=== PATIENT | male | born 1950 | race Caucasian/White ===

== ENCOUNTER 2019-04-18 07:36 | Inpatient (IN) | payer MEDICARE ==
[~2019-04-18 07:36] MED LIST: LIDOCAINE 1% 20 ML VIAL (10MG/ML) FOR IV START INTRADERMA PRN
[2019-04-18] MEDS: LACTATED RINGERS 1,000 ML IV SCH (08:09)
[2019-04-18 08:14] LABS: Glucose,Whole Blood 97 mg/dL (75-99)
[2019-04-18] MEDS ORDERED: METOPROLOL TARTRATE 5 MG/5 ML VIAL IVP ONE ×2 (08:14→08:28)
[2019-04-18] MEDS ORDERED: LABETALOL 5 MG/ML VIAL MDV IVP ONE (08:44)
[2019-04-18 09:52] LABS: HCT 23.4 % (39.0-53.0); HGB 7.2 gm/dL (13.0-17.5); Hypochromasia Marked; MCV 87.2 fL (80.0-100.0); Mean Platelet Volume 6.2; Platelet Count 284 k/uL (150-450); RBC 2.68 m/uL (4.30-5.90); RDW 15.3 % (11.5-15.5); WBC 4.4 k/uL (3.8-10.6)
[2019-04-18] MEDS: IPRATROPIUM-ALBUTEROL 3 ML NEB INHALATION SCH ×3 (10:07→19:43)
[2019-04-18] MEDS ORDERED: DILTIAZEM 5 MG/ML 5 ML VIAL IVP STA (10:24)
[2019-04-18] MEDS ORDERED: DILTIAZEM DRIP BOLUS FROM BAG 1 MG SOLN IV ONE (10:24)
[2019-04-18] MEDS: DILTIAZEM 125 MG in SODIUM CHLORIDE 0.9% 100 ML IV SCH ×2 (10:55→20:21)
--- NOTE | 2019-04-18 11:02 | P.CRDCN ---
History of Present Illness History of present illness: This is a pleasant 68 showed male past medical history significant for paroxysmal atrial fibrillation on long-term anticoagulation, hypertension, dyslipidemia, diabetes mellitus and former nicotine dependence. He was brought into the hospital today for an elective EGD with Dr. Arnold. However upon arrival telemetry tracings revealed a rapid heart rate. EKG was obtained revea ling atrial flutter with a 2:1 conduction. He is seen and examined sitting up in postoperative recovery. He states he has not taken his beta blockers for approximately one week on advice of his primary care physician prior to his EGD. Coumadin was stopped 2 days ago. He states for the previous 2-3 days he has noticed dark stools. He does have a history of chronic anemia however does not typically have any stool abnormalities. He has never received a blood transfusion in the past. He denies prior history of coronary artery disease. He states he has seen Dr. Finney in the past however does not follow regularly. He has never had a heart catheterization or angioplasty. He describes feeling his heart racing. He denies chest discomfort, shortness of breath, dizziness, nausea, vomiting or diaphoresis. CBC obtained preoperatively revealed a hemoglobin of 7.2, WBC of 4.4 and platelets of 284. Blood pressure 126/80 with a heart rate of 134. At the time of my exam: CONSTITUTIONAL: Denies fever. Denies chills. EYES: Denies blurred vision. Denies vision changes. Denies eye pain. EARS, NOSE, MOUTH & THROAT: Denies headache. Denies sore throat. Denies ear pain. CARDIOVASCULAR: Denies chest pain. Denies shortness of breath. Denies orthopnea. Denies PND. Complains of palpitations. RESPIRATORY: Denies cough. GASTROINTESTINAL: Denies abdominal pain. Denies diarrhea. Denies constipation. Denies nausea. Denies vomiting. MUSCULOSKELETAL: Denies myalgias. INTEGUMENTARY: Denies pruitis. Denies rash. NEUROLOGIC: Denies numbness. Denies tingling. Denies weakness. PSYCHIATRIC: Denies anxiety. Denies depression. ENDOCRINE: Denies fatigue. Denies weight change. Denies polydipsia. Denies polyurina. GENITOURINARY: Denies burning, hematuria or urgency with micturation. HEMATOLOGIC: Denies history of anemia. Denies bleeding. GENERAL: This is a 68-year-old male in no apparent distress at the time of my examination. HEENT: Head is atraumatic, normocephalic. Pupils are equal, round. Sclerae anicteric. Conjunctivae are clear. Mucous membranes of the mouth are moist. Neck is supple. There is no jugular venous distention. No carotid bruit is heard. Generalized pallor. LUNGS: Clear to auscultation no wheezes, rales or rhonchi. No chest wall tenderness is noted on palpation or with deep breathing. HEART: Regular rate and rhythm without murmurs, rubs or gallops. S1 and S2 hear d. ABDOMEN: Soft, nontender. Bowel sounds are heard. No organomegaly noted. EXTREMITIES: No evidence of peripheral edema and no calf tenderness noted. VASCULAR: Radial and dorsalis pedis pulses palpated, no evidence of clubbing. NEUROLOGIC: Patient is awake, alert and oriented x3. ASSESSMENT Typical atrial flutter with 2:1 conduction Possible GI bleed with 2 day history of black stools and hemoglobin of 7.2 Chronic anemia per the patient exact details unavailable. He states he has never had to receive a blood transfusion. History of paroxysmal atrial fibrillation on long-term anticoagulation Hypertension Dyslipidemia Diabetes mellitus Former nicotine dependence PLAN Initiate on Cardizem infusion and bolus. Baseline hemoglobin is 7.2 with no old for comparison. The patient does descr chito some black stools over the previous 3 days. We'll hold on heparin infusion or resumption of Coumadin until evaluation by GI. Obtain 2-D echocardiogram and Doppler study to assess cardiac structure and function. Request records from his primary care physician for further clarification on history of anemia as well as cardiac history. Further recommendations to follow based upon clinical course. Thank you kindly for this consultation. Nurse Practitioner note has been reviewed, I agree with a documented findings and plan of care. Patient was seen and examined. Past Medical History Past Medical History: Atrial Fibrillation, Diabetes Mellitus, Hyperlipidemia, Hypertension, Pulmonary Embolus (PE), Seizure Disorder Additional Past Medical History / Comment(s): pt states was told he had a seizure-unknown when. History of Any Multi-Drug Resistant Organisms: None Reported Additional Past Surgical History / Comment(s): COLONOSCOPY. BRONCHOSCOPY Past Anesthesia/Blood Transfusion Reactions: No Reported Reaction Smoking Status: Former smoker - Past Family History Brother(s) Family Medical History: Cancer Medications and Allergies Home Medications Medication Instructions Recorded Confirmed Type Ferrous Sulfate [Feosol] 325 mg PO DAILY 04/14/19 04/14/19 History Losartan [Cozaar] 50 mg PO DAILY 04/14/19 04/14/19 History Metoprolol Tartrate [Lopressor] 50 mg PO DAILY 04/14/19 04/14/19 History Montelukast [Singulair] 10 mg PO DAILY 04/14/19 04/14/19 History Simvastatin [Zocor] 20 mg PO HS 04/14/19 04/14/19 History Vardenafil HCl [Levitra] 5 mg PO BID 04/14/19 04/14/19 History Warfarin [Coumadin] 5 mg PO DAILY 04/14/19 04/14/19 History metFORMIN HCL [Glucophage] 850 mg PO BID 04/14/19 04/14/19 History Allergies Allergy/AdvReac Type Severity Reaction Status Date / Time No Known Allergies Allergy Verified 04/18/19 08:00 Physical Exam Vitals: Vital Signs Temp Pulse Pulse Resp BP BP Pulse Ox 04/18/19 10:10 133 H 18 04/18/19 10:00 132 H 22 119/78 99 04/18/19 09:55 133 H 18 04/18/19 09:20 131 H 107/64 125/83 04/18/19 09:00 134 H 119/81 04/18/19 08:50 132 H 122/75 04/18/19 08:35 135 H 122/79 04/18/19 08:25 137 H 16 118/81 124/79 98 04/18/19 08:04 98.3 F 140 H 16 156/78 96 Intake and Output 04/17/19 04/18/19 04/18/19 22:59 06:59 14:59 Other: Weight 86 kg Results 04/18/19 09:10 CBC 04/18/19 Range/Units 09:10 WBC 4.4 (3.8-10.6) k/uL RBC 2.68 L (4.30-5.90) m/uL Hgb 7.2 L (13.0-17.5) gm/dL Hct 23.4 L (39.0-53.0) % Plt Count 284 (150-450) k/uL Current Medications Generic Name Dose Route Start Last Admin Trade Name Freq PRN Reason Stop Dose Admin Albuterol/Ipratropium 3 ml 04/18/19 12:00 04/18/19 10:07 Duoneb 0.5 Mg-3 Mg/3 Ml Soln INHALATION 3 ml RT-Q4H TAN Administration Lactated Ringer's 1,000 mls @ 20 mls/hr 04/18/19 05:33 04/18/19 08:09 Lactated Ringers IV 0 mls .Q24H TAN Administration Diltiazem HCl 125 mg/ Sodium 125 mls @ 10 mls/hr 04/18/19 10:30 Chloride IV .[id number] ATN 10 MG/HR Lidocaine HCl 0.1 ml 04/18/19 05:33 04/18/19 08:09 .Xylocaine 1% Inj (10mg/Ml) For Iv Start INTRADERMA 0.1 ml PER PROTOCOL PRN Administration IV Start Losartan Potassium 50 mg 04/19/19 09:00 Cozaar PO DAILY TAN Metoprolol Tartrate 50 mg 04/19/19 09:00 Lopressor PO DAILY TAN Non-Formulary Medication 20 mg 04/18/19 21:00 Simvastatin PO HS TAN Intake and Output 04/17/19 04/18/19 04/18/19 22:59 06:59 14:59 Other: Weight 86 kg Patient Weight 04/19/19 06:59 Weight 86 kg 04/18/19 09:10
[2019-04-18 13:32] LABS: Glucose,Whole Blood 159 mg/dL (75-99)
[2019-04-18 16:19] LABS: Glucose,Whole Blood 126 mg/dL (75-99)
[2019-04-18 16:38] LABS: African American GFR (CKD) >90 (>60 ml/min/1.73 sqM); Anion Gap 6 mmol/L; Blood Urea Nitrogen 21 mg/dL (9-20); Calcium 9.1 mg/dL (8.4-10.2); Carbon Dioxide 34 mmol/L (22-30); Chloride 100 mmol/L (98-107); Glucose 109 mg/dL (74-99); Potassium 4.8 mmol/L (3.5-5.1); Sodium 140 mmol/L (137-145)
[2019-04-18 16:39] LABS: INR 1.2 (<1.2)
[2019-04-18 16:40] LABS: Prothrombin Time 12.5 sec (9.0-12.0)
--- NOTE | 2019-04-18 17:34 | ECHOF ---
Referral Reason:a flutter MEASUREMENTS -------- HEIGHT: 177.8 cm WEIGHT: 85.7 kg BP: 119/78 RVIDd: 4.2 cm (< 3.3) IVSd: 1.3 cm (0.6 - 1.1) LVIDd: 4.6 cm (3.9 - 5.3) LVPWd: 1.6 cm (0.6 - 1.1) IVSs: 2.1 cm LVIDs: 4.1 cm LVPWs: 1.7 cm LAESV Index (A-L): 78.53 ml/m Ao Diam: 2.8 cm (2.0 - 3.7) AV Cusp: 1.5 cm (1.5 - 2.6) AR PHT: 411 ms RAP: 15.00 mmHg RVSP: 49.48 mmHg FINDINGS -------- The rhythm appears to be atrial flutter with RVR. This was a technically adequate study. The left ventricular size is normal. There is moderate concentric left ventricular hypertrophy. O verall left ventricular systolic function is moderately impaired with, an EF between 35 - 40 %. Lef t ventricular fillimg pressure cannot be estimated due to Atrial flutter. . Difficult to assess lv function accurately because of tachycardia. There doesn't seem to be any focal wall motion abnormali ty. lv function probably WILL BE much better when heart rate is controlled The right ventricle is severely enlarged. LA is severely dilated >40 ml/m2 RA appears enlarged. Interatrial and interventricular septum intact. There is mild aortic regurgitation. There is no evidence of aortic stenosis. mitral regurgitation is not well evaluated due to rhythm. Moderate tricuspid regurgitation present (underestimated due to rhythm) . There is severe pulmonary hypertension. The right ventricular systolic pressure, as measured by Doppler, is 49.48mmHg. There is no pulmonic regurgitation present. The aortic root size is normal. The inferior vena cava is dilated with poor inspiratory collapse which is consistent with estimated r ight atrial pressure of 20 mmHg. There is no pericardial effusion. CONCLUSIONS -------- 1. The rhythm appears to be atrial flutter with RVR. 2. This was a technically adequate study. 3. The left ventricular size is normal. 4. There is moderate concentric left ventricular hypertrophy. 5. Left ventricular fillimg pressure cannot be estimated due to Atrial flutter. 6. . Difficult to assess lv function accurately because of tachycardia. There doesn't seem to be an y focal wall motion abnormality. lv function probably WILL BE much better when heart rate is control led 7. The right ventricle is severely enlarged. 8. LA is severely dilated >40 ml/m2 9. RA appears enlarged. 10. Interatrial and interventricular septum intact. 11. There is mild aortic regurgitation. 12. There is no evidence of aortic stenosis. 13. mitral regurgitation is not well evaluated due to rhythm. 14. Moderate tricuspid regurgitation present. 15. There is severe pulmonary hypertension. 16. The right ventricular systolic pressure, as measured by Doppler, is 49.48mmHg. 17. There is no pulmonic regurgitation present. 18. The aortic root size is normal. 19. The inferior vena cava is dilated with poor inspiratory collapse which is consistent with estimat ed right atrial pressure of 20 mmHg. 20. There is no pericardial effusion. SENIOR PLANNING ANALYST: Prudence Fischer RDCS
[2019-04-18 20:18] LABS: Glucose,Whole Blood 123 mg/dL (75-99)
[2019-04-18] MEDS: VARDENAFIL HCL PO SCH (20:19)
[2019-04-18] MEDS: metFORMIN 850 MG TAB PO SCH (20:20)
[2019-04-18] MEDS: ATORVASTATIN 10 MG TAB PO SCH (20:20)
[2019-04-19] MEDS: IPRATROPIUM-ALBUTEROL 3 ML NEB INHALATION SCH ×6 (00:40→19:32)
[2019-04-19] MEDS: LACTATED RINGERS 1,000 ML IV SCH (05:47)
[2019-04-19 06:25] LABS: Glucose,Whole Blood 117 mg/dL (75-99)
[2019-04-19] MEDS: metFORMIN 850 MG TAB PO SCH ×2 (08:52→19:58)
[2019-04-19] MEDS: LOSARTAN 50 MG TAB PO SCH (08:52)
[2019-04-19] MEDS: FERROUS SULFATE 325 MG TAB PO SCH (08:52)
[2019-04-19] MEDS: MONTELUKAST 10 MG TAB PO SCH (08:52)
[2019-04-19] MEDS: VARDENAFIL HCL PO SCH ×2 (08:55→19:59)
[2019-04-19] MEDS ORDERED: METOPROLOL TARTRATE 50 MG TAB PO SCH (09:00)
[2019-04-19] MEDS: Acetaminophen-Codeine 300-30mg TAB PO PRN ×2 (10:10→16:00)
[2019-04-19] MEDS: DILTIAZEM 125 MG in SODIUM CHLORIDE 0.9% 100 ML IV SCH (10:12)
[2019-04-19 11:36] LABS: Glucose,Whole Blood 123 mg/dL (75-99)
[2019-04-19 12:00] LABS: Basophils % (A) 1 %; Eosinophils % (A) 1 %; HGB 7.5 gm/dL (13.0-17.5); Hypochromasia Marked; Lymphocytes # (A) 0.9 k/uL (1.0-4.8); Lymphocytes % (A) 26 %; MCH 26.9 pg (25.0-35.0); MCHC 30.1 g/dL (31.0-37.0); MCV 89.3 fL (80.0-100.0); Mean Platelet Volume 6.2; Monocytes # (A) 0.3 k/uL (0-1.0); Monocytes % (A) 7 %; Neutrophils # (A) 2.2 k/uL (1.3-7.7); Neutrophils % (A) 62 %; Platelet Count 300 k/uL (150-450); RDW 15.5 % (11.5-15.5); WBC 3.6 k/uL (3.8-10.6)
[2019-04-19 12:19] LABS: African American GFR (CKD) >90 (>60 ml/min/1.73 sqM); Anion Gap 4 mmol/L; Blood Urea Nitrogen 18 mg/dL (9-20); Carbon Dioxide 30 mmol/L (22-30); Chloride 105 mmol/L (98-107); Glucose 96 mg/dL (74-99); Potassium 5.7 mmol/L (3.5-5.1); Sodium 139 mmol/L (137-145)
--- NOTE | 2019-04-19 12:35 | P.PN ---
Subjective Progress Note Date: 04/19/19 This is a pleasant 68 showed male past medical history significant for paroxysmal atrial fibrillation on long-term anticoagulation, hypertension, dyslipidemia, diabetes mellitus and former nicotine dependence. He was brought into the hospital today for an elective EGD with Dr. Arnold. However upon arrival telemetry tracings revealed a rapid heart rate. EKG was obtained revealing atrial flutter with a 2:1 conduction. Patient had an echocardiogram with Doppler study performed which revealed an ejection fraction of 35-40%. We will discontinue the IV Cardizem and increase his dose of beta maynor to 50 mg by mouth twice a day. He scheduled for EGD and colonoscopy, currently not on anticoagulation. Objective - Vital Signs Vital signs: Vital Signs Temp 97.6 F 04/19/19 11:43 Pulse 70 04/19/19 11:43 Resp 18 04/19/19 11:43 BP 105/64 04/19/19 11:43 Pulse Ox 98 04/19/19 11:43 Intake & Output 04/18/19 04/19/19 04/19/19 18:59 06:59 18:59 Intake Total 222 450 125 Output Total 950 2 Balance -728 448 125 Weight 86 kg 84.2 kg Intake: Intake, IV Titration 90 125 Amount Diltiazem 125 mg In 90 125 Sodium Chloride 0.9% 100 ml @ 10 MG/HR 10 mls/hr IV .[id number] COUNT INCLUDES THE [facility] Rx#: [id number] Oral 222 360 Output: Urine 950 Stool 2 Other: Voiding Method Toilet Toilet Toilet # Voids 3 - Exam HEENT: Head is atraumatic, normocephalic. Pupils are equal, round. Sclerae anict bibiana. Conjunctivae are clear. Mucous membranes of the mouth are moist. Neck is supple. There is no jugular venous distention. No carotid bruit is heard. Generalized pallor. LUNGS: Clear to auscultation no wheezes, rales or rhonchi. No chest wall tenderness is noted on palpation or with deep breathing. HEART: Regular rate and rhythm without murmurs, rubs or gallops. S1 and S2 heard. ABDOMEN: Soft, nontender. Bowel sounds are heard. No organomegaly noted. EXTREMITIES: No evidence of peripheral edema and no calf tenderness noted. VASCULAR: Radial and dorsalis pedis pulses palpated, no evidence of clubbing. NEUROLOGIC: Patient is awake, alert and oriented x3. - Labs CBC & Chem 7: 04/19/19 11:13 04/19/19 11:13 Labs: Abnormal Lab Results - Last 24 Hours (Table) 04/18/19 04/18/19 04/18/19 Range/Units 13:31 16:14 16:14 WBC (3.8-10.6) k/uL RBC (4.30-5.90) m/uL Hgb (13.0-17.5) gm/dL Hct (39.0-53.0) % MCHC (31.0-37.0) g/dL Lymphocytes # (1.0-4.8) k/uL PT 12.5 H (9.0-12.0) sec INR 1.2 H (<1.2) Potassium (3.5-5.1) mmol/L Carbon Dioxide 34 H (22-30) mmol/L BUN 21 H (9-20) mg/dL Glucose 109 H (74-99) mg/dL POC Glucose (mg/dL) 159 H (75-99) mg/dL 04/18/19 04/18/19 04/19/19 Range/Units 16:18 20:16 06:24 WBC (3.8-10.6) k/uL RBC (4.30-5.90) m/uL Hgb (13.0-17.5) gm/dL Hct (39.0-53.0) % MCHC (31.0-37.0) g/dL Lymphocytes # (1.0-4.8) k/uL PT (9.0-12.0) sec INR (<1.2) Potassium (3.5-5.1) mmol/L Carbon Dioxide (22-30) mmol/L BUN (9-20) mg/dL Glucose (74-99) mg/dL POC Glucose (mg/dL) 126 H 123 H 117 H (75-99) mg/dL 04/19/19 04/19/19 04/19/19 Range/Units 11:13 11:13 11:34 WBC 3.6 L (3.8-10.6) k/uL RBC 2.80 L (4.30-5.90) m/uL Hgb 7.5 L (13.0-17.5) gm/dL Hct 25.0 L (39.0-53.0) % MCHC 30.1 L (31.0-37.0) g/dL Lymphocytes # 0.9 L (1.0-4.8) k/uL PT (9.0-12.0) sec INR (<1.2) Potassium 5.7 H (3.5-5.1) mmol/L Carbon Dioxide (22-30) mmol/L BUN (9-20) mg/dL Glucose (74-99) mg/dL POC Glucose (mg/dL) 123 H (75-99) mg/dL Assessment and Plan Plan: ASSESSMENT and plan #1 Typical atrial flutter with 2:1 conduction #2 Possible GI bleed with 2 day history of black stools and hemoglobin of 7.5 #3 Chronic anemia per the patient exact details unavailable. He states he has never had to receive a blood transfusion. #4 History of paroxysmal atrial fibrillation on long-term anticoagulation #5 Hypertension #6 Dyslipidemia #7 Diabetes mellitus #8 Former nicotine dependence Plan Echocardiogram with Doppler study reveals an ejection fraction of 35-40%. We will discontinue the IV Cardizem drip and increase beta maynor to 50 mg by mouth twice a day. Patient continues to not be on anticoagulation, but will require anticoagulation for stroke prevention. We will await the results of the EGD and colonoscopy and advice from GI service. DNP note has been reviewed, I agree with a documented findings and plan of care. Patient was seen and examined.
[2019-04-19] MEDS ORDERED: BISACODYL 5 MG TABLET.DR PO STA (16:33)
[2019-04-19] MEDS ORDERED: PEG 3350-NA SULF,BICARB,CL/KCL 4,000 ML BOTTLE PO ONE (16:34)
[2019-04-19 16:51] LABS: Glucose,Whole Blood 110 mg/dL (75-99)
--- NOTE | 2019-04-19 19:25 | P.CONS ---
History of Present Illness - Reason for Consult Consult date: 04/19/19 Anemia Requesting physician: Shon Flores - Chief Complaint Atrial fibrillation - History of Present Illness 68-year-old male with a medical history significant for paroxysmal atrial fibrillation on long-term anticoagulation therapy, diabetes mellitus, hypertension, hyperlipidemia and anemia who was admitted after being found to be in atrial fibrillation/atrial flutter on presentation for outpatient endoscopic evaluation. The patient reports he has had anemia noted over the past 6 months. He has been following up with hematology service. He is on iron supplement ation in the outpatient setting. He denies any signs or symptoms of GI bleeding, but does believe that his stool have been dark. He had presented for outpatient EGD and colonoscopy for further evaluation. He does report his last colonoscopy was approximately 7 years ago at which time he believes polyps were found. He denies any other signs or symptoms of GI bleeding with no hematemesis, coffee-ground emesis, blood in the urine or other signs of GI bleeding or other bleeding. The patient denies any NSAID use and reports taking Tylenol as needed for pain. The patient was found to be tachycardic and has been admitted for further management. Heart rate improved today at 110 when seen from 134 on admission. Blood pressure remains stable. Laboratory evaluation significant for WBC 3.6, hemoglobin 7.5 from 7.2 previously, INR 1.2, and platelet count 300,000. Review of Systems REVIEW OF SYSTEMS: CONSTITUTIONAL: Denies any fevers, chills, weight change or fatigue. CARDIOVASCULAR: Denies any chest pain, high or low blood pressure, but does have a known history of proximal atrial fibrillation and did report palpitations on admission. RESPIRATORY: Denies any shortness of breath, hemoptysis or cough. GENITOURINARY: No dysuria or hematuria. MUSCULOSKELETAL: No weakness reported. SKIN: Denies any new rashes or lesions, jaundice or pallor. PSYCHIATRIC: Denies any depression or anxiety. NEUROLOGY: Denies headache, denies any new focal deficits. EARS/NOSE/THROAT: No recent hearing change, congestion, nasal discharge or sore throat. EYES: No pain in eyes, discharge or change in vision. GASTROINTESTINAL: As per HPI. Past Medical History Past Medical History: Atrial Fibrillation, Diabetes Mellitus, Hyperlipidemia, Hypertension, Pulmonary Embolus (PE), Seizure Disorder Additional Past Medical History / Comment(s): pt states was told he had a seizu re-unknown when. History of Any Multi-Drug Resistant Organisms: None Reported Additional Past Surgical History / Comment(s): COLONOSCOPY. BRONCHOSCOPY Past Anesthesia/Blood Transfusion Reactions: No Reported Reaction Past Psychological History: No Psychological Hx Reported Smoking Status: Former smoker Past Alcohol Use History: None Reported Additional Past Alcohol Use History / Comment(s): QUIT SMOKING 2014 Past Drug Use History: Marijuana Additional Drug Use History / Comment(s): USES MARIJUANA DAILY-INSTRUCTED TO REFRAIN FROM USE FOR AT LEAT 24 HOURS PRIOR TO PROCEDURE - Past Family History Brother(s) Family Medical History: Cancer Medications and Allergies Home Medications Medication Instructions Recorded Confirmed Type Ferrous Sulfate [Feosol] 325 mg PO DAILY 04/14/19 04/14/19 History Losartan [Cozaar] 50 mg PO DAILY 04/14/19 04/14/19 History Metoprolol Tartrate [Lopressor] 50 mg PO DAILY 04/14/19 04/14/19 History Montelukast [Singulair] 10 mg PO DAILY 04/14/19 04/14/19 History Simvastatin [Zocor] 20 mg PO HS 04/14/19 04/14/19 History Vardenafil HCl [Levitra] 5 mg PO BID 04/14/19 04/14/19 History Warfarin [Coumadin] 5 mg PO DAILY 04/14/19 04/14/19 History metFORMIN HCL [Glucophage] 850 mg PO BID 04/14/19 04/14/19 History Allergies Allergy/AdvReac Type Severity Reaction Status Date / Time No Known Allergies Allergy Verified 04/18/19 08:00 Physical Exam Vitals: Vital Signs Temp Pulse Pulse Resp BP Pulse Ox 04/19/19 12:44 112 H 04/19/19 12:34 104 H 04/19/19 11:43 97.6 F 70 18 105/64 98 04/19/19 08:44 116 H 04/19/19 08:32 120 H 04/19/19 08:00 98.1 F 120 H 18 132/80 98 04/19/19 04:28 116 H 04/19/19 04:19 112 H 04/19/19 03:28 111 H 16 04/19/19 03:27 97.7 F 111 H 16 106/71 98 04/19/19 00:45 116 H 04/19/19 00:34 116 H 04/19/19 00:00 98 F 110 H 18 134/76 99 04/18/19 23:49 127 H 18 04/18/19 20:00 97.8 F 120 H 18 104/63 97 04/18/19 19:56 118 H 18 04/18/19 19:43 120 H 18 04/18/19 15:33 130 H 20 04/18/19 15:25 95 04/18/19 15:23 129 H 20 04/18/19 14:00 97.6 F 127 H 16 105/61 91 L 04/18/19 13:18 123 H Intake and Output 04/18/19 04/19/19 04/19/19 22:59 06:59 14:59 Intake Total 342 330 125 Output Total 2 Balance 340 330 125 Intake: Intake, IV Titration 90 125 Amount Diltiazem 125 mg In 90 125 Sodium Chloride 0.9% 100 ml @ 10 MG/HR 10 mls/hr IV .[id number] [facility] Rx#: [id number] Oral 342 240 Output: Stool 2 Other: Voiding Method Toilet Toilet Toilet # Voids 3 3 Weight 84.2 kg On physical examination, patient appears comfortable in no apparent distress. HEAD: Normocephalic, atraumatic. EYES: No scleral icterus. No conjunctival injection. MOUTH: No lesions, tongue midline. NECK: Trachea midline, no gross abnormalities. CHEST: Clear to auscultation with no wheezing or rhonchi appreciated. HEART: Tachycardic, irregularly irregular. ABDOMEN: Soft, obese. Bowel sounds are positive. No organomegaly. No guarding or rigidity. EXTREMITIES: No pedal edema. SKIN: No rashes, no jaundice. NEUROLOGIC: Alert and oriented x3. No focal deficits. Results CBC & Chem 7: 04/19/19 11:13 04/19/19 11:13 Labs: Abnormal Lab Results - Last 24 Hours (Table) 04/18/19 04/18/19 04/18/19 Range/Units 13:31 16:14 16:14 WBC (3.8-10.6) k/uL RBC (4.30-5.90) m/uL Hgb (13.0-17.5) gm/dL Hct (39.0-53.0) % MCHC (31.0-37.0) g/dL Lymphocytes # (1.0-4.8) k/uL PT 12.5 H (9.0-12.0) sec INR 1.2 H (<1.2) Potassium (3.5-5.1) mmol/L Carbon Dioxide 34 H (22-30) mmol/L BUN 21 H (9-20) mg/dL Glucose 109 H (74-99) mg/dL POC Glucose (mg/dL) 159 H (75-99) mg/dL 04/18/19 04/18/19 04/19/19 Range/Units 16:18 20:16 06:24 WBC (3.8-10.6) k/uL RBC (4.30-5.90) m/uL Hgb (13.0-17.5) gm/dL Hct (39.0-53.0) % MCHC (31.0-37.0) g/dL Lymphocytes # (1.0-4.8) k/uL PT (9.0-12.0) sec INR (<1.2) Potassium (3.5-5.1) mmol/L Carbon Dioxide (22-30) mmol/L BUN (9-20) mg/dL Glucose (74-99) mg/dL POC Glucose (mg/dL) 126 H 123 H 117 H (75-99) mg/dL 04/19/19 04/19/19 04/19/19 Range/Units 11:13 11:13 11:34 WBC 3.6 L (3.8-10.6) k/uL RBC 2.80 L (4.30-5.90) m/uL Hgb 7.5 L (13.0-17.5) gm/dL Hct 25.0 L (39.0-53.0) % MCHC 30.1 L (31.0-37.0) g/dL Lymphocytes # 0.9 L (1.0-4.8) k/uL PT (9.0-12.0) sec INR (<1.2) Potassium 5.7 H (3.5-5.1) mmol/L Carbon Dioxide (22-30) mmol/L BUN (9-20) mg/dL Glucose (74-99) mg/dL POC Glucose (mg/dL) 123 H (75-99) mg/dL Assessment and Plan (1) Iron deficiency anemia Narrative/Plan: 68-year-old male with multiple medical comorbidities who initially presented for outpatient endoscopic evaluation with EGD and colonoscopy for further evaluation of iron deficiency anemia which the patient is currently receiving iron supplementation. At that time the patient was found to have atrial flutter and was tachycardic and decision was made for admission for further evaluation. In terms of anemia patient reports that this is present for at least 6 months that he is concerned iron supplementation. He denies any prior history of GI bleeding. No prior EGD, but last colonoscopy was 7 years ago significant for polyps. No family history of colon cancer. Denies any signs or symptoms GI bleeding. Current Visit: Yes Status: Acute Code(s): D50.9 - IRON DEFICIENCY ANEMIA, UNSPECIFIED SNOMED Code(s): 99124409 (2) History of colon polyps Current Visit: Yes Status: Acute Code(s): Z86.010 - PERSONAL HISTORY OF COLONIC POLYPS SNOMED Code(s): 060351481 Plan: Supportive care Okay for liquids, nothing by mouth after midnight Dulcolax and GoLYTELY prep ordered tonight Plan for EGD and colonoscopy tomorrow, with video capsule endoscopy to follow if no source of bleeding is found Continue to hold anticoagulation therapy Appreciate recommendations from cardiology service Thank you for allowing us to participate in the care of the patient, we will continue to follow
[2019-04-19] MEDS: ATORVASTATIN 10 MG TAB PO SCH (19:58)
[2019-04-19] MEDS: METOPROLOL TARTRATE 50 MG TAB PO SCH (19:58)
--- NOTE | 2019-04-19 20:36 | P.HPIM ---
History of Present Illness H&P Date: 04/19/19 Chief Complaint: Heart racing History of presenting complaint: This is a pleasant 68-year-old patient of Dr. Genesis Morales. Chronic stable medical conditions include diabetes, hypertension, hyperlipidemia, had been chronically on Coumadin for pulmonary embolism. Patient was scheduled for his regular colonoscopy yesterday morning. By Dr. Pepe. He has stopped his beta maynor about a week ago. Stopped his Coumadin 2 days ago. For last 3 days he had noted Dr. lopez. In the preop area patient is found to have a rapid heart rate. Found to be in atrial flutter was to start one block. Cardiology was called. Patient started on a Cardizem drip. Admitted to the [facility]. Patient has been feeling his heart racing. No chest pressure. No dizziness or lightheadedness. Patient about a month ago states was feeling weak and tired and had fallen down. And he felt as though part of his right arm. It may have been a stroke. He fully recovered power in the right arm. Never followed up with any physician. No prior history of coronary artery disease. No prior history of fibrillation. Has followed up by training executive, Dr. Finney in the past. Review of systems: GEN.: Tired EYES: None HEENT: None NECK: None RESPIRATORY: None CARDIOVASCULAR: As above GASTROINTESTINAL: As above GENITOURINARY: None MUSCULOSKELETAL: None LYMPHATICS: None HEMATOLOGICAL: None PSYCHIATRY: None NEUROLOGICAL: As above Social history: -Patient stopped smoking 2014. Does marijuana occasionally. Lives alone. Family history: Cancer Physical examination: VITAL SIGNS: 98.3, 140, 16, 156/78, and 9 6% 3 L GENERAL: 26.6, laying in bed, comfortable. EYES: Pupils equal. Conjunctiva palel. HEENT: External appearance of nose and ears normal, oral cavity grossly normal. NECK: JVD not raised; masses not palpable. HEART: Heart sounds are regular; no edema. LUNGS: Respiratory rate normal; clear to auscultation. ABDOMEN: Soft, nontender, liver spleen not palpable, no masses palpable. PSYCH: Alert and oriented x3; mood and affect normal. NEUROLOGICAL: Cranial nerves grossly intact; no facial asymmetry, power and sensation grossly intact. LYMPHATICS: No lymph nodes palpable in the axilla and neck INVESTIGATIONS, reviewed in the clinical context: White count 3.6 hemoglobin 7.5 platelets 300 potassium 5.7 BUN 18 creatinine 0.94 2-D echo shows moderate concentric left ventricular hypertrophy, EF 35-40% no focal wall motion abnormality Assessment: -New onset of atrial flutter with 2 used to work in conduction with rapid ventricular rate -Acute GI bleed in a patient who's been on Coumadin for underlying problem embolism that was stopped about a week ago -Acute blood loss anemia from GI bleed -Cardiomyopathy EF 35-40%, cause unknown. It could be hypertensive but need to rule out underlying coronary artery disease -Severe secondary probably hypertension, exact cause currently unknown -Moderate tricuspid regurgitation, nontraumatic -Hypertensive heart disease -Diabetes mellitus type 2 -Hyperlipidemia -Essential hypertension Plan: Patient is put on a Cardizem drip. Anticoagulation is being held up because of GI bleed. She is being scheduled for EGD tomorrow. Cardiology was consulted. Patient will need cardiac catheterization at some point. Accu-Cheks will be followed with sliding scale insulin. We will do a computed tomography scan of the brain without contrast and carotid Doppler review of the recent episode of patient nearly passing out and weakness of the right arm. Care was discussed with the patient question were answered. Past Medical History Past Medical History: Atrial Fibrillation, Diabetes Mellitus, Hyperlipidemia, Hypertension, Pulmonary Embolus (PE), Seizure Disorder Additional Past Medical History / Comment(s): pt states was told he had a seizure-unknown when. History of Any Multi-Drug Resistant Organisms: None Reported Additional Past Surgical History / Comment(s): COLONOSCOPY. BRONCHOSCOPY Past Anesthesia/Blood Transfusion Reactions: No Reported Reaction Past Psychological History: No Psychological Hx Reported Smoking Status: Former smoker Past Alcohol Use History: None Reported Additional Past Alcohol Use History / Comment(s): QUIT SMOKING 2014 Past Drug Use History: Marijuana Additional Drug Use History / Comment(s): USES MARIJUANA DAILY-INSTRUCTED TO REFRAIN FROM USE FOR AT LEAT 24 HOURS PRIOR TO PROCEDURE - Past Family History Brother(s) Family Medical History: Cancer Medications and Allergies Home Medications Medication Instructions Recorded Confirmed Type Ferrous Sulfate [Feosol] 325 mg PO DAILY 04/14/19 04/14/19 History Losartan [Cozaar] 50 mg PO DAILY 04/14/19 04/14/19 History Metoprolol Tartrate [Lopressor] 50 mg PO DAILY 04/14/19 04/14/19 History Montelukast [Singulair] 10 mg PO DAILY 04/14/19 04/14/19 History Simvastatin [Zocor] 20 mg PO HS 04/14/19 04/14/19 History Vardenafil HCl [Levitra] 5 mg PO BID 04/14/19 04/14/19 History Warfarin [Coumadin] 5 mg PO DAILY 04/14/19 04/14/19 History metFORMIN HCL [Glucophage] 850 mg PO BID 04/14/19 04/14/19 History Allergies Allergy/AdvReac Type Severity Reaction Status Date / Time No Known Allergies Allergy Verified 04/18/19 08:00 Physical Exam Vitals: Vital Signs Temp Pulse Pulse Pulse Resp BP BP 04/19/19 08:44 116 H 04/19/19 08:32 120 H 04/19/19 08:00 98.1 F 120 H 18 132/80 04/19/19 04:28 116 H 04/19/19 04:19 112 H 04/19/19 03:28 111 H 16 04/19/19 03:27 97.7 F 111 H 16 106/71 04/19/19 00:45 116 H 04/19/19 00:34 116 H 04/19/19 00:00 98 F 110 H 18 134/76 04/18/19 23:49 127 H 18 04/18/19 20:00 97.8 F 120 H 18 104/63 04/18/19 19:56 118 H 18 04/18/19 19:43 120 H 18 04/18/19 15:33 130 H 20 04/18/19 15:25 04/18/19 15:23 129 H 20 04/18/19 14:00 97.6 F 127 H 16 105/61 04/18/19 13:18 123 H 04/18/19 11:38 133 H 16 123/77 04/18/19 11:26 133 H 18 121/77 04/18/19 11:11 132 H 16 136/90 04/18/19 10:56 134 H 16 126/80 Pulse Ox 04/19/19 08:44 04/19/19 08:32 04/19/19 08:00 98 04/19/19 04:28 04/19/19 04:19 04/19/19 03:28 04/19/19 03:27 98 04/19/19 00:45 04/19/19 00:34 04/19/19 00:00 99 04/18/19 23:49 04/18/19 20:00 97 04/18/19 19:56 04/18/19 19:43 04/18/19 15:33 04/18/19 15:25 95 04/18/19 15:23 04/18/19 14:00 91 L 04/18/19 13:18 04/18/19 11:38 98 04/18/19 11:26 97 04/18/19 11:11 96 04/18/19 10:56 96 Intake and Output 04/18/19 04/19/19 04/19/19 22:59 06:59 14:59 Intake Total 342 330 125 Output Total 2 Balance 340 330 125 Intake: Intake, IV Titration 90 125 Amount Diltiazem 125 mg In 90 125 Sodium Chloride 0.9% 100 ml @ 10 MG/HR 10 mls/hr IV .[id number] ON LICENSE OF [facility] Rx#: [id number] Oral 342 240 Output: Stool 2 Other: Voiding Method Toilet Toilet Toilet # Voids 3 3 Weight 84.2 kg Results CBC & Chem 7: 04/19/19 11:13 04/19/19 11:13 Labs: Abnormal Lab Results - Last 24 Hours (Table) 04/18/19 04/18/19 04/18/19 Range/Units 13:31 16:14 16:14 PT 12.5 H (9.0-12.0) sec INR 1.2 H (<1.2) Carbon Dioxide 34 H (22-30) mmol/L BUN 21 H (9-20) mg/dL Glucose 109 H (74-99) mg/dL POC Glucose (mg/dL) 159 H (75-99) mg/dL 04/18/19 04/18/19 04/19/19 Range/Units 16:18 20:16 06:24 PT (9.0-12.0) sec INR (<1.2) Carbon Dioxide (22-30) mmol/L BUN (9-20) mg/dL Glucose (74-99) mg/dL POC Glucose (mg/dL) 126 H 123 H 117 H (75-99) mg/dL Thrombosis Risk Factor Assmnt - Choose All That Apply Any of the Below Risk Factors Present?: Yes Each Factor Represents 1 point: Obesity (BMI >25) Other Risk Factors: Yes Each Risk Factor Represents 2 Points: Age 61-74 years Thrombosis Risk Factor Assessment Total Risk Factor Score: 3 Thrombosis Risk Factor Assessment Level: Moderate Risk
[2019-04-19 21:15] LABS: Glucose,Whole Blood 104 mg/dL (75-99)
[2019-04-19] MEDS ORDERED: METOPROLOL TARTRATE 50 MG TAB PO STA (23:38)
[2019-04-20] MEDS: IPRATROPIUM-ALBUTEROL 3 ML NEB INHALATION SCH ×7 (00:19→23:39)
--- NOTE | 2019-04-20 01:22 | CT ---
EXAMINATION TYPE: CT brain wo con DATE OF EXAM: 04/20/2019 COMPARISON: None HISTORY: possible stroke Weakness CT DLP: 1157.4 mGycm Automated exposure control for dose reduction was used. FINDINGS: There is mild cerebral cortical atrophy. There is no mass effect nor midline shift. There is no sign of intracranial hemorrhage. Calvarium is intact. Skull base is intact. IMPRESSION: NEGATIVE CT SCAN OF THE BRAIN.
[2019-04-20] MEDS: DILTIAZEM 125 MG in SODIUM CHLORIDE 0.9% 100 ML IV SCH ×2 (01:27→08:27)
[2019-04-20] MEDS: Acetaminophen-Codeine 300-30mg TAB PO PRN ×3 (01:37→19:12)
[2019-04-20] MEDS: LACTATED RINGERS 1,000 ML IV SCH (04:07)
[2019-04-20 06:14] LABS: Glucose,Whole Blood 104 mg/dL (75-99)
[2019-04-20] MEDS ORDERED: DILTIAZEM DRIP BOLUS FROM BAG 1 MG SOLN IV ONE (07:40)
--- NOTE | 2019-04-20 08:28 | US ---
EXAMINATION TYPE: US carotid duplex BILAT DATE OF EXAM: 04/20/2019 COMPARISON: NONE CLINICAL HISTORY: Recent episode of right arm weakness. HTN. Increase pulse rate. EXAM MEASUREMENTS: RIGHT: Peak Systolic Velocity (PSV) cm/sec ----- Right CCA: 72.9 ----- Right ICA: 255.7 ----- Right ECA: 101.6 ICA/CCA ratio: 3.5 RIGHT: End Diastole cm/sec ----- Right CCA: 29.9 ----- Right ICA: 88.9 ----- Right ECA: 11.1 LEFT: Peak Systolic Velocity (PSV) cm/sec ----- Left CCA: 46.1 ----- Left ICA: 84.0 ----- Left ECA: 46.1 ICA/CCA ratio: 1.8 LEFT: End Diastole cm/sec ----- Left CCA: 16.4 ----- Left ICA: 28.3 ----- Left ECA: 4.3 VERTEBRALS (direction of flow): Right Vertebral: Antegrade Left Vertebral: Antegrade Rhythm: Arrhythmia IMPRESSION: Bilateral wall thickening. Right CCA significant stenosis. Plaque seen in bilateral CCA' s and bulbs. Elevated right ICA velocities. Criteria for Assigning % of Stenosis / Diameter reduction (Estimation based on the indirect measurements of the internal carotid artery velocities (ICA PSV). 1. Normal (no stenosis)=ICA PSV < 125 cm/s: ratio < 2.0: ICA EDV<40 cm/s. 2. Less than 50% stenosis=ICA PSV < 125 cm/s: ratio < 2.0: ICA EDV<40 cm/s. 3. 50 to 69% stenosis=ICA PSV of 125 to 230 cm/s: ration 2.0 ? 4.0: ICA EDV 40-100 cm/s. 4. Greater than 70% stenosis to near occlusion= ICA PSV > 230 cm/s: ratio > 4.0: ICA EDV > 100 cm/s. 5. Near occlusion= ICA PSV velocities may be low or undetectable: variable ratio and ICA EDV. 6. Total occlusion=unable to detect flow.
[2019-04-20] MEDS: METOPROLOL TARTRATE 50 MG TAB PO SCH (08:33)
[2019-04-20 11:44] LABS: Glucose,Whole Blood 106 mg/dL (75-99)
[2019-04-20] MEDS: MONTELUKAST 10 MG TAB PO SCH (11:52)
[2019-04-20] MEDS: metFORMIN 850 MG TAB PO SCH ×2 (11:52→20:40)
[2019-04-20] MEDS: VARDENAFIL HCL PO SCH ×2 (11:52→20:58)
[2019-04-20 12:07] LABS: Basophils % (A) 1 %; Eosinophils # (A) 0.1 k/uL (0-0.7); Eosinophils % (A) 2 %; HCT 25.3 % (39.0-53.0); HGB 7.8 gm/dL (13.0-17.5); Hypochromasia Marked; Lymphocytes # (A) 1.1 k/uL (1.0-4.8); Lymphocytes % (A) 30 %; MCH 27.2 pg (25.0-35.0); MCHC 30.8 g/dL (31.0-37.0); MCV 88.4 fL (80.0-100.0); Mean Platelet Volume 6.6; Monocytes # (A) 0.3 k/uL (0-1.0); Monocytes % (A) 7 %; Neutrophils % (A) 56 %; Platelet Count 302 k/uL (150-450); RBC 2.86 m/uL (4.30-5.90); RDW 15.8 % (11.5-15.5); WBC 3.5 k/uL (3.8-10.6)
[2019-04-20 12:24] LABS: ALT 18 U/L (21-72); AST 14 U/L (17-59); African American GFR (CKD) >90 (>60 ml/min/1.73 sqM); Albumin 3.2 g/dL (3.5-5.0); Alkaline Phosphatase 58 U/L (38-126); Anion Gap 5 mmol/L; Blood Urea Nitrogen 14 mg/dL (9-20); Carbon Dioxide 30 mmol/L (22-30); Chloride 104 mmol/L (98-107); Glucose 92 mg/dL (74-99); Sodium 139 mmol/L (137-145); Total Bilirubin 0.3 mg/dL (0.2-1.3); Total Protein 6.1 g/dL (6.3-8.2)
[2019-04-20] MEDS: LOSARTAN 50 MG TAB PO SCH (13:12)
[2019-04-20] MEDS: FERROUS SULFATE 325 MG TAB PO SCH (13:12)
[2019-04-20] MEDS ORDERED: METOPROLOL TARTRATE 5 MG/5 ML VIAL IVP STA (13:54)
[2019-04-20] MEDS ORDERED: METOPROLOL TARTRATE 5 MG/5 ML VIAL IVP ONE (13:57)
--- NOTE | 2019-04-20 15:04 | P.PN ---
Subjective Progress Note Date: 04/20/19 This is a pleasant 68 showed male past medical history significant for paroxysmal atrial fibrillation on long-term anticoagulation, hypertension, dyslipidemia, diabetes mellitus and former nicotine dependence. He was brought into the hospital today for an elective EGD with Dr. Arnold. However upon arrival telemetry tracings revealed a rapid heart rate. EKG was obtained revealing atrial flutter with a 2:1 conduction. Patient had an echocardiogram with Doppler study performed which revealed an ejection fraction of 35-40%. We will discontinue the IV Cardizem and increase his dose of beta maynor to 50 mg by mouth twice a day. He scheduled for EGD and colonoscopy, currently not on anticoagulation. 04/20/2019 Patient was seen and examined this morning, he went back in atrial fibrillation and his rate was up in the 120 to 1:30 range, he was started on IV Cardizem through the night which we discontinued this morning, we did increase his dose of beta maynor and at the time of her examination in the 90s. His EGD and colonoscopy had been canceled because of rapid rate. Patient is also scheduled to receive a blood transfusion today. Hemoglobin is 7.8 today. Objective - Vital Signs Vital signs: Vital Signs Temp 98.1 F 04/20/19 12:00 Pulse 137 H 04/20/19 14:09 Resp 18 04/20/19 12:00 BP 116/71 04/20/19 14:09 Pulse Ox 99 04/20/19 12:00 Intake & Output 04/19/19 04/20/19 04/20/19 18:59 06:59 18:59 Intake Total 1765 215.083 Balance 1765 215.083 Weight 86.3 kg Intake: IV 180 0.9 180 Intake, IV Titration 125 35.083 Amount Diltiazem 125 mg In 125 Sodium Chloride 0.9% 100 ml @ 10 MG/HR 10 mls/hr IV .[id number] [facility] Rx#: [id number] Diltiazem 125 mg In 35.083 Sodium Chloride 0.9% 100 ml @ 10 MG/HR 10 mls/hr IV .[id number] [facility] Rx#: [id number] Oral 1640 Other: Voiding Method Toilet Toilet Toilet # Voids 2 2 # Bowel Movements 3 - Exam HEENT: Head is atraumatic, normocephalic. Pupils are equal, round. Sclerae anicteric. Conjunctivae are clear. Mucous membranes of the mouth are moist. Neck is supple. There is no jugular venous distention. No carotid bruit is heard. Generalized pallor. LUNGS: Clear to auscultation no wheezes, rales or rhonchi. No chest wall tenderness is noted on palpation or with deep breathing. HEART: Regular rate and rhythm without murmurs, rubs or gallops. S1 and S2 heard. ABDOMEN: Soft, nontender. Bowel sounds are heard. No organomegaly noted. EXTREMITIES: No evidence of peripheral edema and no calf tenderness noted. VASCULAR: Radial and dorsalis pedis pulses palpated, no evidence of clubbing. NEUROLOGIC: Patient is awake, alert and oriented x3. - Labs CBC & Chem 7: 04/20/19 11:56 04/20/19 11:56 Labs: Abnormal Lab Results - Last 24 Hours (Table) 04/19/19 04/19/19 04/20/19 Range/Units 16:49 21:14 06:13 WBC (3.8-10.6) k/uL RBC (4.30-5.90) m/uL Hgb (13.0-17.5) gm/dL Hct (39.0-53.0) % MCHC (31.0-37.0) g/dL RDW (11.5-15.5) % POC Glucose (mg/dL) 110 H 104 H 104 H (75-99) mg/dL AST (17-59) U/L ALT (21-72) U/L Total Protein (6.3-8.2) g/dL Albumin (3.5-5.0) g/dL Crossmatch 04/20/19 04/20/19 04/20/19 Range/Units 11:42 11:56 11:56 WBC 3.5 L (3.8-10.6) k/uL RBC 2.86 L (4.30-5.90) m/uL Hgb 7.8 L (13.0-17.5) gm/dL Hct 25.3 L (39.0-53.0) % MCHC 30.8 L (31.0-37.0) g/dL RDW 15.8 H (11.5-15.5) % POC Glucose (mg/dL) 106 H (75-99) mg/dL AST (17-59) U/L ALT (21-72) U/L Total Protein (6.3-8.2) g/dL Albumin (3.5-5.0) g/dL Crossmatch See Detail 04/20/19 Range/Units 11:56 WBC (3.8-10.6) k/uL RBC (4.30-5.90) m/uL Hgb (13.0-17.5) gm/dL Hct (39.0-53.0) % MCHC (31.0-37.0) g/dL RDW (11.5-15.5) % POC Glucose (mg/dL) (75-99) mg/dL AST 14 L (17-59) U/L ALT 18 L (21-72) U/L Total Protein 6.1 L (6.3-8.2) g/dL Albumin 3.2 L (3.5-5.0) g/dL Crossmatch Assessment and Plan Plan: ASSESSMENT and plan #1 Typical atrial flutter with 2:1 conduction #2 Possible GI bleed with 2 day history of black stools and hemoglobin of 7.5 #3 Chronic anemia per the patient exact details unavailable. He states he has never had to receive a blood transfusion. #4 History of paroxysmal atrial fibrillation on long-term anticoagulation #5 Hypertension #6 Dyslipidemia #7 Diabetes mellitus #8 Former nicotine dependence Plan We'll discontinue the IV Cardizem drip and increase the dose of beta maynor for more optimal heart rate control. Patient is still not on anticoagulation because of the anemia, we will await GI workup. DNP note has been reviewed, I agree with a documented findings and plan of care. Patient was seen and examined.
[2019-04-20] MEDS ORDERED: METOPROLOL TARTRATE 50 MG TAB PO SCH (16:00)
[2019-04-20] MEDS ORDERED: METOPROLOL TARTRATE 25 MG TAB PO STA (16:25)
[2019-04-20 16:30] LABS: Glucose,Whole Blood 127 mg/dL (75-99)
[2019-04-20] MEDS ORDERED: DILTIAZEM 125 MG in SODIUM CHLORIDE 0.9% 100 ML IV SCH (17:00)
--- NOTE | 2019-04-20 19:15 | P.PN ---
Progress Note - Text Progress Note Date: 04/20/19 Chief Complaint: Heart racing History of presenting complaint: This is a pleasant 68-year-old patient of Dr. Genesis Morales. Chronic stable medical conditions include diabetes, hypertension, hyperlipidemia, had been chronically on Coumadin for pulmonary embolism. Patient was scheduled for his regular colonoscopy yesterday morning. By Dr. Pepe. He has stopped his beta maynor about a week ago. Stopped his Coumadin 2 days ago. For last 3 days he had noted Dr. lopez. In the preop area patient is found to have a rapid heart rate. Found to be in atrial flutter was to start one block. Cardiology was called. Patient started on a Cardizem drip. Admitted to the floor. Patient has been feeling his heart racing. No chest pressure. No dizziness or lightheadedness. Patient about a month ago states was feeling weak and tired and had fallen down. And he felt as though part of his right arm. It may have been a stroke. He fully recovered power in the right arm. Never followed up with any physician. No prior history of coronary artery disease. No prior history of fibrillation. Has followed up by wood furniture assembler, Dr. Finney in the past. Admitted with new onset of atrial flutter fibrillation with a rapid ventricular rate and GI bleed. Today-patient had been on Cardizem drip. Drip is being discontinued and dose of beta blockers be increased.Patient is scheduled to have EGD colonoscopy today. Review of systems: Was done for constitutional, cardiovascular, GI, pulmonary. relevant finding as above Active Medications Acetaminophen/Codeine Phosphate (Tylenol #3) 1 each PO Q6HR PRN PRN Reason: Pain Last Admin: 04/20/19 09:46 Dose: 1 each Documented by: Albuterol/Ipratropium (Duoneb 0.5 Mg-3 Mg/3 Ml Soln) 3 ml INHALATION RT-Q4H [facility] Last Admin: 04/20/19 15:28 Dose: 3 ml Documented by: Atorvastatin Calcium (Lipitor) 10 mg PO HS [facility] Last Admin: 04/19/19 19:58 Dose: 10 mg Documented by: Ferrous Sulfate (Feosol) 325 mg PO DAILY [facility] Last Admin: 04/20/19 13:12 Dose: Not Given Documented by: Lactated Ringer's (Lactated Ringers) 1,000 mls @ 20 mls/hr IV .Q24H [facility] Last Admin: 04/20/19 04:07 Dose: Not Given Documented by: Diltiazem HCl 125 mg/ Sodium (Chloride) 125 mls @ 5 mls/hr IV .Q24H [facility] Last Admin: 04/20/19 16:52 Dose: 5 mg/hr, 5 mls/hr Documented by: Lidocaine HCl (.Xylocaine 1% Inj (10mg/Ml) For Iv Start) 0.1 ml INTRADERMA PER PROTOCOL PRN PRN Reason: IV Start Last Admin: 04/18/19 08:09 Dose: 0.1 ml Documented by: Losartan Potassium (Cozaar) 50 mg PO DAILY [facility] Last Admin: 04/20/19 13:12 Dose: Not Given Documented by: Metformin HCl (Glucophage) 850 mg PO BID [facility] Last Admin: 04/20/19 11:52 Dose: Not Given Documented by: Metoprolol Tartrate (Lopressor) 75 mg PO TID [facility] Montelukast Sodium (Singulair) 10 mg PO DAILY [facility] Last Admin: 04/20/19 11:52 Dose: Not Given Documented by: Non-Formulary Medication (Vardenafil Hcl [Levitra]) 5 mg PO BID [facility] Last Admin: 04/20/19 11:52 Dose: Not Given Documented by: Physical examination: VITAL SIGNS: 98.1, 137, 18, 11 6/71, 99% on 3 L GENERAL: Laying in bed, comfortable. EYES: Pupils equal. Conjunctiva palel. HEENT: External appearance of nose and ears normal, oral cavity grossly normal. NECK: JVD not raised; masses not palpable. HEART: Heart sounds are irregular; no edema. LUNGS: Respiratory rate normal; clear to auscultation. ABDOMEN: Soft, nontender, liver spleen not palpable, no masses palpable. PSYCH: Alert and oriented x3; mood and affect normal. INVESTIGATIONS, reviewed in the clinical context: White count 3.5 hemoglobin 7.8 crit 0.96 Computed tomography scan of the brain-no evidence of stroke Carotid Doppler-right common carotid artery showing significant stenosis White count 3.6 hemoglobin 7.5 platelets 300 potassium 5.7 BUN 18 creatinine 0.94 2-D echo shows moderate concentric left ventricular hypertrophy, EF 35-40% no focal wall motion abnormality Assessment: -New onset of atrial flutter with 2 rapid ventricular rate -Acute GI bleed in a patient who's been on Coumadin for underlying problem embolism that was stopped about a week ago -Acute blood loss anemia from GI bleed -Cardiomyopathy EF 35-40%, cause unknown. It could be hypertensive but need to rule out underlying coronary artery disease -Severe secondary probably hypertension, exact cause currently unknown -Moderate tricuspid regurgitation, nontraumatic -Hypertensive heart disease -Diabetes mellitus type 2 -Hyperlipidemia -Essential hypertension -Right common carotid artery showing significant stenosis Plan: Patient is awaiting EGD colonoscopy today. Cardizem drip is being discontinued and dose of beta blockers been increased by oncology. We'll consult vascular for the carotid Doppler results. Care was discussed with the patient.
[2019-04-20 20:22] LABS: Glucose,Whole Blood 146 mg/dL (75-99)
[2019-04-20] MEDS: ATORVASTATIN 10 MG TAB PO SCH (20:38)
[2019-04-20] MEDS: METOPROLOL TARTRATE 25 MG TAB PO SCH (20:39)
[2019-04-21] MEDS: IPRATROPIUM-ALBUTEROL 3 ML NEB INHALATION SCH ×6 (03:20→23:26)
[2019-04-21] MEDS: Acetaminophen-Codeine 300-30mg TAB PO PRN ×3 (03:28→20:31)
[2019-04-21 06:08] LABS: Glucose,Whole Blood 134 mg/dL (75-99)
[2019-04-21 06:19] LABS: Basophils % (A) 1 %; Eosinophils # (A) 0.1 k/uL (0-0.7); Eosinophils % (A) 3 %; HCT 26.6 % (39.0-53.0); HGB 7.7 gm/dL (13.0-17.5); Hypochromasia Marked; Lymphocytes # (A) 1.6 k/uL (1.0-4.8); Lymphocytes % (A) 33 %; MCH 26.6 pg (25.0-35.0); MCHC 29.1 g/dL (31.0-37.0); MCV 91.1 fL (80.0-100.0); Mean Platelet Volume 6.1; Monocytes # (A) 0.4 k/uL (0-1.0); Monocytes % (A) 7 %; Neutrophils # (A) 2.6 k/uL (1.3-7.7); Neutrophils % (A) 53 %; Platelet Count 271 k/uL (150-450); RBC 2.91 m/uL (4.30-5.90); RDW 15.2 % (11.5-15.5); WBC 4.9 k/uL (3.8-10.6)
[2019-04-21 06:35] LABS: Calcium 8.8 mg/dL (8.4-10.2); Potassium 5.3 mmol/L (3.5-5.1)
--- NOTE | 2019-04-21 07:06 | P.PN ---
Subjective Progress Note Date: 04/20/19 Principal diagnosis: Anemia Patient is seen lying in bed, he is tolerated diet after her procedure today was canceled due to tachycardia. No abdominal pain reported. No signs or symptoms of GI bleeding. Objective - Vital Signs Vital signs: Vital Signs Temp 98.1 F 04/20/19 12:00 Pulse 137 H 04/20/19 14:09 Resp 18 04/20/19 12:00 BP 116/71 04/20/19 14:09 Pulse Ox 99 04/20/19 12:00 Intake & Output 04/19/19 04/20/19 04/20/19 18:59 06:59 18:59 Intake Total 1765 215.083 Balance 1765 215.083 Weight 86.3 kg Intake: IV 180 0.9 180 Intake, IV Titration 125 35.083 Amount Diltiazem 125 mg In 125 Sodium Chloride 0.9% 100 ml @ 10 MG/HR 10 mls/hr IV .[id number] [facility] Rx#: [id number] Diltiazem 125 mg In 35.083 Sodium Chloride 0.9% 100 ml @ 10 MG/HR 10 mls/hr IV .[id number] [facility] Rx#: [id number] Oral 1640 Other: Voiding Method Toilet Toilet Toilet # Voids 2 2 # Bowel Movements 3 - Exam On physical examination, patient appears comfortable in no apparent distress. HEAD: Normocephalic, atraumatic. EYES: No scleral icterus. No conjunctival injection. MOUTH: No lesions, tongue midline. NECK: Trachea midline, no gross abnormalities. CHEST: Clear to auscultation with no wheezing or rhonchi appreciated. HEART: S1-S2 appreciated, tachycardic. ABDOMEN: Soft, obese. Bowel sounds are positive. No organomegaly. No guarding or rigidity. EXTREMITIES: No pedal edema. SKIN: No rashes, no jaundice. NEUROLOGIC: Alert and oriented x3. No focal deficits. - Labs CBC & Chem 7: 04/21/19 06:04 04/21/19 06:04 Labs: Abnormal Lab Results - Last 24 Hours (Table) 04/19/19 04/19/19 04/20/19 Range/Units 16:49 21:14 06:13 WBC (3.8-10.6) k/uL RBC (4.30-5.90) m/uL Hgb (13.0-17.5) gm/dL Hct (39.0-53.0) % MCHC (31.0-37.0) g/dL RDW (11.5-15.5) % POC Glucose (mg/dL) 110 H 104 H 104 H (75-99) mg/dL AST (17-59) U/L ALT (21-72) U/L Total Protein (6.3-8.2) g/dL Albumin (3.5-5.0) g/dL Crossmatch 04/20/19 04/20/19 04/20/19 Range/Units 11:42 11:56 11:56 WBC 3.5 L (3.8-10.6) k/uL RBC 2.86 L (4.30-5.90) m/uL Hgb 7.8 L (13.0-17.5) gm/dL Hct 25.3 L (39.0-53.0) % MCHC 30.8 L (31.0-37.0) g/dL RDW 15.8 H (11.5-15.5) % POC Glucose (mg/dL) 106 H (75-99) mg/dL AST (17-59) U/L ALT (21-72) U/L Total Protein (6.3-8.2) g/dL Albumin (3.5-5.0) g/dL Crossmatch See Detail 04/20/19 Range/Units 11:56 WBC (3.8-10.6) k/uL RBC (4.30-5.90) m/uL Hgb (13.0-17.5) gm/dL Hct (39.0-53.0) % MCHC (31.0-37.0) g/dL RDW (11.5-15.5) % POC Glucose (mg/dL) (75-99) mg/dL AST 14 L (17-59) U/L ALT 18 L (21-72) U/L Total Protein 6.1 L (6.3-8.2) g/dL Albumin 3.2 L (3.5-5.0) g/dL Crossmatch Assessment and Plan (1) Iron deficiency anemia Narrative/Plan: 68-year-old male with multiple medical comorbidities who initially presented for outpatient endoscopic evaluation with EGD and colonoscopy for further evaluation of iron deficiency anemia which the patient is currently receiving iron supplementation. At that time the patient was found to have atrial flutter and was tachycardic and decision was made for admission for further evaluation. In terms of anemia patient reports that this is present for at least 6 months that he is concerned iron supplementation. He denies any prior history of GI bleeding. No prior EGD, but last colonoscopy was 7 years ago significant for polyps. No family history of colon cancer. Denies any signs or symptoms GI bleeding. Current Visit: Yes Status: Acute Code(s): D50.9 - IRON DEFICIENCY ANEMIA, UNSPECIFIED SNOMED Code(s): 33670159 (2) History of colon polyps Current Visit: Yes Status: Acute Code(s): Z86.010 - PERSONAL HISTORY OF COLONIC POLYPS SNOMED Code(s): 465733149 Plan: Supportive care Okay for diet Plan was for endoscopic evaluation today, however patient was not deemed fit for the procedure by anesthesia secondary to uncontrolled atrial fibrillation with R VR Continue to hold anticoagulation therapy Appreciate recommendations from cardiology service Timing of endoscopic evaluation to be determined based on clinical course Thank you for allowing us to participate in the care of the patient, we will continue to follow
[2019-04-21] MEDS: VARDENAFIL HCL PO SCH ×2 (08:01→20:29)
[2019-04-21] MEDS: metFORMIN 850 MG TAB PO SCH ×2 (08:06→20:26)
[2019-04-21] MEDS: FERROUS SULFATE 325 MG TAB PO SCH (08:06)
[2019-04-21] MEDS: MONTELUKAST 10 MG TAB PO SCH (08:06)
[2019-04-21] MEDS: LOSARTAN 50 MG TAB PO SCH (08:06)
[2019-04-21] MEDS: METOPROLOL TARTRATE 25 MG TAB PO SCH (08:06)
[2019-04-21] MEDS ORDERED: BISACODYL 5 MG TABLET.DR PO STA (10:00)
--- NOTE | 2019-04-21 10:28 | P.GSCN ---
History of Present Illness Consult date: 04/21/19 History of present illness: The patient is a 69-year-old male who was initially seen in the hospital for a planned outpatient EGD and colonoscopy for anemia and dark colored stools. On the day of his proposed procedure, he was found to be in A. flutter with RVR. He has a history of paroxysmal atrial fibrillation and pulmonary embolism requiring long-term anticoagulation, hypertension, dyslipidemia, diabetes and former tobacco abuse. At the time of evaluation he is stable and he denies any bloody bowel movements or changes. We are asked to see the patient regarding carotid stenosis of his right common and internal carotid arteries. The patient states that approximately 1-2 months ago he had some weakness and pain in his right upper extremity at seemingly went away. He was concerned he had a stroke. Upon hearing this, a carotid duplex was ordered here in the hospital revealing 50-69% stenosis of the right internal carotid artery, no significant stenosis of the left internal carotid artery. He denies any weakness of the left side or lower extremities and general. He denies any facial droop or slurred speech that he is aware of. He has never been told he has any issue with atherosclerotic disease in the past. He denies any fevers, chills, nausea, vomiting or diarrhea Review of Systems 14 point review of systems performed. Pertinent positives and negatives per the HPI Past Medical History Past Medical History: Atrial Fibrillation, Diabetes Mellitus, Hyperlipidemia, Hypertension, Pulmonary Embolus (PE), Seizure Disorder Additional Past Medical History / Comment(s): pt states was told he had a seizure-unknown when. History of Any Multi-Drug Resistant Organisms: None Reported Additional Past Surgical History / Comment(s): COLONOSCOPY. BRONCHOSCOPY Past Anesthesia/Blood Transfusion Reactions: No Reported Reaction Past Psychological History: No Psychological Hx Reported Smoking Status: Former smoker Past Alcohol Use History: None Reported Additional Past Alcohol Use History / Comment(s): QUIT SMOKING 2014 Past Drug Use History: Marijuana Additional Drug Use History / Comment(s): USES MARIJUANA DAILY-INSTRUCTED TO REFRAIN FROM USE FOR AT LEAT 24 HOURS PRIOR TO PROCEDURE - Past Family History Brother(s) Family Medical History: Cancer Medications and Allergies Home Medications Medication Instructions Recorded Confirmed Type Ferrous Sulfate [Feosol] 325 mg PO DAILY 04/14/19 04/14/19 History Losartan [Cozaar] 50 mg PO DAILY 04/14/19 04/14/19 History Metoprolol Tartrate [Lopressor] 50 mg PO DAILY 04/14/19 04/14/19 History Montelukast [Singulair] 10 mg PO DAILY 04/14/19 04/14/19 History Simvastatin [Zocor] 20 mg PO HS 04/14/19 04/14/19 History Vardenafil HCl [Levitra] 5 mg PO BID 04/14/19 04/14/19 History Warfarin [Coumadin] 5 mg PO DAILY 04/14/19 04/14/19 History metFORMIN HCL [Glucophage] 850 mg PO BID 04/14/19 04/14/19 History Allergies Allergy/AdvReac Type Severity Reaction Status Date / Time No Known Allergies Allergy Verified 04/18/19 08:00 Surgical - Exam Vital Signs Temp Pulse Resp BP Pulse Ox 98.3 F 140 H 16 156/78 96 04/18/19 08:04 04/18/19 08:04 04/18/19 08:04 04/18/19 08:04 04/18/19 08:04 Genitals a pleasant cooperative male in no acute distress, his resting co mfortably. HEENT is normocephalic, atraumatic, etc. he motion intact. Poor dentition. Neck is supple. No evidence of audible bruits. Heart is irregularly irregular at this time. Lungs are clear bilaterally. Abdomen is soft, nontender and nondistended. He has trouble radial femoral dorsalis pedis and posterior tibial pulses bilaterally. Extremity show no clubbing cyanosis or edema. Normal mood and affect. Cranial nerves II through XII grossly intact. No evidence of unilateral weakness Results Ultrasound results are reviewed. Peak systolic velocity of the right internal carotid artery of 255 end-diastolic velocity of 88.9 with an ICA to CCA ratio of 3.5 Peak systolic velocity of the left internal carotid artery of 84, end-diastolic velocity of 28 and an ICA to CCA ratio of 1.8 This correlates with 50-69% stenosis of the right internal carotid artery, closer to the high 60s, almost 70% - Labs 04/21/19 06:04 04/21/19 06:04 Abnormal Lab Results - Last 24 Hours (Table) 04/20/19 04/20/19 04/20/19 Range/Units 11:42 11:56 11:56 WBC 3.5 L (3.8-10.6) k/uL RBC 2.86 L (4.30-5.90) m/uL Hgb 7.8 L (13.0-17.5) gm/dL Hct 25.3 L (39.0-53.0) % MCHC 30.8 L (31.0-37.0) g/dL RDW 15.8 H (11.5-15.5) % Potassium (3.5-5.1) mmol/L BUN (9-20) mg/dL Glucose (74-99) mg/dL POC Glucose (mg/dL) 106 H (75-99) mg/dL AST (17-59) U/L ALT (21-72) U/L Total Protein (6.3-8.2) g/dL Albumin (3.5-5.0) g/dL Crossmatch See Detail 04/20/19 04/20/19 04/20/19 Range/Units 11:56 16:29 20:21 WBC (3.8-10.6) k/uL RBC (4.30-5.90) m/uL Hgb (13.0-17.5) gm/dL Hct (39.0-53.0) % MCHC (31.0-37.0) g/dL RDW (11.5-15.5) % Potassium (3.5-5.1) mmol/L BUN (9-20) mg/dL Glucose (74-99) mg/dL POC Glucose (mg/dL) 127 H 146 H (75-99) mg/dL AST 14 L (17-59) U/L ALT 18 L (21-72) U/L Total Protein 6.1 L (6.3-8.2) g/dL Albumin 3.2 L (3.5-5.0) g/dL Crossmatch 04/21/19 04/21/19 04/21/19 Range/Units 06:04 06:04 06:07 WBC (3.8-10.6) k/uL RBC 2.91 L (4.30-5.90) m/uL Hgb 7.7 L (13.0-17.5) gm/dL Hct 26.6 L (39.0-53.0) % MCHC 29.1 L (31.0-37.0) g/dL RDW (11.5-15.5) % Potassium 5.3 H (3.5-5.1) mmol/L BUN 25 H (9-20) mg/dL Glucose 128 H (74-99) mg/dL POC Glucose (mg/dL) 134 H (75-99) mg/dL AST (17-59) U/L ALT (21-72) U/L Total Protein (6.3-8.2) g/dL Albumin (3.5-5.0) g/dL Crossmatch Diabetes panel 04/20/19 04/21/19 Range/Units 11:56 06:04 Sodium 139 139 (137-145) mmol/L Potassium 5.0 5.3 H (3.5-5.1) mmol/L Chloride 104 104 (98-107) mmol/L Carbon Dioxide 30 30 (22-30) mmol/L BUN 14 25 H (9-20) mg/dL Creatinine 0.96 1.16 (0.66-1.25) mg/dL Glucose 92 128 H (74-99) mg/dL Calcium 9.0 8.8 (8.4-10.2) mg/dL AST 14 L (17-59) U/L ALT 18 L (21-72) U/L Alkaline Phosphatase 58 (38-126) U/L Total Protein 6.1 L (6.3-8.2) g/dL Albumin 3.2 L (3.5-5.0) g/dL Calcium panel 04/20/19 04/21/19 Range/Units 11:56 06:04 Calcium 9.0 8.8 (8.4-10.2) mg/dL Albumin 3.2 L (3.5-5.0) g/dL Pituitary panel 04/20/19 04/21/19 Range/Units 11:56 06:04 Sodium 139 139 (137-145) mmol/L Potassium 5.0 5.3 H (3.5-5.1) mmol/L Chloride 104 104 (98-107) mmol/L Carbon Dioxide 30 30 (22-30) mmol/L BUN 14 25 H (9-20) mg/dL Creatinine 0.96 1.16 (0.66-1.25) mg/dL Glucose 92 128 H (74-99) mg/dL Calcium 9.0 8.8 (8.4-10.2) mg/dL Adrenal panel 04/20/19 04/21/19 Range/Units 11:56 06:04 Sodium 139 139 (137-145) mmol/L Potassium 5.0 5.3 H (3.5-5.1) mmol/L Chloride 104 104 (98-107) mmol/L Carbon Dioxide 30 30 (22-30) mmol/L BUN 14 25 H (9-20) mg/dL Creatinine 0.96 1.16 (0.66-1.25) mg/dL Glucose 92 128 H (74-99) mg/dL Calcium 9.0 8.8 (8.4-10.2) mg/dL Total Bilirubin 0.3 (0.2-1.3) mg/dL AST 14 L (17-59) U/L ALT 18 L (21-72) U/L Alkaline Phosphatase 58 (38-126) U/L Total Protein 6.1 L (6.3-8.2) g/dL Albumin 3.2 L (3.5-5.0) g/dL Assessment and Plan Assessment: #1 asymptomatic right internal carotid artery stenosis #2 atrial flutter, paroxysmal atrial fibrillation on anticoagulation #3 right upper extremity weakness/pain, resolved #4 anemia Plan: Upon reviewing the patient's symptomatology, it is unlikely that this is a symptomatic carotid artery stenosis. It is more likely to be an incidental finding at this point. He is currently being evaluated for anemia with a GI bleed. At the time he is able, I would recommend aspirin in addition to his home medications. We also plan to increase his Lipitor. No planned surgical intervention from a vascular surgery standpoint. We will follow-up with him in the office and perform routine surveillance. Thank you for allowing me to participate in the care of this patient
[2019-04-21] MEDS ORDERED: METOPROLOL TARTRATE 25 MG TAB PO STA (11:41)
[2019-04-21 11:46] LABS: Glucose,Whole Blood 96 mg/dL (75-99)
[2019-04-21 11:58] LABS: Prothrombin Time 10.3 sec (9.0-12.0)
--- NOTE | 2019-04-21 12:32 | P.PN ---
Subjective Progress Note Date: 04/21/19 Principal diagnosis: Iron deficiency anemia 69-year-old male admitted with possible GI bleed anemia. Endoscopy postponed yesterday per anesthesia secondary to A. fib with RVR. Hemoglobin 7.7 stable refused blood transfusion. Anti-coagulation on hold. Receiving healthy heart d iet. Per nursing A. fib rate controlled. Objective - Vital Signs Vital signs: Vital Signs Temp 97.7 F 04/21/19 08:00 Pulse 71 04/21/19 08:00 Resp 18 04/21/19 08:00 BP 114/64 04/21/19 08:00 Pulse Ox 100 04/21/19 08:00 Intake & Output 04/20/19 04/21/19 04/21/19 18:59 06:59 18:59 Intake Total 964.586 0310 360 Output Total 6 Balance 376.856 3446 360 Weight 85.3 kg Intake: IV 180 0.9 180 Intake, IV Titration 35.083 50 Amount Diltiazem 125 mg In 35.083 Sodium Chloride 0.9% 100 ml @ 10 MG/HR 10 mls/hr IV .[id number] TAN Rx#: [id number] Diltiazem 125 mg In 50 Sodium Chloride 0.9% 100 ml @ 5 MG/HR 5 mls/hr IV .Q24H TAN Rx#:[id number] Oral 222 1920 360 Output: Stool 6 Other: Voiding Method Toilet Toilet # Voids 2 - Exam General appearance: The patient is alert, oriented, in no acute distress. HET: Head is normocephalic and atraumatic. Pupils are equal and reactive. Oropharynx is clear without lesions. Neck: Supple without lymphadenopathy. Trachea midline. Heart: S1 S2. Lungs: No crackles or wheezes are heard. Abdomen: Soft, nontender, nondistended with bowel sounds. No peritoneal signs. No palpable organomegaly or masses. Extremities: Normal skin color and turgor. No cyanosis, rash, ulceration, clubb ing, or edema. Radial and pedal pulses are 2/4 bilaterally. Neurological: No focal deficits. Strength and sensation are grossly intact. - Labs CBC & Chem 7: 04/21/19 06:04 04/21/19 06:04 Labs: Abnormal Lab Results - Last 24 Hours (Table) 04/20/19 04/20/19 04/20/19 Range/Units 11:42 11:56 11:56 WBC 3.5 L (3.8-10.6) k/uL RBC 2.86 L (4.30-5.90) m/uL Hgb 7.8 L (13.0-17.5) gm/dL Hct 25.3 L (39.0-53.0) % MCHC 30.8 L (31.0-37.0) g/dL RDW 15.8 H (11.5-15.5) % Potassium (3.5-5.1) mmol/L BUN (9-20) mg/dL Glucose (74-99) mg/dL POC Glucose (mg/dL) 106 H (75-99) mg/dL AST (17-59) U/L ALT (21-72) U/L Total Protein (6.3-8.2) g/dL Albumin (3.5-5.0) g/dL Crossmatch See Detail 04/20/19 04/20/19 04/20/19 Range/Units 11:56 16:29 20:21 WBC (3.8-10.6) k/uL RBC (4.30-5.90) m/uL Hgb (13.0-17.5) gm/dL Hct (39.0-53.0) % MCHC (31.0-37.0) g/dL RDW (11.5-15.5) % Potassium (3.5-5.1) mmol/L BUN (9-20) mg/dL Glucose (74-99) mg/dL POC Glucose (mg/dL) 127 H 146 H (75-99) mg/dL AST 14 L (17-59) U/L ALT 18 L (21-72) U/L Total Protein 6.1 L (6.3-8.2) g/dL Albumin 3.2 L (3.5-5.0) g/dL Crossmatch 04/21/19 04/21/19 04/21/19 Range/Units 06:04 06:04 06:07 WBC (3.8-10.6) k/uL RBC 2.91 L (4.30-5.90) m/uL Hgb 7.7 L (13.0-17.5) gm/dL Hct 26.6 L (39.0-53.0) % MCHC 29.1 L (31.0-37.0) g/dL RDW (11.5-15.5) % Potassium 5.3 H (3.5-5.1) mmol/L BUN 25 H (9-20) mg/dL Glucose 128 H (74-99) mg/dL POC Glucose (mg/dL) 134 H (75-99) mg/dL AST (17-59) U/L ALT (21-72) U/L Total Protein (6.3-8.2) g/dL Albumin (3.5-5.0) g/dL Crossmatch Assessment and Plan (1) Iron deficiency anemia Narrative/Plan: 69-year-old male with multiple medical comorbidities who initially presented for outpatient endoscopic evaluation with EGD and colonoscopy for further evaluation of iron deficiency anemia which the patient is currently receiving iron supplementation. At that time the patient was found to have atrial flutter and was tachycardic and decision was made for admission for further evaluation. In terms of anemia patient reports that this is present for at least 6 months that he is concerned iron supplementation. He denies any prior history of GI bleedi ng. No prior EGD, but last colonoscopy was 7 years ago significant for polyps. No family history of colon cancer. Denies any signs or symptoms GI bleeding. Current Visit: Yes Status: Acute Code(s): D50.9 - IRON DEFICIENCY ANEMIA, UNSPECIFIED SNOMED Code(s): 44357094 (2) Afib Narrative/Plan: Controlled Current Visit: Yes Status: Acute Code(s): I48.91 - UNSPECIFIED ATRIAL FIBRILLATION SNOMED Code(s): 10514556 Plan: 1. Cardiology clearance has been obtained per nursing to proceed with EGD colonoscopy. We'll schedule for tomorrow morning. Clear liquid diet. Patient received a bowel prep the other day will provide a dose of Dulcolax and HalfLytely. Nothing by mouth after midnight. CBC monitoring. The personal investment adviser has discussed the risks, benefits and alternative therapies for the above-mentioned procedure and for both sedation/analgesia as well as necessary blood product administration, if indicated, as they pertain to this patient. The patient has indicated understanding and acceptance of the risks and procedures discussed. Assessment and plan a care discussed with Dr. Sanders
--- NOTE | 2019-04-21 13:42 | P.PN ---
Subjective Patient's heart rates are still elevated during atrial fibrillation He denies any chest discomfort dizziness or lightheadedness no shortness of kenneth th He is resting comfortably in bed Blood pressure 118/63 mmHg pulse rate is 16 beats a minute afebrile Breath sounds are clear no rhonchi no crackles Heart sounds are irregular Suggest GI workup for anemia Increase metoprolol to 100 mg 3 times a day for rate control He should get his medications on the day of his endoscopy to keep his rates under control He does have cardio myopathy and I will choose beta blockers rather than calcium channel blockers for A. fib rate control management Hold off on anticoagulation for now Objective - Vital Signs Vital signs: Vital Signs Temp 97.8 F 04/21/19 12:00 Pulse 116 H 04/21/19 12:00 Resp 18 04/21/19 12:00 BP 118/63 04/21/19 12:00 Pulse Ox 95 04/21/19 12:00 Intake & Output 04/20/19 04/21/19 04/21/19 18:59 06:59 18:59 Intake Total 241.980 0176 1000 Output Total 6 Balance 492.061 1803 1000 Weight 85.3 kg Intake: IV 180 160 0.9 180 160 Intake, IV Titration 35.083 50 Amount Diltiazem 125 mg In 35.083 Sodium Chloride 0.9% 100 ml @ 10 MG/HR 10 mls/hr IV .[id number] TAN Rx#: [id number] Diltiazem 125 mg In 50 Sodium Chloride 0.9% 100 ml @ 5 MG/HR 5 mls/hr IV .Q24H TAN Rx#:[id number] Oral 222 1920 840 Output: Stool 6 Other: Voiding Method Toilet Toilet Toilet # Voids 2 - Labs CBC & Chem 7: 04/21/19 06:04 04/21/19 06:04 Labs: Abnormal Lab Results - Last 24 Hours (Table) 04/20/19 04/20/19 04/20/19 Range/Units 11:56 16:29 20:21 RBC (4.30-5.90) m/uL Hgb (13.0-17.5) gm/dL Hct (39.0-53.0) % MCHC (31.0-37.0) g/dL Potassium (3.5-5.1) mmol/L BUN (9-20) mg/dL Glucose (74-99) mg/dL POC Glucose (mg/dL) 127 H 146 H (75-99) mg/dL Crossmatch See Detail 04/21/19 04/21/19 04/21/19 Range/Units 06:04 06:04 06:07 RBC 2.91 L (4.30-5.90) m/uL Hgb 7.7 L (13.0-17.5) gm/dL Hct 26.6 L (39.0-53.0) % MCHC 29.1 L (31.0-37.0) g/dL Potassium 5.3 H (3.5-5.1) mmol/L BUN 25 H (9-20) mg/dL Glucose 128 H (74-99) mg/dL POC Glucose (mg/dL) 134 H (75-99) mg/dL Crossmatch
[2019-04-21] MEDS: POLYETHYLENE GLYCOL LYTES SOLN 4,000 ML SOLN.RECON PO ONE ×2 (13:53→13:55)
[2019-04-21] MEDS: METOPROLOL TARTRATE 50 MG TAB PO SCH ×2 (15:33→20:31)
--- NOTE | 2019-04-21 16:39 | P.PN ---
Progress Note - Text Progress Note Date: 04/21/19 Chief Complaint: Heart racing History of presenting complaint: This is a pleasant 68-year-old patient of Dr. Genesis Morales. Chronic stable medical conditions include diabetes, hypertension, hyperlipidemia, had been chronically on Coumadin for pulmonary embolism. Patient was scheduled for his regular colonoscopy yesterday morning. By Dr. Pepe. He has stopped his beta maynor about a week ago. Stopped his Coumadin 2 days ago. For last 3 days he had noted Dr. lopez. In the preop area patient is found to have a rapid heart rate. Found to be in atrial flutter was to start one block. Cardiology was called. Patient started on a Cardizem drip. Admitted to the floor. Patient has been feeling his heart racing. No chest pressure. No dizziness or lightheadedness. Patient about a month ago states was feeling weak and tired and had fallen down. And he felt as though part of his right arm. It may have been a stroke. He fully recovered power in the right arm. Never followed up with any physician. No prior history of coronary artery disease. No prior history of fibrillation. Has followed up by sr community manager, Dr. Finney in the past. Admitted with new onset of atrial flutter fibrillation with a rapid ventricular rate and GI bleed. Initially put on a Cardizem drip. Then switched over to beta blockers. Today-atrial fibrillation flutter remains with a high rate. Seen by cardiology earlier today. Dose of Lopressor increased 100 mg 3 times a day. Review of systems: Was done for constitutional, cardiovascular, GI, pulmonary. relevant finding as above Active Medications Acetaminophen/Codeine Phosphate (Tylenol #3) 1 each PO Q6HR PRN PRN Reason: Pain Last Admin: 04/21/19 11:49 Dose: 1 each Documented by: Albuterol/Ipratropium (Duoneb 0.5 Mg-3 Mg/3 Ml Soln) 3 ml INHALATION RT-Q4H [facility] Last Admin: 04/21/19 16:35 Dose: 3 ml Documented by: Atorvastatin Calcium (Lipitor) 20 mg PO HS TAN Ferrous Sulfate (Feosol) 325 mg PO DAILY [facility] Last Admin: 04/21/19 08:06 Dose: 325 mg Documented by: Lidocaine HCl (.Xylocaine 1% Inj (10mg/Ml) For Iv Start) 0.1 ml INTRADERMA PER PROTOCOL PRN PRN Reason: IV Start Last Admin: 04/18/19 08:09 Dose: 0.1 ml Documented by: Losartan Potassium (Cozaar) 50 mg PO DAILY [facility] Last Admin: 04/21/19 08:06 Dose: 50 mg Documented by: Metformin HCl (Glucophage) 850 mg PO BID [facility] Last Admin: 04/21/19 08:06 Dose: 850 mg Documented by: Metoprolol Tartrate (Lopressor) 100 mg PO TID [facility] Last Admin: 04/21/19 15:33 Dose: 100 mg Documented by: Montelukast Sodium (Singulair) 10 mg PO DAILY [facility] Last Admin: 04/21/19 08:06 Dose: 10 mg Documented by: Non-Formulary Medication (Vardenafil Hcl [Levitra]) 5 mg PO BID [facility] Last Admin: 04/21/19 08:01 Dose: Not Given Documented by: Physical examination: VITAL SIGNS: 97.8, 116, 18, 1180 63, 95% on 3 L GENERAL: Sitting up, comfortable. EYES: Pupils equal. Conjunctiva palel. HEENT: External appearance of nose and ears normal, oral cavity grossly normal. NECK: JVD not raised; masses not palpable. HEART: Heart sounds are irregular; no edema. LUNGS: Respiratory rate normal; clear to auscultation. ABDOMEN: Soft, nontender, liver spleen not palpable, no masses palpable. PSYCH: Alert and oriented x3; mood and affect normal. INVESTIGATIONS, reviewed in the clinical context: White count 4.9 hemoglobin 7.7 creatinine 1.16 Previous testing White count 3.6 hemoglobin 7.5 platelets 300 potassium 5.7 BUN 18 creatinine 0.94 2-D echo shows moderate concentric left ventricular hypertrophy, EF 35-40% no focal wall motion abnormality Computed tomography scan of the brain-no evidence of stroke Carotid Doppler-right common carotid artery showing significant stenosis Assessment: -New onset of atrial flutter with 2 rapid ventricular rate, uncontrolled -Acute GI bleed in a patient who's been on Coumadin for underlying problem embolism that was stopped about a week ago -Acute blood loss anemia from GI bleed -Cardiomyopathy EF 35-40%, cause unknown. It could be hypertensive but need to rule out underlying coronary artery disease -Severe secondary pulmonary hypertension, exact cause currently unknown -Moderate tricuspid regurgitation, nontraumatic -Hypertensive heart disease -Diabetes mellitus type 2 -Hyperlipidemia -Essential hypertension -Right common carotid artery showing significant stenosis, seen by Dr. Minor not for any intervention currently Plan: Patient is being scheduled for EGD colonoscopy tomorrow. Dose of Lopressor was increased. Care was discussed with the patient.
[2019-04-21 17:01] LABS: Glucose,Whole Blood 251 mg/dL (75-99)
[2019-04-21 17:22] LABS: Glucose,Whole Blood 109 mg/dL (75-99)
[2019-04-21 20:26] LABS: Glucose,Whole Blood 102 mg/dL (75-99)
[2019-04-21] MEDS: ATORVASTATIN 20 MG TAB PO SCH (20:31)
[2019-04-22] MEDS ORDERED: DEXTROSE 5% IN WATER 100 ML with AMIODARONE 150 MG IV ONE (02:06)
[2019-04-22] MEDS ORDERED: AMIODARONE 360 MG in DEXTROSE 5% IN WATER 200 ML IV ONE ×2 (02:07)
[2019-04-22] MEDS: IPRATROPIUM-ALBUTEROL 3 ML NEB INHALATION SCH ×5 (03:18→20:32)
[2019-04-22] MEDS: Acetaminophen-Codeine 300-30mg TAB PO PRN ×4 (03:27→22:39)
[2019-04-22 06:03] LABS: Glucose,Whole Blood 106 mg/dL (75-99)
[2019-04-22 07:10] LABS: Basophils % (A) 1 %; Eosinophils # (A) 0.1 k/uL (0-0.7); Eosinophils % (A) 2 %; HCT 26.5 % (39.0-53.0); HGB 7.8 gm/dL (13.0-17.5); Hypochromasia Marked; Lymphocytes # (A) 1.3 k/uL (1.0-4.8); Lymphocytes % (A) 28 %; MCH 26.6 pg (25.0-35.0); MCHC 29.3 g/dL (31.0-37.0); MCV 90.9 fL (80.0-100.0); Mean Platelet Volume 6.1; Monocytes # (A) 0.3 k/uL (0-1.0); Monocytes % (A) 6 %; Neutrophils # (A) 2.8 k/uL (1.3-7.7); Neutrophils % (A) 61 %; Platelet Count 312 k/uL (150-450); RBC 2.91 m/uL (4.30-5.90); RDW 15.1 % (11.5-15.5); WBC 4.5 k/uL (3.8-10.6)
[2019-04-22 07:22] LABS: African American GFR (CKD) >90 (>60 ml/min/1.73 sqM); Anion Gap 4 mmol/L; Blood Urea Nitrogen 16 mg/dL (9-20); Calcium 8.8 mg/dL (8.4-10.2); Carbon Dioxide 31 mmol/L (22-30); Chloride 105 mmol/L (98-107); Glucose 93 mg/dL (74-99); Potassium 5.5 mmol/L (3.5-5.1); Sodium 140 mmol/L (137-145)
[2019-04-22] MEDS: AMIODARONE 300 MG in DEXTROSE 5% IN WATER 250 ML IV SCH ×4 (07:49→20:30)
[2019-04-22] MEDS: METOPROLOL TARTRATE 50 MG TAB PO SCH ×3 (08:02→20:28)
[2019-04-22] MEDS ORDERED: PROPOFOL 10 MG/ML 20 ML VIAL IV ONE (08:07)
[2019-04-22] MEDS ORDERED: SODIUM CHLORIDE 0.9% 500 ML 500 ML IV ONE ×2 (08:12)
--- NOTE | 2019-04-22 08:43 | P.PCN ---
Date of Procedure: 04/22/19 Procedure(s) Performed: Brief history: Patient is a pleasant 69-year-old white male scheduled for an upper endoscopy as well as colonoscopy as a part of evaluation of severe symptomatic anemia with a hemoglobin of 7.5 g/dL. He was scheduled for an outpatient endoscopic evaluation 3 days ago when he was noted to be in A. fib with rapid ventricular heart rate and hence patient was admitted to the hospital. Coumadin has been on hold for the last 1 week. Patient denies any GI symptoms. Procedure performed: Esophagogastroduodenoscopy with biopsy Colonoscopy with snare polypectomy Preoperative diagnosis: Severe symptomatic anemia Anesthesia: MAC Procedure: After informed consent was obtained from the patient was brought into the endoscopy unit and IV sedation was administered by anesthesia under continuous monitoring. Initially upper endoscopy was done. The Olympus GF 160 video endoscope was inserted inserted into the mouth and esophagus intubated without any difficulty and was gradually advanced into the stomach and duodenum and carefully examined. The bulb and second part of the duodenum appeared normal. Biopsies were done from the duodenum to rule out celiac disease. The scope was then withdrawn into the stomach adequately insufflated with air and upon careful examination the antrum had mild gastritis and biopsies were done from this area. The body, cardia and fundus appeared normal. The scope was then withdrawn into the esophagus. The GE junction was located at 40 cm to the incisors. It appeared regular with no erythema erosions or ulcerations. Rest of the esophagus appeared normal. Patient tolerated the procedure well. At this time the patient continued to remain sedation. Initial digital rectal examination was normal. Olympus CF 160 video colonoscope was then inserted into the rectum and gradually advanced to the cecum without any difficulty. Careful examination was performed as the scope was gradually being withdrawn. The prep was fair except in the cecum there was large amount of retained solid stool identified which could not be completely irrigated. In the base of the cecum there was a 5 mm polyp that was removed by snare polypectomy. There was another 3-4 mm sessile polyp on the ileocecal valve that was removed by snare polypecto my. In the transverse colon there was a 5 mm and 1 cm polyps removed by snare polypectomy. In the descending colon there was a 5 mm polyp removed by snare polypectomy. There are scattered sigmoid diverticulosis seen.. The sigmoid colon and rectum appeared normal. Retroflexion was performed in the rectum and grade 2 internal hemorrhoids were noted. Patient tolerated the procedure well. Impression: 1. Upper endoscopy revealed mild antral gastritis. 2. Colonoscopy revealed: a) 5 mm cecal polyp status post polypectomy b) 3-4 mm polyp on the ileocecal valve status post polypectomy c) 5 mm and 1 cm transverse colon polyp status post polypectomy d) scattered sigmoidal diverticulosis e) small internal hemorrhoids Recommendations: Findings of this examination were discussed with the patient.. Was advised to follow with the biopsy results. He can resume anticoagulation today. Diet will be advanced as tolerated.
[2019-04-22] MEDS: FERROUS SULFATE 325 MG TAB PO SCH (09:32)
[2019-04-22] MEDS: metFORMIN 850 MG TAB PO SCH ×2 (09:32→20:29)
[2019-04-22] MEDS: LOSARTAN 50 MG TAB PO SCH (09:32)
[2019-04-22] MEDS: MONTELUKAST 10 MG TAB PO SCH (09:32)
[2019-04-22] MEDS: VARDENAFIL HCL PO SCH ×2 (09:35→20:25)
--- NOTE | 2019-04-22 10:58 | XR ---
EXAMINATION TYPE: XR chest 1V DATE OF EXAM: 04/22/2019 HISTORY: r/o chf. REFERENCE: NONE. FINDINGS: There is a near complete white out of the right hemithorax. There is shift of the mediastin al structures towards the right. There is atelectasis in the left midlung. No definite left-sided ple ural effusion is seen. IMPRESSION: NEAR COMPLETE WHITE OUT OF THE RIGHT HEMITHORAX IS LIKELY DUE TO A COMBINATION OF PLEURAL FLUID AND R IGHT-SIDED AIRSPACE DISEASE.
--- NOTE | 2019-04-22 11:49 | P.PN ---
Subjective 69-year-old male was admitted for atrial fibrillation with rapid ventricular rate patient was admitted from endoscopy where he was supposed to get an outpatient upper GI endoscopy and colonoscopy patient underwent these procedures which showed mild gastritis and the polyp in the colon which was removed. Patient heart rate is not well controlled. Patient is on maximal doses of metoprolol patient heart rate remains high. Losartan is being discontinued because of hyperkalemia. Patient is on digoxin as well. Patient was started on amiodarone. Constitutional: Denied any fatigue denied any fever. Cardio vascular: denied any chest pain, palpitations Gastrointestinal denied any nausea vomiting Pulmonary: Denied any shortness of breath cough Neurologic denied any new focal deficits All inpatient medications were reviewed and appropriate changes in these medications as dictated in the interval history and assessment and plan. i Objective - Vital Signs Vital signs: Vital Signs Temp 98.0 F 04/22/19 03:59 Pulse 120 H 04/22/19 11:43 Resp 18 04/22/19 08:04 BP 126/83 04/22/19 08:04 Pulse Ox 95 04/22/19 08:04 Intake & Output 04/21/19 04/22/19 04/22/19 18:59 06:59 18:59 Intake Total 1000 200 Balance 1000 200 Weight 85.2 kg Intake: IV 160 200 0.9 160 Oral 840 Other: Voiding Method Toilet Toilet # Voids 2 # Bowel Movements 2 - Exam PHYSICAL EXAMINATION: GENERAL: The patient is alert and oriented x3, not in any acute distress. Well developed, well nourished. HEENT: Pupils are round and equally reacting to light. EOMI. No scleral icterus. No conjunctival pallor. Normocephalic, atraumatic. No pharyngeal erythema. No thyromegaly. CARDIOVASCULAR: S1 and S2 present. No murmurs, rubs, or gallops. patient is tachycardic with rapid ventricular rate PULMONARY: Chest is clear to auscultation, no wheezing or crackles. ABDOMEN: Soft, nontender, nondistended, normoactive bowel sounds. No palpable organomegaly. MUSCULOSKELETAL: No joint swelling or deformity. EXTREMITIES: No cyanosis, clubbing, or pedal edema. NEUROLOGICAL: Gross neurological examination did not reveal any focal deficits. SKIN: No rashes. - Labs CBC & Chem 7: 04/22/19 06:21 04/22/19 06:21 Labs: Abnormal Lab Results - Last 24 Hours (Table) 04/20/19 04/21/19 04/21/19 Range/Units 11:56 16:56 17:20 RBC (4.30-5.90) m/uL Hgb (13.0-17.5) gm/dL Hct (39.0-53.0) % MCHC (31.0-37.0) g/dL Potassium (3.5-5.1) mmol/L Carbon Dioxide (22-30) mmol/L POC Glucose (mg/dL) 251 H 109 H (75-99) mg/dL Crossmatch See Detail 04/21/19 04/22/19 04/22/19 Range/Units 20:24 06:01 06:21 RBC 2.91 L (4.30-5.90) m/uL Hgb 7.8 L (13.0-17.5) gm/dL Hct 26.5 L (39.0-53.0) % MCHC 29.3 L (31.0-37.0) g/dL Potassium (3.5-5.1) mmol/L Carbon Dioxide (22-30) mmol/L POC Glucose (mg/dL) 102 H 106 H (75-99) mg/dL Crossmatch 04/22/19 Range/Units 06:21 RBC (4.30-5.90) m/uL Hgb (13.0-17.5) gm/dL Hct (39.0-53.0) % MCHC (31.0-37.0) g/dL Potassium 5.5 H (3.5-5.1) mmol/L Carbon Dioxide 31 H (22-30) mmol/L POC Glucose (mg/dL) (75-99) mg/dL Crossmatch Assessment and Plan Plan: -new-onset A. fib flutter/A. fib patient is still rapid ventricular rate, patient is presently anywhere on digoxin and metoprolol high-dose. 10-hyperkalemia secondary to angiotensinreceptor maynor which is losartan which is being discontinued at this time And having congestive heart failure chronic systolic dysfunction patient clinically appears to be euvolemic patient is on 3L of oxygen secondary to COPD and patient has chronic hypercapnic respiratory failure. At although I'll obtain a chest x-ray make sure there is no pulmonary edema. -Severe secondary pulmonary hypertension probably from COPD and valvular heart disease -Moderate tricuspid regurgitation -Hypertension -Type 2 diabetes mellitus -Hyperlipidemia -Essential hypertension. -No evidence of acute blood loss anemia and GI bleed at this time. -Mild antral gastritis for which patient is on proton pump inhibitors -Colonic polyps which were removed.
[2019-04-22 11:54] LABS: Glucose,Whole Blood 148 mg/dL (75-99)
[2019-04-22] MEDS: DIGOXIN 250 MCG/ML 2 ML AMP IVP SCH ×2 (12:42→17:39)
--- NOTE | 2019-04-22 13:17 | P.PN ---
Subjective Progress Note Date: 04/22/19 This is a 69-year-old male with past medical history significant for paroxysmal atrial fibrillation on long-term anticoagulation, hypertension, dyslipidemia, diabetes mellitus and former nicotine dependence. He was brought into the hospital today for an elective EGD with Dr. Arnold. However upon arrival telemetry tracings revealed a rapid heart rate. EKG was obtained revealing atrial flutter with a 2:1 conduction. Patient had an echocardiogram with Doppler study performed which revealed an ejection fraction of 35-40%. We will discontinue the IV Cardizem and increase his dose of beta maynor to 50 mg by mouth twice a day. He scheduled for EGD and colonoscopy, currently not on anticoagulation. 04/20/2019 Patient was seen and examined this morning, he went back in atrial fibrillation and his rate was up in the 120 to 1:30 range, he was started on IV Cardizem through the night which we discontinued this morning, we did increase his dose of beta maynor and at the time of her examination in the 90s. His EGD and colonoscopy had been canceled because of rapid rate. Patient is also scheduled to receive a blood transfusion today. Hemoglobin is 7.8 today. 04/22: Patient underwent upper endoscopy for mild antral gastritis and colonoscopy. He was cleared to resume anticoagulation. Repeat chest x-ray reveals near complete white out of the right hemithorax likely due to com minution pleural fluid and right-sided airspace disease. Patient heart rate continues to be elevated running between 108 and 120 despite all his current medications. We will add and digoxin 0.25 IV push 2 today every 6 hours. Gen: This is a 69-year-old male. He is in a recliner and appears to be somewhat comfortable. HEENT: Head is atraumatic, normocephalic. Pupils equal, round. Sclerae is anicteric. NECK: Supple. No JVD. No lymphadenopathy. No thyromegaly. LUNGS: Clear to auscultation. No wheezes or rhonchi. No intercostal retractions. HEART: Irregularly irregular rate and rhythm. No murmur. ABDOMEN: Soft. Bowel sounds are present. No masses. No tenderness. EXTREMITIES: No pedal edema. No calf tenderness. NEUROLOGICAL: Patient is awake, alert and oriented x3. Cranial nerves 2 through 12 are grossly intact. Assessment: Typical atrial flutter with 2:1 conduction, now atrial fibrillation under moderate control GI bleed secondary to gastritis Chronic anemia per the patient History of paroxysmal atrial fibrillation on long-term anticoagulation with Coumadin Hypertension Dyslipidemia Diabetes mellitus Former nicotine dependence Complete white out on the right hemithorax on this morning's chest x-ray. Patient's nurse will contact attending. Plan: Continue metoprolol 100 mg 3 times daily, amiodarone drip Add digoxin 125 g IV push every 6 hours for 2 doses Hold off on anticoagulation for now Further recommendations to follow based upon clinical course Nurse practitioner note has been reviewed, I agree with documented findings and plan of care. Patient was seen and examined. Objective - Vital Signs Vital signs: Vital Signs Temp 98.0 F 04/22/19 03:59 Pulse 109 H 04/22/19 08:04 Resp 18 04/22/19 08:04 BP 126/83 04/22/19 08:04 Pulse Ox 95 04/22/19 08:04 Intake & Output 04/21/19 04/22/19 04/22/19 18:59 06:59 18:59 Intake Total 1000 200 Balance 1000 200 Weight 85.2 kg Intake: IV 160 200 0.9 160 Oral 840 Other: Voiding Method Toilet Toilet # Voids 2 # Bowel Movements 2 - Labs CBC & Chem 7: 04/22/19 06:21 04/22/19 06:21 Labs: Abnormal Lab Results - Last 24 Hours (Table) 04/20/19 04/21/19 04/21/19 Range/Units 11:56 16:56 17:20 RBC (4.30-5.90) m/uL Hgb (13.0-17.5) gm/dL Hct (39.0-53.0) % MCHC (31.0-37.0) g/dL Potassium (3.5-5.1) mmol/L Carbon Dioxide (22-30) mmol/L POC Glucose (mg/dL) 251 H 109 H (75-99) mg/dL Crossmatch See Detail 04/21/19 04/22/19 04/22/19 Range/Units 20:24 06:01 06:21 RBC 2.91 L (4.30-5.90) m/uL Hgb 7.8 L (13.0-17.5) gm/dL Hct 26.5 L (39.0-53.0) % MCHC 29.3 L (31.0-37.0) g/dL Potassium (3.5-5.1) mmol/L Carbon Dioxide (22-30) mmol/L POC Glucose (mg/dL) 102 H 106 H (75-99) mg/dL Crossmatch 04/22/19 Range/Units 06:21 RBC (4.30-5.90) m/uL Hgb (13.0-17.5) gm/dL Hct (39.0-53.0) % MCHC (31.0-37.0) g/dL Potassium 5.5 H (3.5-5.1) mmol/L Carbon Dioxide 31 H (22-30) mmol/L POC Glucose (mg/dL) (75-99) mg/dL Crossmatch
--- NOTE | 2019-04-22 14:00 | P.PN ---
Subjective Progress Note Date: 04/22/19 Principal diagnosis: Stage IV bronchogenic carcinoma and large right-sided pleural effusion. Shortness of breath secondary to progression of right-sided pleural effusion, stage IV adenocarcinoma, and underlying severe COPD. This is a 70-year-old white female patient with history of pulmonary adenocarcinoma diagnosed in September 2018 via lung core biopsy of the left lung mass. The pulmonary mass was first discovered when patient presented in July with new onset A. fib, and a CT angios of the chest showed a soft tissue masslike lesions in the infrahilar area down to the subpleural region of the right lung extending to the right lung base and measuring 13.6 cm with areas of multiple conglomerate masses. Outpatient PET scan showed hypermetabolic uptake in bilateral lungs, and patient had at least T4 stage disease. Treatment was offered for palliation of symptoms, however patient declined treatment. At the time of her diagnosis patient was already extremely cachectic, she had lost a lot of weight, and very frail. She continues to smoke, about a pack a day, she has history of chronic atrial fibrillation, for which she is on Coumadin. She has been hospitalized a few times since the time of her diagnosis, with shortness of breath, and right-sided pleural effusion, however patient would either declined invasive procedure and would want medical treatment only or the fluid was not amenable to drainage related to close proximity to the lung mass and increased risk of pneumothorax. During her previous hospitalization as we had discussed hospice enrollment with her, however patient declined stating that "no one can come into my house because of my aggressive dog". She takes care of her daughter's dog, and apparently her daughter lives with her, she states she is very independent, and she does not want to rely on anybody. Patient was last hospitalized and discharged home on 04/12/2019, when she came in for shortness of breath, small right-sided pleural effusion not enough to drain, and CT chest with no contrast showed progression of her lung cancer with atelectasis, no suspicion for pneumonia. On 04/18/2019 patient came into the emergency department for difficulty breathing, patient woke up at 5:00 yesterday morning and she states she couldn't breathe, she reports a cough with small amount of hemoptysis and some yellowish production of sputum. No nausea vomiting or diarrhea, no chest pain, no lower extremity swelling, she has been using her breathing treatments at home, she is on home oxygen at 2 L. Chest x-ray has been completed in the emergency department showing moderate-sized right pleural effusion and mild infiltrate at the left base. Chest ultrasound showed a right pleural effusion pocket of 12 cm, and left pleural effusion pocket of 1.9 cm. Patient was in A. fib RVR, she is oriented anticoagulated with Coumadin, her admission INR was 3.3, she is being evaluated by cardiology, she had since converted to sinus rhythm. And we are seeing this patient for possibility of right-sided thoracentesis. On 04/19/2019, patient had to be transferred to the intensive care unit last night, she developed what seemed to be a picture of acute hypoxic and hypercapnic respiratory failure. Patient was also noted to be in atrial f ibrillation and RVR. Upon arrival to the ICU, patient was unresponsive, I was notified about her condition, and I recommended immediate intubation. Prior to intubation, I questioned the CODE STATUS, and I was told that the patient was full code. Hence patient was intubated, and she remains on mechanical ventilation at present. Her present ventilator settings are assist control rate of 18, tidal volume of 350 FiO2 is down to 35% and PEEP is at 5. ABG post intubation showed a pO2 of 400 pCO2 of 78 pH of 7.21 which clearly indicates that the patient developed acute hypercapnic respiratory failure secondary to her underlying COPD and her other pulmonary issues as noted above. ABG this morning showed a pO2 of 114 pCO2 of 31 pH of 7.63 hence the ventilator settings were adjusted accordingly. Patient was extremely agitated after intubation yesterday, hence that she was placed on Nimbex which I have discontinued this morning. And she remains on propofol. All labs were reviewed, renal profile is normal CBC is relatively normal electrolytes are basically normal except for low potassium of 3.0 be corrected as per protocol. Hemoglobin is 7.6. Reevaluated today on 04/20/2019, patient remains in the intensive care unit, on mechanical ventilation. I had a long discussion with the family yesterday including her daughter and her brother, and the decision was to have the family discuss her condition, they seem to be inclined to consider comfort care measures considering her progressive and advanced stage lung cancer. However so far I haven't heard from the family hopefully will have another family meeting today. In the meantime her chest x-ray today shows questionable right apical pneumothorax, and I would have to make a decision whether the patient will need any further intervention. Hence I recommended a CT of the chest to confirm the finding, and if she does may have to consider a thoravent placement or a chest tube placement. Last night the patient was extremely agitated in spite of a high dose of propofol, and we had to place her back on Nimbex. She is presently on Nimbex and on propofol, but I will go ahead and discontinue Nimbex again. Her ventilator settings are basically the same she is on assist control rate of 18 tidal volume of 350 FiO2 of 35% and PEEP of 5. ABG today showed a pO2 of 94 pCO2 of 50 pH of 7.37. WBC count is 16.5 hemoglobin is 8.3. Electrolytes are normal except for low potassium of 3.3 being corrected as per protocol. Patient is sedated, calm, and she is receiving nutritional support via orogastric tube. Patient was reevaluated today on 04/21/2019, she was weaned and extubated yesterday from mechanical ventilation. However she continued to have intermittent episodes of extreme agitation and Refusing to use the BiPAP, and she was desaturating on nasal cannula, hence the patient was given Ativan IV push every 3 hours as needed, and we were able to maintain the patient on BiPAP overnight. This morning, the patient remains in respiratory distress, and chest x-ray showed extreme worsening of the right-sided pleural effusion and the whole right lung is completely opacified. Then consent was obtained from the patient verbally and from her daughter over the phone, and we proceeded with a right- sided thoracentesis. Roughly 2250 mL of fluid were obtained from the right right pleural space. The procedure was well-tolerated, and the fluid was sent for different diagnostic studies. Hoping after the thoracentesis, patient could be placed back on a nasal cannula. And hopefully we can cut down on her sedatives. All labs were reviewed, and they seem to be relatively unremarkable. Patient was reevaluated today on 04/22/2019, patient remains in the ICU, she has been off mechanical ventilation now for 2 days, patient underwent uneventful right sided thoracentesis yesterday, and over 20 20 mL of fluid were drained from the right pleural space. The fluid is likely transudative of the nature based on relatively low protein and low LDH. Although the possibility of malignant pleural effusion is not entirely ruled out. Considering the patient has a large mass in the right lower lobe. Cytology is pending on the fluid, chest x-ray this morning showed small tiny apical pneumothorax is suspected, and there is airspace disease in the right lower lobe with a large right lower lobe mass. However the patient is asymptomatic, she has no symptoms of shortness of breath, and she tells me that she feels fine. Maintained on 3 L nasal cannula. The small apical pneumothorax is most likely secondary to trapped lung, strongly doubt iatrogenic pneumothorax, as a matter of fact, looking of the chest x-ray from yesterday, there was tiny bit of loculated air at the bottom of the right lung and I was related to the fact that the lung did not expand fully. And we are seeing the air right now in the right apex. Hence no need for any intervention, and again this is not iatrogenic pneumothorax, this is a and s econdary to trapped lung. Objective - Vital Signs Vital signs: Vital Signs Temp 98.0 F 04/22/19 03:59 Pulse 120 H 04/22/19 11:43 Resp 18 04/22/19 08:04 BP 126/83 04/22/19 08:04 Pulse Ox 95 04/22/19 08:04 Intake & Output 04/21/19 04/22/19 04/22/19 18:59 06:59 18:59 Intake Total 1000 200 Balance 1000 200 Weight 85.2 kg Intake: IV 160 200 0.9 160 Oral 840 Other: Voiding Method Toilet Toilet # Voids 2 # Bowel Movements 2 - Exam GENERAL EXAM: Revealed 70-year-old female, on 3 L nasal cannula, in no distress. HEENT: PERRLA, EOMI, no icterus, dry mucous membranes, CHEST: No chest wall deformity. Symmetrical expansion. LUNGS: Diminished breath sounds and dullness at the right base. Left side is basically clear. CVS: Regular rate and rhythm, normal S1 and S2, no gallops, no murmurs, no rubs ABDOMEN: Soft, nontender. No hepatosplenomegaly, normal bowel sounds, no guarding or rigidity. EXTREMITIES: No clubbing, no edema, no cyanosis, 2+ pulses and upper and lower extremities. MUSCULOSKELETAL: Muscle strength and tone normal. SPINE: No scoliosis or deformity SKIN: No rashes CENTRAL NERVOUS SYSTEM: Alert and oriented 3, no gross focal neurologic deficits. Follows all instructions. PSYCHIATRIC: Blunted affect, depressed mood, otherwise normal mental status examination. - Labs CBC & Chem 7: 04/22/19 06:21 04/22/19 06:21 Labs: Abnormal Lab Results - Last 24 Hours (Table) 04/20/19 04/21/19 04/21/19 Range/Units 11:56 16:56 17:20 RBC (4.30-5.90) m/uL Hgb (13.0-17.5) gm/dL Hct (39.0-53.0) % MCHC (31.0-37.0) g/dL Potassium (3.5-5.1) mmol/L Carbon Dioxide (22-30) mmol/L POC Glucose (mg/dL) 251 H 109 H (75-99) mg/dL Crossmatch See Detail 04/21/19 04/22/19 04/22/19 Range/Units 20:24 06:01 06:21 RBC 2.91 L (4.30-5.90) m/uL Hgb 7.8 L (13.0-17.5) gm/dL Hct 26.5 L (39.0-53.0) % MCHC 29.3 L (31.0-37.0) g/dL Potassium (3.5-5.1) mmol/L Carbon Dioxide (22-30) mmol/L POC Glucose (mg/dL) 102 H 106 H (75-99) mg/dL Crossmatch 04/22/19 04/22/19 Range/Units 06:21 11:51 RBC (4.30-5.90) m/uL Hgb (13.0-17.5) gm/dL Hct (39.0-53.0) % MCHC (31.0-37.0) g/dL Potassium 5.5 H (3.5-5.1) mmol/L Carbon Dioxide 31 H (22-30) mmol/L POC Glucose (mg/dL) 148 H (75-99) mg/dL Crossmatch Assessment and Plan Assessment: #1. Acute hypercapnic respiratory failure requiring intubation and mechanical ventilation, multifactorial, related to her underlying COPD, underlying advanced adenocarcinoma of the lung, and moderate sized right-sided pleural effusion. Patient was extubated successfully on 04/20/2019, and she was placed on BiPAP. Remains on BiPAP at present and I will likely switch her to a nasal cannula af ter the right sided thoracentesis. #2. Recent admission for shortness of breath, and CT chest was completed showing progression of the right mid and lower lobe lung mass with recurrent right pleural fluid collection and enlarging nodule in the left lung base #3. COPD, advanced, on home oxygen, outpatient PFT showed FEV1 value of 1.29 L or 56% of predicted #4. Chronic A. fib on Coumadin #5. A. fib with RVR, since converted to sinus rhythm #6. Hypertension #7. Chronic and ongoing tobacco dependence syndrome, patient carries a [id number] smoking history and continues to smoke a pack a day #8. No history of chronic alcoholism #9. Hemoptysis related to underlying lung cancer #10. [id number] mitral stenosis, mild pulmonary hypertension with PA systolic of 36.4 mmHg, and overall preserved left ventricular systolic function with an EF of 50-55% as previously noted on echocardiogram on 03/2019. In addition there was a small generalized pericardial effusion noted #11 status post right sided thoracentesis, on 05/22/2019, and roughly 2250 mL of fluid were drained from the right pleural space. Sent for different diagnostic studies. Cytology is pending, however the initial finding on the fluid is pointing to possibly transudate of pleural effusion. #12 right sided pneumothorax secondary to trapped lung not iatrogenic pneumothorax. The right lung is failing to fully expand on the right side after fluid was drained. No need for any intervention, patient is asymptomatic. And that size of the pneumothorax is rather small. And apical. Reviewed the chest x-ray yesterday after thoracentesis, there was a small amount of failure loculated in the right costophrenic angle and this has resolved. Recommendation: I had a long discussion with the patient today, she has no focal neurologic deficit, and we discussed her condition and her overall prognostic picture. Patient clearly has advanced stage lung cancer, and she has refused any treatment in the past, continues to refuse any treatment for her underlying lung cancer. We discussed the issue of intubation and mechanical ventilation as well as CODE STATUS. Patient wishes to be DO NOT RESUSCITATE, no intubation, no CPR, no defibrillation. Hence her CODE STATUS will be changed, and the nurses were instructed to do so. Patient will be transferred likely today from the ICU to a regular medical floor, and consider discharge planning early Wednesday. Time with Patient: Less than 30
[2019-04-22] MEDS ORDERED: RX INFO: IV CONTRAST WAS GIVEN 1 EACH MISC MISCELLANE PRN (14:40)
--- NOTE | 2019-04-22 15:21 | P.CNPUL ---
History of Present Illness Consult date: 04/22/19 Requesting physician: Sergio Carranza Reason for consult: COPD, other (Abnormal chest x-ray) Chief complaint: Heart tracing History of present illness: This is a 69-year-old white male with history of multiple medical problems including COPD, hypertension, hyperlipidemia, and history of pulmonary embolism. Patient was supposed to undergo routine colonoscopy few days ago, and while in the preoperative area, patient was found to have atrial flutter, colonoscopy was canceled, patient was seen by cardiology, started on Cardizem drip, and he was admitted to a monitor bed on . Patient had no other symptoms except for his heart racing. He had no chest pain no cough no wheezing no fever no chills no hemoptysis. However has been reporting generalized weakness fatigue for the last few weeks prior to admission. Since admission, the patient was seen by many consultants including cardiology, vascular surgery, and on 04/22, patient underwent EGD with biopsy and colonoscopy with snare polypectomy. He was found to have mild antral gastritis. 5 mm cecal polyp, 3-4 mm polyp the ileocecal valve and 5 mm transverse colon polyp and he was also found to have scattered sigmoid diverticulosis. During the whole stay for the last 3 days, patient had no pulmonary symptoms whatsoever. However the admitting physician today ordered a chest x-ray. He was concerned about the possibility of congestive heart failure since the patient had atrial fibrillation with RVR on admission. His chest x-ray showed near complete whiteout of the right hemithorax, and the differential diagnoses included right-sided airspace disease, consolidation, and possibly pleural effusion. However the ultrasound which I ordered prior to evaluating the patient showed a very small amount of pleural effusion not large enough to explain all that opacification in the right lung, hence I recommended CT of the chest. And again the amount of the fluid on the right chest is extremely small to consider safe thoracentesis at this point. Patient denies any history of malignancy denies any history of lung cancer he is known to have history of COPD, and supposedly quite severe. Review of Systems GEN.: Chronic weakness fatigue malaise EYES: Denies any blurred vision, denies any diplopia, denies any that lacking. HEENT: Denies any sore throat, denies any earache, denies any headaches, denies any blurred vision NECK: Denies any neck rigidity, denies any neck masses, RESPIRATORY: Chronic dyspnea on exertion, related to COPD, no active pulmonary symptoms during this admission. CARDIOVASCULAR: As noted in HPI, patient was admitted with atrial flutter GASTROINTESTINAL: Denies any melena or hematemesis, however the patient has chronic anemia and a GI workup was done for evaluation of chronic symptomatic anemia. GENITOURINARY: Denies any dysuria frequency urgency. Denies any hematuria MUSCULOSKELETAL: Denies any aches or pains, denies any limitation in range of motion LYMPHATICS: Denies any lymph node swelling HEMATOLOGICAL: Denies any active clotting bleeding or bruising PSYCHIATRY: Denies any symptoms of active depression NEUROLOGICAL: Denies any headache blurred vision or dizziness or syncope but feels generally weak Past Medical History Past Medical History: Atrial Fibrillation, Diabetes Mellitus, Hyperlipidemia, Hypertension, Pulmonary Embolus (PE), Seizure Disorder Additional Past Medical History / Comment(s): pt states was told he had a seizure-unknown when. History of Any Multi-Drug Resistant Organisms: None Reported Additional Past Surgical History / Comment(s): COLONOSCOPY. BRONCHOSCOPY Past Anesthesia/Blood Transfusion Reactions: No Reported Reaction Past Psychological History: No Psychological Hx Reported Smoking Status: Former smoker Past Alcohol Use History: None Reported Additional Past Alcohol Use History / Comment(s): QUIT SMOKING 2014 Past Drug Use History: Marijuana Additional Drug Use History / Comment(s): USES MARIJUANA DAILY-INSTRUCTED TO REFRAIN FROM USE FOR AT LEAT 24 HOURS PRIOR TO PROCEDURE - Past Family History Brother(s) Family Medical History: Cancer Medications and Allergies Home Medications Medication Instructions Recorded Confirmed Type Ferrous Sulfate [Feosol] 325 mg PO DAILY 04/14/19 04/14/19 History Losartan [Cozaar] 50 mg PO DAILY 04/14/19 04/14/19 History Metoprolol Tartrate [Lopressor] 50 mg PO DAILY 04/14/19 04/14/19 History Montelukast [Singulair] 10 mg PO DAILY 04/14/19 04/14/19 History Simvastatin [Zocor] 20 mg PO HS 04/14/19 04/14/19 History Vardenafil HCl [Levitra] 5 mg PO BID 04/14/19 04/14/19 History Warfarin [Coumadin] 5 mg PO DAILY 04/14/19 04/14/19 History metFORMIN HCL [Glucophage] 850 mg PO BID 04/14/19 04/14/19 History Allergies Allergy/AdvReac Type Severity Reaction Status Date / Time No Known Allergies Allergy Verified 04/18/19 08:00 Physical Exam Vitals: Vital Signs Temp Pulse Pulse Resp BP BP Pulse Ox 04/22/19 11:43 120 H 04/22/19 11:34 108 H 04/22/19 08:04 109 H 18 126/83 95 04/22/19 07:59 112 H 04/22/19 07:52 102 H 04/22/19 03:59 98.0 F 109 H 18 117/71 99 04/22/19 03:27 104 H 04/22/19 03:18 100 04/22/19 00:00 97.7 F 120 H 18 111/76 100 04/21/19 23:38 104 H 04/21/19 23:26 106 H 04/21/19 20:10 112 H 04/21/19 20:00 97.9 F 114 H 112 H 18 124/83 100 04/21/19 16:46 88 04/21/19 16:35 92 04/21/19 15:33 97 F L 96 18 127/66 100 Intake and Output 04/22/19 04/22/19 04/22/19 06:59 14:59 22:59 Intake Total 440 Balance 440 Intake: IV 200 Oral 240 Other: Voiding Method Toilet # Voids 2 1 # Bowel Movements 2 Weight 85.2 kg GENERAL: Revealed a 69-year-old white male, pleasant, in no distress.. Head: Atraumatic, normocephalic EYES: PERRLA, EOMI, pale conjunctiva, no icterus HEENT: Moist mucous membranes, throat is clear, No thyromegaly. NECK: No neck masses no JVD no stridor. HEART: Normal S1 and S2, irregular rhythm, no S3 gallop. LUNGS: Clear breath sounds on the left side, symmetrical chest expansion, diminished breath sounds and dullness at the right base. ABDOMEN: Flat, soft, nontender, no megaly, no rebound, no guarding PSYCH: Normal mood affect and normal mental status examination. Skin: No rashes. Results - Laboratory Findings CBC and BMP: 04/22/19 06:21 04/22/19 06:21 PT/INR, D-dimer PT 10.3 sec (9.0-12.0) 04/21/19 11:13 INR 1.0 (<1.2) 04/21/19 11:13 Abnormal lab findings: Abnormal Labs 04/18/19 04/18/19 04/18/19 09:10 13:31 16:14 WBC RBC 2.68 L Hgb 7.2 L Hct 23.4 L MCHC RDW Lymphocytes # PT INR Potassium Carbon Dioxide 34 H BUN 21 H Glucose 109 H POC Glucose (mg/dL) 159 H AST ALT Total Protein Albumin Crossmatch 04/18/19 04/18/19 04/18/19 16:14 16:18 20:16 WBC RBC Hgb Hct MCHC RDW Lymphocytes # PT 12.5 H INR 1.2 H Potassium Carbon Dioxide BUN Glucose POC Glucose (mg/dL) 126 H 123 H AST ALT Total Protein Albumin Crossmatch 04/19/19 04/19/19 04/19/19 06:24 11:13 11:13 WBC 3.6 L RBC 2.80 L Hgb 7.5 L Hct 25.0 L MCHC 30.1 L RDW Lymphocytes # 0.9 L PT INR Potassium 5.7 H Carbon Dioxide BUN Glucose POC Glucose (mg/dL) 117 H AST ALT Total Protein Albumin Crossmatch 04/19/19 04/19/19 04/19/19 11:34 16:49 21:14 WBC RBC Hgb Hct MCHC RDW Lymphocytes # PT INR Potassium Carbon Dioxide BUN Glucose POC Glucose (mg/dL) 123 H 110 H 104 H AST ALT Total Protein Albumin Crossmatch 04/20/19 04/20/19 04/20/19 06:13 11:42 11:56 WBC RBC Hgb Hct MCHC RDW Lymphocytes # PT INR Potassium Carbon Dioxide BUN Glucose POC Glucose (mg/dL) 104 H 106 H AST ALT Total Protein Albumin Crossmatch See Detail 04/20/19 04/20/19 04/20/19 11:56 11:56 16:29 WBC 3.5 L RBC 2.86 L Hgb 7.8 L Hct 25.3 L MCHC 30.8 L RDW 15.8 H Lymphocytes # PT INR Potassium Carbon Dioxide BUN Glucose POC Glucose (mg/dL) 127 H AST 14 L ALT 18 L Total Protein 6.1 L Albumin 3.2 L Crossmatch 04/20/19 04/21/19 04/21/19 20:21 06:04 06:04 WBC RBC 2.91 L Hgb 7.7 L Hct 26.6 L MCHC 29.1 L RDW Lymphocytes # PT INR Potassium 5.3 H Carbon Dioxide BUN 25 H Glucose 128 H POC Glucose (mg/dL) 146 H AST ALT Total Protein Albumin Crossmatch 04/21/19 04/21/19 04/21/19 06:07 16:56 17:20 WBC RBC Hgb Hct MCHC RDW Lymphocytes # PT INR Potassium Carbon Dioxide BUN Glucose POC Glucose (mg/dL) 134 H 251 H 109 H AST ALT Total Protein Albumin Crossmatch 04/21/19 04/22/19 04/22/19 20:24 06:01 06:21 WBC RBC 2.91 L Hgb 7.8 L Hct 26.5 L MCHC 29.3 L RDW Lymphocytes # PT INR Potassium Carbon Dioxide BUN Glucose POC Glucose (mg/dL) 102 H 106 H AST ALT Total Protein Albumin Crossmatch 04/22/19 04/22/19 06:21 11:51 WBC RBC Hgb Hct MCHC RDW Lymphocytes # PT INR Potassium 5.5 H Carbon Dioxide 31 H BUN Glucose POC Glucose (mg/dL) 148 H AST ALT Total Protein Albumin Crossmatch - Diagnostic Findings Chest x-ray: image reviewed (As noted in HPI) Additional studies: Ultrasound of the chest was noted and not enough fluid to consider safe th oracentesis. Assessment and Plan Assessment: Impression: 1 abnormal chest x-ray and ultrasound, with small right-sided pleural effusion, however the differential diagnosis for abnormal chest x-ray includes right lung consolidation, and possible underlying bronchogenic carcinoma. 2 new onset atrial flutter 3 chronic anemia secondary to chronic GI blood losses. 4 history of cardiomyopathy and LV dysfunction, ejection fraction is 35%. 5 history of severe pulmonary hypertension most likely secondary to his underlying COPD and underlying LV dysfunction. 6 benign essential hypertension 7 type 2 diabetes 8 history of COPD severity of which is not clear at this point, but according to the patient he does have severe COPD. Maintained on bronchodilators. 9 history of dyslipidemia. 10 status post colonoscopy and EGD done on this admission, reports as noted in my HPI. Recommendation: Considering the abnormal chest x-ray and considering the ultr asound did not reveal significant amount of fluid to be able to perform safe right sided thoracentesis, and clearly the MR of the fluid on ultrasound does not explain the significant opacification of the right lung, hence I recommended a CT of the chest, and based on the CT of the chest findings further recommendations will follow. May eventually have to consider bronchoscopy on this patient. Time with Patient: Greater than 30
--- NOTE | 2019-04-22 15:38 | US ---
EXAMINATION TYPE: US chest DATE OF EXAM: 04/22/2019 COMPARISON: NONE CLINICAL HISTORY: Markings for thoracentesis by pulmonary staff. TECHNIQUE: Targeted ultrasound of the posterior lower bilateral hemithoraces EXAM MEASUREMENTS: Right Pleural Effusion pocket size: 3.7 cm Right skin surface to fluid distance: 4.2 cm Left Pleural Effusion pocket size: 0 cm Right side not marked for possible thoracentesis outside the dept. Exam done in presence of Dr. Barr, he said no need to angella. Left side not marked for possible thoracentesis outside the dept. Pulmonologists are able to review the images in the patient?s EMR. IMPRESSIONS: 1. Small posterior right pleural effusion. Study was not marked for thoracentesis.
[2019-04-22] MEDS: CALCIUM CARBONATE 500 MG CHEWABLE PO PRN ×2 (16:03→23:53)
--- NOTE | 2019-04-22 16:30 | CT ---
EXAMINATION TYPE: CT chest w con DATE OF EXAM: 04/22/2019 COMPARISON: HISTORY: Right lung consolidation. CT DLP: 461.5 mGycm, Automated exposure control for dose reduction was used. CONTRAST: Performed injected with 100ml mL of Isovue 300. TECHNIQUE: Axial images were obtained at 5 mm thick sections. Reconstructed images are reviewed on [employer] computer in the coronal plane. FINDINGS: Portion of the thyroid visualized is normal. There is a moderate right pleural effusion. Some atelectasis or mass is within the right lung. No enlarged mediastinal or hilar adenopathy is evident. The ascending aorta diameter at the level o f the main pulmonary artery is 3.7 cm. The main pulmonary artery diameter at the bifurcation is 3.8 cm. Minimal pericardial effusion is present. There appears to be a 3.8 cm right supraclavicular mass . Series [address] sections are obtained through the upper abdomen. Abdomen is essentially unremarkable. IMPRESSIONS: 1. Right supraclavicular mass. 2. Moderate right pleural effusion. 3. Suspected compressive atelectasis. Underlying mass is not excluded. Follow-up is recommended.
[2019-04-22 16:55] LABS: Glucose,Whole Blood 106 mg/dL (75-99)
[2019-04-22] MEDS: PANTOPRAZOLE 40 MG TABLET PO SCH (17:39)
[2019-04-22] MEDS ORDERED: WARFARIN 5 MG TAB PO SCH (18:00)
[2019-04-22 20:11] LABS: Glucose,Whole Blood 164 mg/dL (75-99)
[2019-04-22] MEDS: ATORVASTATIN 20 MG TAB PO SCH (20:28)
[2019-04-23] MEDS: IPRATROPIUM-ALBUTEROL 3 ML NEB INHALATION SCH ×6 (00:03→20:26)
[2019-04-23] MEDS: Acetaminophen-Codeine 300-30mg TAB PO PRN ×3 (04:08→20:49)
[2019-04-23] MEDS: PANTOPRAZOLE 40 MG TABLET PO SCH ×2 (06:05→17:18)
[2019-04-23 06:13] LABS: Glucose,Whole Blood 149 mg/dL (75-99)
[2019-04-23 06:52] LABS: HCT 26.9 % (39.0-53.0); HGB 7.8 gm/dL (13.0-17.5); Hypochromasia Marked; MCH 26.4 pg (25.0-35.0); MCHC 29.1 g/dL (31.0-37.0); MCV 90.7 fL (80.0-100.0); Mean Platelet Volume 6.1; Platelet Count 302 k/uL (150-450); RBC 2.96 m/uL (4.30-5.90); RDW 15.2 % (11.5-15.5); WBC 5.2 k/uL (3.8-10.6)
[2019-04-23 06:56] LABS: Prothrombin Time 10.7 sec (9.0-12.0)
[2019-04-23 06:59] LABS: Calcium 9.3 mg/dL (8.4-10.2); Potassium 5.9 mmol/L (3.5-5.1)
[2019-04-23] MEDS: MONTELUKAST 10 MG TAB PO SCH (10:31)
[2019-04-23] MEDS: FERROUS SULFATE 325 MG TAB PO SCH (10:31)
[2019-04-23] MEDS: METOPROLOL TARTRATE 50 MG TAB PO SCH ×3 (10:31→20:49)
[2019-04-23] MEDS: VARDENAFIL HCL PO SCH ×2 (10:32→20:46)
[2019-04-23] MEDS: metFORMIN 850 MG TAB PO SCH ×2 (10:33→20:49)
[2019-04-23] MEDS ORDERED: SODIUM POLYSTYRENE SULFONATE 15 GM/60 ML BOTTLE PO STA (10:38)
--- NOTE | 2019-04-23 11:05 | PN ---
PROGRESS NOTE DATE OF DICTATION: April 23, 2019 Patient is a 69-year-old pleasant white female admitted to the hospital for an outpatient EGD, colonoscopy, but subsequently was noted to have atrial fibrillation with RVR and hence admitted to the hospital. He underwent an EGD colonoscopy yesterday that showed evidence of gastritis and multiple small colon polyps that were all removed. The patient is doing well. He denies any symptoms. He reports no abdominal pain. No nausea, vomiting. No rectal bleeding or melena. PHYSICAL EXAMINATION: Appears comfortable. No apparent distress. Vital signs stable. Blood pressure 139/63, pulse is 74, temperature 97.7. HEENT examination unremarkable. Conjunctivae pink. Sclerae anicteric. Oral cavity no lesions. Neck no JVD. No lymph node enlargement. The chest was clear to auscultation. HEART: Regular rate and rhythm. ABDOMEN: Soft. Bowel sounds are positive. No organomegaly. EXTREMITIES: No pedal edema. SKIN no rashes. NEUROLOGIC: Alert and oriented x3. No focal deficits. LABS: Done from today, hemoglobin 7.7, platelets are normal. WBC is 5.2, BUN 19, creatinine 1.15. INR is 1.0. IMPRESSION: 1. Severe symptomatic anemia with a hemoglobin of 7.6 with no active bleeding, status post EGD colonoscopy yesterday that showed evidence of mild gastritis and multiple small colon polyps that were all removed. No evidence of active bleeding noted. 2. Atrial fibrillation, with RVR, was started back on Coumadin yesterday. RECOMMENDATIONS: Discussed with the patient findings of EGD and colonoscopy yesterday. At this time we will await the biopsy results. In the meantime, he will continue with anticoagulation. He was advised to follow up with Dr. Arnold on outpatient basis in 2 weeks. If he continues to drop his hemoglobin, he may be a candidate for a small bowel capsule endoscopy on an outpatient basis. Thank you for this consultation. MMODL / IJN: [id number] /
[2019-04-23 11:42] LABS: Glucose,Whole Blood 149 mg/dL (75-99)
[2019-04-23] MEDS: DIGOXIN 125 MCG TAB PO SCH (12:00)
--- NOTE | 2019-04-23 12:18 | P.PN ---
Subjective Progress Note Date: 04/23/19 This is a 69-year-old male with past medical history significant for paroxysmal atrial fibrillation on long-term anticoagulation, hypertension, dyslipidemia, diabetes mellitus and former nicotine dependence. He was brought into the hospital today for an elective EGD with Dr. Arnold. However upon arrival telemetry tracings revealed a rapid heart rate. EKG was obtained revealing atrial flutter with a 2:1 conduction. Patient had an echocardiogram with Doppler study performed which revealed an ejection fraction of 35-40%. We will discontinue the IV Cardizem and increase his dose of beta maynor to 50 mg by mouth twice a day. He scheduled for EGD and colonoscopy, currently not on anticoagulation. 04/20/2019 Patient was seen and examined this morning, he went back in atrial fibrillation and his rate was up in the 120 to 1:30 range, he was started on IV Cardizem through the night which we discontinued this morning, we did increase his dose of beta maynor and at the time of her examination in the 90s. His EGD and colonoscopy had been canceled because of rapid rate. Patient is also scheduled to receive a blood transfusion today. Hemoglobin is 7.8 today. 04/22: Patient underwent upper endoscopy for mild antral gastritis and colonoscopy. He was cleared to resume anticoagulation. Repeat chest x-ray reveals near complete white out of the right hemithorax likely due to com minution pleural fluid and right-sided airspace disease. Patient heart rate continues to be elevated running between 108 and 120 despite all his current medications. We will add and digoxin 0.25 IV push 2 today every 6 hours. 04/23: Patient was seen by Dr. Barr yesterday and a CAT scan of the chest was ordered. This resulted in a right supraclavicular mass, moderate right pleural effusion, suspected compressive atelectasis. Underlying mass is not excluded. Patient states that Dr. Barr did review the results of the CAT scan with him today. Patient states that there is plan for biopsy. Patient was started on Coumadin last evening but INR is 1. We will plan to hold Coumadin at this time. Biopsies from EGD and colonoscopy are pending. Patient remains in atrial fibrillation. Last evening, his heart rate went into the 130s and Dr. Hernadez was contacted. Patient was started on amiodarone bolus followed by drip. He is also status post 2 doses of IV digoxin yesterda. He is currently off amiodarone drip. We will plan to start oral Lanoxin and check digoxin level on Wednesday. Breathing status is stable. He denies any palpitations. Gen: This is a 69-year-old male. He is in a recliner and appears to be comfortable. Afebrile, heart rate 100, blood pressure 139/63, pulse ox 100% on 3 L nasal cannula. HEENT: Head is atraumatic, normocephalic. Pupils equal, round. Sclerae is anicteric. NECK: Supple. No JVD. No lymphadenopathy. No thyromegaly. LUNGS: Clear to auscultation. No wheezes or rhonchi. No intercostal retractions. HEART: Irregularly irregular rate and rhythm. No murmur. ABDOMEN: Soft. Bowel sounds are present. No masses. No tenderness. EXTREMITIES: No pedal edema. No calf tenderness. NEUROLOGICAL: Patient is awake, alert and oriented x3. Cranial nerves 2 through 12 are grossly intact. Assessment: Typical atrial flutter with 2:1 conduction, now atrial fibrillation rate controlled GI bleed secondary to gastritis Chronic anemia per the patient History of paroxysmal atrial fibrillation on long-term anticoagulation with Coumadin Hypertension Dyslipidemia Diabetes mellitus Former nicotine dependence Complete white out on the right hemithorax on this morning's chest x-ray. Patient's nurse will contact attending. Plan: Continue metoprolol 100 mg 3 times daily Start digoxin 125 g orally daily Obtained toxin level on Wednesday Hold anticoagulation for possible lung biopsy Further recommendations to follow based upon clinical course Nurse practitioner note has been reviewed, I agree with documented findings and plan of care. Patient was seen and examined. Objective - Vital Signs Vital signs: Vital Signs Temp 97.6 F 04/23/19 04:00 Pulse 112 H 04/23/19 08:28 Resp 19 04/23/19 04:00 BP 139/63 04/23/19 04:00 Pulse Ox 100 04/23/19 04:00 Intake & Output 04/22/19 04/23/19 04/23/19 18:59 06:59 18:59 Intake Total 1050 500 Balance 1050 500 Weight 86.9 kg Intake: IV 200 Intake, IV Titration 250 200 Amount Amiodarone 300 mg In 250 Dextrose 5% in Water 250 ml @ 0.5 MG/MIN 25 mls/hr IV .Q10H TAN Rx#: [id number] Amiodarone 360 mg In 200 Dextrose 5% in Water 200 ml @ 1 MG/MIN 33.333 mls/ hr IV .Q6H ONE Rx#: [id number] Oral 600 300 Other: Voiding Method Toilet Toilet # Voids 1 1 - Labs CBC & Chem 7: 04/23/19 06:12 04/23/19 06:12 Labs: Abnormal Lab Results - Last 24 Hours (Table) 04/22/19 04/22/19 04/22/19 Range/Units 11:51 16:48 20:08 RBC (4.30-5.90) m/uL Hgb (13.0-17.5) gm/dL Hct (39.0-53.0) % MCHC (31.0-37.0) g/dL Potassium (3.5-5.1) mmol/L Carbon Dioxide (22-30) mmol/L Glucose (74-99) mg/dL POC Glucose (mg/dL) 148 H 106 H 164 H (75-99) mg/dL 04/23/19 04/23/19 04/23/19 Range/Units 06:12 06:12 06:12 RBC 2.96 L (4.30-5.90) m/uL Hgb 7.8 L (13.0-17.5) gm/dL Hct 26.9 L (39.0-53.0) % MCHC 29.1 L (31.0-37.0) g/dL Potassium 5.9 H (3.5-5.1) mmol/L Carbon Dioxide 35 H (22-30) mmol/L Glucose 107 H (74-99) mg/dL POC Glucose (mg/dL) 149 H (75-99) mg/dL
--- NOTE | 2019-04-23 12:21 | P.PN ---
Subjective Progress Note Date: 04/23/19 Principal diagnosis: Stage IV bronchogenic carcinoma and large right-sided pleural effusion. This is a 69-year-old white male with history of multiple medical problems including COPD, hypertension, hyperlipidemia, and history of pulmonary embolism. Patient was supposed to undergo routine colonoscopy few days ago, and while in the preoperative area, patient was found to have atrial flutter, colonoscopy was canceled, patient was seen by cardiology, started on Cardizem drip, and he was admitted to a monitor bed on . Patient had no other symptoms except for his heart racing. He had no chest pain no cough no wheezing no fever no chills no hemoptysis. However has been reporting generalized weakness fatigue for the last few weeks prior to admission. Since admission, the patient was seen by many consultants including cardiology, vascular surgery, and on 04/22, patient underwent EGD with biopsy and colonoscopy with snare polypectomy. He was found to have mild antral gastritis. 5 mm cecal polyp, 3-4 mm polyp the ileocecal valve and 5 mm transverse colon polyp and he was also found to have scattered sigmoid diverticulosis. During the whole stay for the last 3 days, patient had no pulmonary symptoms whatsoever. However the admitting physician today ordered a chest x-ray. He was concerned about the possibility of congestive heart failure since the patient had atrial fibrillation with RVR on admission. His chest x-ray showed near complete whiteout of the right hemithorax, and the differential diagnoses included right-sided airspace disease, consolidation, and possibly pleural effusion. However the ultrasound which I ordered prior to evaluating the patient showed a very small amount of pleural effusion not large enough to explain all that opacification in the right lung, hence I recommended CT of the chest. And again the amount of the fluid on the right chest is extremely small to consider safe thoracentesis at this point. Patient denies any history of malignancy denies any history of lung cancer he is known to have history of COPD, and supposedly quite severe. Patient was reevaluated today on 04/23/2019, patient is doing well, relatively asymptomatic, however I discussed the findings of the CT of the chest which I have ordered yesterday. The patient clearly has evidence of metastatic lung cancer, and this is based on the fact that the patient does have a right supraclavicular mass, and strongly suspect right paratracheal lymphadenopathy, I also suspect some underlying malignancy involving the right lung. This CT of the chest yesterday was noted, and again there is evidence of right subclavicular mass, almost 4.0 see him in size, and there is significant right paratracheal fullness, and right lung collapse, suspect endobronchial tumor involving the right mainstem, and possibly metastatic to the right supraclavicular lymph nodes. Today the patient was made aware of the findings, and I recommended a CT-guided needle biopsy of the right supraclavicular mass. Hopefully this could be done tomorrow, and await a tissue diagnosis could be made, and at the same time staging could be made. Whether the patient will req uire bronchoscopy or not, this will be decided upon depending on the findings of the CT-guided needle biopsy of the right supraclavicular mass. Objective - Vital Signs Vital signs: Vital Signs Temp 97.6 F 04/23/19 04:00 Pulse 100 04/23/19 12:04 Resp 19 04/23/19 04:00 BP 139/63 04/23/19 04:00 Pulse Ox 100 04/23/19 04:00 Intake & Output 04/22/19 04/23/19 04/23/19 18:59 06:59 18:59 Intake Total 1050 500 Balance 1050 500 Weight 86.9 kg Intake: IV 200 Intake, IV Titration 250 200 Amount Amiodarone 300 mg In 250 Dextrose 5% in Water 250 ml @ 0.5 MG/MIN 25 mls/hr IV .Q10H [facility] Rx#: [id number] Amiodarone 360 mg In 200 Dextrose 5% in Water 200 ml @ 1 MG/MIN 33.333 mls/ hr IV .Q6H [facility] Rx#: [id number] Oral 600 300 Other: Voiding Method Toilet Toilet # Voids 1 1 - Exam GENERAL EXAM: Revealed 70-year-old female, on 3 L nasal cannula, in no distress. HEENT: PERRLA, EOMI, no icterus, dry mucous membranes, CHEST: No chest wall deformity. Symmetrical expansion. LUNGS: Diminished breath sounds and dullness at the right base. Left side is basically clear. CVS: Regular rate and rhythm, normal S1 and S2, no gallops, no murmurs, no rubs ABDOMEN: Soft, nontender. No hepatosplenomegaly, normal bowel sounds, no guarding or rigidity. EXTREMITIES: No clubbing, no edema, no cyanosis, 2+ pulses and upper and lower extremities. MUSCULOSKELETAL: Muscle strength and tone normal. SPINE: No scoliosis or deformity SKIN: No rashes CENTRAL NERVOUS SYSTEM: Alert and oriented 3, no gross focal neurologic deficits. Follows all instructions. PSYCHIATRIC: Blunted affect, depressed mood, otherwise normal mental status examination. - Labs CBC & Chem 7: 04/23/19 06:12 04/23/19 06:12 Labs: Abnormal Lab Results - Last 24 Hours (Table) 04/22/19 04/22/19 04/23/19 Range/Units 16:48 20:08 06:12 RBC 2.96 L (4.30-5.90) m/uL Hgb 7.8 L (13.0-17.5) gm/dL Hct 26.9 L (39.0-53.0) % MCHC 29.1 L (31.0-37.0) g/dL Potassium (3.5-5.1) mmol/L Carbon Dioxide (22-30) mmol/L Glucose (74-99) mg/dL POC Glucose (mg/dL) 106 H 164 H (75-99) mg/dL 04/23/19 04/23/19 04/23/19 Range/Units 06:12 06:12 11:35 RBC (4.30-5.90) m/uL Hgb (13.0-17.5) gm/dL Hct (39.0-53.0) % MCHC (31.0-37.0) g/dL Potassium 5.9 H (3.5-5.1) mmol/L Carbon Dioxide 35 H (22-30) mmol/L Glucose 107 H (74-99) mg/dL POC Glucose (mg/dL) 149 H 149 H (75-99) mg/dL Assessment and Plan Assessment: Impression: [address] of the chest, strongly suspect metastatic lung cancer, patient will need to have CT-guided needle biopsy of right supraclavicular mass, may or may not require bronchoscopy and endobronchial biopsy this will be decided upon depending on the findings of the pathology from the right supraclavicular mass. 2 new onset atrial flutter 3 chronic anemia secondary to chronic GI blood losses. 4 history of cardiomyopathy and LV dysfunction, ejection fraction is 35%. 5 history of severe pulmonary hypertension most likely secondary to his underlying COPD and underlying LV dysfunction. 6 benign essential hypertension 7 type 2 diabetes 8 history of COPD severity of which is not clear at this point, but according to the patient he does have severe COPD. Maintained on bronchodilators. 9 history of dyslipidemia. 10 status post colonoscopy and EGD done on this admission, reports as noted in my HPI. Recommendation: Discussed with the patient his abnormal findings on the CT of the chest, and he is agreeable to have evaluation by interventional radiology for possible CT-guided fine-needle aspirate/biopsy of right supraclavicular lymph node. We'll continue to follow. Time with Patient: Less than 30
--- NOTE | 2019-04-23 12:30 | P.PN ---
Subjective 69-year-old male was admitted for atrial fibrillation with rapid ventricular rate patient was admitted from endoscopy where he was supposed to get an outpatient upper GI endoscopy and colonoscopy patient underwent these procedures which showed mild gastritis and the polyp in the colon which was removed. Patient heart rate is not well controlled. Patient is on maximal doses of metoprolol patient heart rate remains high. Losartan is being discontinued because of hyperkalemia. Patient is on digoxin as well. Patient was started on amiodarone. 04/23/2019 Patient heart rate is better controlled today still in A. fib. Obtained a chest x-ray yesterday which showed complete whiteout of the right lung secondary to pleural effusion and patient has a significantly. Mass in the right the supraglottic area this mass although clinically not palpable. Fine-needle aspiration biopsy was added by pulmonology was consulted yesterday. Constitutional: Denied any fatigue denied any fever. Cardio vascular: denied any chest pain, palpitations Gastrointestinal denied any nausea vomiting Pulmonary: Denied any shortness of breath cough Neurologic denied any new focal deficits All inpatient medications were reviewed and appropriate changes in these medications as dictated in the interval history and assessment and plan. i Objective - Vital Signs Vital signs: Vital Signs Temp 97.6 F 04/23/19 04:00 Pulse 100 04/23/19 12:04 Resp 19 04/23/19 04:00 BP 139/63 04/23/19 04:00 Pulse Ox 100 04/23/19 04:00 Intake & Output 04/22/19 04/23/19 04/23/19 18:59 06:59 18:59 Intake Total 1050 500 Balance 1050 500 Weight 86.9 kg Intake: IV 200 Intake, IV Titration 250 200 Amount Amiodarone 300 mg In 250 Dextrose 5% in Water 250 ml @ 0.5 MG/MIN 25 mls/hr IV .Q10H [facility] Rx#: [id number] Amiodarone 360 mg In 200 Dextrose 5% in Water 200 ml @ 1 MG/MIN 33.333 mls/ hr IV .Q6H [facility] Rx#: [id number] Oral 600 300 Other: Voiding Method Toilet Toilet # Voids 1 1 - Exam PHYSICAL EXAMINATION: GENERAL: The patient is alert and oriented x3, not in any acute distress. Well developed, well nourished. HEENT: Pupils are round and equally reacting to light. EOMI. No scleral icterus. No conjunctival pallor. Normocephalic, atraumatic. No pharyngeal erythema. No thyromegaly. CARDIOVASCULAR: S1 and S2 present. No murmurs, rubs, or gallops. patient is tachycardic with rapid ventricular rate PULMONARY: Chest is clear to auscultation, no wheezing or crackles. ABDOMEN: Soft, nontender, nondistended, normoactive bowel sounds. No palpable organomegaly. MUSCULOSKELETAL: No joint swelling or deformity. EXTREMITIES: No cyanosis, clubbing, or pedal edema. NEUROLOGICAL: Gross neurological examination did not reveal any focal deficits. SKIN: No rashes. - Labs CBC & Chem 7: 04/23/19 06:12 04/23/19 06:12 Labs: Abnormal Lab Results - Last 24 Hours (Table) 04/22/19 04/22/19 04/23/19 Range/Units 16:48 20:08 06:12 RBC 2.96 L (4.30-5.90) m/uL Hgb 7.8 L (13.0-17.5) gm/dL Hct 26.9 L (39.0-53.0) % MCHC 29.1 L (31.0-37.0) g/dL Potassium (3.5-5.1) mmol/L Carbon Dioxide (22-30) mmol/L Glucose (74-99) mg/dL POC Glucose (mg/dL) 106 H 164 H (75-99) mg/dL 04/23/19 04/23/19 04/23/19 Range/Units 06:12 06:12 11:35 RBC (4.30-5.90) m/uL Hgb (13.0-17.5) gm/dL Hct (39.0-53.0) % MCHC (31.0-37.0) g/dL Potassium 5.9 H (3.5-5.1) mmol/L Carbon Dioxide 35 H (22-30) mmol/L Glucose 107 H (74-99) mg/dL POC Glucose (mg/dL) 149 H 149 H (75-99) mg/dL Assessment and Plan Plan: -new-onset A. fib flutter/A. fib better rate controlled now, patient is presently anywhere on digoxin and metoprolol high-dose. 10-hyperkalemia secondary to angiotensinreceptor maynor which is losartan which is being discontinued at this time And having congestive heart failure chronic systolic dysfunction patient clinically appears to be euvolemic patient is on 3L of oxygen secondary to COPD and patient has chronic hypercapnic respiratory failure. At although I'll obtain a chest x-ray make sure there is no pulmonary edema.patient will be given a dose of Kayoxalatein the repeat potassium tomorrow Right-sided pleural effusion appears to be malignant probably lung cancer patient has a supraclavicular mass in the right side CT-guided needle biopsy was ordered. -Severe secondary pulmonary hypertension probably from COPD and valvular heart disease definitely start failure chronic systolic dysfunction EF of 35% not in acute exacerbation -Moderate tricuspid regurgitation -Hypertension -Type 2 diabetes mellitus -Hyperlipidemia -Essential hypertension. -No evidence of acute blood loss anemia and GI bleed at this time. -Mild antral gastritis for which patient is on proton pump inhibitors -Colonic polyps which were removed.
[2019-04-23 17:16] LABS: Glucose,Whole Blood 106 mg/dL (75-99)
[2019-04-23 20:23] LABS: Glucose,Whole Blood 166 mg/dL (75-99)
[2019-04-23] MEDS: ATORVASTATIN 20 MG TAB PO SCH (20:49)
[2019-04-24] MEDS: IPRATROPIUM-ALBUTEROL 3 ML NEB INHALATION SCH ×7 (00:06→23:34)
[2019-04-24 06:18] LABS: Glucose,Whole Blood 113 mg/dL (75-99)
[2019-04-24] MEDS: PANTOPRAZOLE 40 MG TABLET PO SCH ×2 (06:31→17:35)
[2019-04-24 06:37] LABS: HCT 26.8 % (39.0-53.0); HGB 7.9 gm/dL (13.0-17.5); Hypochromasia Marked; MCH 26.4 pg (25.0-35.0); MCHC 29.4 g/dL (31.0-37.0); MCV 89.8 fL (80.0-100.0); Mean Platelet Volume 6.5; Platelet Count 293 k/uL (150-450); RBC 2.99 m/uL (4.30-5.90); RDW 15.2 % (11.5-15.5); WBC 6.7 k/uL (3.8-10.6)
[2019-04-24 06:40] LABS: Prothrombin Time 10.3 sec (9.0-12.0)
[2019-04-24 06:43] LABS: Potassium 5.2 mmol/L (3.5-5.1)
[2019-04-24] MEDS: Acetaminophen-Codeine 300-30mg TAB PO PRN ×2 (08:42→18:54)
[2019-04-24] MEDS: metFORMIN 850 MG TAB PO SCH ×2 (08:42→22:25)
[2019-04-24] MEDS: FERROUS SULFATE 325 MG TAB PO SCH (08:43)
[2019-04-24] MEDS: DIGOXIN 125 MCG TAB PO SCH (08:43)
[2019-04-24] MEDS: METOPROLOL TARTRATE 50 MG TAB PO SCH ×3 (08:43→21:43)
[2019-04-24] MEDS: MONTELUKAST 10 MG TAB PO SCH (08:43)
[2019-04-24] MEDS: VARDENAFIL HCL PO SCH (08:44)
--- NOTE | 2019-04-24 10:58 | P.PN ---
Subjective Progress Note Date: 04/24/19 This is a pleasant 68 showed male past medical history significant for paroxysmal atrial fibrillation on long-term anticoagulation, hypertension, dyslipidemia, diabetes mellitus and former nicotine dependence. He was brought into the hospital today for an elective EGD with Dr. Arnold. However upon arrival telemetry tracings revealed a rapid heart rate. EKG was obtained revealing atrial flutter with a 2:1 conduction. Patient had an echocardiogram with Doppler study performed which revealed an ejection fraction of 35-40%. We will discontinue the IV Cardizem and increase his dose of beta maynor to 50 mg by mouth twice a day. He scheduled for EGD and colonoscopy, currently not on anticoagulation. 04/20/2019 Patient was seen and examined this morning, he went back in atrial fibrillation and his rate was up in the 120 to 1:30 range, he was started on IV Cardizem through the night which we discontinued this morning, we did increase his dose of beta maynor and at the time of her examination in the 90s. His EGD and colonoscopy had been canceled because of rapid rate. Patient is also scheduled to receive a blood transfusion today. Hemoglobin is 7.8 today. 04/24/2019 Patient was seen and examined this morning, overall he feels well, no complaints today. Continues at this time to be on the metoprolol 100 mg 3 times a day along with the Lanoxin. His Coumadin is on hold because the patient is scheduled today to undergo a lung biopsy. Blood pressure 108/70 with a heart rate in the 80s to 90s, 100% on 3 L of oxygen. White blood cell count 6.7, hemoglobin is 7.9, platelet count 293. Sodium 140, potassium 5.2, BUN 20 and creatinine 1.0. Objective - Vital Signs Vital signs: Vital Signs Temp 98.2 F 04/24/19 04:00 Pulse 80 04/24/19 07:53 Resp 18 04/24/19 04:00 BP 108/70 04/24/19 04:00 Pulse Ox 100 04/24/19 04:00 Intake & Output 04/23/19 04/24/19 04/24/19 18:59 06:59 18:59 Intake Total 850 Output Total 800 Balance 850 -800 Weight 85.9 kg Intake: Oral 850 Output: Urine 800 Other: Voiding Method Toilet Toilet # Voids 2 1 # Bowel Movements 0 - Exam HEENT: Head is atraumatic, normocephalic. Pupils are equal, round. Sclerae anicteric. Conjunctivae are clear. Mucous membranes of the mouth are moist. Neck is supple. There is no jugular venous distention. No carotid bruit is heard. Generalized pallor. LUNGS: Clear to auscultation no wheezes, rales or rhonchi. No chest wall tenderness is noted on palpation or with deep breathing. HEART: Regular rate and rhythm without murmurs, rubs or gallops. S1 and S2 heard. ABDOMEN: Soft, nontender. Bowel sounds are heard. No organomegaly noted. EXTREMITIES: No evidence of peripheral edema and no calf tenderness noted. VASCULAR: Radial and dorsalis pedis pulses palpated, no evidence of clubbing. NEUROLOGIC: Patient is awake, alert and oriented x3. - Labs CBC & Chem 7: 04/24/19 05:50 04/24/19 05:50 Labs: Abnormal Lab Results - Last 24 Hours (Table) 04/23/19 04/23/19 04/23/19 Range/Units 11:35 16:39 20:21 RBC (4.30-5.90) m/uL Hgb (13.0-17.5) gm/dL Hct (39.0-53.0) % MCHC (31.0-37.0) g/dL Potassium (3.5-5.1) mmol/L Carbon Dioxide (22-30) mmol/L POC Glucose (mg/dL) 149 H 106 H 166 H (75-99) mg/dL 04/24/19 04/24/19 04/24/19 Range/Units 05:50 05:50 06:16 RBC 2.99 L (4.30-5.90) m/uL Hgb 7.9 L (13.0-17.5) gm/dL Hct 26.8 L (39.0-53.0) % MCHC 29.4 L (31.0-37.0) g/dL Potassium 5.2 H (3.5-5.1) mmol/L Carbon Dioxide 35 H (22-30) mmol/L POC Glucose (mg/dL) 113 H (75-99) mg/dL Assessment and Plan Plan: ASSESSMENT and plan #1 Typical atrial flutter with 2:1 conduction #2 Possible GI bleed with 2 day history of black stools and hemoglobin of 7.5 #3 Chronic anemia per the patient exact details unavailable. He states he has never had to receive a blood transfusion. #4 History of paroxysmal atrial fibrillation on long-term anticoagulation #5 Hypertension #6 Dyslipidemia #7 Diabetes mellitus #8 Former nicotine dependence Plan From cardiology's perspective, we'll continue the patient on his current medications. He is scheduled today to undergo a lung biopsy, Once the paatient is cleared from the lung perspective, we will need to resume anticoagulation. DNP note has been reviewed, I agree with a documented findings and plan of care. Patient was seen and examined.
[2019-04-24] MEDS ORDERED: SODIUM POLYSTYRENE SULFONATE 15 GM/60 ML BOTTLE PO STA (10:59)
--- NOTE | 2019-04-24 12:52 | US ---
EXAMINATION TYPE: US biopsy thorax or neck, US FNA first lesion DATE OF EXAM: 04/24/2019 HISTORY: Supraclavicular mass. FINDINGS: Maximal barrier technique was utilized. The skin overlying a suitable path to the patient' s mass in the right supraclavicular location was localized with ultrasound and the overlying skin pre pped and draped. Ultrasound was utilized with sterile technique. Lidocaine was used for local anest hesia. 2 passes with a 25-gauge needle performed under ultrasound guidance and aspirated specimen [email or web address] bmitted to cytology. A skin mary was made with a scalpel. An 18-gauge needle was advanced under dire ct ultrasound guidance and core specimen obtained of the mass. Specimen submitted in formalin to [email or web address]. Following the procedure, hemostasis achieved and the patient is discharged in stable conditi on without complication. IMPRESSION:STATUS POST ULTRASOUND GUIDED CORE BIOPSY OF right supraclavicular MASS, PATHOLOGY IS PEND ING. THIS PROCEDURE IS PERFORMED BY THE UNDERSIGNED.
--- NOTE | 2019-04-24 14:35 | P.PN ---
Subjective 69-year-old male was admitted for atrial fibrillation with rapid ventricular rate patient was admitted from endoscopy where he was supposed to get an outpatient upper GI endoscopy and colonoscopy patient underwent these procedures which showed mild gastritis and the polyp in the colon which was removed. Patient heart rate is not well controlled. Patient is on maximal doses of metoprolol patient heart rate remains high. Losartan is being discontinued because of hyperkalemia. Patient is on digoxin as well. Patient was started on amiodarone. 04/23/2019 Patient heart rate is better controlled today still in A. fib. Obtained a chest x-ray yesterday which showed complete whiteout of the right lung secondary to pleural effusion and patient has a significantly. Mass in the right the supraglottic area this mass although clinically not palpable. Fine-needle aspiration biopsy was added by pulmonology was consulted yesterday. 04/24/2019 Patient will undergo biopsy of the mass in the right supraclavicular area Constitutional: Denied any fatigue denied any fever. Cardio vascular: denied any chest pain, palpitations Gastrointestinal denied any nausea vomiting Pulmonary: Denied any shortness of breath cough Neurologic denied any new focal deficits All inpatient medications were reviewed and appropriate changes in these medications as dictated in the interval history and assessment and plan. i Objective - Vital Signs Vital signs: Vital Signs Temp 97.7 F 04/24/19 08:00 Pulse 76 04/24/19 12:58 Resp 19 04/24/19 12:15 BP 129/70 04/24/19 12:15 Pulse Ox 100 04/24/19 12:15 Intake & Output 04/23/19 04/24/19 04/24/19 18:59 06:59 18:59 Intake Total 850 360 Output Total 800 Balance 850 -800 360 Weight 85.9 kg Intake: Oral 850 360 Output: Urine 800 Other: Voiding Method Toilet Toilet # Voids 2 1 # Bowel Movements 0 - Exam PHYSICAL EXAMINATION: GENERAL: The patient is alert and oriented x3, not in any acute distress. Well developed, well nourished. HEENT: Pupils are round and equally reacting to light. EOMI. No scleral icterus. No conjunctival pallor. Normocephalic, atraumatic. No pharyngeal erythema. No thyromegaly. CARDIOVASCULAR: S1 and S2 present. No murmurs, rubs, or gallops. patient is tachycardic with rapid ventricular rate PULMONARY: Chest is clear to auscultation, no wheezing or crackles. ABDOMEN: Soft, nontender, nondistended, normoactive bowel sounds. No palpable organomegaly. MUSCULOSKELETAL: No joint swelling or deformity. EXTREMITIES: No cyanosis, clubbing, or pedal edema. NEUROLOGICAL: Gross neurological examination did not reveal any focal deficits. SKIN: No rashes. - Labs CBC & Chem 7: 04/24/19 05:50 04/24/19 05:50 Labs: Abnormal Lab Results - Last 24 Hours (Table) 04/23/19 04/23/19 04/24/19 Range/Units 16:39 20:21 05:50 RBC 2.99 L (4.30-5.90) m/uL Hgb 7.9 L (13.0-17.5) gm/dL Hct 26.8 L (39.0-53.0) % MCHC 29.4 L (31.0-37.0) g/dL Potassium (3.5-5.1) mmol/L Carbon Dioxide (22-30) mmol/L POC Glucose (mg/dL) 106 H 166 H (75-99) mg/dL 04/24/19 04/24/19 Range/Units 05:50 06:16 RBC (4.30-5.90) m/uL Hgb (13.0-17.5) gm/dL Hct (39.0-53.0) % MCHC (31.0-37.0) g/dL Potassium 5.2 H (3.5-5.1) mmol/L Carbon Dioxide 35 H (22-30) mmol/L POC Glucose (mg/dL) 113 H (75-99) mg/dL Assessment and Plan Plan: -new-onset A. fib flutter/A. fib better rate controlled now, patient is presen tly anywhere on digoxin and metoprolol high-dose. Presently rate controlled 10-hyperkalemia secondary to angiotensinreceptor maynor which is losartan which is being discontinued at this time And having congestive heart failure chronic systolic dysfunction patient clinically appears to be euvolemic patient is on 3L of oxygen secondary to COPD and patient has chronic hypercapnic respiratory failure. Patient will be started on hydralazine low-dose as well as imbued low- dose instead of losartan because of concerns of hyperkalemia Right-sided pleural effusion appears to be malignant probably lung cancer patient has a supraclavicular mass in the right side CT-guided needle biopsy today -Severe secondary pulmonary hypertension probably from COPD and valvular heart disease definitely start failure chronic systolic dysfunction EF of 35% not in acute exacerbation -Moderate tricuspid regurgitation -Hypertension -Type 2 diabetes mellitus -Hyperlipidemia -Essential hypertension. -No evidence of acute blood loss anemia and GI bleed at this time. -Mild antral gastritis for which patient is on proton pump inhibitors -Colonic polyps which were removed.
[2019-04-24 16:32] LABS: Glucose,Whole Blood 194 mg/dL (75-99)
[2019-04-24] MEDS: hydrALAZINE HCL 50 MG TAB PO SCH ×2 (17:35→21:42)
[2019-04-24 20:40] LABS: Glucose,Whole Blood 130 mg/dL (75-99)
[2019-04-24] MEDS: ATORVASTATIN 20 MG TAB PO SCH (21:42)
[2019-04-25] MEDS: IPRATROPIUM-ALBUTEROL 3 ML NEB INHALATION SCH ×4 (03:40→16:09)
[2019-04-25] MEDS: Acetaminophen-Codeine 300-30mg TAB PO PRN ×2 (05:18→11:46)
[2019-04-25 07:05] LABS: Glucose,Whole Blood 110 mg/dL (75-99)
[2019-04-25 07:57] LABS: Calcium 8.9 mg/dL (8.4-10.2); Potassium 4.4 mmol/L (3.5-5.1)
[2019-04-25 08:14] VITALS: RESP 12
[2019-04-25] MEDS: PANTOPRAZOLE 40 MG TABLET PO SCH (08:28)
[2019-04-25 08:49] LABS: Digoxin 0.4 ng/mL
[2019-04-25] MEDS ORDERED: ISOSORBIDE MONONITRATE ER 30 MG TAB.ER.24H PO SCH (09:00)
[2019-04-25] MEDS: hydrALAZINE HCL 50 MG TAB PO SCH ×2 (09:49→16:43)
[2019-04-25] MEDS: FERROUS SULFATE 325 MG TAB PO SCH (09:49)
[2019-04-25] MEDS: MONTELUKAST 10 MG TAB PO SCH (09:50)
[2019-04-25] MEDS: METOPROLOL TARTRATE 50 MG TAB PO SCH ×2 (09:50→16:43)
[2019-04-25] MEDS: metFORMIN 850 MG TAB PO SCH (09:50)
[2019-04-25] MEDS: DIGOXIN 125 MCG TAB PO SCH (09:56)
[2019-04-25 10:21] VITALS: BMI 24.8
[2019-04-25 11:06] LABS: Glucose,Whole Blood 153 mg/dL (75-99)
[2019-04-25 11:35] VITALS: BP 100/59; TEMP 97.9
--- NOTE | 2019-04-25 15:34 | P.DS ---
Providers Date of admission: 04/19/19 09:58 Attending physician: Shon Flores Consults: 04/18/19 09:31 Consult Physician Stat Consulting Provider: Nathaniel Vasquez Consult Reason/Comments: ELEVATED HEARTRATE Do you want consulting provider notified?: Yes 04/19/19 10:19 Consult Physician Routine Consulting Provider: Cole Arnold Consult Reason/Comments: g i bleed Do you want consulting provider notified?: Yes 04/20/19 19:17 Consult Physician Routine Consulting Provider: Kristyn Minor Consult Reason/Comments: Abnormal carotid Doppler Do you want consulting provider notified?: Yes 04/22/19 13:33 Consult Physician Routine Consulting Provider: Ashlie Barr Consult Reason/Comments: abnormal CXR Do you want consulting provider notified?: Yes 04/23/19 10:37 Consult Physician Routine Consulting Provider: Herrera Olmedo Consult Reason/Comments: supraclavicular mass Do you want consulting provider notified?: Yes Primary care physician: Genesis Mahan [facility] Course: 69-year-old male was admitted for atrial fibrillation with rapid ventricular rate patient was admitted from endoscopy where he was supposed to get an outpatient upper GI endoscopy and colonoscopy patient underwent these procedures which showed mild gastritis and the polyp in the colon which was removed. Patient heart rate is not well controlled. Patient is on maximal doses of metoprolol patient heart rate remains high. Losartan is being discontinued because of hyperkalemia. Patient is on digoxin as well. Patient was started on amiodarone. 04/23/2019 Patient heart rate is better controlled today still in A. fib. Obtained a chest x-ray yesterday which showed complete whiteout of the right lung secondary to pleural effusion and patient has a significantly. Mass in the right the supraglottic area this mass although clinically not palpable. Fine-needle aspiration biopsy was added by pulmonology was consulted yesterday. 04/24/2019 Patient will undergo biopsy of the mass in the right supraclavicular area 04/25/2019 Patient probably has small cell lung cancer. Patient is clinically doing well and the patient the doesn't want any home care at this time. Patient respiratory status is at his baseline clinically doing well will be discharged today. Will evaluate for co-pay for EliSiteJabber if she is approved for Eliquis patient was discharged on Eliquis I discontinued her losartan because of hyperkalemia patient was started on hydralazine and the him give her for heart failure instead. Patient blood pressure is 100 systolic no symptoms at this time. PHYSICAL EXAMINATION: GENERAL: The patient is alert and oriented x3, not in any acute distress. Well developed, well nourished. HEENT: Pupils are round and equally reacting to light. EOMI. No scleral icterus. No conjunctival pallor. Normocephalic, atraumatic. No pharyngeal erythema. No thyromegaly. CARDIOVASCULAR: S1 and S2 present. No murmurs, rubs, or gallops. PULMONARY: Chest is clear to auscultation, no wheezing or crackles. ABDOMEN: Soft, nontender, nondistended, normoactive bowel sounds. No palpable organomegaly. MUSCULOSKELETAL: No joint swelling or deformity. EXTREMITIES: No cyanosis, clubbing, or pedal edema. NEUROLOGICAL: Gross neurological examination did not reveal any focal deficits. SKIN: No rashes. -New-onset atrial fibrillation: Patient is presently rate controlled on digoxin and metoprolol -Mass in the supraclavicular area possibility of small cell lung cancer -COPD without any acute exacerbation patient is a 93 L of oxygen which will be continued patient probably will only require 2 L -Severe secondary pulmonary hypertension secondary to COPD and valvular heart disease next and have him cut his heart failure ejection fraction of 35% not in acute exacerbation at this time -Moderate tricuspid regurgitation --Moderate tricuspid regurgitation -Hypertension -Type 2 diabetes mellitus -Hyperlipidemia -Essential hypertension. -Mild antral gastritis for which patient is on proton pump inhibitors -Colonic polyps which were removed. Plan - Discharge Summary Discharge Rx Participant: No New Discharge Prescriptions: New hydrALAZINE HCL [Apresoline] 25 mg PO TID #90 tab Apixaban [Eliquis] 5 mg PO BID #60 tab Isosorbide Mononitrate ER [Imdur] 30 mg PO DAILY #30 tab.er.24h Digoxin [Lanoxin] 125 mcg PO DAILY #30 tab Metoprolol Tartrate [Lopressor] 100 mg PO TID #90 tab Continue Montelukast [Singulair] 10 mg PO DAILY metFORMIN HCL [Glucophage] 850 mg PO BID Warfarin [Coumadin] 5 mg PO DAILY Ferrous Sulfate [Iron (65 MG Elemental)] 325 mg PO DAILY Simvastatin [Zocor] 20 mg PO HS Vardenafil HCl [Levitra] 5 mg PO BID Discontinued Losartan [Cozaar] 50 mg PO DAILY Metoprolol Tartrate [Lopressor] 50 mg PO DAILY Discharge Medication List Ferrous Sulfate [Iron (65 MG Elemental)] 325 mg PO DAILY 04/14/19 [History] Montelukast [Singulair] 10 mg PO DAILY 04/14/19 [History] Simvastatin [Zocor] 20 mg PO HS 04/14/19 [History] Vardenafil HCl [Levitra] 5 mg PO BID 04/14/19 [History] Warfarin [Coumadin] 5 mg PO DAILY 04/14/19 [History] metFORMIN HCL [Glucophage] 850 mg PO BID 04/14/19 [History] Apixaban [Eliquis] 5 mg PO BID #60 tab 04/25/19 [Rx] Digoxin [Lanoxin] 125 mcg PO DAILY #30 tab 04/25/19 [Rx] Isosorbide Mononitrate ER [Imdur] 30 mg PO DAILY #30 tab.er.24h 04/25/19 [Rx] Metoprolol Tartrate [Lopressor] 100 mg PO TID #90 tab 04/25/19 [Rx] hydrALAZINE HCL [Apresoline] 25 mg PO TID #90 tab 04/25/19 [Rx] Follow up Appointment(s)/Referral(s): Ashlie Barr MD [STAFF PHYSICIAN] - 05/04/19 3:30 pm Reid Lora MD [STAFF PHYSICIAN] - 05/11/19 10:00 am Kristyn Minor DO [STAFF PHYSICIAN] - 05/10/19 11:00 am Femi Sanders MD [STAFF PHYSICIAN] - 05/04/19 2:30 pm Cole Arnold MD [STAFF PHYSICIAN] - 05/31/19 2:00 pm Patient Instructions/Handouts: Metoprolol (By mouth), Digoxin (By mouth), Hydralazine (By mouth), Isosorbide Mononitrate (By mouth), Apixaban (By mouth), A-fib (Atrial Fibrillation) (DC), Diet for Stomach Ulcers and Gastritis (ED), Iron Deficiency Anemia (DC) Discharge Disposition: HOME SELF-CARE
[2019-04-25 16:12] VITALS: PULSE 96
--- NOTE | 2019-04-26 09:11 | PN ---
PROGRESS NOTE This is a 69-year-old gentleman, status post biopsy of a right-sided supraclavicular mass. The patient was initially admitted for routine colonoscopy as an outpatient. He was found to have atrial flutter and was admitted to the hospital, where he was seen by Cardiology and a number of other consultants. He was started on a Cardizem drip. At that time, he was not having any complaints. He underwent EGD and colonoscopy. He was found to have some polyps and some mild antral gastritis and had a polypectomy. Subsequent to that, a chest x-ray was ordered that showed complete or near-complete whiteout of the right lung and a CT scan confirmed that and suggested right paratracheal adenopathy, possible endobronchial disease and a large right supraclavicular mass. Dr. Brar put it all together to suspect that the patient had lung cancer which was metastatic. Yesterday he underwent a biopsy of the right supraclavicular mass. The pathology is currently pending. The patient currently does not have much in the way of pulmonary complaints. His major issue right now is some mild shortness of breath, but he feels like he is pretty much at baseline. Pending the result of the biopsy, additional recommendations and suggestions will be made. He may need bronchoscopy with endobronchial biopsy. Currently, the patient is resting relatively comfortably. PHYSICAL EXAMINATION: VITAL SIGNS: Current vital signs are reviewed. Temperature 97.9, heart rate 72, respiratory rate 12, blood pressure 100/59, mean 72, 3-liter saturation 98%. GENERAL APPEARANCE: He appears in no acute distress. HEENT: HEENT examination is grossly unremarkable. Mucous membranes are moist. No oral lesions. NECK: Supple. Full range of motion. No adenopathy or thyromegaly. Neck veins are flat. He does have a bandage over the area of the biopsy done in the right supraclavicular space. He does have some fullness to this area. CARDIOVASCULAR: Cardiovascular examination reveals regular rhythm and rate. Heart rate is 72. He is in sinus rhythm. S1, S2 normal. LUNGS: Lungs reveal diminished breath sounds, particularly in the right chest. A few scattered rhonchi noted. The left lung appears to be relatively clear. ABDOMEN: Soft. Bowel sounds are heard. EXTREMITIES: Intact. No cyanosis, clubbing or edema. SKIN: Skin without rash. NEUROLOGIC: Neurologic examination is brief but nonfocal. LABORATORY DATA: Laboratory data is reviewed. Sodium 139, potassium 4.4. Chloride is 101. CO2 is 34, anion gap 4. BUN and creatinine were 19 and 1.0, calcium 8.9. Digoxin 0.4. Most recent CBC shows a white count of 6.7, hemoglobin 7.9, hematocrit 26.8 and platelet count 393,000. The pathology from the supraclavicular fine-needle aspiration on the right side is currently pending. Medications are reviewed. They appear to be appropriate at this time. ASSESSMENT: 1. Abnormal CT scan of the chest revealing right paratracheal adenopathy/mass with possible endobronchial disease as well as supraclavicular mass measuring 4 cm. The patient is status post fine-needle aspiration on April 24. 2. New-onset atrial flutter, now in normal sinus rhythm. 3. Chronic anemia secondary to chronic gastrointestinal blood loss. 4. History of cardiomyopathy with left ventricular dysfunction and an ejection fraction of 35%. 5. Severe pulmonary hypertension, likely secondary to underlying chronic obstructive pulmonary disease as well as left ventricular dysfunction. 6. Benign essential hypertension. 7. Type 2 diabetes. 8. History of hyperlipidemia. 9. Status post colonoscopy and esophagogastroduodenoscopy for gastrointestinal bleed, with evidence of antral gastritis and colonic polyps. PLAN: The patient's biopsy was done yesterday. The results are currently pending. Additional recommendations and suggestions are forthcoming. He likely will need oncology consultation as well as radiation therapy consultation. Prognosis is very guarded. MMODL / IJN: [id number] /
== END 2019-04-25 17:30 | disposition home or self-care (01) | DRG 308 ==
LOC: ORWHC2ENDO 07:36 → 3SCARD 12:20 → ORWHC2ENDO 04-19 09:58 → 3SCARD 04-19 09:58 → 3NMEDONC 04-24 21:32
PROVIDERS: ADMIT Hospitalist; ATTEND Hospitalist
PROC: 0DBH8ZX Excision of Cecum, Via Natural or Artificial Opening Endoscopic, Diagnostic (ICD-10-PCS; 2019-04-22)
PROC: 0DBL8ZX Excision of Transverse Colon, Via Natural or Artificial Opening Endoscopic, Diagnostic (ICD-10-PCS; 2019-04-22)
PROC: 0DBC8ZX Excision of Ileocecal Valve, Via Natural or Artificial Opening Endoscopic, Diagnostic (ICD-10-PCS; 2019-04-22)
PROC: 0DBM8ZX Excision of Descending Colon, Via Natural or Artificial Opening Endoscopic, Diagnostic (ICD-10-PCS; 2019-04-22)
PROC: 0DB98ZX Excision of Duodenum, Via Natural or Artificial Opening Endoscopic, Diagnostic (ICD-10-PCS; principal; 2019-04-22 08:00)
PROC: 0DB78ZX Excision of Stomach, Pylorus, Via Natural or Artificial Opening Endoscopic, Diagnostic (ICD-10-PCS; 2019-04-22 08:00)
PROC: 0BBK3ZX Excision of Right Lung, Percutaneous Approach, Diagnostic (ICD-10-PCS; 2019-04-24)
DX: I48.3 Typical atrial flutter (principal); K29.71 Gastritis, unspecified, with bleeding; I50.22 Chronic systolic (congestive) heart failure; J98.19 Other pulmonary collapse; J96.12 Chronic respiratory failure with hypercapnia; J98.11 Atelectasis; I48.0 Paroxysmal atrial fibrillation; I11.0 Hypertensive heart disease with heart failure; I27.29 Other secondary pulmonary hypertension; I42.9 Cardiomyopathy, unspecified; E87.5 Hyperkalemia; I07.1 Rheumatic tricuspid insufficiency; I65.21 Occlusion and stenosis of right carotid artery; J44.9 Chronic obstructive pulmonary disease, unspecified; D50.0 Iron deficiency anemia secondary to blood loss (chronic); E11.9 Type 2 diabetes mellitus without complications; E78.5 Hyperlipidemia, unspecified; G40.909 Epilepsy, unspecified, not intractable, without status epilepticus; K57.30 Diverticulosis of large intestine without perforation or abscess without bleeding; K63.5 Polyp of colon; K64.1 Second degree hemorrhoids; K57.90 Diverticulosis of intestine, part unspecified, without perforation or abscess without bleeding; T46.5X5A Adverse effect of other antihypertensive drugs, initial encounter; Z79.01 Long term (current) use of anticoagulants; Z79.84 Long term (current) use of oral hypoglycemic drugs; Z79.899 Other long term (current) drug therapy; Z86.711 Personal history of pulmonary embolism; Z87.891 Personal history of nicotine dependence; Z87.19 Personal history of other diseases of the digestive system
CPT/HCPCS: 10005; 21550; 43239; 45385; 70450; 71045; 71260; 76604; 80048; 80053; 80162; 83036; 85025; 85027; 85610; 86850; 86900; 86901; 86920; 88173; 88305; 88341; 88342; 93005; 93306; 93880; 94640; 94760

== ENCOUNTER → 2019-05-13 | Outpatient (CLI) | payer MEDICARE ==
--- NOTE | 2019-05-16 14:58 | PE ---
Nuclear medicine PET/CT HISTORY: Right lung carcinoma, malignant neoplasm, initial Patient received 11.4 mCi F-18 FDG intravenously in delayed scanning was performed from the skull bas e to the mid thighs. Localization and attenuation correction CT scan was performed. Correlation to CT chest 04/22/2019 Neck and chest: The supraclavicular node on the right is again seen measuring approximately 4.1 cm, t here is associated hypermetabolic uptake, SUV 16.7, smaller immediately adjacent nodes are present wi th associated hypermetabolic uptake, SUV 5.6, 7.1. Retrocaval pretracheal adenopathy is present, SUV 11.5, there is extension of abnormal soft tissue density to the right lower lobe and hilar region as noted on CT, SUV 14. There is volume loss in the right hemithorax, right pleural effusion. There are coronary calcifications. No evident left lung mass. Heart is enlarged. Small amount of mattie cardial fluid is present. ABDOMEN: There is no adrenal mass. Exophytic probable cysts noted at the right kidney. No retroperito ladi adenopathy or suspicious hypermetabolic uptake. Aorta shows atheromatous change. There is no asc ites. Urinary bladder shows a thickened wall possibly due to lack of distention Osseous structures show no suspicious hypermetabolic uptake. IMPRESSION: Findings compatible with patient's history of lung carcinoma with metastasis as described . Coronary artery disease, cardiomegaly, pleural effusion.
== END | disposition home or self-care (01) ==
LOC: RADPETMAIN 12:20
PROVIDERS: ATTEND Nurse Practitioner Adult Health
DX: C34.11 Malignant neoplasm of upper lobe, right bronchus or lung (principal); J90 Pleural effusion, not elsewhere classified; I25.10 Atherosclerotic heart disease of native coronary artery without angina pectoris; Z85.118 Personal history of other malignant neoplasm of bronchus and lung
CPT/HCPCS: 78815; A9552

== ENCOUNTER → 2019-06-06 | Outpatient (CLI) | payer MEDICARE ==
--- NOTE | 2019-06-08 08:10 | MR ---
EXAMINATION TYPE: MR brain wo/w con DATE OF EXAM: 06/06/2019 COMPARISON: CT brain dated 04/20/2019 HISTORY: Malignant neoplasm middle lobe. Lung cancer metastatic to the supraclavicular lymph nodes. TECHNIQUE: Multiplanar, multisequence images of the brain and brainstem is performed without and with IV contras t, utilizing 7.5 mL intravenous Gadavist . FINDINGS: Diffusion weighted images demonstrate no evidence of a recent infarct or other diffusion ab normality. There is encephalomalacia in the left cerebellar hemisphere from prior infarct. There is n o extra-axial fluid collection. Periatrial gliosis is seen with small lacunar injuries as well as mod erate burden nonspecific white matter change predominating in a periventricular and pericallosal dist ribution. Left frontal 6 mm nonspecific white matter focus is also seen in the deep white matter. The ventricular system and cisternal spaces are symmetrically prominent in size compatible with age-rela bo atrophy. Midline structures demonstrate normal morphology. The craniocervical junction appears within normal limits. Post contrast images demonstrate no abnormal enhancement. The dural venous sinuses appear pa tent. The visualized sinuses demonstrate mild mucosal thickening in the maxillary and ethmoid sinuses with nasal turbinate mucosal hypertrophy on the right. Frontal sinuses and sphenoid sinuses are well aerated. Very scant fluid is seen in the bilateral mastoid air cells. Globes are intact. IMPRESSION: 1. No abnormal intracranial enhancement. No evidence of intracranial metastasis. 2. 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 Gliosis is also seen in the periatrial white matter bilaterally with small lacunar injuries. 3. Overall moderate burden nonspecific white matter change. Distribution is predominantly pericallosa l and periventricular. Consideration for late onset demyelinating disease could be given, vasculitis or sequela of chronic microangiopathy. 4. Mild paranasal sinus disease and scant fluid in the bilateral mastoid air cells that may correlate with mastoiditis clinically. Correlate for point tenderness.
== END | disposition home or self-care (01) ==
LOC: RADMRIMAIN 13:24
PROVIDERS: ATTEND Radiology Radiation Oncology
DX: G93.89 Other specified disorders of brain (principal); S06.890A Other specified intracranial injury without loss of consciousness, initial encounter; R90.89 Other abnormal findings on diagnostic imaging of central nervous system; C34.2 Malignant neoplasm of middle lobe, bronchus or lung
CPT/HCPCS: 70553; A9585

== ENCOUNTER 2019-06-08 08:46 | Day surgery (SDC) | payer MEDICARE ==
[2019-06-08 09:18] LABS: Mean Platelet Volume 7.8; Platelet Count 297 k/uL (150-450)
[2019-06-08 09:23] VITALS: BP 121/72; PULSE 120; RESP 18; TEMP 97.6
[2019-06-08 09:30] LABS: Prothrombin Time 10.3 sec (9.0-12.0)
--- NOTE | 2019-06-08 10:48 | US ---
Ultrasound-guided therapeutic and diagnostic thoracentesis DATE OF EXAM: 06/08/2019 CLINICAL HISTORY: Pleural effusion The procedure was discussed with the patient. The risks, complications, benefits, and alternatives we re discussed and any questions were answered. Informed consent was obtained. Preliminary ultrasound demonstrates no evidence of pleural fluid. IMPRESSION: 1. No sizable pleural fluid collection for percutaneous drainage..
== END 2019-06-08 10:20 | disposition home or self-care (01) ==
LOC: RADPROMAIN 08:46
PROVIDERS: ATTEND Radiology Radiation Oncology
DX: J90 Pleural effusion, not elsewhere classified (principal)
CPT/HCPCS: 36415; 76604; 82947; 85049; 85610

== ENCOUNTER → 2019-06-08 | Day surgery (SDC) | payer MEDICARE | LOC: RADPROMAIN 08:41 | PROVIDERS: ATTEND Radiology Radiation Oncology | DX: Z53.9 Procedure and treatment not carried out, unspecified reason (principal) ==

== ENCOUNTER → 2019-07-17 | Outpatient (CLI) | payer MEDICARE ==
--- NOTE | 2019-07-17 12:49 | US ---
EXAMINATION TYPE: US renals and bladder DATE OF EXAM: 07/17/2019 COMPARISON: NONE CLINICAL HISTORY: N13.30 HYDRONEPHROSIS. patient states he is unable to void. Patient states he trie d to void before exam. Patient states he has bladder pressure. EXAM MEASUREMENTS: Right Kidney: 10.9 x 5.5 x 4.4 cm Left Kidney: 10.2 x 5.0 x 5.1 cm Right Kidney: Cystic appearing lesions seen, largest measured. 1- lateral lower pole = 2.1 x 1.9 x 2 .3 cm. 2- 1.5 x 1.7 x 1.2 cm. Left Kidney: Cystic appearing lesions seen, largest measured. 1- lateral lower pole with internal se ptations= 1.7 x 1.8 x 1.5 cm. 2- mid pole = 1.3 x 1.4 x 1.2 cm Bladder: Distended. Anechoic. Bilateral Jets seen not seen There is no evidence for hydronephrosis at this point in time. No nephrolithiasis is seen. No solid masses are identified. The urinary bladder is anechoic. Bilateral ureteral jets are seen. IMPRESSION: Renal cystic changes.
== END | disposition home or self-care (01) ==
LOC: RADUSWWP 11:57
PROVIDERS: ATTEND Internal Medicine Hematology & Oncology
DX: N28.9 Disorder of kidney and ureter, unspecified (principal); N13.30 Unspecified hydronephrosis
CPT/HCPCS: 76770; 82565; 84520

== ENCOUNTER → 2019-07-26 | Outpatient (CLI) | payer MEDICARE ==
[2019-07-26 13:07] LABS: Appearance,Urine Clear (Clear); Bilirubin,Urine Negative (Negative); Blood,Urine Negative (Negative); Color,Urine Yellow; Glucose,Urine (UA) Negative (Negative); Ketones,Urine Negative (Negative); Leukocyte Esterase,Urine Negative (Negative); Nitrite,Urine Negative (Negative); PH, Urine 5.5 (5.0-8.0); Protein,Urine Trace (Negative); Specific Gravity,Urine 1.014 (1.001-1.035); Urobilinogen,Urine <2.0 mg/dL (<2.0)
[2019-07-26 13:17] LABS: Anisocytosis Slight; Basophils % (A) 1 %; Eosinophils % (A) 0 %; HCT 22.9 % (39.0-53.0); Hypochromasia Marked; Lymphocytes # (A) 0.3 k/uL (1.0-4.8); Lymphocytes % (A) 10 %; MCH 26.3 pg (25.0-35.0); MCHC 28.6 g/dL (31.0-37.0); MCV 91.9 fL (80.0-100.0); Mean Platelet Volume 8.3; Monocytes # (A) 0.2 k/uL (0-1.0); Monocytes % (A) 6 %; Neutrophils # (A) 2.6 k/uL (1.3-7.7); Neutrophils % (A) 79 %; RBC 2.49 m/uL (4.30-5.90); RDW 16.4 % (11.5-15.5); WBC 3.3 k/uL (3.8-10.6)
[2019-07-26 13:23] LABS: Platelet Count 385 k/uL (150-450)
[2019-07-26 13:47] LABS: HGB 6.5 gm/dL (13.0-17.5)
[2019-07-26 19:26] LABS: Ferritin 180.3 ng/mL (22.0-322.0)
[2019-07-26 19:29] LABS: % Iron Saturation 13.85 (15.00-50.00); African American GFR (CKD) 89.9 (60.0-200.0); Albumin 3.6 g/dL (3.80-4.90); Albumin/Globulin Ratio 1.89 (1.60-3.17); Anion Gap 8.4 mmol/L (4.00-12.00); Calcium 8.3 mg/dL (8.7-10.3); Carbon Dioxide 26.6 mmol/L (21.6-31.8); Globulin 1.9 g/dL (1.6-3.3); Magnesium 1.5 mg/dL (1.5-2.4); Non-African American GFR(CKD) 77.5 (60.0-200.0); Phosphorus 3.3 mg/dL (2.4-5.1); Potassium 4.9 mmol/L (3.5-5.5); Total Bilirubin 0.2 mg/dL (0.3-1.2); Total Protein 5.5 g/dL (6.2-8.2); Uric Acid 6.4 mg/dL (3.7-8.7)
[2019-07-26 21:41] LABS: Urine Creatinine 68.6 mg/dL
== END | disposition home or self-care (01) ==
LOC: LABWHC1 12:07
PROVIDERS: ATTEND Internal Medicine
DX: E55.9 Vitamin D deficiency, unspecified (principal); N39.0 Urinary tract infection, site not specified; R80.9 Proteinuria, unspecified; N25.81 Secondary hyperparathyroidism of renal origin; M10.9 Gout, unspecified; D63.1 Anemia in chronic kidney disease; N18.3 Chronic kidney disease, stage 3 (moderate)
CPT/HCPCS: 36415; 80053; 81003; 82043; 82306; 82570; 82728; 83540; 83550; 83735; 83970; 84100; 84550; 85025

== ENCOUNTER 2019-09-09 14:01 | Inpatient (IN) | payer MEDICARE ==
[~2019-09-09 14:01] MED LIST changes: +HUMAN PROTHROMBIN COMPLX 500 UNIT/16 ML VIAL IV ONE; -LIDOCAINE 1% 20 ML VIAL (10MG/ML) FOR IV START INTRADERMA PRN
[2019-09-09] MEDS ORDERED: IPRATROPIUM-ALBUTEROL 3 ML NEB INHALATION STA (14:28)
[2019-09-09] MEDS ORDERED: METOPROLOL TARTRATE 50 MG TAB PO STA (14:28)
[2019-09-09] MEDS ORDERED: RX INFO: IV CONTRAST WAS GIVEN 1 EACH MISC MISCELLANE PRN (14:28)
[2019-09-09] MEDS ORDERED: DIGOXIN 125 MCG TAB PO SCH (14:30)
[2019-09-09] MEDS ORDERED: DIGOXIN 125 MCG TAB PO STA (14:47)
[2019-09-09 14:54] LABS: HCT 20.4 % (39.0-53.0); Hypochromasia Slight; MCH 28.5 pg (25.0-35.0); MCHC 31.5 g/dL (31.0-37.0); MCV 90.3 fL (80.0-100.0); Mean Platelet Volume 11.2; Poikilocytosis Slight; RBC 2.26 m/uL (4.30-5.90); RDW 15.8 % (11.5-15.5)
[2019-09-09 14:57] LABS: HGB 6.4 gm/dL (13.0-17.5); WBC 0.7 k/uL (3.8-10.6)
[2019-09-09 15:00] LABS: Albumin 3.9 g/dL (3.5-5.0); Potassium 5.5 mmol/L (3.5-5.1); Total Bilirubin 0.7 mg/dL (0.2-1.3); Total Protein 6.5 g/dL (6.3-8.2)
[2019-09-09 15:02] LABS: Platelet Count 27 k/uL (150-450)
[2019-09-09] MEDS ORDERED: SODIUM CHLORIDE 0.9% 1,000 ML IV ONE (15:06)
[2019-09-09 15:08] LABS: INR 0.9 (<1.2); Prothrombin Time 9.6 sec (9.0-12.0)
[2019-09-09 15:12] LABS: Partial Thromboplastin Time 19.3 sec (22.0-30.0)
--- NOTE | 2019-09-09 15:13 | ED ---
General Adult HPI - General Chief complaint: Recheck/Abnormal Lab/Rx Stated complaint: Coughing up blood Time Seen by Provider: 09/09/19 14:05 Source: patient Mode of arrival: ambulatory Limitations: no limitations - History of Present Illness Initial comments: The patient is a 69-year-old male with past history of lung cancer on current chemo and radiation who presents to emergency room with reported hemoptysis. He states that hemoptysis started last night. He has been coughing up bright red blood in his sputum. States it has been a significant amount. He denies any chest pain. It does have chronic respiratory insufficiency and is on 2 L. S tates he hasn't had to increase his oxygen at home. Denies fevers or chills. He is on Ahlquist for A. fib however has not taken his Ahlquist since yesterday morning. He has not taken his digoxin and metoprolol for his heart rates yet today. He is currently under treatment for lung cancer. He last had chemo on August 30. Last radiation treatment was on for . Denies any surgeries for the lung cancer. States they have been holding his chemo treatments but he states he is unsure why. He sees Dr. Lora in office. Denies having a logger all round. No history of hemoptysis in the past. Denies any history of DVT or PE. Denies any additional symptoms include abdominal pain, melanic stools, hematochezia, constipation, diarrhea. No issues in his urination. Denies back or flank pain. There are no allevating, precipitating or modifying factors - Related Data Home Medications Medication Instructions Recorded Confirmed Montelukast [Singulair] 10 mg PO DAILY 04/14/19 09/09/19 Simvastatin [Zocor] 20 mg PO HS 04/14/19 09/09/19 metFORMIN HCL [Glucophage] 850 mg PO BID 04/14/19 09/09/19 Furosemide [Lasix] 20 mg PO DAILY 05/31/19 09/09/19 Metoprolol Tartrate [Lopressor] 50 mg PO DAILY 05/31/19 09/09/19 levETIRAcetam [Keppra] 500 mg PO BID 05/31/19 09/09/19 Docusate [Colace] 100 mg PO BID 12/12/19 03/14/20 oxyCODONE HCL [Roxicodone] 10 mg PO DAILY PRN 09/09/19 09/09/19 Previous Rx's Medication Instructions Recorded Apixaban [Eliquis] 5 mg PO BID #60 tab 04/25/19 Digoxin [Lanoxin] 125 mcg PO DAILY #30 tab 04/25/19 Isosorbide Mononitrate ER [Imdur] 30 mg PO DAILY #30 tab.er.24h 04/25/19 Allergies Allergy/AdvReac Type Severity Reaction Status Date / Time No Known Allergies Allergy Verified 09/09/19 15:47 Review of Systems ROS Statement: Those systems with pertinent positive or pertinent negative responses have been documented in the HPI. ROS Other: All systems not noted in ROS Statement are negative. Past Medical History Past Medical History: Atrial Fibrillation, Cancer, Diabetes Mellitus, Hyperlipidemia, Hypertension, Pulmonary Embolus (PE), Seizure Disorder Additional Past Medical History / Comment(s): pt states was told he had a seizure-unknown when. NON SMALL CELL LUNG CANCER. History of Any Multi-Drug Resistant Organisms: None Reported Additional Past Surgical History / Comment(s): COLONOSCOPY. BRONCHOSCOPY Past Anesthesia/Blood Transfusion Reactions: No Reported Reaction Past Psychological History: No Psychological Hx Reported Smoking Status: Former smoker - Past Family History Brother(s) Family Medical History: Cancer General Exam Limitations: no limitations General appearance: alert, in no apparent distress Head exam: Present: atraumatic, normocephalic Eye exam: Present: normal appearance, PERRL, EOMI. Absent: scleral icterus, conjunctival injection, periorbital swelling ENT exam: Present: mucous membranes moist, other (some bright red blood coming from left nare, arrising from an area of oozing mucosa on the septum. Some bright red blood also coats the posterior pharynx. ) Neck exam: Present: normal inspection. Absent: tenderness, meningismus, lymphadenopathy Respiratory exam: Present: wheezes, accessory muscle use, other (tachypnea, conversational dyspnea). Absent: respiratory distress Cardiovascular Exam: Present: tachycardia, irregular rhythm GI/Abdominal exam: Present: soft, normal bowel sounds. Absent: distended, tenderness, guarding, rebound, rigid Neurological exam: Present: alert, oriented X3, CN II-XII intact Psychiatric exam: Present: normal mood, anxious Skin exam: Present: warm, dry, pallor Course Vital Signs 09/09/19 09/09/19 09/09/19 14:03 14:54 15:01 Temperature 97.8 F Pulse Rate 60 112 H 106 H Respiratory 18 22 20 Rate Blood Pressure 102/68 O2 Sat by Pulse 99 Oximetry 09/09/19 09/09/19 16:00 17:00 Temperature 98.6 F Pulse Rate 78 78 Respiratory 17 18 Rate Blood Pressure 112/74 122/79 O2 Sat by Pulse 99 99 Oximetry EKG Findings - EKG Comments: EKG Findings:: EKG demonstrates atrial fibrillation with rapid ventricular response of 139. QRS 82. QTC of 453. ST depression in V3 through V6. No acute ST segment elevation Medical Decision Making - Medical Decision Making Upon arrival the patient is placed in room 4. A thorough history and physical exam was performed. Peripheral IV was established. 12-lead EKG was performed which demonstrates A. fib with a rapid ventricular rate. Laboratory studies were conducted. I did provide the patient with a liter bolus of normal saline followed by 100 mL per hour. Laboratory studies did demonstrate a white blood count of 0.7 him he will open 6.4, platelet 27. CMP shows a potassium of 5.5. Lactic acid is 3.7. I performed a CT of the patient's chest because of the hematemesis. The patient is post and a CT of his abdomen and pelvis on Wednesday therefore I did add on the CT for convenience sake. CT demonstrates new multifocal groundglass opacities predominantly in the left lower lobe. Pneumonia should be considered. Right hilar spiculated opacity remains measuring 4 x 4.2 cm. Cardiomegaly and moderate coronary palpitations. Small pericardial effusion. Multiple thoracic compression deformities. I discussed results with the patient. I did transfuse him 1 unit of packed red blood cells. I will hold off on Kcentra at this time as the patient has not taken his dose in 48 hours. I call discuss case with Dr. Enrique who accepted admission. I will consult oncology and pulmonology. The patient remained in stable condition and was transported to the floor - Lab Data Result diagrams: 09/11/19 18:02 09/11/19 04:27 Lab Results 09/09/19 09/09/19 09/09/19 Range/Units 14:38 14:38 14:38 WBC 0.7 L* (3.8-10.6) k/uL RBC 2.26 L (4.30-5.90) m/uL Hgb 6.4 L* D (13.0-17.5) gm/dL Hct 20.4 L (39.0-53.0) % MCV 90.3 (80.0-100.0) fL MCH 28.5 (25.0-35.0) pg MCHC 31.5 (31.0-37.0) g/dL RDW 15.8 H (11.5-15.5) % Plt Count 27 L D (150-450) k/uL Differential Comment Manual Slide Review Performed Hypochromasia Slight Poikilocytosis Slight PT 9.6 (9.0-12.0) sec INR 0.9 (<1.2) APTT 19.3 L (22.0-30.0) sec Sodium (137-145) mmol/L Potassium (3.5-5.1) mmol/L Chloride (98-107) mmol/L Carbon Dioxide (22-30) mmol/L Anion Gap mmol/L BUN (9-20) mg/dL Creatinine (0.66-1.25) mg/dL Est GFR (CKD-EPI)AfAm (>60 ml/min/1.73 sqM) Est GFR (CKD-EPI)NonAf (>60 ml/min/1.73 sqM) Glucose (74-99) mg/dL Lactic Ac Sepsis Rflx Plasma Lactic Acid Serjio (0.7-2.0) mmol/L Calcium (8.4-10.2) mg/dL Total Bilirubin (0.2-1.3) mg/dL AST (17-59) U/L ALT (4-49) U/L Alkaline Phosphatase (38-126) U/L Troponin I (0.000-0.034) ng/mL Total Protein (6.3-8.2) g/dL Albumin (3.5-5.0) g/dL Blood Type A Positive Blood Type Recheck A Pos Bld Type Recheck Status No Antibody Screen NEGATIVE Crossmatch See Detail Spec Expiration Date 09/12/2019 - 233709/09/19 09/09/19 09/09/19 Range/Units 14:38 14:38 14:38 WBC (3.8-10.6) k/uL RBC (4.30-5.90) m/uL Hgb (13.0-17.5) gm/dL Hct (39.0-53.0) % MCV (80.0-100.0) fL MCH (25.0-35.0) pg MCHC (31.0-37.0) g/dL RDW (11.5-15.5) % Plt Count (150-450) k/uL Differential Comment Manual Slide Review Hypochromasia Poikilocytosis PT (9.0-12.0) sec INR (<1.2) APTT (22.0-30.0) sec Sodium 137 (137-145) mmol/L Potassium 5.5 H (3.5-5.1) mmol/L Chloride 105 (98-107) mmol/L Carbon Dioxide 22 (22-30) mmol/L Anion Gap 10 mmol/L BUN 23 H (9-20) mg/dL Creatinine 1.12 (0.66-1.25) mg/dL Est GFR (CKD-EPI)AfAm 78 (>60 ml/min/1.73 sqM) Est GFR (CKD-EPI)NonAf 68 (>60 ml/min/1.73 sqM) Glucose 110 H (74-99) mg/dL Lactic Ac Sepsis Rflx Plasma Lactic Acid Serjio 3.7 H* (0.7-2.0) mmol/L Calcium 9.0 (8.4-10.2) mg/dL Total Bilirubin 0.7 (0.2-1.3) mg/dL AST 19 (17-59) U/L ALT 10 (4-49) U/L Alkaline Phosphatase 55 (38-126) U/L Troponin I <0.012 (0.000-0.034) ng/mL Total Protein 6.5 (6.3-8.2) g/dL Albumin 3.9 (3.5-5.0) g/dL Blood Type Blood Type Recheck Bld Type Recheck Status Antibody Screen Crossmatch Spec Expiration Date 09/09/19 Range/Units 15:00 WBC (3.8-10.6) k/uL RBC (4.30-5.90) m/uL Hgb (13.0-17.5) gm/dL Hct (39.0-53.0) % MCV (80.0-100.0) fL MCH (25.0-35.0) pg MCHC (31.0-37.0) g/dL RDW (11.5-15.5) % Plt Count (150-450) k/uL Differential Comment Manual Slide Review Hypochromasia Poikilocytosis PT (9.0-12.0) sec INR (<1.2) APTT (22.0-30.0) sec Sodium (137-145) mmol/L Potassium (3.5-5.1) mmol/L Chloride (98-107) mmol/L Carbon Dioxide (22-30) mmol/L Anion Gap mmol/L BUN (9-20) mg/dL Creatinine (0.66-1.25) mg/dL Est GFR (CKD-EPI)AfAm (>60 ml/min/1.73 sqM) Est GFR (CKD-EPI)NonAf (>60 ml/min/1.73 sqM) Glucose (74-99) mg/dL Lactic Ac Sepsis Rflx Y Plasma Lactic Acid Serjio (0.7-2.0) mmol/L Calcium (8.4-10.2) mg/dL Total Bilirubin (0.2-1.3) mg/dL AST (17-59) U/L ALT (4-49) U/L Alkaline Phosphatase (38-126) U/L Troponin I (0.000-0.034) ng/mL Total Protein (6.3-8.2) g/dL Albumin (3.5-5.0) g/dL Blood Type Blood Type Recheck Bld Type Recheck Status Antibody Screen Crossmatch Spec Expiration Date Critical Care Time Critical Care Time: Yes Critical Care Time: 40 minutes Disposition Clinical Impression: Hemoptysis, Lung cancer, Chemotherapy induced neutropenia, Blood loss anemia, Atrial fibrillation with RVR Disposition: ADMITTED IP TO THIS HOSP Condition: Serious Is patient prescribed a controlled substance at d/c from ED?: No Decision to Admit Reason: Admit from EC Decision Date: 09/09/19 Decision Time: 16:08
[2019-09-09] MEDS ORDERED: NALOXONE 0.4 MG/ML 1 ML VIAL IV PRN (16:08)
--- NOTE | 2019-09-09 17:18 | CT ---
EXAMINATION TYPE: CT ChestAbdPelvis w con DATE OF EXAM: 09/09/2019 COMPARISON: PET/CT dated 05/13/[address] thorax dated 04/22/2019 HISTORY: Hemoptysis. Lung cancer and anemia. CT DLP: 1058.9 mGycm. Automated Exposure Control for Dose Reduction was Utilized. CONTRAST: CT scan of the thorax, abdomen and pelvis is performed with IV Contrast, patient injected with 100ml mL of Isovue 300. FINDINGS: LUNGS: The previously seen extensive pleural thickening and pleural fluid accumulation on the prior o f 05/13/2019 has nearly resolved with only few foci of mild neural thickening seen along the right he mithorax border. Spiculated opacity of the right hilum contains internal calcifications and could rep resent residual mass or posttreatment change. The most confluent area is measured on image 26 at 4.0 x 4.2 cm. There is peribronchial thickening surrounding the segmental bronchi to the right upper lobe and right middle lobe. There are new patchy groundglass opacities in the right middle lobe and bilateral lower lobes, left g reater than right. Mild background underlying emphysematous change. MEDIASTINUM: The heart is enlarged. There is a small pericardial effusion present. Abnormal right par atracheal adenopathy on image 19 measures 1.4 cm in short axis, decreased in size from the prior PET/ CT of 2019. Moderate coronary calcifications are present. Central pulmonary embolus is seen. LIVER/GB: No significant abnormality is appreciated. PANCREAS: Pancreatic parenchymal atrophy is noted. SPLEEN: No splenomegaly. ADRENALS: No new nodule. KIDNEYS: Numerous hypoattenuated renal lesions are seen bilaterally the largest represent benign cyst s. Some of these are subcentimeter and too small to accurately characterize. No hydronephrosis of eit her kidney. BOWEL: Few scattered colonic diverticula without focal pericolonic fat stranding. GENITAL ORGANS: No gross abnormality seen. LYMPH NODES: Calcified structure in the right lower quadrant unchanged from the prior PET/CT could re present an appendicolith or right lower quadrant calcified lymph node. No greater than 1cm abdominal or pelvic lymph nodes are appreciated. OSSEOUS STRUCTURES: Multiple thoracic compression deformities. Mild degenerative change of the spine. Diffuse osseous demineralization. OTHER: Extensive atherosclerosis of the abdominal aorta and its branches. The right supraclavicular m ass noted on the prior CT of 2019 is poorly defined and surrounds the right subclavian artery on imag e 8. This is markedly decreased from the prior PET/CT of 05/13/2019. IMPRESSION: 1. New multifocal groundglass opacities predominating in the left lower lobe. Pneumonia should be con sidered. 2. Right hilar spiculated opacity remains measuring 4.0 x 4.2 cm. This may represent residual neoplas m or posttreatment change. PET/CT could be performed for further evaluation. Degree of mediastinal ad enopathy has decreased from the prior PET of 05/13/2019. 3. Cardiomegaly and moderate coronary calcifications, marker of coronary artery disease. Small perica rdial effusion is also seen. 4. Multiple thoracic compression deformities are similar to the prior of 04/22/2019.
[2019-09-09 17:36] LABS: Glucose,Whole Blood 81 mg/dL (75-99)
[2019-09-09] MEDS ORDERED: Kcentra PER PHARMACY 1 EACH MISC MISCELLANE PRN (17:38)
--- NOTE | 2019-09-09 17:45 | P.CNPUL ---
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 The patient at that time presented to the hospital with an abnormal chest x-ray and the small right-sided pleural effusion and subsequent CAT scan imaging showed a right hilar mass and supraclavicular lymphadenopathy. Diagnosis was established. He is known to have COPD, history of a flutter, cardiomyopathy with impaired ejection fraction of 35% and severe pulmonary hypertension, hypertension and diabetes mellitus. The PET scan that was done on 05/13/2019 showed findings compatible with history of lung cancer. The patient at 4.1 cm supraclavicular lymph node that was metabolically active. The patient also had metabolically active nodes and an abnormal soft tissue density in the right lower lobe and the right hilar area with an SUV of 14. There was also volume loss in the right hemithorax in addition to a right-sided pleural effusion. He was referred to medical oncology and he was started to re ceive systemic treatment and radiation therapy. The exact regimen is not known. I the last session of systemic chemotherapy was given to him for around 10 days ago. The patient came into the emergency department today with hemoptysis. His blood work showed chemotherapy-induced neutropenia and his white cell count is at 0.7 with a hemoglobin of 6.4 and platelet count of 27. His lactic acid level was at 3.7. Correlation profile was essentially within normal limits. Potassium level is at 5.5. Troponin was negative. AST and ALT was within normal limits.. The patient was admitted to the intensive care unit. He is currently receiving a unit of packed RBC. He is afebrile. A CAT scan of the chest abdomen and pelvis was done in the ED. There is improvement in the volume loss in the right lung. There is resolution of the right lower lobe atelectasis and small effusion. There is a soft tissue density still in the hilum and the bronchus intermedius remains quite narrowed. The right supraclavicular lymph node was also shrunken in size and so is the mediastinal lymph nodes and the various lymph nodes within the mediastinum. As such , this is considered to be positive adequate response to treatment for now. Review of Systems Constitutional: Reports weakness, Reports weight loss Eyes: denies as per HPI, denies blurred vision, denies bulging eye, denies decreased vision, denies diplopia, denies discharge, denies dry eye, denies irritation, denies itching, denies pain, denies photophobia, denies loss of peripheral vision, denies loss of vision, denies tunnel vision/blind spots Ears: deny: decreased hearing, ear discharge, earache, tinnitus Ears, nose, mouth and throat: Reports as per HPI Cardiovascular: Reports decreased exercise tolerance, Reports dyspnea on exertion Respiratory: Reports dyspnea, Reports hemoptysis Gastrointestinal: Reports as per HPI, Reports loss of appetite Genitourinary: Reports as per HPI Musculoskeletal: Reports as per HPI Musculoskeletal: absent: ankle pain, ankle stiffness, ankle swelling Integumentary: Reports as per HPI Neurological: Reports as per HPI Psychiatric: Reports as per HPI Endocrine: Reports as per HPI, Reports fatigue Hematologic/Lymphatic: Reports as per HPI Allergic/Immunologic: Reports as per HPI Past Medical History Past Medical History: Atrial Fibrillation, Cancer, Diabetes Mellitus, Hyperlipidemia, Hypertension, Pulmonary Embolus (PE), Seizure Disorder Additional Past Medical History / Comment(s): Metastatic squamous cell carcinoma of the lung, COPD, cardiomyopathy with ejection fraction is depressed in the order of 35%, hypertension, diabetes, atrial flutter, remote history of pulmonary embolism, history of atrial flutter maintained on anticoagulation with Eliquis, seizure disorder, hyperlipidemia. History of Any Multi-Drug Resistant Organisms: None Reported Additional Past Surgical History / Comment(s): COLONOSCOPY. BRONCHOSCOPY Past Anesthesia/Blood Transfusion Reactions: No Reported Reaction Past Psychological History: No Psychological Hx Reported Smoking Status: Former smoker - Past Family History Brother(s) Family Medical History: Cancer Medications and Allergies Home Medications Medication Instructions Recorded Confirmed Type Montelukast [Singulair] 10 mg PO DAILY 04/14/19 09/09/19 History Simvastatin [Zocor] 20 mg PO HS 04/14/19 09/09/19 History metFORMIN HCL [Glucophage] 850 mg PO BID 04/14/19 09/09/19 History Apixaban [Eliquis] 5 mg PO BID #60 tab 04/25/19 09/09/19 Rx Digoxin [Lanoxin] 125 mcg PO DAILY #30 tab 04/25/19 09/09/19 Rx Isosorbide Mononitrate ER [Imdur] 30 mg PO DAILY #30 tab.er.24h 04/25/19 09/09/19 Rx Furosemide [Lasix] 20 mg PO DAILY 05/31/19 09/09/19 History Metoprolol Tartrate [Lopressor] 50 mg PO DAILY 05/31/19 09/09/19 History levETIRAcetam [Keppra] 500 mg PO BID 05/31/19 09/09/19 History Docusate [Colace] 100 mg PO BID 06/08/19 09/09/19 History oxyCODONE HCL [Roxicodone] 10 mg PO DAILY PRN 09/09/19 09/09/19 History Allergies Allergy/AdvReac Type Severity Reaction Status Date / Time No Known Allergies Allergy Verified 09/09/19 15:47 Physical Exam Vitals: Vital Signs Temp Pulse Resp BP Pulse Ox 09/09/19 17:00 98.6 F 78 18 122/79 99 09/09/19 16:00 78 17 112/74 99 09/09/19 15:01 106 H 20 09/09/19 14:54 112 H 22 09/09/19 14:03 97.8 F 60 18 102/68 99 Intake and Output 09/09/19 09/09/19 09/09/19 06:59 14:59 22:59 Other: Weight 72.121 kg The patient appeared well nourished and normally developed. Vital signs as documented. Head exam is unremarkable. No scleral icterus or corneal arcus noted. Neck is without jugular venous distension, thyromegaly, or carotid bruits. Carotid upstrokes are brisk bilaterally. Lungs sounds are diminished bilaterally and the patient's breath sounds are diminished on the right more than the left. Scattered rhonchi. Cardiac exam reveals the PMI to be normally sized and situated. Rhythm is irregular consistent with atrial fibrillation. First and second heart sounds normal. No murmurs, rubs or gallops. Abdominal exam reveals normal bowel sounds, no masses, no organomegaly and no aortic enlargement. Extremities are nonedematous and both femoral and pedal pulses are normal.Examination of the skin revealed no evidence of significant rashes, suspicious appearing nevi or other concerning lesions. Neurologically the patient is awake and alert and is no focal neurological deficit. Results - Laboratory Findings CBC and BMP: 09/09/19 14:38 09/09/19 14:38 PT/INR, D-dimer PT 9.6 sec (9.0-12.0) 09/09/19 14:38 INR 0.9 (<1.2) 09/09/19 14:38 Abnormal lab findings: Abnormal Labs 09/09/19 09/09/19 09/09/19 14:38 14:38 14:38 WBC 0.7 L* RBC 2.26 L Hgb 6.4 L* D Hct 20.4 L RDW 15.8 H Plt Count 27 L D APTT 19.3 L Potassium BUN Glucose Plasma Lactic Acid Serjio Crossmatch See Detail 09/09/19 09/09/19 14:38 14:38 WBC RBC Hgb Hct RDW Plt Count APTT Potassium 5.5 H BUN 23 H Glucose 110 H Plasma Lactic Acid Serjio 3.7 H* Crossmatch - Diagnostic Findings Chest x-ray: image reviewed CT scan - chest: image reviewed Assessment and Plan Plan: 1 metastatic squamous cell carcinoma of the lung with a large right hilar mass/ lymphadenopathy, volume loss in the pleural effusion in addition to supracervical lymphadenopathy which has responded nicely to systemic treatment and the patient has a good positive response to treatment based on the CAT scan of the chest abdomen and pelvis done today's evaluation. 2 hemoptysis likely due to thrombocytopenia and utilization of Eliquis. The source of the bleed is probably the hilar mass which is causing significant compression and possibly invasion of the bronchus intermedius based on the CAT scan findings. 3 chemotherapy-induced pancytopenia 4 history of atrial fibrillation/flutter maintained on long-term and long-term anticoagulation with Eliquis 5 COPD 6 cardiomyopathy with impaired ejection fraction and second and pulmonary hypertension 7 history of seizure disorder 8 diabetes mellitus 9 hypertension 10 hyperlipidemia 11 mild lactic acidosis 12 multiple thoracic compression deformities of the spine seen on previous evaluations. Plan Start the patient on G-CSF regarding his underlying neutropenia Kcentra regarding moderate to severe hemoptysis which could be essentially life- threatening. Platelets transfusion, for a platelet count of 27 Give the patient a total of 2 units of packed RBC regarding his underlying anemia Monitor the platelet counts Hold Eliquis Monitor hemoptysis Reassured the patient on the positive response based on the CAT scan of the abdomen and chest and pelvis note that there is some new multifocal groundglass changes in the right on in the left and in the right upper lobe and this is probably radiation changes. There is however some residual neoplasm/tumor in the right hilar area although smaller in size. Monitor the fever pattern and cover the patient with IV cefepime until and negative cultures established We'll continue to follow
--- NOTE | 2019-09-09 17:46 | P.PN ---
Progress Note - Text Progress Note Date: 09/09/19 Locally Advanced Non-Small Cell Lung Cancer Patient of Dr. Solano Admitted with hemoptysis, pancytopenia and possible pneumonia. Status Post Concurrent chemo and radiation. S/P last chemo alone / with carbo and COMP[employer]GER-16, did not receive growth factor. Currently in ICU Care Plan: - Blood Cultures x2 - Monitor Daily CBC with differential - Start Jenkinjones Stimulating Growth Factor - Zarxio Daily - for Neutropenia in presence of possible infection - Transfuse RBC for hemoglobin less than 7 - Transfuse SDP for platelet count less than 15 or less than 50K with active bleeding. - Recommend the addition of broad specrum antibiotics after all rowland cultures have been initiated, a consult has been placed for ID. Thank you for allowing us to take part in the care of this patient, a full dictation will follow tomorrow. Cassie Roldan NP
[2019-09-09] MEDS ORDERED: HUMAN PROTHROMBIN COMPLX IV ONE (18:00)
[2019-09-09] MEDS: FILGRASTIM-SNDZ 480 MCG/0.8 ML SYRINGE SQ SCH (18:18)
[2019-09-09] MEDS: HYDROcodone/APAP 5-325MG 1 EACH TAB PO PRN (18:56)
[2019-09-09] MEDS: SODIUM CHLORIDE 0.9% 1,000 ML IV SCH (19:00)
[2019-09-09] MEDS: IPRATROPIUM-ALBUTEROL 3 ML NEB INHALATION SCH (19:22)
[2019-09-09] MEDS ORDERED: ACETAMINOPHEN TAB 325 MG TAB PO PRN (19:52)
[2019-09-09] MEDS ORDERED: MAG HYDROX/AL HYDROX/SIMETH 30 ML CUP PO PRN (22:17)
[2019-09-09] MEDS: CEFEPIME 2 GM in SODIUM CHLORIDE 0.9% 100 ML IVPB SCH (22:25)
--- NOTE | 2019-09-09 22:33 | P.HPIM ---
History of Present Illness H&P Date: 09/09/19 Chief Complaint: hemoptysis patient is a 69-year-old male with a known history ofatrial fibrillation currently on anticoagulation with Eliquis, non-small cell lung cancer diagnosed in May 2019, status post radiation completed on August 17, recent chemotherapy on 08/31/19, diabetes type 2 [id number] hypertension, hyperlipidemia, history of seizure disorder, history of PE , COPD on home oxygen at 2 L and previous history of smoking came to ERwith the complaints of coughing up blood since yesterday evening. Patient has been coughing up bright red blood with occasional clots. His last Eliquis dose wasyesterday morning.Denied any fever or chills. No complaints of shortness of breath or chest pain. No hematemesis or melenaor previous history ofGI bleed. No dysuria or hematuria. Denied any abdominal pain. Patient has been having bright red blood with each coughwhich made him come tothe emergency room. cT of the abdomen and pelvis was ordered which showed new multifocal groundglass opacities in the left lower lobe. Pneumonia cannot be excluded. Right hilar spiculated opacity due to residual malignant tumor. Cardiomegaly with moderate coronary alcifications. Multiple thoracic vertebral compression fractures. Hemoglobin 6.4, WBC 0.7 and platelets 27 potassium 5.5 and lactic acid 3.2 Review of Systems Constitutional: Patient denies any fever or chills . No generalized weakness or weight loss. Abdomen: Patient denied nausea vomiting and diarrhea and abdominal pain. Cardiovascular: Patient denies any chest pain or short of breath no palpitations. Respiratory: patient denied any cough is from production.hemoptysis. No shortness of breath Neurologic: Patient denied any numbness or tingling headache. Musculoskeletal: Patient denies any complaints of joint swelling or deformity. Skin: Negative Psychiatric: Negative Endocrine: No heat or cold intolerance. No recent weight gain. Genitourinary: No dysuria or hematuria. All other 14 point ROS negative except the above Past Medical History Past Medical History: Atrial Fibrillation, Cancer, Diabetes Mellitus, Hyperlipidemia, Hypertension, Pulmonary Embolus (PE), Seizure Disorder Additional Past Medical History / Comment(s): pt states was told he had a seizu re-unknown when. NON SMALL CELL LUNG CANCER. History of Any Multi-Drug Resistant Organisms: None Reported Additional Past Surgical History / Comment(s): COLONOSCOPY. BRONCHOSCOPY Past Anesthesia/Blood Transfusion Reactions: No Reported Reaction Smoking Status: Former smoker - Past Family History Brother(s) Family Medical History: Cancer Medications and Allergies Home Medications Medication Instructions Recorded Confirmed Type Montelukast [Singulair] 10 mg PO DAILY 04/14/19 09/09/19 History Simvastatin [Zocor] 20 mg PO HS 04/14/19 09/09/19 History metFORMIN HCL [Glucophage] 850 mg PO BID 04/14/19 09/09/19 History Apixaban [Eliquis] 5 mg PO BID #60 tab 04/25/19 09/09/19 Rx Digoxin [Lanoxin] 125 mcg PO DAILY #30 tab 04/25/19 09/09/19 Rx Isosorbide Mononitrate ER [Imdur] 30 mg PO DAILY #30 tab.er.24h 04/25/19 09/09/19 Rx Furosemide [Lasix] 20 mg PO DAILY 05/31/19 09/09/19 History Metoprolol Tartrate [Lopressor] 50 mg PO DAILY 05/31/19 09/09/19 History levETIRAcetam [Keppra] 500 mg PO BID 05/31/19 09/09/19 History Docusate [Colace] 100 mg PO BID 06/08/19 09/09/19 History oxyCODONE HCL [Roxicodone] 10 mg PO DAILY PRN 09/09/19 09/09/19 History Allergies Allergy/AdvReac Type Severity Reaction Status Date / Time No Known Allergies Allergy Verified 09/09/19 15:47 Physical Exam Vitals: Vital Signs Temp Pulse Pulse Resp BP BP Pulse Ox 09/09/19 21:00 85 13 141/99 100 09/09/19 20:00 93 18 137/94 100 09/09/19 19:33 105 H 09/09/19 19:25 87 09/09/19 19:03 98.5 F 79 18 117/70 98 09/09/19 19:00 98.3 F 85 14 132/72 100 09/09/19 18:56 98.3 F 85 18 132/72 100 09/09/19 18:50 94 20 120/87 09/09/19 18:26 98.1 F 77 20 108/66 09/09/19 18:16 98.5 F 81 18 130/72 09/09/19 17:00 98.6 F 78 18 122/79 99 09/09/19 16:00 78 17 112/74 99 09/09/19 15:01 106 H 20 09/09/19 14:54 112 H 22 09/09/19 14:03 97.8 F 60 18 102/68 99 Intake and Output 09/09/19 09/09/19 09/09/19 06:59 14:59 22:59 Intake Total 810 Output Total 200 Balance 610 Intake: IV 500 Sodium Chloride 0.9% 1, 500 000 ml @ 100 mls/hr IV . Q10H [facility] Rx#:[id number] Blood Product 310 Rc As-1 Unit 0 [id number] Output: Urine 200 Other: Weight 72.121 kg 72.121 kg PHYSICAL EXAMINATION: Patient is lying in the bed comfortably, no acute distress, awake alert and oriented.. HEENT: Normocephalic. Neck is supple. Pupils reactive. Nostrils clear. Oral cavi ty is moist. Ears reveal no drainage. Neck reveals no JVD, carotid bruits, or thyromegaly. CHEST EXAMINATION: Trachea is central. Symmetrical expansion.bibasilar coarse breath sounds. No wheezing. Lung golden clear to auscultation and percussion. CARDIAC: Normal S1, S2 with no gallops. No murmurs ABDOMEN: Soft. Bowel sounds normal. No organomegaly. No abdominal bruits. Extremities: reveal no edema. No clubbing or cyanosis Neurologically awake, alert, oriented x3 with well-coordinated movements. No focal deficits noted Skin: No rash or skin lesions. Psychiatric: Coperative. Nonsuicidal Musculoskeletal: No joint swelling or deformity. Normal range of motion. Results CBC & Chem 7: 09/09/19 14:38 09/09/19 14:38 Labs: Abnormal Lab Results - Last 24 Hours (Table) 09/09/19 09/09/19 09/09/19 Range/Units 14:38 14:38 14:38 WBC 0.7 L* (3.8-10.6) k/uL RBC 2.26 L (4.30-5.90) m/uL Hgb 6.4 L* D (13.0-17.5) gm/dL Hct 20.4 L (39.0-53.0) % RDW 15.8 H (11.5-15.5) % Plt Count 27 L D (150-450) k/uL APTT 19.3 L (22.0-30.0) sec Potassium (3.5-5.1) mmol/L BUN (9-20) mg/dL Glucose (74-99) mg/dL Plasma Lactic Acid Serjio (0.7-2.0) mmol/L Crossmatch See Detail 09/09/19 09/09/19 Range/Units 14:38 14:38 WBC (3.8-10.6) k/uL RBC (4.30-5.90) m/uL Hgb (13.0-17.5) gm/dL Hct (39.0-53.0) % RDW (11.5-15.5) % Plt Count (150-450) k/uL APTT (22.0-30.0) sec Potassium 5.5 H (3.5-5.1) mmol/L BUN 23 H (9-20) mg/dL Glucose 110 H (74-99) mg/dL Plasma Lactic Acid Serjio 3.7 H* (0.7-2.0) mmol/L Crossmatch Thrombosis Risk Factor Assmnt - DVT/VTE Prophylaxis DVT/VTE Prophylaxis: Mechanical Prophylaxis ordered - Choose All That Apply Any of the Below Risk Factors Present?: Yes Each Factor Represents 1 point: Serious lung disease incl. pneumonia (< 1month) Other Risk Factors: Yes Each Risk Factor Represents 2 Points: Age 61-74 years Each Risk Factor Represents 3 Points: History of DVT/PE Thrombosis Risk Factor Assessment Total Risk Factor Score: 6 Thrombosis Risk Factor Assessment Level: High Risk Assessment and Plan Assessment: hemoptysis likely due to underlying lung malignancy along with thrombocytopenia and patient being on Eliquis acute blood loss anemia secondary to hemoptysis. lactic acidosis metastatic non-small cell lung cancer/residual right hilar mass. Status post radiation therapy. Currently on chemotherapy last on 08/31/2019 Pancytopenia likely related to chemotherapy Atrial fibrillation with rapid ventricular rate. Patient is on metoprolol and digoxin at home. multiple thoracic vertebral compression fractures. COPD on home oxygen 2 L nausea cannula. diabetes type 2 [id number] Hypertension Seizure disorder Hyperlipidemia Previous history of smoking DVT prophylaxis with SCDs santosh: Patient will becontinued onIV hydration. Was given metoprolol and digoxin dose in the ER which seemed tocontrol his heart rate. CT of the chest,abdominal pelvis was done. Monitor H&H and blood transfusion with PRBC to keep the hemoglobin greater than. Platelet transfusion with a platelet count is below 15 Due to active hemoptysis patient will betransferred to MICU for close monitoring. oncology will be consulted. Continue withhome medications including breathing treatments. Eliquis is on hold.continue with telemetry monitoring. further recommendations based on theclinical course. Prognosis is guarded with multiple medical problems and comorbid conditions. Discussed with the patientand his at bedside in detail. Time with Patient: Greater than 30
[2019-09-09] MEDS: LORazepam 2 MG/ML INJ IV PRN (22:34)
[2019-09-09] MEDS: IPRATROPIUM-ALBUTEROL 3 ML NEB INHALATION PRN (22:48)
[2019-09-09 23:24] LABS: Anisocytosis Slight; HCT 20.9 % (39.0-53.0); MCH 29.3 pg (25.0-35.0); MCHC 32.3 g/dL (31.0-37.0); MCV 90.6 fL (80.0-100.0); Mean Platelet Volume 12.1; Poikilocytosis Slight; RBC 2.31 m/uL (4.30-5.90)
[2019-09-09 23:36] LABS: D-Dimer 0.82 mg/L FEU (<0.60)
[2019-09-09 23:39] LABS: WBC 0.6 k/uL (3.8-10.6)
[2019-09-09 23:42] LABS: HGB 6.8 gm/dL (13.0-17.5); Platelet Count 18 k/uL (150-450)
[2019-09-10] MEDS: HYDROcodone/APAP 5-325MG 1 EACH TAB PO PRN ×3 (01:06→21:08)
[2019-09-10] MEDS: SODIUM CHLORIDE 0.9% 1,000 ML IV SCH ×2 (05:19→11:52)
[2019-09-10 05:20] LABS: Glucose,Whole Blood 97 mg/dL (75-99)
[2019-09-10] MEDS: IPRATROPIUM-ALBUTEROL 3 ML NEB INHALATION PRN (05:38)
[2019-09-10 06:14] LABS: African American GFR (CKD) >90 (>60 ml/min/1.73 sqM); Anion Gap 8 mmol/L; Blood Urea Nitrogen 24 mg/dL (9-20); Calcium 8.6 mg/dL (8.4-10.2); Carbon Dioxide 23 mmol/L (22-30); Chloride 106 mmol/L (98-107); Glucose 86 mg/dL (74-99); Magnesium 1.5 mg/dL (1.6-2.3); Non-African American GFR(CKD) 88 (>60 ml/min/1.73 sqM); Potassium 4.9 mmol/L (3.5-5.1); Sodium 137 mmol/L (137-145)
[2019-09-10] MEDS ORDERED: Magnesium Replacement Protocol 1 EACH MISC MISCELLANE PRN (06:16)
[2019-09-10 06:20] LABS: Partial Thromboplastin Time 22.1 sec (22.0-30.0)
[2019-09-10 06:27] LABS: Basophils % (A) 0 %; Eosinophils % (A) 6 %; HCT 23.7 % (39.0-53.0); HGB 7.9 gm/dL (13.0-17.5); Hypochromasia Slight; Lymphocytes # (A) 0.2 k/uL (1.0-4.8); Lymphocytes % (A) 42 %; MCH 29.7 pg (25.0-35.0); MCHC 33.2 g/dL (31.0-37.0); MCV 89.5 fL (80.0-100.0); Mean Platelet Volume 8.8; Monocytes % (A) 8 %; Neutrophils % (A) 38 %; Poikilocytosis Slight; RBC 2.65 m/uL (4.30-5.90); RDW 15.4 % (11.5-15.5)
[2019-09-10 06:29] LABS: WBC 0.5 k/uL (3.8-10.6)
[2019-09-10 06:31] LABS: Platelet Count 44 k/uL (150-450)
[2019-09-10] MEDS: MAGNESIUM SULFATE-D5W PMX 1 GM in DEXTROSE/WATER 1 100ML.BAG IVPB SCH ×2 (06:54→08:32)
--- NOTE | 2019-09-10 07:27 | P.PN ---
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 The patient at that time presented to the hospital with an abnormal chest x-ray and the small right-sided pleural effusion and s ubsequent CAT scan imaging showed a right hilar mass and supraclavicular lymphadenopathy. Diagnosis was established. He is known to have COPD, history of a flutter, cardiomyopathy with impaired ejection fraction of 35% and severe pulmonary hypertension, hypertension and diabetes mellitus. The PET scan that was done on 05/13/2019 showed findings compatible with history of lung cancer. The patient at 4.1 cm supraclavicular lymph node that was metabolically active. The patient also had metabolically active nodes and an abnormal soft tissue density in the right lower lobe and the right hilar area with an SUV of 14. There was also volume loss in the right hemithorax in addition to a right-sided pleural effusion. He was referred to medical oncology and he was started to receive systemic treatment and radiation therapy. The exact regimen is not known. I the last session of systemic chemotherapy was given to him for around 10 days ago. The patient came into the emergency department today with hemoptysis. His blood work showed chemotherapy-induced neutropenia and his white cell count is at 0.7 with a hemoglobin of 6.4 and platelet count of 27. His lactic acid level was at 3.7. Correlation profile was essentially within normal limits. Potassium level is at 5.5. Troponin was negative. AST and ALT was within normal limits.. The patient was admitted to the intensive care unit. He is currently receiving a unit of packed RBC. He is afebrile. A CAT scan of the chest abdomen and pelvis was done in the ED. There is improvement in the volume loss in the right lung. There is resolution of the right lower lobe atelectasis and small effusion. There is a soft tissue density still in the hilum and the bronchus intermedius remains quite narrowed. The right supraclavicular lymph node was also shrunken in size and so is the mediastinal lymph nodes and the various lymph nodes within the mediastinum. As such , this is considered to be positive adequate response to treatment for now. On 09/10/2019 and seeing the patient for a follow-up visit is resting comfortably in bed. Overnight he received a total of 2 units of packed RBC, platelet transfusion and he also completed a central. Is currently on filgrastim and and the white cell count from today is at 0.6 with 0.55 with a hemoglobin of 7.9. Note that the platelet count dropped as low as 18 and is currently up to 86. The hemoptysis generally subsided. He did have another bout at around 5 AM this morning when he coughed out to large right large clots and there was some edison fresh blood mixed with it. I would say the volume is in the order of 10-15 mL in the bucket that I so. He had only 2 episodes has not had any further episodes since. He is on room air oxygen. Slightly tachycardic with atrial fibrillation. He is being given IV fluids at the rate of 100 mL an hour. He is afebrile is on empiric antibiotic coverage with IV cefepime. The follow-up CAT scan of the chest was noted. No other significant events overnight. As mentioned, Eliquis has been continued for now. Coagulation profile is back to normal including PT/PTT and INR. Objective - Vital Signs Vital signs: Vital Signs Temp 98.3 F 09/10/19 04:00 Pulse 112 H 09/10/19 06:00 Resp 24 09/10/19 06:00 BP 151/92 09/10/19 06:00 Pulse Ox 98 09/10/19 06:00 Intake & Output 09/09/19 09/10/19 09/10/19 18:59 06:59 18:59 Intake Total 200 5882 Output Total 400 Balance 200 5482 Weight 72.121 kg 70.3 kg Intake: IV 200 1300 Cefepime 2 gm In Sodium 100 Chloride 0.9% 100 ml @ 200 mls/hr IVPB Q12HR [facility] Rx#:[id number] Sodium Chloride 0.9% 1, 200 1200 000 ml @ 100 mls/hr IV . Q10H [facility] Rx#:[id number] Blood Product 0 4582 Platelet Irr Pheresis 2 3036 Acda Unit [id number] Rc As-1 Unit 310 [id number] Rc As-1 Unit 0 310 [id number] Output: Urine 400 Other: # Voids 1 # Bowel Movements 1 - Exam The patient appeared well nourished and normally developed. Vital signs as documented. Head exam is unremarkable. No scleral icterus or corneal arcus noted. Neck is without jugular venous distension, thyromegaly, or carotid bruits. Carotid upstrokes are brisk bilaterally. Lungs sounds are diminished bilaterally and the patient's breath sounds are diminished on the right more than the left. Scattered rhonchi. Cardiac exam reveals the PMI to be normally sized and situated. Rhythm is irregular consistent with atrial fibrillation. First and second heart sounds normal. No murmurs, rubs or gallops. Abdominal exam reveals normal bowel sounds, no masses, no organomegaly and no aortic enlargement. Extremities are nonedematous and both femoral and pedal pulses are normal.Examination of the skin revealed no evidence of significant rashes, suspi cious appearing nevi or other concerning lesions. Neurologically the patient is awake and alert and is no focal neurological deficit. - Labs CBC & Chem 7: 09/10/19 05:12 09/10/19 05:12 Labs: Abnormal Lab Results - Last 24 Hours (Table) 09/09/19 09/09/19 09/09/19 Range/Units 14:38 14:38 14:38 WBC 0.7 L* (3.8-10.6) k/uL RBC 2.26 L (4.30-5.90) m/uL Hgb 6.4 L* D (13.0-17.5) gm/dL Hct 20.4 L (39.0-53.0) % RDW 15.8 H (11.5-15.5) % Plt Count 27 L D (150-450) k/uL Lymphocytes # (1.0-4.8) k/uL APTT 19.3 L (22.0-30.0) sec D-Dimer (<0.60) mg/L FEU Potassium (3.5-5.1) mmol/L BUN (9-20) mg/dL Glucose (74-99) mg/dL Plasma Lactic Acid Serjio (0.7-2.0) mmol/L Magnesium (1.6-2.3) mg/dL Crossmatch See Detail 09/09/19 09/09/19 09/09/19 Range/Units 14:38 14:38 23:00 WBC 0.6 L* (3.8-10.6) k/uL RBC 2.31 L (4.30-5.90) m/uL Hgb 6.8 L* (13.0-17.5) gm/dL Hct 20.9 L (39.0-53.0) % RDW 16.0 H (11.5-15.5) % Plt Count 18 L* (150-450) k/uL Lymphocytes # (1.0-4.8) k/uL APTT (22.0-30.0) sec D-Dimer (<0.60) mg/L FEU Potassium 5.5 H (3.5-5.1) mmol/L BUN 23 H (9-20) mg/dL Glucose 110 H (74-99) mg/dL Plasma Lactic Acid Serjio 3.7 H* (0.7-2.0) mmol/L Magnesium (1.6-2.3) mg/dL Crossmatch 09/09/19 09/10/19 09/10/19 Range/Units 23:14 05:12 05:12 WBC 0.5 L* (3.8-10.6) k/uL RBC 2.65 L (4.30-5.90) m/uL Hgb 7.9 L (13.0-17.5) gm/dL Hct 23.7 L (39.0-53.0) % RDW (11.5-15.5) % Plt Count 44 L D (150-450) k/uL Lymphocytes # 0.2 L (1.0-4.8) k/uL APTT (22.0-30.0) sec D-Dimer 0.82 H (<0.60) mg/L FEU Potassium (3.5-5.1) mmol/L BUN 24 H (9-20) mg/dL Glucose (74-99) mg/dL Plasma Lactic Acid Serjio (0.7-2.0) mmol/L Magnesium 1.5 L (1.6-2.3) mg/dL Crossmatch Assessment and Plan Plan: 1 metastatic squamous cell carcinoma of the lung with a large right hilar mass/ lymphadenopathy, volume loss in the pleural effusion in addition to supracervical lymphadenopathy which has responded nicely to systemic treatment and the patient has a good positive response to treatment based on the CAT scan of the chest abdomen and pelvis done today's evaluation. 2 hemoptysis /large volume hemoptysis likely due to thrombocytopenia and utilization of Eliquis. The source of the bleed is probably the hilar mass which is causing significant compression and possibly invasion of the bronchus intermedius based on the CAT scan findings. The patient received K central. The patient received platelet transfusion. Coagulation profile is normalized. Platelet count is up to 44. His hemoptysis subsided and he had another episode of around 5:00 this morning. He is off Eliquis for now. 3 chemotherapy-induced pancytopenia, the patient is neutropenic on fluid restriction 4 history of atrial fibrillation/flutter maintained on long-term and long-term anticoagulation with Eliquis sided tachycardic 5 COPD 6 cardiomyopathy with impaired ejection fraction and second and pulmonary hypertension 7 history of seizure disorder 8 diabetes mellitus 9 hypertension 10 hyperlipidemia 11 mild lactic acidosis 12 multiple thoracic compression deformities of the spine seen on previous evaluations. Plan continue G-CSF regarding his underlying neutropenia Kcentra regarding moderate to severe hemoptysis which could be essentially life- threatening, and this was given yesterday Platelets transfusion, and the plated count is up to 44 Give the patient a total of 2 units of packed RBC regarding his underlying anemia, hemoglobin is up to 7.9 Monitor the platelet counts Hold Eliquis Monitor hemoptysis Consider this patient being transferred to [facility] for bronchial artery embolization if the hemoptysis continues to occur injury occurs. For now, we're going to reverse his coagulopathy and monitor the platelet count and monitor this patient closely in the ICU. We'll follow. We'll continue to follow
--- NOTE | 2019-09-10 07:49 | XR ---
EXAMINATION TYPE: XR chest 1V portable DATE OF EXAM: 09/10/2019 COMPARISON: 04/22/2019 HISTORY: Shortness of breath TECHNIQUE: Single frontal view of the chest is obtained. FINDINGS: There is right perihilar subsegmental consolidation small right effusion and basilar infil trate. Coarsened interstitium with cardiomegaly. Suspect underlying COPD. Arthropathy of the shoulder s.. IMPRESSION: Multifocal areas of consolidation correlate for pneumonia. Mass. In the right hilum spic ulation again noted. Correlate for history of malignancy.
[2019-09-10] MEDS: IPRATROPIUM-ALBUTEROL 3 ML NEB INHALATION SCH ×4 (08:02→19:41)
[2019-09-10] MEDS: CEFEPIME 2 GM in SODIUM CHLORIDE 0.9% 100 ML IVPB SCH ×2 (08:33→21:10)
[2019-09-10] MEDS: DIGOXIN 125 MCG TAB PO SCH (08:33)
[2019-09-10] MEDS: levETIRAcetam 500 MG TAB PO SCH ×2 (08:33→21:10)
[2019-09-10] MEDS: METOPROLOL TARTRATE 50 MG TAB PO SCH (08:34)
[2019-09-10] MEDS: PANTOPRAZOLE 40 MG/10 ML VIAL IV SCH (08:34)
[2019-09-10] MEDS: ISOSORBIDE MONONITRATE ER 30 MG TAB.ER.24H PO SCH (08:34)
[2019-09-10] MEDS: MONTELUKAST 10 MG TAB PO SCH (08:34)
[2019-09-10 11:47] LABS: HCT 23.9 % (39.0-53.0); HGB 7.9 gm/dL (13.0-17.5); Hypochromasia Slight; MCH 30.2 pg (25.0-35.0); MCHC 33.1 g/dL (31.0-37.0); MCV 91.1 fL (80.0-100.0); Poikilocytosis Slight; RBC 2.63 m/uL (4.30-5.90); RDW 15.4 % (11.5-15.5)
[2019-09-10 11:50] LABS: Platelet Count 42 k/uL (150-450); WBC 0.5 k/uL (3.8-10.6)
--- NOTE | 2019-09-10 18:16 | P.CONS ---
History of Present Illness - Reason for Consult Consult date: 09/09/19 Lung Cancer and hemptysis, pancytopenia Requesting physician: Nadine Sanabria - Chief Complaint coughing up blood - History of Present Illness Mr Fabiola villa is a pleasant white male, with multiple medical problems. The patient was noted to be anemic, at least going back to 03/15 when hemoglobin was 10. Other CBC indices were normal. At that time and saturation was low at 16.7 but ferritin was normal at 43. Chem panel was essentially within normal limits. In 08/16 hemoglobin was 9.4, and 8.7 in 12/14. Creatinine in 12/14 was 1.25. In 09/13 ferritin was again 59, with an saturation low at 13.5. He denied any knowledge of blood problems prior to that. No history of any obvious bleeding. He has not had any iron supplementation. Last colonoscopy was more than 7 years ago. He had additional labs done, indicating possible iron deficiency, with sat 11%. Ferritin was 79, but sed rate was elevated at 91, at which level a ferritin < 100 can still indicate iron deficiency He was referred for an EGD and colonoscopy, but ended up getting admitted because of A. fib with RVR noted during the procedure. He was noted to have mild gastritis and a tubular adenoma. During his hospitalization he had a CT of the chest, that revealed a 3 cm right supraclavicular mass, prominent pretracheal lymph node, as well as a moderate right pleural effusion. He underwent a CT-guided needle biopsy of the right subclavicular mass on 04/24/19 revealing a squamous cell carcinoma. Primary site could not be determined based on IHC. He was discharged on eliquis. He is continuing to have right upper extremity discomfort radiating down the arm. This is usually relieved with Tylenol No. 3 which he received from his PCP, but he has not been able to fill this prescription from the pharmacy for the last few days as he didn't have his medication. He has shortness of breath on exertion which is overall stable.he reports some constipation with PO iron. He denied any obvious bleeding. His appetite is stable. Endurance remains diminished. Joint issues are unchanged. His ROS is otherwise as per HPI and negative out of 10. 05/23/2019: PET scan revealed suspicious uptake in right supraclavicular node,mediastinal nodes and RLL soft tissue lesion and right pleural effusion. PDL-1 is negative,Nextgen is pending. it does appear that the patient has a lung primary. MRI of the brain as well as thoracentesis were ordered for completion of staging. MRI was negative, and the fluid was too small to tap He thus started concurent chemo RT with LIGHTING DESIGNER 16 , and cisplatin weekly. He completed concurrent therapy on 08/17/19. He was referred to Nephrology for high K+ . This improved with hydration, and kayexelate. He had a blood transfusion on 07/26/19 At last visit with Dr. Lora he complained he was tired and has persistent weakness. Pain in RUE has resolved. He has exertional dyspnea,no fever or chills or significant cough. He had developed progressive dysphagia, which is improving since completing RT. he is on [place] by his PCP. He did have fecal impaction requiring an ER visit on 05/20/19. his treatment dose was reduced due to constipation, with improvement patient now presents to [facility] with hemoptysis and cough. His last treatment was with carboplatin and LIGHTING DESIGNER-16 completed 08/30, he presents in his shai of treatment therefore it is not uncommon to note his blood counts are low, although with this regimen lower then average and maybe exacerbated by infectious process. ?pneumonia. He did not receive Neulasta or other colony stimulating factors after chemotherapy. He is now in the care of ICU. His WBC 0.7, hemoglobin 6.4. I do not have neutrophils as it states differential is pending. WBC did drop this am to 0.5 on zarxio, although no more bleeding at least since 5am. Fibrinogen and coags stable Review of Systems A 14 point review pof systems assessed and completed and all negative except HPI Past Medical History Past Medical History: Atrial Fibrillation, Cancer, Diabetes Mellitus, Hyperlipidemia, Hypertension, Pulmonary Embolus (PE), Seizure Disorder Additional Past Medical History / Comment(s): Metastatic squamous cell carcinoma of the lung, COPD, cardiomyopathy with ejection fraction is depressed in the order of 35%, hypertension, diabetes, atrial flutter, remote history of pulmonary embolism, history of atrial flutter maintained on anticoagulation with Eliquis, seizure disorder, hyperlipidemia. History of Any Multi-Drug Resistant Organisms: None Reported Additional Past Surgical History / Comment(s): COLONOSCOPY. BRONCHOSCOPY Past Anesthesia/Blood Transfusion Reactions: No Reported Reaction Past Psychological History: No Psychological Hx Reported Smoking Status: Former smoker - Past Family History Brother(s) Family Medical History: Cancer Medications and Allergies Home Medications Medication Instructions Recorded Confirmed Type Montelukast [Singulair] 10 mg PO DAILY 04/14/19 09/09/19 History Simvastatin [Zocor] 20 mg PO HS 04/14/19 09/09/19 History metFORMIN HCL [Glucophage] 850 mg PO BID 04/14/19 09/09/19 History Apixaban [Eliquis] 5 mg PO BID #60 tab 04/25/19 09/09/19 Rx Digoxin [Lanoxin] 125 mcg PO DAILY #30 tab 04/25/19 09/09/19 Rx Isosorbide Mononitrate ER [Imdur] 30 mg PO DAILY #30 tab.er.24h 04/25/19 09/09/19 Rx Furosemide [Lasix] 20 mg PO DAILY 05/31/19 09/09/19 History Metoprolol Tartrate [Lopressor] 50 mg PO DAILY 05/31/19 09/09/19 History levETIRAcetam [Keppra] 500 mg PO BID 05/31/19 09/09/19 History Docusate [Colace] 100 mg PO BID 06/08/19 09/09/19 History oxyCODONE HCL [Roxicodone] 10 mg PO DAILY PRN 09/09/19 09/09/19 History Allergies Allergy/AdvReac Type Severity Reaction Status Date / Time No Known Allergies Allergy Verified 09/09/19 15:47 Physical Exam Vitals: Vital Signs Temp Pulse Resp BP Pulse Ox 09/09/19 17:00 98.6 F 78 18 122/79 99 09/09/19 16:00 78 17 112/74 99 09/09/19 15:01 106 H 20 09/09/19 14:54 112 H 22 09/09/19 14:03 97.8 F 60 18 102/68 99 Intake and Output 09/09/19 09/09/19 09/09/19 06:59 14:59 22:59 Other: Weight 72.121 kg Gen: Alert and Oriented Head: NC/AT Neck: Supple Heart: Irregular, irregular Lungs: Diminished bilaterally note right more than the left. Scattered rhonchi. mild increased overall respiratory effort Abdomen: Soft, ND, NT Ext: No edema, No rash, Pale Neuro: Non-focal Results CBC & Chem 7: 09/10/19 11:27 09/10/19 05:12 Labs: Abnormal Lab Results - Last 24 Hours (Table) 09/09/19 09/09/19 09/09/19 Range/Units 14:38 14:38 14:38 WBC 0.7 L* (3.8-10.6) k/uL RBC 2.26 L (4.30-5.90) m/uL Hgb 6.4 L* D (13.0-17.5) gm/dL Hct 20.4 L (39.0-53.0) % RDW 15.8 H (11.5-15.5) % Plt Count 27 L D (150-450) k/uL APTT 19.3 L (22.0-30.0) sec Potassium (3.5-5.1) mmol/L BUN (9-20) mg/dL Glucose (74-99) mg/dL Plasma Lactic Acid Serjio (0.7-2.0) mmol/L Crossmatch See Detail 09/09/19 09/09/19 Range/Units 14:38 14:38 WBC (3.8-10.6) k/uL RBC (4.30-5.90) m/uL Hgb (13.0-17.5) gm/dL Hct (39.0-53.0) % RDW (11.5-15.5) % Plt Count (150-450) k/uL APTT (22.0-30.0) sec Potassium 5.5 H (3.5-5.1) mmol/L BUN 23 H (9-20) mg/dL Glucose 110 H (74-99) mg/dL Plasma Lactic Acid Serjio 3.7 H* (0.7-2.0) mmol/L Crossmatch CT scan - abdomen: report reviewed CT scan - chest: report reviewed CT scan - pelvis: report reviewed Assessment and Plan Plan: Assessment and Recomendations: 1. Locally Advanced Non-Small Cell Lung Cancer - Squamous Cell Carcinoma: - Status Post concurrent chemo and radiation - Now on Chemotherapy with Carboplatin and LIGHTING DESIGNER-16, last on 08/30/19, did not receive growth factor. Currently in ICU Care 2. Pancytopenia: - Monitor Daily CBC with differential - Start [place] Stimulating Growth Factor - Zarxio Daily - for Neutropenia in presence of possible infection - Transfuse RBC for hemoglobin less than 7 - Transfuse SDP for platelet count less than 15 or less than 50K with active bleeding. - Agree with Antibiotics while awaiting full [place] culture work-up - a consult has been placed for ID. 3. Hemotysis: - This is improved today, patient did receive transfusion of Platelets - increased to 46K today - Coags, fibrinogen are stable at this time. Monitor if platlets drop and/or bleeding again - Eliquis currently on Hold - Pulmonary following - Defer transfer to [facility] for embolization of bronchial artery is persists. Continue overall supportive care Thank you for allowing us to take part in the care of this patient I did speak with Pulmonology regarding this patient Discussed with nursing Cassie Roldan NP
[2019-09-10] MEDS: FILGRASTIM-SNDZ 480 MCG/0.8 ML SYRINGE SQ SCH (19:14)
[2019-09-10] MEDS: ATORVASTATIN 10 MG TAB PO SCH (21:08)
[2019-09-10] MEDS: LORazepam 2 MG/ML INJ IV PRN (21:10)
[2019-09-11] MEDS: IPRATROPIUM-ALBUTEROL 3 ML NEB INHALATION PRN ×2 (00:03→21:31)
--- NOTE | 2019-09-11 00:45 | P.PN ---
Subjective Progress Note Date: 09/10/19 Principal diagnosis: Hemoptysis Pancytopenia secondary to chemotherapy patient is a 69-year-old male with a known history ofatrial fibrillation currently on anticoagulation with Eliquis, non-small cell lung cancer diagnosed in May 2019, status post radiation completed on August 17, recent chemotherapy on 08/31/19, diabetes type 2 [id number] hypertension, hyperlipidemia, history of seizure disorder, history of PE , COPD on home oxygen at 2 L and previous history of smoking came to ERwith the complaints of coughing up blood since yesterday evening. Patient has been coughing up bright red blood with occasional clots. His last Eliquis dose wasyester morning.Denied any fever or chills. No complaints of shortness of breath or chest pain. No hematemesis or melenaor previous history ofGI bleed. No dysuria or hematuria. Denied any abdominal pain. Patient has been having bright red blood with each coughwhich made him come tot emergency room. cT of the abdomen and pelvis was ordered which showed new multifocal groundglass opacities in the left lower lobe. Pneumonia cannot be excluded. Right hilar spiculated opacity due to residual malignant tumor. Cardiomegaly with moderate coronary alcifications. Multiple thoracic vertebral compression fractures. Hemoglobin 6.4, WBC 0.7 and platelets 27 potassium 5.5 and lactic acid 3.2 09/10/2019 Currently patient is in the MICU. Lying in the bed comfortably. No source of hemoptysis since this morning. Hemoglobin level improved to 7.9. Status post 2 units of PRBC. Platelet count improved to 44. Patient is on Neupogen due to neutropenia. Chemotherapy Related. Eliquis is on hold. Patient is being continued on IV hydration. Repeat CT of the chest was ordered. Pulmonary and oncology is following. Active Medications Acetaminophen (Tylenol Tab) 650 mg PO Q4HR PRN PRN Reason: Fever and/or Mild Pain Hydrocodone Bitart/Acetaminophen ([place] 5-325) 1 each PO Q6HR PRN PRN Reason: Pain Last Admin: 09/10/19 21:08 Dose: 1 each Documented by: Al Hydroxide/Mg Hydroxide (Maalox) 30 ml PO Q4HR PRN PRN Reason: GI Upset Last Admin: 09/09/19 22:25 Dose: 30 ml Documented by: Albuterol/Ipratropium (Duoneb 0.5 Mg-3 Mg/3 Ml Soln) 3 ml INHALATION RT-QID [facility] Last Admin: 09/10/19 19:41 Dose: 3 ml Documented by: Albuterol/Ipratropium (Duoneb 0.5 Mg-3 Mg/3 Ml Soln) 3 ml INHALATION RT-Q2H PRN PRN Reason: Shortness Of Breath Or Wheezing Last Admin: 09/11/19 00:03 Dose: 3 ml Documented by: Atorvastatin Calcium (Lipitor) 10 mg PO HS [facility] Last Admin: 09/10/19 21:08 Dose: 10 mg Documented by: Digoxin (Lanoxin) 125 mcg PO DAILY [facility] Last Admin: 09/10/19 08:33 Dose: 125 mcg Documented by: Filgrastim (Zarxio) 480 mcg SQ Q24H [facility] Last Admin: 09/10/19 19:14 Dose: 480 mcg Documented by: Sodium Chloride (Saline 0.9%) 1,000 mls @ 100 mls/hr IV .Q10H [facility] Last Admin: 09/10/19 11:52 Dose: 100 mls/hr Documented by: Cefepime HCl 2 gm/ Sodium (Chloride) 100 mls @ 200 mls/hr IVPB Q12HR [facility] Last Admin: 09/10/19 21:10 Dose: 200 mls/hr Documented by: Isosorbide Mononitrate (Imdur) 30 mg PO DAILY [facility] Last Admin: 09/10/19 08:34 Dose: 30 mg Documented by: Levetiracetam (Keppra) 500 mg PO BID [facility] Last Admin: 09/10/19 21:10 Dose: 500 mg Documented by: Lorazepam (Ativan) 1 mg IV Q4HR PRN PRN Reason: Anxiety Last Admin: 09/10/19 21:10 Dose: 1 mg Documented by: Metformin HCl (Glucophage) 850 mg PO BID [facility] Metoprolol Tartrate (Lopressor) 50 mg PO DAILY [facility] Last Admin: 09/10/19 08:34 Dose: 50 mg Documented by: Miscellaneous Information (Rx Info: Iv Contrast Was Given) 1 each MISCELLANE DAILY PRN PRN Reason: Per Protocol Stop: 09/11/19 14:30 Miscellaneous Information (Magnesium Per Protocol) 1 each MISCELLANE DAILY PRN; Protocol PRN Reason: Per Protocol Montelukast Sodium (Singulair) 10 mg PO DAILY [facility] Last Admin: 09/10/19 08:34 Dose: 10 mg Documented by: Naloxone HCl (Narcan) 0.2 mg IV Q2M PRN PRN Reason: Opioid Reversal Oxycodone HCl (Oxyir) 10 mg PO DAILY PRN PRN Reason: Pain Last Admin: 09/10/19 11:51 Dose: 10 mg Documented by: Pantoprazole Sodium (Protonix) 40 mg IV DAILY [facility] Last Admin: 09/10/19 08:34 Dose: 40 mg Documented by: Objective - Vital Signs Vital signs: Vital Signs Temp 98.3 F 09/10/19 08:00 Pulse 107 H 09/10/19 09:00 Resp 20 09/10/19 09:00 BP 143/87 09/10/19 09:00 Pulse Ox 95 09/10/19 09:00 Intake & Output 09/09/19 09/10/19 09/10/19 18:59 06:59 18:59 Intake Total 200 5882 400 Output Total 400 Balance 200 5482 400 Weight 72.121 kg 70.3 kg Intake: IV 200 1300 400 Cefepime 2 gm In Sodium 100 100 Chloride 0.9% 100 ml @ 200 mls/hr IVPB Q12HR [facility] Rx#:[id number] Sodium Chloride 0.9% 1, 200 1200 300 000 ml @ 100 mls/hr IV . Q10H [facility] Rx#:[id number] Blood Product 0 4582 Platelet Irr Pheresis 2 3036 Acda Unit [id number] As-1 Unit 310 [id number] As-1 Unit 0 310 [id number] Output: Urine 400 Other: # Voids 1 0 # Bowel Movements 1 - Exam PHYSICAL EXAMINATION: Patient is lying in the bed comfortably, no acute distress, awake alert and oriented.. HEENT: Normocephalic. Neck is supple. Pupils reactive. Nostrils clear. Oral cavity is moist. Ears reveal no drainage. Neck reveals no JVD, carotid bruits, or thyromegaly. CHEST EXAMINATION: Trachea is central. Symmetrical expansion. Minimal basilar crackles. Lung golden clear to auscultation and percussion. CARDIAC: Normal S1, S2 with no gallops. No murmurs ABDOMEN: Soft. Bowel sounds normal. No organomegaly. No abdominal bruits. Extremities: reveal no edema. No clubbing or cyanosis Neurologically awake, alert, oriented x3 with well-coordinated movements. No focal deficits noted Skin: No rash or skin lesions. Psychiatric: Coperative. Nonsuicidal Musculoskeletal: No joint swelling or deformity. Normal range of motion. - Labs CBC & Chem 7: 09/10/19 11:27 09/10/19 05:12 Labs: Abnormal Lab Results - Last 24 Hours (Table) 09/09/19 09/09/19 09/09/19 Range/Units 14:38 14:38 14:38 WBC 0.7 L* (3.8-10.6) k/uL RBC 2.26 L (4.30-5.90) m/uL Hgb 6.4 L* D (13.0-17.5) gm/dL Hct 20.4 L (39.0-53.0) % RDW 15.8 H (11.5-15.5) % Plt Count 27 L D (150-450) k/uL Lymphocytes # (1.0-4.8) k/uL APTT 19.3 L (22.0-30.0) sec D-Dimer (<0.60) mg/L FEU Potassium (3.5-5.1) mmol/L BUN (9-20) mg/dL Glucose (74-99) mg/dL Plasma Lactic Acid Serjio (0.7-2.0) mmol/L Magnesium (1.6-2.3) mg/dL Crossmatch See Detail 09/09/19 09/09/19 09/09/19 Range/Units 14:38 14:38 23:00 WBC 0.6 L* (3.8-10.6) k/uL RBC 2.31 L (4.30-5.90) m/uL Hgb 6.8 L* (13.0-17.5) gm/dL Hct 20.9 L (39.0-53.0) % RDW 16.0 H (11.5-15.5) % Plt Count 18 L* (150-450) k/uL Lymphocytes # (1.0-4.8) k/uL APTT (22.0-30.0) sec D-Dimer (<0.60) mg/L FEU Potassium 5.5 H (3.5-5.1) mmol/L BUN 23 H (9-20) mg/dL Glucose 110 H (74-99) mg/dL Plasma Lactic Acid Serjio 3.7 H* (0.7-2.0) mmol/L Magnesium (1.6-2.3) mg/dL Crossmatch 09/09/19 09/10/19 09/10/19 Range/Units 23:14 05:12 05:12 WBC 0.5 L* (3.8-10.6) k/uL RBC 2.65 L (4.30-5.90) m/uL Hgb 7.9 L (13.0-17.5) gm/dL Hct 23.7 L (39.0-53.0) % RDW (11.5-15.5) % Plt Count 44 L D (150-450) k/uL Lymphocytes # 0.2 L (1.0-4.8) k/uL APTT (22.0-30.0) sec D-Dimer 0.82 H (<0.60) mg/L FEU Potassium (3.5-5.1) mmol/L BUN 24 H (9-20) mg/dL Glucose (74-99) mg/dL Plasma Lactic Acid Serjio (0.7-2.0) mmol/L Magnesium 1.5 L (1.6-2.3) mg/dL Crossmatch Assessment and Plan Assessment: hemoptysis likely due to underlying lung malignancy along with thrombocytopenia and patient being on Eliquis acute blood loss anemia secondary to hemoptysis. lactic acidosis. Improved. metastatic non-small cell lung cancer/residual right hilar mass. Status post radiation therapy. Currently on chemotherapy last on 08/31/2019 Pancytopenia likely related to chemotherapy Chronic Atrial fibrillation with rapid ventricular rate. Patient is on metoprolol and digoxin at home. multiple thoracic vertebral compression fractures. COPD on home oxygen 2 L nausea cannula. diabetes type 2 [id number] Hypertension Seizure disorder Hyperlipidemia Previous history of smoking DVT prophylaxis with SCDs santosh: Patient will becontinued onIV hydration. Was given metoprolol and digoxin dose in the ER which seemed tocontrol his heart rate. CT of the chest,abdominal pelvis was done. Monitor H&H and blood transfusion with PRBC to keep the hemoglobin greater than. Platelet transfusion with a platelet count is below 15 Due to active hemoptysis patient will betransferred to MICU for close monitoring. oncology is following. Continue withhome medications including breathing treatments. Eliquis is on hold.continue with telemetry monitoring. further recommendations based on theclinical course. Prognosis is guarded with multiple medical problems and comorbid conditions. Discussed with the patie ntand his at bedside in detail. Time with Patient: Greater than 30
[2019-09-11] MEDS: LORazepam 2 MG/ML INJ IV PRN ×2 (02:54→20:24)
[2019-09-11] MEDS: HYDROcodone/APAP 5-325MG 1 EACH TAB PO PRN ×2 (02:55→20:23)
[2019-09-11 05:24] LABS: HCT 21.2 % (39.0-53.0); Hypochromasia Slight; MCH 29.6 pg (25.0-35.0); MCHC 32.9 g/dL (31.0-37.0); MCV 90.2 fL (80.0-100.0); Poikilocytosis Slight; RBC 2.35 m/uL (4.30-5.90); RDW 15.5 % (11.5-15.5)
[2019-09-11 05:25] LABS: Platelet Count 29 k/uL (150-450); WBC 0.4 k/uL (3.8-10.6)
[2019-09-11 05:38] LABS: African American GFR (CKD) >90 (>60 ml/min/1.73 sqM); Anion Gap 4 mmol/L; Blood Urea Nitrogen 20 mg/dL (9-20); Calcium 8.5 mg/dL (8.4-10.2); Carbon Dioxide 25 mmol/L (22-30); Chloride 107 mmol/L (98-107); Glucose 100 mg/dL (74-99); Magnesium 1.8 mg/dL (1.6-2.3); Non-African American GFR(CKD) 90 (>60 ml/min/1.73 sqM); Potassium 4.3 mmol/L (3.5-5.1); Sodium 136 mmol/L (137-145)
[2019-09-11] MEDS: MAGNESIUM SULFATE-D5W PMX 1 GM in DEXTROSE/WATER 1 100ML.BAG IVPB SCH ×2 (07:02→07:43)
[2019-09-11] MEDS: CEFEPIME 2 GM in SODIUM CHLORIDE 0.9% 100 ML IVPB SCH ×2 (07:43→20:18)
[2019-09-11] MEDS: SODIUM CHLORIDE 0.9% 1,000 ML IV SCH ×3 (07:43→23:06)
[2019-09-11] MEDS: PANTOPRAZOLE 40 MG/10 ML VIAL IV SCH (07:44)
[2019-09-11] MEDS: DIGOXIN 125 MCG TAB PO SCH (07:44)
[2019-09-11] MEDS: levETIRAcetam 500 MG TAB PO SCH ×2 (07:44→20:17)
[2019-09-11] MEDS: METOPROLOL TARTRATE 50 MG TAB PO SCH (07:44)
[2019-09-11] MEDS: MONTELUKAST 10 MG TAB PO SCH (07:44)
[2019-09-11] MEDS: ISOSORBIDE MONONITRATE ER 30 MG TAB.ER.24H PO SCH (07:44)
[2019-09-11] MEDS: IPRATROPIUM-ALBUTEROL 3 ML NEB INHALATION SCH ×4 (08:07→19:47)
--- NOTE | 2019-09-11 10:02 | P.CONS ---
History of Present Illness - Reason for Consult Consult date: 09/10/19 pneumonia Requesting physician: Marin Enrique - Chief Complaint coughing up blood x 1 day - History of Present Illness Patient is a 69-year-old male with a past medical history significant for atrial fibrillation for the patient is currently on Eliquis patient also have a history of non-small cell lung cancer diagnosed in May 2019 for the patient completed his radiation therapy as of August 17, 2019, the patient also received his chemo last 1 also on August 31, 2019 patient is presenting to the ER with a chief complaints of coughing up blood that started the day before he presented to the hospital the patient had denies having any chest pain did h ave cough which is mild to moderate intensity but no significant purulent sputum patient denies having any URI symptom no nausea no vomiting no abdominal pain or any diarrhea on arrival to the ER the patient has been afebrile the patient noticed to be pancytopenic with a white count of 0.6, the patient did have a CT of the chest abdominal pelvis which did shows new multifocal groundglass opacities dominating in the left lower lobe pneumonia should be considered right hilar letter spiculated opacity remains measuring of 44 0.2 cm patient has been started on cefepime infectious disease was consulted for further recommendation about antibiotic therapy. Review of Systems Positive point has been mentioned HPI rest of the systems are negative Past Medical History Past Medical History: Atrial Fibrillation, Cancer, Diabetes Mellitus, Hyperlipidemia, Hypertension, Pulmonary Embolus (PE), Seizure Disorder Additional Past Medical History / Comment(s): Metastatic squamous cell carcinoma of the lung, COPD, cardiomyopathy with ejection fraction is depressed in the order of 35%, hypertension, diabetes, atrial flutter, remote history of pulmonary embolism, history of atrial flutter maintained on anticoagulation with Eliquis, seizure disorder, hyperlipidemia. History of Any Multi-Drug Resistant Organisms: None Reported Additional Past Surgical History / Comment(s): COLONOSCOPY. BRONCHOSCOPY Past Anesthesia/Blood Transfusion Reactions: No Reported Reaction Past Psychological History: No Psychological Hx Reported Smoking Status: Former smoker - Past Family History Brother(s) Family Medical History: Cancer Medications and Allergies Home Medications Medication Instructions Recorded Confirmed Type Montelukast [Singulair] 10 mg PO DAILY 04/14/19 09/09/19 History Simvastatin [Zocor] 20 mg PO HS 04/14/19 09/09/19 History metFORMIN HCL [Glucophage] 850 mg PO BID 04/14/19 09/09/19 History Apixaban [Eliquis] 5 mg PO BID #60 tab 04/25/19 09/09/19 Rx Digoxin [Lanoxin] 125 mcg PO DAILY #30 tab 04/25/19 09/09/19 Rx Isosorbide Mononitrate ER [Imdur] 30 mg PO DAILY #30 tab.er.24h 04/25/19 09/09/19 Rx Furosemide [Lasix] 20 mg PO DAILY 05/31/19 09/09/19 History Metoprolol Tartrate [Lopressor] 50 mg PO DAILY 05/31/19 09/09/19 History levETIRAcetam [Keppra] 500 mg PO BID 05/31/19 09/09/19 History Docusate [Colace] 100 mg PO BID 06/08/19 09/09/19 History oxyCODONE HCL [Roxicodone] 10 mg PO DAILY PRN 09/09/19 09/09/19 History Allergies Allergy/AdvReac Type Severity Reaction Status Date / Time No Known Allergies Allergy Verified 09/09/19 15:47 Physical Exam Vitals: Vital Signs Temp Pulse Resp BP Pulse Ox 09/10/19 19:00 106 H 23 128/72 98 09/10/19 18:00 106 H 26 H 136/67 97 09/10/19 17:00 105 H 22 99 09/10/19 16:23 96 09/10/19 16:13 91 09/10/19 16:00 98.0 F 92 21 96/61 99 09/10/19 15:00 121 H 30 H 96/57 93 L 09/10/19 14:00 100 21 112/70 94 L 09/10/19 13:00 91 28 H 151/77 93 L 09/10/19 12:00 88 28 H 125/81 94 L 09/10/19 11:15 93 09/10/19 11:06 89 09/10/19 11:00 78 18 131/90 93 L 09/10/19 10:00 75 25 H 152/103 92 L 09/10/19 09:00 107 H 20 143/87 95 09/10/19 08:11 107 H 09/10/19 08:04 96 09/10/19 08:00 98.3 F 105 H 34 H 149/85 96 09/10/19 07:00 114 H 26 H 164/89 95 09/10/19 06:00 112 H 24 151/92 98 09/10/19 05:47 100 09/10/19 05:38 100 09/10/19 05:00 92 20 149/114 100 09/10/19 04:00 98.3 F 120 H 22 113/82 98 09/10/19 03:45 98.5 F 109 H 20 113/82 100 09/10/19 03:00 110 H 16 129/90 99 09/10/19 02:00 115 H 24 145/98 100 09/10/19 01:40 98.5 F 89 20 145/98 100 09/10/19 01:10 98.5 F 107 H 20 147/85 100 09/10/19 01:00 98.6 F 107 H 30 H 143/83 99 09/10/19 00:30 98.4 F 122 H 20 144/83 99 09/10/19 00:00 98.5 F 101 H 20 139/75 99 09/09/19 23:58 98.4 F 124 H 24 150/83 100 09/09/19 23:42 98.5 F 115 H 18 135/74 100 09/09/19 23:32 98.5 F 114 H 18 139/75 99 09/09/19 23:00 102 H 20 145/91 97 09/09/19 22:57 90 09/09/19 22:49 101 H 09/09/19 22:00 90 22 154/98 99 09/09/19 21:20 98.5 F 115 H 18 122/75 09/09/19 21:00 85 13 141/99 100 09/09/19 20:00 93 18 137/94 100 09/09/19 19:33 105 H 09/09/19 19:25 87 Intake and Output 09/10/19 09/10/19 09/10/19 06:59 14:59 22:59 Intake Total 5072 900 500 Output Total 200 Balance 4872 900 500 Intake: IV 800 900 500 Cefepime 2 gm In Sodium 100 Chloride 0.9% 100 ml @ 200 mls/hr IVPB Q12HR [facility] Rx#:[id number] Sodium Chloride 0.9% 1, 800 800 500 000 ml @ 100 mls/hr IV . Q10H [facility] Rx#:[id number] Blood Product 4272 Platelet Irr Pheresis 2 3036 Acda Unit [id number] As-1 Unit 310 [id number] As-1 Unit 310 [id number] Output: Urine 200 Other: # Voids 1 0 1 # Bowel Movements 1 Weight 70.3 kg GENERAL DESCRIPTION: Elderly male lying in bed, no distress. No tachypnea or accessory muscle of respiration use. HEENT: Shows Pallor , no scleral icterus. Oral mucous membrane is dry. No pharyngeal erythema or thrush NECK: Trachea central, no thyromegaly. LUNGS: Unlabored breathing. Decreased breath sound at the base. No wheeze or crackle. HEART: S1, S2, regular rate and rhythm. No loud murmur ABDOMEN: Soft, no tenderness , guarding or rigidity, no organomegaly EXTREMITIES: No edema of feet. SKIN: No rash, no masses palpable. NEUROLOGICAL: The patient is awake, alert, oriented x3, mood and affect normal. Results CBC & Chem 7: 09/11/19 04:27 09/11/19 04:27 Labs: Abnormal Lab Results - Last 24 Hours (Table) 09/09/19 09/09/19 09/09/19 Range/Units 14:38 23:00 23:14 WBC 0.6 L* (3.8-10.6) k/uL RBC 2.31 L (4.30-5.90) m/uL Hgb 6.8 L* (13.0-17.5) gm/dL Hct 20.9 L (39.0-53.0) % RDW 16.0 H (11.5-15.5) % Plt Count 18 L* (150-450) k/uL Lymphocytes # (1.0-4.8) k/uL D-Dimer 0.82 H (<0.60) mg/L FEU BUN (9-20) mg/dL Magnesium (1.6-2.3) mg/dL Crossmatch See Detail 09/10/19 09/10/19 09/10/19 Range/Units 05:12 05:12 11:27 WBC 0.5 L* 0.5 L* (3.8-10.6) k/uL RBC 2.65 L 2.63 L (4.30-5.90) m/uL Hgb 7.9 L 7.9 L (13.0-17.5) gm/dL Hct 23.7 L 23.9 L (39.0-53.0) % RDW (11.5-15.5) % Plt Count 44 L D 42 L (150-450) k/uL Lymphocytes # 0.2 L (1.0-4.8) k/uL D-Dimer (<0.60) mg/L FEU BUN 24 H (9-20) mg/dL Magnesium 1.5 L (1.6-2.3) mg/dL Crossmatch Assessment and Plan Assessment: 1-patient is a 69-year-old male with a recent history of non-small cell lung cancer for which the patient has completed his radiation therapy and chemo now presented to the hospital with hemoptysis being the predominant symptoms could be due to his underlying malignancy or to radiation pneumonitis, CT of the chest did show some groundglass opacities which may be related to radiation pneumonitis pneumonia less likely but not entirely excluded in view of absence of any fever or purulent sputum production. (1) Abnormal CT of the chest Current Visit: Yes Status: Acute Code(s): R93.89 - ABNORMAL FINDINGS ON DX IMAGING OF OTH BODY STRUCTURES SNOMED Code(s): 454690143 Plan: 1-we will obtain a sputum for Gram stain and culture 2-cefepime 2 g every 8hr to continue at this point We will follow on clinical condition and cultures to further adjust medication if needed Thank you for this consultation will follow this patient along with you Time with Patient: Greater than 30
--- NOTE | 2019-09-11 10:19 | P.PN ---
Subjective Progress Note Date: 09/11/19 Principal diagnosis: Hemoptysis secondary to squamous cell lung cancer This is a 69-year-old male patient with known history of metastatic small cell carcinoma diagnosed on 04/24/2019 by fine-needle aspirate of a right supraclavicular lymph node. The patient at that time presented to the hospital with an abnormal chest x-ray and the small right-sided pleural effusion and subs equent CAT scan imaging showed a right hilar mass and supraclavicular lymphadenopathy. Diagnosis was established. He is known to have COPD, history of a flutter, cardiomyopathy with impaired ejection fraction of 35% and severe pulmonary hypertension, hypertension and diabetes mellitus. The PET scan that was done on 05/13/2019 showed findings compatible with history of lung cancer. The patient at 4.1 cm supraclavicular lymph node that was metabolically active. The patient also had metabolically active nodes and an abnormal soft tissue density in the right lower lobe and the right hilar area with an SUV of 14. There was also volume loss in the right hemithorax in addition to a right-sided pleural effusion. He was referred to medical oncology and he was started to receive systemic treatment and radiation therapy. The exact regimen is not known. I the last session of systemic chemotherapy was given to him for around 10 days ago. The patient came into the emergency department today with hemoptysis. His blood work showed chemotherapy-induced neutropenia and his white cell count is at 0.7 with a hemoglobin of 6.4 and platelet count of 27. His lactic acid level was at 3.7. Correlation profile was essentially within normal limits. Potassium level is at 5.5. Troponin was negative. AST and ALT was within normal limits.. The patient was admitted to the intensive care unit. He is currently receiving a unit of packed RBC. He is afebrile. A CAT scan of the chest abdomen and pelvis was done in the ED. There is improvement in the volume loss in the right lung. There is resolution of the right lower lobe atelectasis and small effusion. There is a soft tissue density still in the hilum and the bronchus intermedius remains quite narrowed. The right supraclavicular lymph node was also shrunken in size and so is the mediastinal lymph nodes and the various lymph nodes within the mediastinum. As such , this is considered to be positive adequate response to treatment for now. On 09/10/2019 and seeing the patient for a follow-up visit is resting comfortably in bed. Overnight he received a total of 2 units of packed RBC, platelet transfusion and he also completed a central. Is currently on filgrastim and and the white cell count from today is at 0.6 with 0.55 with a hemoglobin of 7.9. Note that the platelet count dropped as low as 18 and is currently up to 86. The hemoptysis generally subsided. He did have another bout at around 5 AM this morning when he coughed out to large right large clots and there was some edison fresh blood mixed with it. I would say the volume is in the order of 10-15 mL in the bucket that I so. He had only 2 episodes has not had any further episodes since. He is on room air oxygen. Slightly tachycardic with atrial fibrillation. He is being given IV fluids at the rate of 100 mL an hour. He is afebrile is on empiric antibiotic coverage with IV cefepime. The follow-up CAT scan of the chest was noted. No other significant events overnight. As mentioned, Eliquis has been continued for now. Coagulation profile is back to normal including PT/PTT and INR. Patient was reevaluated today on 09/11/19, patient is resting in bed, very comfortable, no episodes of hemoptysis overnight. Patient denies being short of breath. Denies any chest pain, continues to have thrombocytopenia with leukopenia, WBC count is 0.4 hemoglobin is 7 platelets are 29,000. Basic metabolic profile and renal profile are normal. Patient received a total of 2 units of packed RBCs since admission, and 1 unit of platelets. His hemoptysis has completely subsided. He is presently on room air. Remains in atrial fibrillation but rate seems to be fairly well controlled. IV fluid is at 100 mL per hour. Patient remains empirically on cefepime. My plan is to possibly transfer the patient to a cardiac floor today. And will have to continue to monitor closely. Objective - Vital Signs Vital signs: Vital Signs Temp 97.7 F 09/11/19 08:00 Pulse 86 09/11/19 08:20 Resp 14 09/11/19 08:00 BP 140/95 09/11/19 08:00 Pulse Ox 97 09/11/19 08:00 Intake & Output 09/10/19 09/11/19 09/11/19 18:59 06:59 18:59 Intake Total 1300 1490 300 Balance 1300 1490 300 Weight 69.4 kg Intake: IV 1300 1250 300 Cefepime 2 gm In Sodium 100 100 100 Chloride 0.9% 100 ml @ 200 mls/hr IVPB Q12HR [facility] Rx#:[id number] Magnesium Sulfate-D5w Pmx 200 1 gm In Dextrose/Water 1 100ml.bag @ 100 mls/hr IVPB Q1H [facility] Rx#: [id number] Sodium Chloride 0.9% 1, 1200 1150 000 ml @ 100 mls/hr IV . Q10H [facility] Rx#:[id number] Oral 240 Other: # Voids 0 0 1 - Exam Physical Exam: Revealed a 69-year-old white male, pale looking, in no distress. On room air. Head: Atraumatic, normocephalic. HEENT:[Neck is supple.] [No neck masses.] [No thyromegaly.] [No JVD.] PERRLA, EOMI, no icterus, throat is clear. Chest: [Clear throughout, no crackles, no rhonchi, no wheezes.] Cardiac Exam: [Irregular irregular rhythm. Normal S1 and S2, no S3 gallop, no murmur.] Abdomen: [Soft, nontender, no megaly, no rebound, no guarding, normal bowel sounds.] Extremities: [No clubbing, no edema, no cyanosis.] Neurological Exam: [No focal neurologic deficit.] Alert and oriented 3. Psychiatric: Normal mood, affect and normal mental status examination. Skin: No rashes. Lymphatics: No lymphadenopathy. - Labs CBC & Chem 7: 09/11/19 04:27 09/11/19 04:27 Labs: Abnormal Lab Results - Last 24 Hours (Table) 09/10/19 09/11/19 09/11/19 Range/Units 11:27 04:27 04:27 WBC 0.5 L* 0.4 L* (3.8-10.6) k/uL RBC 2.63 L 2.35 L (4.30-5.90) m/uL Hgb 7.9 L 7.0 L (13.0-17.5) gm/dL Hct 23.9 L 21.2 L (39.0-53.0) % Plt Count 42 L 29 L (150-450) k/uL Sodium 136 L (137-145) mmol/L Glucose 100 H (74-99) mg/dL Microbiology - Last 24 Hours (Table) 09/09/19 23:14 Blood Culture - Preliminary Blood No Growth after 24 hours 09/09/19 23:00 Blood Culture - Preliminary Blood No Growth after 24 hours Assessment and Plan Assessment: Impression: Hemoptysis, multifactorial, secondary to squamous cell lung cancer and secondary to pancytopenia with thrombocytopenia related to chemotherapy. Metastatic squamous cell lung cancer Chemotherapy-induced pancytopenia Chronic atrial fibrillation Chronic obstructive pulmonary disease History of seizure disorder Chronic cardiomyopathy with LV dysfunction, impaired ejection fraction Secondary pulmonary hypertension Benign essential hypertension Type 2 diabetes Recommendation: Continue G-csf Continue to monitor the pancytopenia and transfuse accordingly. Continue to hold Eliquis Continue to monitor for any further episodes of hemoptysis No need for bronchial artery embolization at this point. Will likely transfer the patient today to oncology. Long-term prognosis remains guarded. We'll continue to follow. Time with Patient: Less than 30
--- NOTE | 2019-09-11 15:37 | CDI ---
Documentation Clarification Form Date: 09/11/2019 03:27:36 PM From: Eliana Coulter RN, CCDS Admit Date: 09/09/2019 04:08:00 PM Patient Name: Fidel Hicks Visit Number: [id number] ATTENTION: The Clinical Documentation Specialists (CDI) and [facility] Coding Staff appreciate your assistance in clarifying documentation. Please respond to the clarification below the line at the bottom and electronically sign. The CDI & [facility] Coding staff will review the response and follow-up if needed. Please note: Queries are made part of the Legal Health Record. If you have any questions, please contact the author of this message via ITS. Dr. Marin Enrique The patient is on OTC oxygen at home, please provide clinical significance History/Risk Factors: Squamous cell lung CA with chemo and ration, COPD, Hx of PE Tobacco use: hx of smoking Home oxygen: 2L NC Clinical Indicators: 09/08 1403 Admission Vital signs: temp 97.8, HR 60, RR 18, B/P 102/68, Spo2 99% Room air Pulse oximetry: 99% on Room air to 2L nasal cannula Treatment: Breathing TX: Duoneb INH QID and Q 2 hrs SOB Continuous Pulse ox per ICU protocol O2: 2L NC to Room Air In your professional opinion, can you please clarify if these findings signify one of the following conditions? Chronic Hypoxic Respiratory Failure Chronic Hypercapnic Respiratory Failure Other Diagnosis, please specify Unable to determine (Last Query Form Revision: February 2019) MTDD
[2019-09-11 18:22] LABS: HCT 22.6 % (39.0-53.0); HGB 7.5 gm/dL (13.0-17.5); MCH 29.9 pg (25.0-35.0); MCHC 33.2 g/dL (31.0-37.0); Mean Platelet Volume 9.3; Poikilocytosis Slight; RBC 2.51 m/uL (4.30-5.90); RDW 15.6 % (11.5-15.5)
[2019-09-11 19:06] LABS: Poikilocytosis (M) Present
[2019-09-11 19:07] LABS: Platelet Count 26 k/uL (150-450); WBC 0.4 k/uL (3.8-10.6)
[2019-09-11] MEDS: metFORMIN 850 MG TAB PO SCH (20:17)
[2019-09-11] MEDS: ATORVASTATIN 10 MG TAB PO SCH (20:17)
--- NOTE | 2019-09-11 22:11 | PN ---
PROGRESS NOTE DATE OF SERVICE: 09/11/2019 REASON FOR FOLLOWUP: Possible pneumonia. INTERVAL HISTORY: The patient was seen on rounds this morning. The patient overall has been feeling better, breathing comfortably. No fever. No chest pain, shortness of breath. Minimal cough. No further hemoptysis. No nausea, vomiting. No abdominal pain or diarrhea. PHYSICAL EXAMINATION: Blood pressure 119/77 with a pulse of 75, temperature 98. He is 99% on room air. General description is an elderly male lying in bed in no distress. RESPIRATORY SYSTEM: Unlabored breathing with decreased breath sounds at the base. No wheeze. HEART: S1, S2. Regular rate and rhythm. ABDOMEN: Soft. No tenderness. LABS: Hemoglobin 7.5, white count 0.4, creatinine 0.86. Blood culture has been negative. Sputum currently pending. DIAGNOSTIC IMPRESSION AND PLAN: Patient admitted to hospital with hemoptysis in this patient who does have a history of lung cancer, status post chemoradiation with multifocal areas of concentration on the basis of x-ray in this patient with no fever. The patient is covered with cefepime. Will follow the blood and sputum cultures to adjust antibiotic further if needed. Continue with supportive care. MMODL / IJN: [id number] /
[2019-09-11] MEDS: FILGRASTIM-SNDZ 480 MCG/0.8 ML SYRINGE SQ SCH (23:04)
[2019-09-12] MEDS: IPRATROPIUM-ALBUTEROL 3 ML NEB INHALATION PRN (01:37)
[2019-09-12] MEDS: LORazepam 2 MG/ML INJ IV PRN (01:48)
[2019-09-12 06:33] LABS: HCT 22.4 % (39.0-53.0); HGB 7.2 gm/dL (13.0-17.5); Hypochromasia Slight; MCH 29.6 pg (25.0-35.0); MCHC 32.1 g/dL (31.0-37.0); MCV 92.3 fL (80.0-100.0); Poikilocytosis Slight; RBC 2.42 m/uL (4.30-5.90); RDW 15.6 % (11.5-15.5)
--- NOTE | 2019-09-12 06:36 | XR ---
EXAMINATION TYPE: XR chest 1V portable DATE OF EXAM: 09/12/2019 CLINICAL HISTORY: Difficulty breathing progress study. History of right lung carcinoma. TECHNIQUE: Single AP portable upright view of the chest is obtained. COMPARISON: Chest x-ray from [address] May 13, 2019. FINDINGS: Right-sided volume loss with mediastinal shift remains present presumably from partial pne umonectomy changes. Increasing right basilar opacity is noted. Persistent right hilar masslike consol idation. Persistent left patchy basilar opacity. Cardiac silhouette size stable and enlarged with ect atic thoracic aorta. Osseous structures are intact. IMPRESSION: Background right-sided volume loss with right hilar mass/neoplasm along with cardiomegaly and patchy left basilar atelectasis and/or infiltrate are all redemonstrated fairly stable.. There i s new small to moderate-sized right pleural effusion and associated right basilar atelectasis and/or infiltrate on current study.
[2019-09-12 06:37] LABS: WBC 0.7 k/uL (3.8-10.6)
[2019-09-12 06:38] LABS: Platelet Count 18 k/uL (150-450)
[2019-09-12 06:51] LABS: African American GFR (CKD) >90 (>60 ml/min/1.73 sqM); Anion Gap 8 mmol/L; Blood Urea Nitrogen 19 mg/dL (9-20); Calcium 8.5 mg/dL (8.4-10.2); Carbon Dioxide 20 mmol/L (22-30); Chloride 109 mmol/L (98-107); Glucose 86 mg/dL (74-99); Magnesium 1.7 mg/dL (1.6-2.3); Non-African American GFR(CKD) >90 (>60 ml/min/1.73 sqM); Potassium 4.6 mmol/L (3.5-5.1); Sodium 137 mmol/L (137-145)
[2019-09-12] MEDS: IPRATROPIUM-ALBUTEROL 3 ML NEB INHALATION SCH ×4 (07:44→19:44)
[2019-09-12] MEDS: SODIUM CHLORIDE 0.9% 1,000 ML IV SCH ×2 (08:34→15:49)
[2019-09-12] MEDS: CEFEPIME 2 GM in SODIUM CHLORIDE 0.9% 100 ML IVPB SCH ×2 (08:35→20:09)
[2019-09-12] MEDS: ISOSORBIDE MONONITRATE ER 30 MG TAB.ER.24H PO SCH (08:36)
[2019-09-12] MEDS: levETIRAcetam 500 MG TAB PO SCH ×2 (08:36→20:09)
[2019-09-12] MEDS: DIGOXIN 125 MCG TAB PO SCH (08:36)
[2019-09-12] MEDS: metFORMIN 850 MG TAB PO SCH ×2 (08:37→20:09)
[2019-09-12] MEDS: METOPROLOL TARTRATE 50 MG TAB PO SCH (08:37)
[2019-09-12] MEDS: HYDROcodone/APAP 5-325MG 1 EACH TAB PO PRN ×2 (08:37→20:09)
[2019-09-12] MEDS: PANTOPRAZOLE 40 MG/10 ML VIAL IV SCH (08:37)
[2019-09-12] MEDS: SENNOSIDES 8.6 MG TAB PO PRN (08:37)
[2019-09-12] MEDS: MONTELUKAST 10 MG TAB PO SCH (08:37)
[2019-09-12] MEDS: MAGNESIUM SULFATE-D5W PMX 1 GM in DEXTROSE/WATER 1 100ML.BAG IVPB SCH ×2 (10:31→11:52)
--- NOTE | 2019-09-12 10:49 | P.PN ---
Subjective Progress Note Date: 09/12/19 Principal diagnosis: Hemoptysis secondary to squamous cell lung cancer This is a 69-year-old male patient with known history of metastatic small cell carcinoma diagnosed on 04/24/2019 by fine-needle aspirate of a right supraclavicular lymph node. The patient at that time presented to the hospital with an abnormal chest x-ray and the small right-sided pleural effusion and subs equent CAT scan imaging showed a right hilar mass and supraclavicular lymphadenopathy. Diagnosis was established. He is known to have COPD, history of a flutter, cardiomyopathy with impaired ejection fraction of 35% and severe pulmonary hypertension, hypertension and diabetes mellitus. The PET scan that was done on 05/13/2019 showed findings compatible with history of lung cancer. The patient at 4.1 cm supraclavicular lymph node that was metabolically active. The patient also had metabolically active nodes and an abnormal soft tissue density in the right lower lobe and the right hilar area with an SUV of 14. There was also volume loss in the right hemithorax in addition to a right-sided pleural effusion. He was referred to medical oncology and he was started to receive systemic treatment and radiation therapy. The exact regimen is not known. I the last session of systemic chemotherapy was given to him for around 10 days ago. The patient came into the emergency department today with hemoptysis. His blood work showed chemotherapy-induced neutropenia and his white cell count is at 0.7 with a hemoglobin of 6.4 and platelet count of 27. His lactic acid level was at 3.7. Correlation profile was essentially within normal limits. Potassium level is at 5.5. Troponin was negative. AST and ALT was within normal limits.. The patient was admitted to the intensive care unit. He is currently receiving a unit of packed RBC. He is afebrile. A CAT scan of the chest abdomen and pelvis was done in the ED. There is improvement in the volume loss in the right lung. There is resolution of the right lower lobe atelectasis and small effusion. There is a soft tissue density still in the hilum and the bronchus intermedius remains quite narrowed. The right supraclavicular lymph node was also shrunken in size and so is the mediastinal lymph nodes and the various lymph nodes within the mediastinum. As such , this is considered to be positive adequate response to treatment for now. On 09/10/2019 and seeing the patient for a follow-up visit is resting comfortably in bed. Overnight he received a total of 2 units of packed RBC, platelet transfusion and he also completed a central. Is currently on filgrastim and and the white cell count from today is at 0.6 with 0.55 with a hemoglobin of 7.9. Note that the platelet count dropped as low as 18 and is currently up to 86. The hemoptysis generally subsided. He did have another bout at around 5 AM this morning when he coughed out to large right large clots and there was some edison fresh blood mixed with it. I would say the volume is in the order of 10-15 mL in the bucket that I so. He had only 2 episodes has not had any further episodes since. He is on room air oxygen. Slightly tachycardic with atrial fibrillation. He is being given IV fluids at the rate of 100 mL an hour. He is afebrile is on empiric antibiotic coverage with IV cefepime. The follow-up CAT scan of the chest was noted. No other significant events overnight. As mentioned, Eliquis has been continued for now. Coagulation profile is back to normal including PT/PTT and INR. Patient was reevaluated today on 09/11/19, patient is resting in bed, very comfortable, no episodes of hemoptysis overnight. Patient denies being short of breath. Denies any chest pain, continues to have thrombocytopenia with leukopenia, WBC count is 0.4 hemoglobin is 7 platelets are 29,000. Basic metabolic profile and renal profile are normal. Patient received a total of 2 units of packed RBCs since admission, and 1 unit of platelets. His hemoptysis has completely subsided. He is presently on room air. Remains in atrial fibrillation but rate seems to be fairly well controlled. IV fluid is at 100 mL per hour. Patient remains empirically on cefepime. My plan is to possibly transfer the patient to a cardiac floor today. And will have to continue to monitor closely. Reevaluated today on 09/12/19, patient was transferred out of the ICU yesterday, however he develops further episodes of hemoptysis, and he was brought back to the ICU. Today no further episodes of hemoptysis, his hemoglobin remains stable. It is 7.2 today. However his WBC count remains 0.7. Platelets are 18,000. Electrolytes are normal renal profile is normal. Patient received a total of 2 units of packed RBCs since admission. Today, the patient is relatively asymptomatic, resting in bed, no episodes of hemoptysis, hemodynamically stable. Objective - Vital Signs Vital signs: Vital Signs Temp 98.4 F 09/12/19 08:00 Pulse 89 09/12/19 10:00 Resp 22 09/12/19 10:00 BP 116/94 09/12/19 10:00 Pulse Ox 99 09/12/19 10:00 Intake & Output 09/11/19 09/12/19 09/12/19 18:59 06:59 18:59 Intake Total 1000 1300 760 Balance 1000 1300 760 Weight 71.1 kg Intake: IV 1000 1300 400 Cefepime 2 gm In Sodium 100 100 100 Chloride 0.9% 100 ml @ 200 mls/hr IVPB Q12HR [facility] Rx#:[id number] Magnesium Sulfate-D5w Pmx 200 1 gm In Dextrose/Water 1 100ml.bag @ 100 mls/hr IVPB Q1H [facility] Rx#: [id number] Sodium Chloride 0.9% 1, 700 1200 300 000 ml @ 100 mls/hr IV . Q10H [facility] Rx#:[id number] Oral 360 Other: # Voids 0 0 - Exam Physical Exam: 69-year-old in no distress. Head: Atraumatic, normocephalic. HEENT:[Neck is supple.] [No neck masses.] [No thyromegaly.] [No JVD.] PERRLA, EOMI, no icterus, throat is clear. Chest: [Clear throughout, no crackles, no rhonchi, no wheezes.] Cardiac Exam: [Irregular irregular rhythm. Normal S1 and S2, no S3 gallop, no murmur.] Abdomen: [Soft, nontender, no megaly, no rebound, no guarding, normal bowel sounds.] Extremities: [No clubbing, no edema, no cyanosis.] Neurological Exam: [No focal neurologic deficit.] Alert and oriented 3. Psychiatric: Normal mood, affect and normal mental status examination. Skin: No rashes. Lymphatics: No lymphadenopathy. - Labs CBC & Chem 7: 09/12/19 06:21 09/12/19 06:21 Labs: Abnormal Lab Results - Last 24 Hours (Table) 09/09/19 09/11/19 09/12/19 Range/Units 14:38 18:02 06:21 WBC 0.4 L* (3.8-10.6) k/uL RBC 2.51 L (4.30-5.90) m/uL Hgb 7.5 L (13.0-17.5) gm/dL Hct 22.6 L (39.0-53.0) % RDW 15.6 H (11.5-15.5) % Plt Count 26 L (150-450) k/uL Chloride 109 H (98-107) mmol/L Carbon Dioxide 20 L (22-30) mmol/L Crossmatch See Detail 09/12/19 Range/Units 06:21 WBC 0.7 L* (3.8-10.6) k/uL RBC 2.42 L (4.30-5.90) m/uL Hgb 7.2 L (13.0-17.5) gm/dL Hct 22.4 L (39.0-53.0) % RDW 15.6 H (11.5-15.5) % Plt Count 18 L* (150-450) k/uL Chloride (98-107) mmol/L Carbon Dioxide (22-30) mmol/L Crossmatch Microbiology - Last 24 Hours (Table) 09/09/19 23:14 Blood Culture - Preliminary Blood No Growth after 48 hours 09/09/19 23:00 Blood Culture - Preliminary Blood No Growth after 48 hours 09/11/19 08:15 Gram Stain - Preliminary Sputum Sputum Culture - Preliminary Assessment and Plan Assessment: Impression: Recurrent episodes of Hemoptysis, multifactorial, secondary to squamous cell lung cancer and secondary to pancytopenia with thrombocytopenia related to chemotherapy. Metastatic squamous cell lung cancer Chemotherapy-induced pancytopenia Chronic atrial fibrillation, rate seems to be fairly well controlled Chronic obstructive pulmonary disease, relatively stable. History of seizure disorder Chronic cardiomyopathy with LV dysfunction, impaired ejection fraction Secondary pulmonary hypertension Benign essential hypertension Type 2 diabetes Recommendation: Continue G-csf Continue to monitor the pancytopenia and transfuse accordingly. Continue to hold Eliquis Continue to monitor for any further episodes of hemoptysis, will monitor today in the ICU for the next 24 hours. No need for bronchial artery embolization at this point. Long-term prognosis remains guarded. We'll continue to follow. Time with Patient: Less than 30
[2019-09-12] MEDS: FILGRASTIM-SNDZ 480 MCG/0.8 ML SYRINGE SQ SCH (17:31)
--- NOTE | 2019-09-12 18:04 | P.PN ---
Subjective Progress Note Date: 09/12/19 Principal diagnosis: hemoptysis In follow-up today patient is sitting up in bed, he denies hemoptysis, no episodes of being unable to breathe in, like he did when he was having the hemoptysis, no fever, chest pain, tolerating oral intake, no current nausea or vomiting, denies abdominal pain, cramping, acute changes in bowel or bladder habits. He is not in any pain Objective - Vital Signs Vital signs: Vital Signs Temp 98.1 F 09/12/19 16:00 Pulse 83 09/12/19 17:00 Resp 14 09/12/19 17:00 BP 124/84 09/12/19 17:00 Pulse Ox 99 09/12/19 17:00 Intake & Output 09/11/19 09/12/19 09/12/19 18:59 06:59 18:59 Intake Total 1000 1300 1700 Output Total 250 Balance 1000 1300 1450 Weight 71.1 kg Intake: IV 1000 1300 1100 Cefepime 2 gm In Sodium 100 100 100 Chloride 0.9% 100 ml @ 200 mls/hr IVPB Q12HR [facility] Rx#:[id number] Magnesium Sulfate-D5w Pmx 200 1 gm In Dextrose/Water 1 100ml.bag @ 100 mls/hr IVPB Q1H [facility] Rx#: [id number] Magnesium Sulfate-D5w Pmx 200 1 gm In Dextrose/Water 1 100ml.bag @ 100 mls/hr IVPB Q1H [facility] Rx#: [id number] Sodium Chloride 0.9% 1, 700 1200 800 000 ml @ 100 mls/hr IV . Q10H [facility] Rx#:[id number] Oral 600 Output: Urine 250 Other: # Voids 0 0 1 - Constitutional General appearance: Present: average body habitus, cooperative, no acute distress - EENT Eyes: Present: anicteric sclerae, EOMI, poor dentition ENT: Present: hearing grossly normal - Respiratory Respiratory: bilateral: diminished, wheezing (scattered) - Cardiovascular Rhythm: irregularly irregular Heart sounds: normal: S1, S2 - Peripheral edema leg Peripheral Edema: bilateral: None - Gastrointestinal General gastrointestinal: Present: normal bowel sounds, soft - Neurologic Neurologic: Present: CNII-XII intact - Musculoskeletal Musculoskeletal: Present: generalized weakness, strength equal bilaterally - Psychiatric Psychiatric: Present: A&O x's 3, appropriate affect, intact judgment & insight - Labs CBC & Chem 7: 09/12/19 06:21 09/12/19 06:21 Labs: Abnormal Lab Results - Last 24 Hours (Table) 09/09/19 09/11/19 09/12/19 Range/Units 14:38 18:02 06:21 WBC 0.4 L* (3.8-10.6) k/uL RBC 2.51 L (4.30-5.90) m/uL Hgb 7.5 L (13.0-17.5) gm/dL Hct 22.6 L (39.0-53.0) % RDW 15.6 H (11.5-15.5) % Plt Count 26 L (150-450) k/uL Chloride 109 H (98-107) mmol/L Carbon Dioxide 20 L (22-30) mmol/L Crossmatch See Detail 09/12/19 Range/Units 06:21 WBC 0.7 L* (3.8-10.6) k/uL RBC 2.42 L (4.30-5.90) m/uL Hgb 7.2 L (13.0-17.5) gm/dL Hct 22.4 L (39.0-53.0) % RDW 15.6 H (11.5-15.5) % Plt Count 18 L* (150-450) k/uL Chloride (98-107) mmol/L Carbon Dioxide (22-30) mmol/L Crossmatch Microbiology - Last 24 Hours (Table) 09/09/19 23:14 Blood Culture - Preliminary Blood No Growth after 48 hours 09/09/19 23:00 Blood Culture - Preliminary Blood No Growth after 48 hours 09/11/19 08:15 Gram Stain - Preliminary Sputum Sputum Culture - Preliminary - Imaging and Cardiology Chest x-ray: report reviewed Assessment and Plan (1) Pancytopenia due to antineoplastic chemotherapy Narrative/Plan: Transfuse to keep hemoglobin 7 or higher. Continue G-CSF for low white blood cell count. Platelet count 18,000 today. Patient did have a unit of platelets pending, this is still pending. Transfuse unavailable secondary to hemoptysis. CBC daily. Current Visit: Yes Status: Acute Priority: High Code(s): D61.810 - ANTINEOPLASTIC CHEMOTHERAPY INDUCED PANCYTOPENIA; T45.1X5A - ADVERSE EFFECT OF ANTINEOPLASTIC AND IMMUNOSUP DRUGS, INIT SNOMED Code(s): 574497829390735 (2) Chemotherapy induced neutropenia Narrative/Plan: GCSF cont Current Visit: Yes Status: Acute Priority: High Code(s): D70.1 - AGRANULO CYTOSIS SECONDARY TO CANCER CHEMOTHERAPY; T45.1X5A - ADVERSE EFFECT OF ANTINEOPLASTIC AND IMMUNOSUP DRUGS, INIT SNOMED Code(s): 179511919 (3) Lung cancer Narrative/Plan: Patient recently completed concurrent chemotherapy/XRT. He has one more cycle of chemotherapy to go and then going to be imaged. If disease is stable going t o be placed on maintenance durvalumab. We'll see how patient progresses through his current hospitalization and recovery. Further decisions by Primary Oncologist. We discussed possible dose reduction for final cycle. Current Visit: Yes Status: Acute Priority: High Code(s): C34.90 - MALIGNAN T NEOPLASM OF UNSP PART OF UNSP BRONCHUS OR LUNG SNOMED Code(s): 126941207 (4) Afib Narrative/Plan: Patient is on anticoagulation for the same. This is going to be held for now due to low platelet counts and recent hemoptysis. Plt will be monitored closely and anticoagulation reintroduced when appropriate. Current Visit: No Status: Chronic Priority: Low Code(s): I48.91 - UNSPECIFIED ATRIAL FIBRILLATION SNOMED Code(s): 88661663
[2019-09-12] MEDS: ATORVASTATIN 10 MG TAB PO SCH (20:09)
--- NOTE | 2019-09-12 22:42 | PN ---
PROGRESS NOTE DATE OF SERVICE: 09/12/2019. REASON FOR FOLLOWUP: Possible pneumonia. INTERVAL HISTORY: The patient is currently afebrile. Patient has been breathing comfortably. The patient has been transferred back to the ICU because of an episode of hemoptysis yesterday, but no hemoptysis has been recorded today. No nausea, no vomiting. No abdominal pain. No diarrhea. PHYSICAL EXAMINATION: Blood pressure 125/73 with a pulse of 82, temperature 98.3. He is 100% on 3 L nasal cannula. General description is an elderly male lying in bed in no distress. Respiratory system: Unlabored breathing. Decreased breath sounds at the base. No wheeze. Heart S1, S2. Regular rate and rhythm. Abdomen soft. No tenderness. LABS: Hemoglobin , creatinine 0.78. Blood culture has been negative. Sputum cultures currently pending. DIAGNOSTIC IMPRESSION AND PLAN: Patient with lung cancer in this patient, status post chemo and radiation and admitted to the hospital with hemoptysis. Possible underlying malignancy versus radiation pneumonitis. Pneumonia less likely but not entirely excluded. Patient is covered with Cefepime to continue. Sputum culture will be followed. Continue supportive care. MMODL / IJN: [id number] /
[2019-09-13] MEDS: SODIUM CHLORIDE 0.9% 1,000 ML IV SCH ×2 (00:13→09:42)
[2019-09-13] MEDS: IPRATROPIUM-ALBUTEROL 3 ML NEB INHALATION PRN ×2 (00:41→04:27)
--- NOTE | 2019-09-13 02:21 | P.PN ---
Subjective Progress Note Date: 09/11/19 Principal diagnosis: Hemoptysis Pancytopenia secondary to chemotherapy patient is a 69-year-old male with a known history ofatrial fibrillation currently on anticoagulation with Eliquis, non-small cell lung cancer diagnosed in May 2019, status post radiation completed on August 17, recent chemotherapy on 08/31/19, diabetes type 2 [id number] hypertension, hyperlipidemia, history of seizure disorder, history of PE , COPD on home oxygen at 2 L and previous history of smoking came to ERwith the complaints of coughing up blood since yesterday evening. Patient has been coughing up bright red blood with occasional clots. His last Eliquis dose wasyesterday morning.Denied any fever or chills. No complaints of shortness of breath or chest pain. No hematemesis or melenaor previous history ofGI bleed. No dysuria or hematuria. Denied any abdominal pain. Patient has been having bright red blood with each coughwhich made him come tothe emergency room. cT of the abdomen and pelvis was ordered which showed new multifocal groundglass opacities in the left lower lobe. Pneumonia cannot be excluded. Right hilar spiculated opacity due to residual malignant tumor. Cardiomegaly with moderate coronary alcifications. Multiple thoracic vertebral compression fractures. Hemoglobin 6.4, WBC 0.7 and platelets 27 potassium 5.5 and lactic acid 3.2 09/10/2019 Currently patient is in the MICU. Lying in the bed comfortably. No source of hemoptysis since this morning. Hemoglobin level improved to 7.9. Status post 2 units of PRBC. Platelet count improved to 44. Patient is on Neupogen due to neutropenia. Chemotherapy Related. Eliquis is on hold. Patient is being continued on IV hydration. Repeat CT of the chest was ordered. Pulmonary and oncology is following. 09/11/2019 Patient is currently sitting on the bed comfortably. No complaints of chest pain or shortness of breath. Denied any episode of hemoptysis. Still leukopenic with WBC count 0.4. Hemoglobin is 7.0 and platelet count is 29 Patient has been afebrile. Currently saturating well on room air. Otherwise patient remains in atrial fibrillation but rate is controlled. Eliquis is on hold. Active Medications Acetaminophen (Tylenol Tab) 650 mg PO Q4HR PRN PRN Reason: Fever and/or Mild Pain Hydrocodone Bitart/Acetaminophen ([place] 5-325) 1 each PO Q6HR PRN PRN Reason: Pain Last Admin: 09/10/19 21:08 Dose: 1 each Documented by: Al Hydroxide/Mg Hydroxide (Maalox) 30 ml PO Q4HR PRN PRN Reason: GI Upset Last Admin: 09/09/19 22:25 Dose: 30 ml Documented by: Albuterol/Ipratropium (Duoneb 0.5 Mg-3 Mg/3 Ml Soln) 3 ml INHALATION RT-QID [facility] Last Admin: 09/10/19 19:41 Dose: 3 ml Documented by: Albuterol/Ipratropium (Duoneb 0.5 Mg-3 Mg/3 Ml Soln) 3 ml INHALATION RT-Q2H PRN PRN Reason: Shortness Of Breath Or Wheezing Last Admin: 09/11/19 00:03 Dose: 3 ml Documented by: Atorvastatin Calcium (Lipitor) 10 mg PO HS [facility] Last Admin: 09/10/19 21:08 Dose: 10 mg Documented by: Digoxin (Lanoxin) 125 mcg PO DAILY [facility] Last Admin: 09/10/19 08:33 Dose: 125 mcg Documented by: Filgrastim (Zarxio) 480 mcg SQ Q24H [facility] Last Admin: 09/10/19 19:14 Dose: 480 mcg Documented by: Sodium Chloride (Saline 0.9%) 1,000 mls @ 100 mls/hr IV .Q10H [facility] Last Admin: 09/10/19 11:52 Dose: 100 mls/hr Documented by: Cefepime HCl 2 gm/ Sodium (Chloride) 100 mls @ 200 mls/hr IVPB Q12HR [facility] Last Admin: 09/10/19 21:10 Dose: 200 mls/hr Documented by: Isosorbide Mononitrate (Imdur) 30 mg PO DAILY [facility] Last Admin: 09/10/19 08:34 Dose: 30 mg Documented by: Levetiracetam (Keppra) 500 mg PO BID [facility] Last Admin: 09/10/19 21:10 Dose: 500 mg Documented by: Lorazepam (Ativan) 1 mg IV Q4HR PRN PRN Reason: Anxiety Last Admin: 09/10/19 21:10 Dose: 1 mg Documented by: Metformin HCl (Glucophage) 850 mg PO BID [facility] Metoprolol Tartrate (Lopressor) 50 mg PO DAILY [facility] Last Admin: 09/10/19 08:34 Dose: 50 mg Documented by: Miscellaneous Information (Rx Info: Iv Contrast Was Given) 1 each MISCELLANE DAILY PRN PRN Reason: Per Protocol Stop: 09/11/19 14:30 Miscellaneous Information (Magnesium Per Protocol) 1 each MISCELLANE DAILY PRN; Protocol PRN Reason: Per Protocol Montelukast Sodium (Singulair) 10 mg PO DAILY [facility] Last Admin: 09/10/19 08:34 Dose: 10 mg Documented by: Naloxone HCl (Narcan) 0.2 mg IV Q2M PRN PRN Reason: Opioid Reversal Oxycodone HCl (Oxyir) 10 mg PO DAILY PRN PRN Reason: Pain Last Admin: 09/10/19 11:51 Dose: 10 mg Documented by: Pantoprazole Sodium (Protonix) 40 mg IV DAILY [facility] Last Admin: 09/10/19 08:34 Dose: 40 mg Documented by: Objective - Vital Signs Vital signs: Vital Signs Temp 97.7 F 09/11/19 08:00 Pulse 80 09/11/19 12:46 Resp 14 09/11/19 08:00 BP 140/95 09/11/19 08:00 Pulse Ox 97 09/11/19 08:00 Intake & Output 09/10/19 09/11/19 09/11/19 18:59 06:59 18:59 Intake Total 1300 1490 300 Balance 1300 1490 300 Weight 69.4 kg Intake: IV 1300 1250 300 Cefepime 2 gm In Sodium 100 100 100 Chloride 0.9% 100 ml @ 200 mls/hr IVPB Q12HR [facility] Rx#:[id number] Magnesium Sulfate-D5w Pmx 200 1 gm In Dextrose/Water 1 100ml.bag @ 100 mls/hr IVPB Q1H [facility] Rx#: [id number] Sodium Chloride 0.9% 1, 1200 1150 000 ml @ 100 mls/hr IV . Q10H [facility] Rx#:[id number] Oral 240 Other: # Voids 0 0 1 - Exam PHYSICAL EXAMINATION: Patient is lying in the bed comfortably, no acute distress, awake alert and oriented.. HEENT: Normocephalic. Neck is supple. Pupils reactive. Nostrils clear. Oral cavity is moist. Ears reveal no drainage. Neck reveals no JVD, carotid bruits, or thyromegaly. CHEST EXAMINATION: Trachea is central. Symmetrical expansion. Minimal basilar crackles. Lung golden clear to auscultation and percussion. CARDIAC: Normal S1, S2 with no gallops. No murmurs ABDOMEN: Soft. Bowel sounds normal. No organomegaly. No abdominal bruits. Extremities: reveal no edema. No clubbing or cyanosis Neurologically awake, alert, oriented x3 with well-coordinated movements. No focal deficits noted Skin: No rash or skin lesions. Psychiatric: Coperative. Nonsuicidal Musculoskeletal: No joint swelling or deformity. Normal range of motion. - Labs CBC & Chem 7: 09/12/19 06:21 09/12/19 06:21 Labs: Abnormal Lab Results - Last 24 Hours (Table) 09/11/19 09/11/19 Range/Units 04:27 04:27 WBC 0.4 L* (3.8-10.6) k/uL RBC 2.35 L (4.30-5.90) m/uL Hgb 7.0 L (13.0-17.5) gm/dL Hct 21.2 L (39.0-53.0) % Plt Count 29 L (150-450) k/uL Sodium 136 L (137-145) mmol/L Glucose 100 H (74-99) mg/dL Microbiology - Last 24 Hours (Table) 09/09/19 23:14 Blood Culture - Preliminary Blood No Growth after 24 hours 09/09/19 23:00 Blood Culture - Preliminary Blood No Growth after 24 hours Assessment and Plan Assessment: hemoptysis likely due to underlying lung malignancy along with thrombocytopenia and patient being on Eliquis acute blood loss anemia secondary to hemoptysis. lactic acidosis. Improved. metastatic non-small cell lung cancer/residual right hilar mass. Status post radiation therapy. Currently on chemotherapy last on 08/31/2019 Pancytopenia likely related to chemotherapy Chronic Atrial fibrillation with rapid ventricular rate. Patient is on metoprolol and digoxin at home. multiple thoracic vertebral compression fractures. COPD on home oxygen 2 L nausea cannula. diabetes type 2 [id number]-dzjescebf Hypertension Seizure disorder Hyperlipidemia Previous history of smoking DVT prophylaxis with SCDs santosh: Patient will becontinued on IV hydration. Was given metoprolol and digoxin dose in the ER which seemed tocontrolled his heart rate. Remains in atrial fibrillation. CT of the chest,abdominal pelvis was done. Monitor H&H. Patient had 2 units of PRBC and 1 unit of platelets so far.. oncology is following. Continue withhome medications including breathing treatments. Eliquis is on hold.continue with telemetry monitoring. further recommendations based on theclinical course. Prognosis is guarded with multiple medical problems and comorbid conditions. Discussed with the patientand his at bedside in detail. Time with Patient: Greater than 30
--- NOTE | 2019-09-13 02:24 | P.PN ---
Subjective Progress Note Date: 09/12/19 Principal diagnosis: Hemoptysis Pancytopenia secondary to chemotherapy patient is a 69-year-old male with a known history ofatrial fibrillation currently on anticoagulation with Eliquis, non-small cell lung cancer diagnosed in May 2019, status post radiation completed on August 17, recent chemotherapy on 08/31/19, diabetes type 2 [id number] hypertension, hyperlipidemia, history of seizure disorder, history of PE , COPD on home oxygen at 2 L and previous history of smoking came to ERwith the complaints of coughing up blood since yesterday evening. Patient has been coughing up bright red blood with occasional clots. His last Eliquis dose wasyester morning.Denied any fever or chills. No complaints of shortness of breath or chest pain. No hematemesis or melenaor previous history ofGI bleed. No dysuria or hematuria. Denied any abdominal pain. Patient has been having bright red blood with each coughwhich made him come tothe emergency room. cT of the abdomen and pelvis was ordered which showed new multifocal groundglass opacities in the left lower lobe. Pneumonia cannot be excluded. Right hilar spiculated opacity due to residual malignant tumor. Cardiomegaly with moderate coronary alcifications. Multiple thoracic vertebral compression fractures. Hemoglobin 6.4, WBC 0.7 and platelets 27 potassium 5.5 and lactic acid 3.2 09/10/2019 Currently patient is in the MICU. Lying in the bed comfortably. No source of hemoptysis since this morning. Hemoglobin level improved to 7.9. Status post 2 units of PRBC. Platelet count improved to 44. Patient is on Neupogen due to neutropenia. Chemotherapy Related. Eliquis is on hold. Patient is being continued on IV hydration. Repeat CT of the chest was ordered. Pulmonary and oncology is following. 09/11/2019 Patient is currently sitting on the bed comfortably. No complaints of chest pain or shortness of breath. Denied any episode of hemoptysis. Still leukopenic with WBC count 0.4. Hemoglobin is 7.0 and platelet count is 29 Patient has been afebrile. Currently saturating well on room air. Otherwise patient remains in atrial fibrillation but rate is controlled. Eliquis is on hold. 09/12/2019 Patient denied any complaints of hemoptysis today. Yesterday patient had an episode of hemoptysis again and is currently monitored in the MICU. Hemoglobin is 7.2 today. Platelet count dropped to 18,000 and WBC count is 0.7. Patient denied any complaints of chest pain or shortness of breath. No headache or dizziness or lightheadedness. No nausea vomiting or diarrhea. No hematemes is or melena. Patient is being continued on antibiotics for possible aspiration and breathing treatments. Patient remained in atrial fibrillation. Currently anticoagulation is on hold due to hemoptysis. Active Medications Acetaminophen (Tylenol Tab) 650 mg PO Q4HR PRN PRN Reason: Fever and/or Mild Pain Last Admin: 09/12/19 11:57 Dose: 650 mg Documented by: Hydrocodone Bitart/Acetaminophen (Dubach 5-325) 1 each PO Q6HR PRN PRN Reason: Pain Last Admin: 09/12/19 20:09 Dose: 1 each Documented by: Al Hydroxide/Mg Hydroxide (Maalox) 30 ml PO Q4HR PRN PRN Reason: GI Upset Last Admin: 09/09/19 22:25 Dose: 30 ml Documented by: Albuterol/Ipratropium (Duoneb 0.5 Mg-3 Mg/3 Ml Soln) 3 ml INHALATION RT-QID TAN Last Admin: 09/12/19 19:44 Dose: 3 ml Documented by: Albuterol/Ipratropium (Duoneb 0.5 Mg-3 Mg/3 Ml Soln) 3 ml INHALATION RT-Q2H PRN PRN Reason: Shortness Of Breath Or Wheezing Last Admin: 09/13/19 00:41 Dose: 3 ml Documented by: Atorvastatin Calcium (Lipitor) 10 mg PO HS [facility] Last Admin: 09/12/19 20:09 Dose: 10 mg Documented by: Digoxin (Lanoxin) 125 mcg PO DAILY [facility] Last Admin: 09/12/19 08:36 Dose: 125 mcg Documented by: Filgrastim (Zarxio) 480 mcg SQ Q24H [facility] Last Admin: 09/12/19 17:31 Dose: 480 mcg Documented by: Sodium Chloride (Saline 0.9%) 1,000 mls @ 100 mls/hr IV .Q10H [facility] Last Admin: 09/13/19 00:13 Dose: 100 mls/hr Documented by: Cefepime HCl 2 gm/ Sodium (Chloride) 100 mls @ 200 mls/hr IVPB Q12HR [facility] Last Admin: 09/12/19 20:09 Dose: 200 mls/hr Documented by: Isosorbide Mononitrate (Imdur) 30 mg PO DAILY [facility] Last Admin: 09/12/19 08:36 Dose: 30 mg Documented by: Levetiracetam (Keppra) 500 mg PO BID [facility] Last Admin: 09/12/19 20:09 Dose: 500 mg Documented by: Lorazepam (Ativan) 1 mg IV Q4HR PRN PRN Reason: Anxiety Last Admin: 09/12/19 01:48 Dose: 1 mg Documented by: Metformin HCl (Glucophage) 850 mg PO BID [facility] Last Admin: 09/12/19 20:09 Dose: 850 mg Documented by: Metoprolol Tartrate (Lopressor) 50 mg PO DAILY [facility] Last Admin: 09/12/19 08:37 Dose: 50 mg Documented by: Miscellaneous Information (Magnesium Per Protocol) 1 each MISCELLANE DAILY PRN; Protocol PRN Reason: Per Protocol Montelukast Sodium (Singulair) 10 mg PO DAILY [facility] Last Admin: 09/12/19 08:37 Dose: 10 mg Documented by: Naloxone HCl (Narcan) 0.2 mg IV Q2M PRN PRN Reason: Opioid Reversal Oxycodone HCl (Oxyir) 10 mg PO BID PRN PRN Reason: Pain Last Admin: 09/13/19 00:12 Dose: 10 mg Documented by: Pantoprazole Sodium (Protonix) 40 mg IV DAILY [facility] Last Admin: 09/12/19 08:37 Dose: 40 mg Documented by: Senna (Senokot) 8.6 mg PO BID PRN PRN Reason: Constipation Last Admin: 09/12/19 08:37 Dose: 8.6 mg Documented by: Objective - Vital Signs Vital signs: Vital Signs Temp 98.3 F 09/12/19 20:00 Pulse 92 09/12/19 21:00 Resp 20 09/12/19 21:00 BP 121/76 09/12/19 21:00 Pulse Ox 99 09/12/19 21:00 Intake & Output 09/12/19 09/12/19 09/13/19 06:59 18:59 06:59 Intake Total 1300 1800 640 Output Total 250 300 Balance 1300 1550 340 Weight 71.1 kg Intake: IV 1300 1200 400 Cefepime 2 gm In Sodium 100 100 100 Chloride 0.9% 100 ml @ 200 mls/hr IVPB Q12HR TAN Rx#:[id number] Magnesium Sulfate-D5w Pmx 200 1 gm In Dextrose/Water 1 100ml.bag @ 100 mls/hr IVPB Q1H TAN Rx#: [id number] Sodium Chloride 0.9% 1, 1200 900 300 000 ml @ 100 mls/hr IV . Q10H TAN Rx#:[id number] Oral 600 240 Output: Urine 250 300 Other: # Voids 0 1 - Exam PHYSICAL EXAMINATION: Patient is lying in the bed comfortably, no acute distress, awake alert and oriented.. HEENT: Normocephalic. Neck is supple. Pupils reactive. Nostrils clear. Oral cavity is moist. Ears reveal no drainage. Neck reveals no JVD, carotid bruits, or thyromegaly. CHEST EXAMINATION: Trachea is central. Symmetrical expansion. Minimal basilar crackles. Lung golden clear to auscultation and percussion. CARDIAC: Normal S1, S2 with no gallops. No murmurs ABDOMEN: Soft. Bowel sounds normal. No organomegaly. No abdominal bruits. Extremities: reveal no edema. No clubbing or cyanosis Neurologically awake, alert, oriented x3 with well-coordinated movements. No focal deficits noted Skin: No rash or skin lesions. Psychiatric: Coperative. Nonsuicidal Musculoskeletal: No joint swelling or deformity. Normal range of motion. - Labs CBC & Chem 7: 09/12/19 06:21 09/12/19 06:21 Labs: Abnormal Lab Results - Last 24 Hours (Table) 09/09/19 09/12/19 09/12/19 Range/Units 14:38 06:21 06:21 WBC 0.7 L* (3.8-10.6) k/uL RBC 2.42 L (4.30-5.90) m/uL Hgb 7.2 L (13.0-17.5) gm/dL Hct 22.4 L (39.0-53.0) % RDW 15.6 H (11.5-15.5) % Plt Count 18 L* (150-450) k/uL Chloride 109 H (98-107) mmol/L Carbon Dioxide 20 L (22-30) mmol/L Crossmatch See Detail Microbiology - Last 24 Hours (Table) 09/09/19 23:14 Blood Culture - Preliminary Blood No Growth after 48 hours 09/09/19 23:00 Blood Culture - Preliminary Blood No Growth after 48 hours 09/11/19 08:15 Gram Stain - Preliminary Sputum Sputum Culture - Preliminary Assessment and Plan Assessment: hemoptysis likely due to underlying lung malignancy along with thrombocytopenia and patient being on Eliquis acute blood loss anemia secondary to hemoptysis. lactic acidosis. Improved. metastatic non-small cell lung cancer/residual right hilar mass. Status post radiation therapy. Currently on chemotherapy last on 08/31/2019 Pancytopenia likely related to chemotherapy Chronic Atrial fibrillation with rapid ventricular rate. Patient is on metoprolol and digoxin at home. multiple thoracic vertebral compression fractures. COPD on home oxygen 2 L nausea cannula. diabetes type 2 yfu-krwzfnk-cpblbdetx Hypertension Seizure disorder Hyperlipidemia Previous history of smoking DVT prophylaxis with SCDs santosh: Patient will becontinued on IV hydration. Was given metoprolol and digoxin dose in the ER which seemed tocontrolled his heart rate. Remains in atrial fibrillation. CT of the chest,abdominal pelvis was done. Monitor H&H. Patient had 2 units of PRBC and 1 unit of platelets so far.. oncology is following. Continue withhome medications including breathing treatments. Eliquis is on hold.continue with telemetry monitoring. further recommendations based on theclinical course. Prognosis is guarded with multiple medical problems and comorbid conditions. Discussed with the patientand his at bedside in detail. Time with Patient: Greater than 30
[2019-09-13] MEDS: LORazepam 2 MG/ML INJ IV PRN (03:18)
[2019-09-13 04:37] LABS: Hypochromasia Moderate; MCH 28.8 pg (25.0-35.0); MCHC 31.1 g/dL (31.0-37.0); MCV 92.5 fL (80.0-100.0); Mean Platelet Volume 8.6; Platelet Count 42 k/uL (150-450); Poikilocytosis Slight; RBC 1.91 m/uL (4.30-5.90); RDW 15.5 % (11.5-15.5)
[2019-09-13 04:45] LABS: African American GFR (CKD) >90 (>60 ml/min/1.73 sqM); Anion Gap 4 mmol/L; Blood Urea Nitrogen 18 mg/dL (9-20); Calcium 8.3 mg/dL (8.4-10.2); Carbon Dioxide 23 mmol/L (22-30); Chloride 108 mmol/L (98-107); Glucose 89 mg/dL (74-99); Magnesium 1.5 mg/dL (1.6-2.3); Non-African American GFR(CKD) >90 (>60 ml/min/1.73 sqM); Potassium 4.5 mmol/L (3.5-5.1); Sodium 135 mmol/L (137-145)
[2019-09-13 04:46] LABS: HGB 5.5 gm/dL (13.0-17.5)
[2019-09-13 04:47] LABS: HCT 17.6 % (39.0-53.0)
[2019-09-13] MEDS: MAGNESIUM SULFATE-D5W PMX 1 GM in DEXTROSE/WATER 1 100ML.BAG IVPB SCH ×2 (05:25→06:23)
[2019-09-13] MEDS: HYDROcodone/APAP 5-325MG 1 EACH TAB PO PRN ×2 (07:13→21:55)
[2019-09-13] MEDS: IPRATROPIUM-ALBUTEROL 3 ML NEB INHALATION SCH ×4 (07:23→19:58)
--- NOTE | 2019-09-13 07:37 | XR ---
EXAMINATION TYPE: XR chest 1V portable DATE OF EXAM: 09/13/2019 COMPARISON: 09/12/2019 HISTORY: Shortness of breath TECHNIQUE: Single frontal view of the chest is obtained. FINDINGS: Redemonstration of right perihilar posttreatment change and/or residual neoplasm with righ t hemithorax volume loss. Increasing mwvxa-ox-phrmtusy right pleural effusion and associated right-si ded airspace disease. Mediastinal shift towards the right secondary to right hemithorax volume loss. Cardiomediastinal silhouette is enlarged. Increasing consolidation of the left basilar airspace disea se. IMPRESSION: Increasing eqgne-bq-phxafwwr right pleural effusion and associated right basilar airspac e disease. Increasing patchy left basilar airspace disease, likely atelectasis.
[2019-09-13] MEDS: MONTELUKAST 10 MG TAB PO SCH (08:28)
[2019-09-13] MEDS: levETIRAcetam 500 MG TAB PO SCH ×2 (08:28→21:50)
[2019-09-13] MEDS: ISOSORBIDE MONONITRATE ER 30 MG TAB.ER.24H PO SCH (08:28)
[2019-09-13] MEDS: PANTOPRAZOLE 40 MG/10 ML VIAL IV SCH (08:29)
[2019-09-13] MEDS: METOPROLOL TARTRATE 50 MG TAB PO SCH (08:29)
[2019-09-13] MEDS: metFORMIN 850 MG TAB PO SCH ×2 (08:29→21:50)
[2019-09-13] MEDS: DIGOXIN 125 MCG TAB PO SCH (08:29)
[2019-09-13] MEDS: CEFEPIME 2 GM in SODIUM CHLORIDE 0.9% 100 ML IVPB SCH (08:29)
[2019-09-13] MEDS ORDERED: FUROSEMIDE 10 MG/ML 4 ML VIAL IV STA (09:21)
--- NOTE | 2019-09-13 10:30 | P.PN ---
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 The patient at that time presented to the hospital with an abnormal chest x-ray and the small right-sided pleural effusion and subs equent CAT scan imaging showed a right hilar mass and supraclavicular lymphadenopathy. Diagnosis was established. He is known to have COPD, history of a flutter, cardiomyopathy with impaired ejection fraction of 35% and severe pulmonary hypertension, hypertension and diabetes mellitus. The PET scan that was done on 05/13/2019 showed findings compatible with history of lung cancer. The patient at 4.1 cm supraclavicular lymph node that was metabolically active. The patient also had metabolically active nodes and an abnormal soft tissue density in the right lower lobe and the right hilar area with an SUV of 14. There was also volume loss in the right hemithorax in addition to a right-sided pleural effusion. He was referred to medical oncology and he was started to receive systemic treatment and radiation therapy. The exact regimen is not known. I the last session of systemic chemotherapy was given to him for around 10 days ago. The patient came into the emergency department today with hemoptysis. His blood work showed chemotherapy-induced neutropenia and his white cell count is at 0.7 with a hemoglobin of 6.4 and platelet count of 27. His lactic acid level was at 3.7. Correlation profile was essentially within normal limits. Potassium level is at 5.5. Troponin was negative. AST and ALT was within normal limits.. The patient was admitted to the intensive care unit. He is currently receiving a unit of packed RBC. He is afebrile. A CAT scan of the chest abdomen and pelvis was done in the ED. There is improvement in the volume loss in the right lung. There is resolution of the right lower lobe atelectasis and small effusion. There is a soft tissue density still in the hilum and the bronchus intermedius remains quite narrowed. The right supraclavicular lymph node was also shrunken in size and so is the mediastinal lymph nodes and the various lymph nodes within the mediastinum. As such , this is considered to be positive adequate response to treatment for now. On 09/10/2019 and seeing the patient for a follow-up visit is resting comfortably in bed. Overnight he received a total of 2 units of packed RBC, platelet transfusion and he also completed a central. Is currently on filgrastim and and the white cell count from today is at 0.6 with 0.55 with a hemoglobin of 7.9. Note that the platelet count dropped as low as 18 and is currently up to 86. The hemoptysis generally subsided. He did have another bout at around 5 AM this morning when he coughed out to large right large clots and there was some edison fresh blood mixed with it. I would say the volume is in the order of 10-15 mL in the bucket that I so. He had only 2 episodes has not had any further episodes since. He is on room air oxygen. Slightly tachycardic with atrial fibrillation. He is being given IV fluids at the rate of 100 mL an hour. He is afebrile is on empiric antibiotic coverage with IV cefepime. The follow-up CAT scan of the chest was noted. No other significant events overnight. As mentioned, Eliquis has been continued for now. Coagulation profile is back to normal including PT/PTT and INR. Patient was reevaluated today on 09/11/19, patient is resting in bed, very comfortable, no episodes of hemoptysis overnight. Patient denies being short of breath. Denies any chest pain, continues to have thrombocytopenia with leukopenia, WBC count is 0.4 hemoglobin is 7 platelets are 29,000. Basic metabolic profile and renal profile are normal. Patient received a total of 2 units of packed RBCs since admission, and 1 unit of platelets. His hemoptysis has completely subsided. He is presently on room air. Remains in atrial fibrillation but rate seems to be fairly well controlled. IV fluid is at 100 mL per hour. Patient remains empirically on cefepime. My plan is to possibly transfer the patient to a cardiac floor today. And will have to continue to monitor closely. Reevaluated today on 09/12/19, patient was transferred out of the ICU yesterday, however he develops further episodes of hemoptysis, and he was brought back to the ICU. Today no further episodes of hemoptysis, his hemoglobin remains stable. It is 7.2 today. However his WBC count remains 0.7. Platelets are 18,000. Electrolytes are normal renal profile is normal. Patient received a total of 2 units of packed RBCs since admission. Today, the patient is relatively asymptomatic, resting in bed, no episodes of hemoptysis, hemodynamically stable. Reevaluated today on 09/13/19, patient remains in the ICU, no hemoptysis over the last 24 hours, however his hemoglobin dropped down to 5.5, and he is receiving a unit of packed RBCs today. The good news is his WBC count is coming up to 1.0, platelets are coming up to 42, and his renal profile is basically normal basic metabolic profile is normal. Chest x-ray is showing small bilateral pleural effusions, hence the patient will receive Lasix, and I will cut his IV fluids down to KVO. Considering the patient had no further episodes of hemoptysis, may transfer the patient out of the ICU today. Unless he develops further episodes of hemoptysis. Objective - Vital Signs Vital signs: Vital Signs Temp 97.8 F 09/13/19 10:21 Pulse 101 H 09/13/19 10:21 Resp 20 09/13/19 10:21 BP 119/71 09/13/19 10:21 Pulse Ox 98 09/13/19 10:21 Intake & Output 09/12/19 09/13/19 09/13/19 18:59 06:59 18:59 Intake Total 1800 2152 840 Output Total 250 750 Balance 1550 1402 840 Weight 71.1 kg Intake: IV 1200 1300 410 Cefepime 2 gm In Sodium 100 100 100 Chloride 0.9% 100 ml @ 200 mls/hr IVPB Q12HR TAN Rx#:[id number] Magnesium Sulfate-D5w Pmx 200 100 100 1 gm In Dextrose/Water 1 100ml.bag @ 100 mls/hr IVPB Q1H TAN Rx#: [id number] Sodium Chloride 0.9% 1, 900 1100 210 000 ml @ 100 mls/hr IV . Q10H TAN Rx#:[id number] Oral 600 240 120 Blood Product 612 310 Platelet Pheresis Acda 612 Unit [id number] As-1 Unit 0 310 [id number] Output: Urine 250 750 Other: # Voids 1 1 1 - Exam Physical Exam: 69-year-old in no distress. On room air. Head: Atraumatic, normocephalic. HEENT:[Neck is supple.] [No neck masses.] [No thyromegaly.] [No JVD.] PERRLA, EOMI, no icterus, throat is clear. Chest: Symmetrical chest expansion, diminished breath sounds at the bases, no crackles or rhonchi or wheezes..] Cardiac Exam: [Irregular irregular rhythm. Normal S1 and S2, no S3 gallop, no murmur.] Abdomen: [Soft, nontender, no megaly, no rebound, no guarding, normal bowel sounds.] Extremities: [No clubbing, no edema, no cyanosis.] Neurological Exam: [No focal neurologic deficit.] Alert and oriented 3. Psychiatric: Normal mood, affect and normal mental status examination. Skin: No rashes. Lymphatics: No lymphadenopathy. - Labs CBC & Chem 7: 09/13/19 04:14 09/13/19 04:14 Labs: Abnormal Lab Results - Last 24 Hours (Table) 09/09/19 09/13/19 09/13/19 Range/Units 14:38 04:14 04:14 WBC 1.0 L* (3.8-10.6) k/uL RBC 1.91 L (4.30-5.90) m/uL Hgb 5.5 L* D (13.0-17.5) gm/dL Hct 17.6 L* (39.0-53.0) % Plt Count 42 L D (150-450) k/uL Sodium 135 L (137-145) mmol/L Chloride 108 H (98-107) mmol/L Calcium 8.3 L (8.4-10.2) mg/dL Magnesium 1.5 L (1.6-2.3) mg/dL Crossmatch See Detail 09/13/19 Range/Units 05:19 WBC (3.8-10.6) k/uL RBC (4.30-5.90) m/uL Hgb (13.0-17.5) gm/dL Hct (39.0-53.0) % Plt Count (150-450) k/uL Sodium (137-145) mmol/L Chloride (98-107) mmol/L Calcium (8.4-10.2) mg/dL Magnesium (1.6-2.3) mg/dL Crossmatch See Detail Microbiology - Last 24 Hours (Table) 09/11/19 08:15 Gram Stain - Final Sputum Sputum Culture - Final 09/09/19 23:14 Blood Culture - Preliminary Blood No Growth after 72 hours 09/09/19 23:00 Blood Culture - Preliminary Blood No Growth after 72 hours Assessment and Plan Assessment: Impression: Recurrent episodes of Hemoptysis, multifactorial, secondary to squamous cell lung cancer Metastatic squamous cell lung cancer Chemotherapy-induced pancytopenia improving today. Chronic atrial fibrillation, rate seems to be fairly well controlled Chronic obstructive pulmonary disease, relatively stable. History of seizure disorder Chronic cardiomyopathy with LV dysfunction, impaired ejection fraction, noted to have bilateral pleural effusions today, hence the patient will be diuresed Secondary pulmonary hypertension Benign essential hypertension Type 2 diabetes Recommendation: Continue G-csf Continue to monitor the pancytopenia and transfuse accordingly. Continue to hold Eliquis Lasix 40 mg IV push 1. IV fluid to KVO. Transfusions with 1 unit of packed RBCs keep hemoglobin above 7. Consider trans ferring the patient out of the ICU today regular medical floor. No need for bronchial artery embolization at this point. Long-term prognosis remains guarded. We'll continue to follow. Time with Patient: Less than 30
[2019-09-13 11:06] LABS: INR 0.9 (<1.2); Partial Thromboplastin Time 23.5 sec (22.0-30.0); Prothrombin Time 9.7 sec (9.0-12.0)
[2019-09-13 11:29] LABS: ALT 8 U/L (4-49); AST 13 U/L (17-59); African American GFR (CKD) >90 (>60 ml/min/1.73 sqM); Alkaline Phosphatase 50 U/L (38-126); Anion Gap 7 mmol/L; Blood Urea Nitrogen 17 mg/dL (9-20); Calcium 8.5 mg/dL (8.4-10.2); Carbon Dioxide 23 mmol/L (22-30); Chloride 108 mmol/L (98-107); Glucose 105 mg/dL (74-99); LDH 298 U/L (313-618); Non-African American GFR(CKD) >90 (>60 ml/min/1.73 sqM); Potassium 4.1 mmol/L (3.5-5.1); Sodium 138 mmol/L (137-145); Total Bilirubin 0.8 mg/dL (0.2-1.3); Total Protein 5.6 g/dL (6.3-8.2)
[2019-09-13 12:25] LABS: HCT 24.4 % (39.0-53.0); Hypochromasia Slight; MCH 29.5 pg (25.0-35.0); MCHC 32.9 g/dL (31.0-37.0); MCV 89.5 fL (80.0-100.0); Mean Platelet Volume 8.8; Poikilocytosis Slight; RBC 2.73 m/uL (4.30-5.90); RDW 15.5 % (11.5-15.5); WBC 2.6 k/uL (3.8-10.6)
[2019-09-13 12:27] LABS: Platelet Count 43 k/uL (150-450)
[2019-09-13 16:09] LABS: Reticulocyte % 0.91 % (0.10-1.80)
--- NOTE | 2019-09-13 17:47 | P.PN ---
Subjective Progress Note Date: 09/13/19 Principal diagnosis: hemoptysis, Completed XRT for NSCLC, on chemo In follow-up today patient is feeling ok, he denies any hemoptysis or other bleeding, no F, nausea, chest pain. He is not in any pain Objective - Vital Signs Vital signs: Vital Signs Temp 98.4 F 09/13/19 15:00 Pulse 88 09/13/19 16:40 Resp 16 09/13/19 16:40 BP 110/70 09/13/19 15:00 Pulse Ox 98 09/13/19 15:00 Intake & Output 09/12/19 09/13/19 09/13/19 18:59 06:59 18:59 Intake Total 1800 2152 1220 Output Total 250 750 Balance 1550 1402 1220 Weight 71.1 kg Intake: IV 1200 1300 430 Cefepime 2 gm In Sodium 100 100 100 Chloride 0.9% 100 ml @ 200 mls/hr IVPB Q12HR TAN Rx#:[id number] Magnesium Sulfate-D5w Pmx 200 100 100 1 gm In Dextrose/Water 1 100ml.bag @ 100 mls/hr IVPB Q1H TAN Rx#: [id number] Sodium Chloride 0.9% 1, 900 1100 230 000 ml @ 100 mls/hr IV . Q10H TAN Rx#:[id number] Oral 600 240 480 Blood Product 612 310 Platelet Pheresis Acda 612 Unit [id number] Rc As-1 Unit 0 310 [id number] Output: Urine 250 750 Other: # Voids 1 1 1 - Constitutional General appearance: Present: average body habitus, cooperative, no acute distress - EENT Eyes: Present: anicteric sclerae, EOMI, poor dentition ENT: Present: hearing grossly normal - Respiratory Respiratory: bilateral: diminished - Cardiovascular Rhythm: irregularly irregular Heart sounds: normal: S1, S2 - Peripheral edema leg Peripheral Edema: bilateral: Trace - Gastrointestinal General gastrointestinal: Present: normal bowel sounds, soft - Integumentary Integumentary: Present: pale - Neurologic Neurologic: Present: CNII-XII intact - Musculoskeletal Musculoskeletal: Present: generalized weakness - Psychiatric Psychiatric: Present: A&O x's 3, appropriate affect, intact judgment & insight - Labs CBC & Chem 7: 09/13/19 11:46 09/13/19 09:57 Labs: Abnormal Lab Results - Last 24 Hours (Table) 09/09/19 09/13/19 09/13/19 Range/Units 14:38 04:14 04:14 WBC 1.0 L* (3.8-10.6) k/uL RBC 1.91 L (4.30-5.90) m/uL Hgb 5.5 L* D (13.0-17.5) gm/dL Hct 17.6 L* (39.0-53.0) % Plt Count 42 L D (150-450) k/uL Sodium 135 L (137-145) mmol/L Chloride 108 H (98-107) mmol/L Glucose (74-99) mg/dL Calcium 8.3 L (8.4-10.2) mg/dL Magnesium 1.5 L (1.6-2.3) mg/dL AST (17-59) U/L Lactate Dehydrogenase (313-618) U/L Total Protein (6.3-8.2) g/dL Albumin (3.5-5.0) g/dL Crossmatch See Detail 09/13/19 09/13/19 09/13/19 Range/Units 05:19 09:57 11:46 WBC 2.6 L (3.8-10.6) k/uL RBC 2.73 L (4.30-5.90) m/uL Hgb 8.0 L D (13.0-17.5) gm/dL Hct 24.4 L (39.0-53.0) % Plt Count 43 L (150-450) k/uL Sodium (137-145) mmol/L Chloride 108 H (98-107) mmol/L Glucose 105 H (74-99) mg/dL Calcium (8.4-10.2) mg/dL Magnesium (1.6-2.3) mg/dL AST 13 L (17-59) U/L Lactate Dehydrogenase 298 L (313-618) U/L Total Protein 5.6 L (6.3-8.2) g/dL Albumin 3.0 L (3.5-5.0) g/dL Crossmatch See Detail Microbiology - Last 24 Hours (Table) 09/11/19 08:15 Gram Stain - Final Sputum Sputum Culture - Final 09/09/19 23:14 Blood Culture - Preliminary Blood No Growth after 72 hours 09/09/19 23:00 Blood Culture - Preliminary Blood No Growth after 72 hours - Imaging and Cardiology Chest x-ray: report reviewed Assessment and Plan (1) Pancytopenia due to antineoplastic chemotherapy Narrative/Plan: Transfuse to keep hgb 7 or higher. Due to acute drop in counts labs ordered for hemolysis and DIC. Both may show some abnormalities due to recent transfusions but, will evaluate labs based on this knowledge. Continue G-CSF for low white blood cell count. Platelet count 42,000 today s/p plt. Patient did have a unit of platelets CBC daily. Current Visit: Yes Status: Acute Priority: High Code(s): D61.810 - ANTINEOPLASTIC CHEMOTHERAPY INDUCED PANCYTOPENIA; T45.1X5A - ADVERSE EFFECT OF ANTINEOPLASTIC AND IMMUNOSUP DRUGS, INIT SNOMED Code(s): 127785037994122 (2) Chemotherapy induced neutropenia Narrative/Plan: GCSF cont, WBC up to 1 Current Visit: Yes Status: Acute Priority: High Code(s): D70.1 - AGRANULOCYTOSIS SECONDARY TO CANCER CHEMOTHERAPY; T45.1X5A - ADVERSE EFFECT OF ANTINEOPLASTIC AND IMMUNOSUP DRUGS, INIT SNOMED Code(s): 888373437 (3) Lung cancer Narrative/Plan: Patient recently completed concurrent chemotherapy/XRT. He has one more cycle of chemotherapy to go and then going to be imaged. If disease is stable going to be placed on maintenance durvalumab. We'll see how patient progresses through his current hospitalization and recovery. Further decisions by Primary Oncologist. Possible dose reduction for final cycle Current Visit: Yes Status: Acute Priority: High Code(s): C34.90 - MALIGNANT NEOPLASM OF UNSP PART OF UNSP BRONCHUS OR LUNG SNOMED Code(s): 927695432 (4) Afib Narrative/Plan: Patient is on anticoagulation for the same. This is going to be held for now d ue to low platelet counts and recent hemoptysis. Plt will be monitored closely and anticoagulation reintroduced when appropriate. Current Visit: No Status: Chronic Priority: Low Code(s): I48.91 - UNSPECIFIED ATRIAL FIBRILLATION SNOMED Code(s): 50175707
--- NOTE | 2019-09-13 19:40 | P.PN ---
Progress Note - Text Progress Note Date: 09/13/19 Presenting complaint: Hemoptysis Interval history: This is a pleasant 69-year-old patient of Dr. Genesis Morales. No history of lung cancer: Chemoradiation. Presented with hemoptysis the previous night. Significant amount. On 2 L oxygen at home. Patient has been on a blood thinner for A. fib that he held with the previous morning. Does follow with Dr. Lora. Today-did tolerate some diet. Slight short of breath. A bit tired. Laying in bed. No further hemoptysis Review of systems: Was done for constitutional, cardiovascular, GI, pulmonary. relevant finding as above Active Medications Acetaminophen (Tylenol Tab) 650 mg PO Q4HR PRN PRN Reason: Fever and/or Mild Pain Last Admin: 09/12/19 11:57 Dose: 650 mg Documented by: Hydrocodone Bitart/Acetaminophen (Maxwell 5-325) 1 each PO Q6HR PRN PRN Reason: Pain Last Admin: 09/13/19 07:13 Dose: 1 each Documented by: Al Hydroxide/Mg Hydroxide (Maalox) 30 ml PO Q4HR PRN PRN Reason: GI Upset Last Admin: 09/09/19 22:25 Dose: 30 ml Documented by: Albuterol/Ipratropium (Duoneb 0.5 Mg-3 Mg/3 Ml Soln) 3 ml INHALATION RT-QID [facility] Last Admin: 09/13/19 16:25 Dose: 3 ml Documented by: Albuterol/Ipratropium (Duoneb 0.5 Mg-3 Mg/3 Ml Soln) 3 ml INHALATION RT-Q2H PRN PRN Reason: Shortness Of Breath Or Wheezing Last Admin: 09/13/19 04:27 Dose: 3 ml Documented by: Atorvastatin Calcium (Lipitor) 10 mg PO HS [facility] Last Admin: 09/12/19 20:09 Dose: 10 mg Documented by: Cefdinir (Omnicef) 300 mg PO BID [facility] Digoxin (Lanoxin) 125 mcg PO DAILY [facility] Last Admin: 09/13/19 08:29 Dose: 125 mcg Documented by: Filgrastim (Zarxio) 480 mcg SQ Q24H [facility] Last Admin: 09/12/19 17:31 Dose: 480 mcg Documented by: Isosorbide Mononitrate (Imdur) 30 mg PO DAILY [facility] Last Admin: 09/13/19 08:28 Dose: 30 mg Documented by: Levetiracetam (Keppra) 500 mg PO BID [facility] Last Admin: 09/13/19 08:28 Dose: 500 mg Documented by: Lorazepam (Ativan) 1 mg IV Q4HR PRN PRN Reason: Anxiety Last Admin: 09/13/19 03:18 Dose: 1 mg Documented by: Metformin HCl (Glucophage) 850 mg PO BID [facility] Last Admin: 09/13/19 08:29 Dose: 850 mg Documented by: Metoprolol Tartrate (Lopressor) 50 mg PO DAILY [facility] Last Admin: 09/13/19 08:29 Dose: 50 mg Documented by: Miscellaneous Information (Magnesium Per Protocol) 1 each MISCELLANE DAILY PRN; Protocol PRN Reason: Per Protocol Montelukast Sodium (Singulair) 10 mg PO DAILY [facility] Last Admin: 09/13/19 08:28 Dose: 10 mg Documented by: Naloxone HCl (Narcan) 0.2 mg IV Q2M PRN PRN Reason: Opioid Reversal Oxycodone HCl (Oxyir) 10 mg PO BID PRN PRN Reason: Pain Last Admin: 09/13/19 00:12 Dose: 10 mg Documented by: Senna (Senokot) 8.6 mg PO BID PRN PRN Reason: Constipation Last Admin: 09/12/19 08:37 Dose: 8.6 mg Documented by: On examination: VITAL SIGNS: 98.4, 80, 18, blood pressure 110/70, 98% on 2 L GENERAL APPEARANCE: BMI 22.5, laying in bed awake HEENT: Normal external appearance of nose and ear. Oral cavity normal EYES: Pupils equal. Conjunctiva pale. NECK: JVD not raised. Mass not palpable. RESPIRATORY: Respiratory effort increased. Decreased breath sounds CARDIOVASCULAR: First and second sounds normal. No edema. ABDOMEN: Soft. Liver and spleen not palpable. No tenderness. No mass palpable. PSYCHIATRY: Alert and oriented x3. Mood and affect a bit tired INVESTIGATIONS, reviewed in the clinical context: White count 1 hemoglobin 5.5 platelets 42 potassium 4.5 creatinine 0.78 Previous testing White count 0.7 hemoglobin 6.4 platelets 27 potassium 5.5 creatinine 1.12 Computed tomography scan of the chest abdomen pelvis-new multifocal groundglass T the left lower lobe, right hilar spiculated obesity, multiple thoracic compression deformities-chronic Sputum culture-negative Assessment: -Hemoptysis secondary to his non-small cell lung cancer/squamous cell -Left lower lobe pneumonia, suspect gram-negative organism -Squamous cell lung cancer, status post radiation treatment. Has 1 more cycle of chemotherapy left. -Chronic pulmonary embolism -Persistent atrial fibrillation rate controlled anticoagulation held-otherwise chronically on eliquis -Acute on chronic congestive heart failure exacerbation with EF of 35-40% systolic dysfunction-IV Lasix given today. -Moderate tricuspid regurgitation -COPD in an ex-smoker -Severe Secondary probably hypertension -Essential hypertension -Diabetes mellitus type 2 -Chronic thoracic spine compression Plan: -Patient is on DuoNeb, IV cefepime, bronchodilators. Care was discussed with the patient. Change the patient to oral antibiotics. Patient maintain his IV fluids to be discontinued. Repeat labs in the morning. Switched to by mouth Lasix in the morning. Also add Aldactone.
[2019-09-13] MEDS: FILGRASTIM-SNDZ 480 MCG/0.8 ML SYRINGE SQ SCH (19:52)
[2019-09-13 20:24] LABS: Glucose,Whole Blood 114 mg/dL (75-99)
[2019-09-13] MEDS: SENNOSIDES 8.6 MG TAB PO PRN (21:49)
[2019-09-13] MEDS: CEFDINIR 300 MG CAP PO SCH (21:49)
[2019-09-13] MEDS: SPIRONOLACTONE 25 MG TAB PO SCH (21:50)
[2019-09-13] MEDS: ATORVASTATIN 10 MG TAB PO SCH (21:50)
--- NOTE | 2019-09-13 23:16 | PN ---
PROGRESS NOTE DATE OF SERVICE: 09/13/2019 REASON FOR FOLLOWUP: Possible pneumonia. INTERVAL HISTORY: The patient is currently afebrile. He is breathing comfortably. No further hemoptysis. No chest pain. No abdominal pain or diarrhea. PHYSICAL EXAMINATION: Blood pressure is 142/80 with a pulse of 100, temperature 97.8. He is 100% on 3 L nasal cannula. General description is an elderly male lying in bed in no distress. RESPIRATORY SYSTEM: Unlabored breathing with decreased breath sounds at the base. No wheeze. HEART: S1, S2. Regular rate and rhythm. ABDOMEN: Soft. No tenderness. LABS/IMAGING: White count is up to 2.6. Sputum has been usual respiratory jeff. Blood culture has been negative. Chest x-ray shows small to moderate pleural effusion, right basilar airspace disease. DIAGNOSTIC IMPRESSION AND PLAN: Patient admitted to hospital with hemoptysis, possibly related to recent chemoradiation or pneumonia, less likely but not entirely excluded. Sputum has been negative for any resistant pathogen. Antibiotic has been adjusted to Omnicef, to continue for a short course. Continue supportive care. MMODL / IJN: [id number] /
[2019-09-14] MEDS: IPRATROPIUM-ALBUTEROL 3 ML NEB INHALATION PRN ×2 (00:45→03:35)
[2019-09-14 07:01] LABS: Glucose,Whole Blood 101 mg/dL (75-99)
--- NOTE | 2019-09-14 07:31 | XR ---
EXAMINATION TYPE: XR chest 1V portable DATE OF EXAM: 09/14/2019 CLINICAL HISTORY: Difficulty breathing progress study. History of right lung cancer. TECHNIQUE: Single AP portable upright view of the chest is obtained. COMPARISON: Chest x-ray from one day earlier and older x-rays. CT from 4 days ago. FINDINGS: Right-sided volume loss with mediastinal shift remains present presumably from partial pne umonectomy changes. Increasing right basilar opacity is redemonstrated. Persistent right hilar massli ke consolidation. Persistent left basilar opacity. Cardiac silhouette size stable and enlarged with e ctatic thoracic aorta. Osseous structures remain demineralized. IMPRESSION: Overall stable findings from one day earlier, right-sided volume loss with right hilar ma ss/neoplasm along with cardiomegaly and persistent small to moderate-sized right pleural effusion wit h right mid to lower lung atelectasis and/or infiltrate and focal left basilar acute infiltrate and/o r atelectasis are all redemonstrated.
[2019-09-14 07:53] LABS: African American GFR (CKD) >90 (>60 ml/min/1.73 sqM); Anion Gap 6 mmol/L; Blood Urea Nitrogen 19 mg/dL (9-20); Calcium 8.7 mg/dL (8.4-10.2); Carbon Dioxide 25 mmol/L (22-30); Chloride 107 mmol/L (98-107); Glucose 87 mg/dL (74-99); Magnesium 1.4 mg/dL (1.6-2.3); Non-African American GFR(CKD) >90 (>60 ml/min/1.73 sqM); Sodium 138 mmol/L (137-145)
[2019-09-14 08:10] LABS: Basophils % (A) 0 %; Eosinophils % (A) 1 %; HCT 23.1 % (39.0-53.0); HGB 7.7 gm/dL (13.0-17.5); Hypochromasia Slight; Lymphocytes # (A) 0.4 k/uL (1.0-4.8); Lymphocytes % (A) 9 %; MCH 29.8 pg (25.0-35.0); MCHC 33.2 g/dL (31.0-37.0); MCV 89.7 fL (80.0-100.0); Mean Platelet Volume 8.6; Monocytes # (A) 0.2 k/uL (0-1.0); Monocytes % (A) 4 %; Neutrophils % (A) 83 %; Poikilocytosis Slight; RBC 2.57 m/uL (4.30-5.90); RDW 15.8 % (11.5-15.5); WBC 4.8 k/uL (3.8-10.6)
[2019-09-14 08:17] LABS: Platelet Count 35 k/uL (150-450)
[2019-09-14] MEDS: IPRATROPIUM-ALBUTEROL 3 ML NEB INHALATION SCH ×4 (08:37→18:33)
[2019-09-14] MEDS: SENNOSIDES 8.6 MG TAB PO PRN (08:56)
[2019-09-14] MEDS: DIGOXIN 125 MCG TAB PO SCH (08:57)
[2019-09-14] MEDS: SPIRONOLACTONE 25 MG TAB PO SCH (08:57)
[2019-09-14] MEDS: ISOSORBIDE MONONITRATE ER 30 MG TAB.ER.24H PO SCH (08:57)
[2019-09-14] MEDS: MONTELUKAST 10 MG TAB PO SCH (08:57)
[2019-09-14] MEDS: CEFDINIR 300 MG CAP PO SCH ×2 (08:57→20:09)
[2019-09-14] MEDS: levETIRAcetam 500 MG TAB PO SCH ×2 (08:57→20:09)
[2019-09-14] MEDS: METOPROLOL TARTRATE 50 MG TAB PO SCH (08:57)
[2019-09-14] MEDS: FUROSEMIDE 40 MG TAB PO SCH (08:57)
[2019-09-14] MEDS: metFORMIN 850 MG TAB PO SCH ×2 (08:58→21:12)
--- NOTE | 2019-09-14 10:12 | CDI ---
Documentation Clarification Form Date: 09/14/2019 10:00:13 AM From: Eliana Coulter RN, CCDS Admit Date: 09/09/2019 04:08:00 PM Patient Name: Fidel Hicks Visit Number: [id number] ATTENTION: The Clinical Documentation Specialists (CDI) and [facility] Coding Staff appreciate your assistance in clarifying documentation. Please respond to the clarification below the line at the bottom and electronically sign. The CDI & [facility] Coding staff will review the response and follow-up if needed. Please note: Queries are made part of the Legal Health Record. If you have any questions, please contact the author of this message via ITS. Dr. Shon Flores CHF is documented in the 09/12 Attending progress note and requires further specificity. History/Risk Factors: Lung cancer, chronic PE, Persistent Atrial Fib, COPD, Secondary Pulmonary HTN, HTN Clinical Indicators: 09/12 Attending: "Acute on chronic congestive heart failure exacerbation with EF of 35-40% systolic dysfunction-IV Lasix given today." 09/12 0800 VS/Pulse OX: Temp 97.7, HR 116, RR 21, B/P 123/78, Spo2 98% 3l NC BNP: not checked 09/12 Attending progress note: Echocardiogram Results: EF of 35-40% 09/13 Chest X Ray: "Overall stable findings from one day earlier, right-sided volume loss with right hilar mass/neoplasm along with cardiomegaly and persistent small to moderate-sized right pleural effusion with right mid to lower lung atelectasis and/or infiltrate and focal left basilar acute infiltrate and/or atelectasis are all redemonstrated. Treatment: 09/12 0921 IVP Lasix 40 mg OT and start Lasix 40 mg PO QD Imdur 30 mg PO QD Aldactone 25 mg PO QD In your professional opinion, can you please clarify the acuity and type of CHF if known? Acute on Chronic Systolic Heart Failure Acute on Chronic Systolic & Diastolic Heart Failure Unable to Determine Other, please specify (Last Revision: September 2017) Query addressed in discharge summary MTDD
[2019-09-14 11:06] LABS: Glucose,Whole Blood 107 mg/dL (75-99)
--- NOTE | 2019-09-14 12:52 | P.PN ---
Subjective Progress Note Date: 09/14/19 This is a 69-year-old male patient with known history of metastatic small cell carcinoma diagnosed on 04/24/2019 by fine-needle aspirate of a right supraclavicular lymph node. The patient at that time presented to the hospital with an abnormal chest x-ray and the small right-sided pleural effusion and sub sequent CAT scan imaging showed a right hilar mass and supraclavicular lymphadenopathy. Diagnosis was established. He is known to have COPD, history of a flutter, cardiomyopathy with impaired ejection fraction of 35% and severe pulmonary hypertension, hypertension and diabetes mellitus. The PET scan that was done on 05/13/2019 showed findings compatible with history of lung cancer. The patient at 4.1 cm supraclavicular lymph node that was metabolically active. The patient also had metabolically active nodes and an abnormal soft tissue density in the right lower lobe and the right hilar area with an SUV of 14. There was also volume loss in the right hemithorax in addition to a right-sided pleural effusion. He was referred to medical oncology and he was started to receive systemic treatment and radiation therapy. The exact regimen is not known. I the last session of systemic chemotherapy was given to him for around 10 days ago. The patient came into the emergency department today with hemoptysis. His blood work showed chemotherapy-induced neutropenia and his white cell count is at 0.7 with a hemoglobin of 6.4 and platelet count of 27. His lactic acid level was at 3.7. Correlation profile was essentially within normal limits. Potassium level is at 5.5. Troponin was negative. AST and ALT was within normal limits.. The patient was admitted to the intensive care unit. He is currently receiving a unit of packed RBC. He is afebrile. A CAT scan of the chest abdomen and pelvis was done in the ED. There is improvement in the volume loss in the right lung. There is resolution of the right lower lobe atelectasis and small effusion. There is a soft tissue density still in the hilum and the bronchus intermedius remains quite narrowed. The right supraclavicular lymph node was also shrunken in size and so is the mediastinal lymph nodes and the various lymph nodes within the mediastinum. As such , this is considered to be positive adequate response to treatment for now. On 09/10/2019 and seeing the patient for a follow-up visit is resting comfortably in bed. Overnight he received a total of 2 units of packed RBC, platelet transfusion and he also completed a central. Is currently on filgrastim and and the white cell count from today is at 0.6 with 0.55 with a hemoglobin of 7.9. Note that the platelet count dropped as low as 18 and is currently up to 86. The hemoptysis generally subsided. He did have another bout at around 5 AM this morning when he coughed out to large right large clots and there was some edison fresh blood mixed with it. I would say the volume is in the order of 10-15 mL in the bucket that I so. He had only 2 episodes has not had any further episodes since. He is on room air oxygen. Slightly tachycardic with atrial fibrillation. He is being given IV fluids at the rate of 100 mL an hour. He is afebrile is on empiric antibiotic coverage with IV cefepime. The follow-up CAT scan of the chest was noted. No other significant events overnight. As mentioned, Eliquis has been continued for now. Coagulation profile is back to normal including PT/PTT and INR. Patient was reevaluated today on 09/11/19, patient is resting in bed, very comfortable, no episodes of hemoptysis overnight. Patient denies being short of breath. Denies any chest pain, continues to have thrombocytopenia with leukopenia, WBC count is 0.4 hemoglobin is 7 platelets are 29,000. Basic metabolic profile and renal profile are normal. Patient received a total of 2 units of packed RBCs since admission, and 1 unit of platelets. His hemoptysis has completely subsided. He is presently on room air. Remains in atrial fibrillation but rate seems to be fairly well controlled. IV fluid is at 100 mL per hour. Patient remains empirically on cefepime. My plan is to possibly transfer the patient to a cardiac floor today. And will have to continue to monitor closely. Reevaluated today on 09/12/19, patient was transferred out of the ICU yesterday, however he develops further episodes of hemoptysis, and he was brought back to the ICU. Today no further episodes of hemoptysis, his hemoglobin remains stable. It is 7.2 today. However his WBC count remains 0.7. Platelets are 18,000. Electrolytes are normal renal profile is normal. Patient received a total of 2 units of packed RBCs since admission. Today, the patient is relatively asymptomatic, resting in bed, no episodes of hemoptysis, hemodynamically stable. Reevaluated today on 09/13/19, patient remains in the ICU, no hemoptysis over the last 24 hours, however his hemoglobin dropped down to 5.5, and he is receiving a unit of packed RBCs today. The good news is his WBC count is coming up to 1.0, platelets are coming up to 42, and his renal profile is basically normal basic metabolic profile is normal. Chest x-ray is showing small bilateral pleural effusions, hence the patient will receive Lasix, and I will cut his IV fluids down to KVO. Considering the patient had no further episodes of hemoptysis, may transfer the patient out of the ICU today. Unless he develops further episodes of hemoptysis. On 09/14/2019 patient seen in follow-up on general medical oncology floor. He only had a few episodes of hemoptysis, quite small amount, with old dark blood. Breathing seems to be comfortable, he does have exertional dyspnea with any exertion. Patient is on 3 l of oxygen, with a pulse ox of 90%, he is afebrile, hemodynamically stable, no complaints of chest pain, today's chest x-ray was reviewed showing overall stable findings from previous chest x-ray with right- sided volume loss with right hilar mass/neoplasm with cardiomegaly and persistent small to moderate-sized right pleural effusion and right mid to lower lung atelectasis. Focal left basilar acute infiltrate and/or atelectasis are all redemonstrated. Patient has been afebrile, blood and sputum cultures have been negative, patient is on oral antibiotics, today's labs have been reviewed showing white blood cell count up to 4.8, hemoglobin of 7.7, platelet count is 35, electrolytes and renal profile are within normal limits. Patient is tolerating oral intake, mainly diarrhea. Objective - Vital Signs Vital signs: Vital Signs Temp 97.4 F L 09/14/19 11:10 Pulse 96 09/14/19 12:09 Resp 18 09/14/19 11:10 BP 126/70 09/14/19 11:10 Pulse Ox 98 09/14/19 11:10 Intake & Output 09/13/19 09/14/19 09/14/19 18:59 06:59 18:59 Intake Total 1220 290 Balance 1220 290 Intake: IV 430 Cefepime 2 gm In Sodium 100 Chloride 0.9% 100 ml @ 200 mls/hr IVPB Q12HR TAN Rx#:[id number] Magnesium Sulfate-D5w Pmx 100 1 gm In Dextrose/Water 1 100ml.bag @ 100 mls/hr IVPB Q1H TAN Rx#: [id number] Sodium Chloride 0.9% 1, 230 000 ml @ 100 mls/hr IV . Q10H TAN Rx#:[id number] Oral 480 290 Blood Product 310 Rc As-1 Unit 310 [id number] Other: Voiding Method Toilet # Voids 1 2 - Exam GENERAL EXAM: Alert, pleasant, 69-year-old white male, appears to be chronically ill, hair loss due to recent history of radiation and systemic ch emotherapy on 3 L of oxygen, comfortable in no apparent distress. HEAD: Normocephalic/atraumatic. EYES: Normal reaction of pupils, equal size. Conjunctiva pink, sclera white. NOSE: Clear with pink turbinates. THROAT: No erythema or exudates. NECK: No masses, no JVD, no thyroid enlargement, no adenopathy. CHEST: No chest wall deformity. Symmetrical expansion. LUNGS: Equal air entry with no crackles, wheeze, rhonchi or dullness. CVS: Regular rate and rhythm, normal S1 and S2, no gallops, no murmurs, no rubs ABDOMEN: Soft, nontender. No hepatosplenomegaly, normal bowel sounds, no guarding or rigidity. EXTREMITIES: No clubbing, no edema, no cyanosis, 2+ pulses and upper and lower extremities. MUSCULOSKELETAL: Muscle strength and tone normal. SPINE: No scoliosis or deformity SKIN: No rashes CENTRAL NERVOUS SYSTEM: Alert and oriented -3. No focal deficits, tone is normal in all 4 extremities. PSYCHIATRIC: Alert and oriented -3. Appropriate affect. Intact judgment and insight. - Labs CBC & Chem 7: 09/14/19 07:23 09/14/19 07:23 Labs: Abnormal Lab Results - Last 24 Hours (Table) 09/13/19 09/14/19 09/14/19 Range/Units 20:22 06:59 07:23 RBC 2.57 L (4.30-5.90) m/uL Hgb 7.7 L (13.0-17.5) gm/dL Hct 23.1 L (39.0-53.0) % RDW 15.8 H (11.5-15.5) % Plt Count 35 L (150-450) k/uL Lymphocytes # 0.4 L (1.0-4.8) k/uL POC Glucose (mg/dL) 114 H 101 H (75-99) mg/dL Magnesium (1.6-2.3) mg/dL 09/14/19 09/14/19 Range/Units 07:23 11:05 RBC (4.30-5.90) m/uL Hgb (13.0-17.5) gm/dL Hct (39.0-53.0) % RDW (11.5-15.5) % Plt Count (150-450) k/uL Lymphocytes # (1.0-4.8) k/uL POC Glucose (mg/dL) 107 H (75-99) mg/dL Magnesium 1.4 L (1.6-2.3) mg/dL Microbiology - Last 24 Hours (Table) 09/09/19 23:14 Blood Culture - Preliminary Blood No Growth after 96 hours 09/09/19 23:00 Blood Culture - Preliminary Blood No Growth after 96 hours 09/11/19 08:15 Gram Stain - Final Sputum Sputum Culture - Final Assessment and Plan Plan: Assessment: Recurrent episodes of Hemoptysis, multifactorial, secondary to squamous cell l william cancer Metastatic squamous cell lung cancer Chemotherapy-induced pancytopenia improving today. Chronic atrial fibrillation, rate seems to be fairly well controlled Chronic obstructive pulmonary disease, relatively stable. History of seizure disorder Chronic cardiomyopathy with LV dysfunction, impaired ejection fraction, noted to have bilateral pleural effusions today, hence the patient will be diuresed Secondary pulmonary hypertension Benign essential hypertension Type 2 diabetes Plan: Minimal hemoptysis since yesterday with very small amount of old dark blood. Vital signs are stable, continue with oral antibiotics, breathing seems comfortable, does have exertional dyspnea, cultures remained negative including sputum and blood cultures, neutropenia is improving. Increase activity as tolerated, and will continue to follow I performed a history & physical examination of the patient and discussed their management with my nurse practitioner, Nikia Gentile. I reviewed the nurse sara high's note and agree with the documented findings and plan of care. Lung sounds are positive for diminished breath sounds. The findings and the impression was discussed with the patient. I attest to the documentation by the nurse practitioner. Time with Patient: Less than 30
--- NOTE | 2019-09-14 15:16 | US ---
EXAMINATION TYPE: US venous doppler duplex UE RT DATE OF EXAM: 09/14/2019 COMPARISON: NONE CLINICAL HISTORY: pain and swelling. Patient stated has right arm swelling today. Had IV in right arm x 3 days. Patient stated is on blood thinner due to known PE. SIDE PERFORMED: right Right Arm: DVT noted in right Medial Subclavian Vein as no Color Flow is seen within lumen containing echoes, and absent PW Venous signal is noted at this location. IMPRESSION: Acute deep venous thrombosis in the right subclavian vein. Patient is already on blood th inners due to known pulmonary embolus. Results were phoned to the patient's nurse Jaqueline at the end of examination by the hot mill roller.
--- NOTE | 2019-09-14 16:14 | P.PN ---
Progress Note - Text Progress Note Date: 09/14/19 Presenting complaint: Hemoptysis Interval history: This is a pleasant 69-year-old patient of Dr. Genesis Morales. No history of lung cancer: Chemoradiation. Presented with hemoptysis the previous night. Significant amount. On 2 L oxygen at home. Patient has been on a blood thinner for A. fib that he held with the previous morning. Does follow with Dr. Lora. Today-less short of breath. Some cough. Did tolerate some diet. Up to the bathroom.. Did cough up some very dark old blood. Eating fairly well Review of systems: Was done for constitutional, cardiovascular, GI, pulmonary. relevant finding as above Active Medications Acetaminophen (Tylenol Tab) 650 mg PO Q4HR PRN PRN Reason: Fever and/or Mild Pain Last Admin: 09/12/19 11:57 Dose: 650 mg Documented by: Hydrocodone Bitart/Acetaminophen ([place] 5-325) 1 each PO Q6HR PRN PRN Reason: Pain Last Admin: 09/13/19 21:55 Dose: 1 each Documented by: Al Hydroxide/Mg Hydroxide (Maalox) 30 ml PO Q4HR PRN PRN Reason: GI Upset Last Admin: 09/09/19 22:25 Dose: 30 ml Documented by: Albuterol/Ipratropium (Duoneb 0.5 Mg-3 Mg/3 Ml Soln) 3 ml INHALATION RT-QID [facility] Last Admin: 09/14/19 15:29 Dose: 3 ml Documented by: Albuterol/Ipratropium (Duoneb 0.5 Mg-3 Mg/3 Ml Soln) 3 ml INHALATION RT-Q2H PRN PRN Reason: Shortness Of Breath Or Wheezing Last Admin: 09/14/19 03:35 Dose: 3 ml Documented by: Atorvastatin Calcium (Lipitor) 10 mg PO HS [facility] Last Admin: 09/13/19 21:50 Dose: 10 mg Documented by: Cefdinir (Omnicef) 300 mg PO BID [facility] Last Admin: 09/14/19 08:57 Dose: 300 mg Documented by: Digoxin (Lanoxin) 125 mcg PO DAILY [facility] Last Admin: 09/14/19 08:57 Dose: 125 mcg Documented by: Furosemide (Lasix) 40 mg PO DAILY [facility] Last Admin: 09/14/19 08:57 Dose: 40 mg Documented by: Isosorbide Mononitrate (Imdur) 30 mg PO DAILY [facility] Last Admin: 09/14/19 08:57 Dose: 30 mg Documented by: Levetiracetam (Keppra) 500 mg PO BID [facility] Last Admin: 09/14/19 08:57 Dose: 500 mg Documented by: Lorazepam (Ativan) 1 mg IV Q4HR PRN PRN Reason: Anxiety Last Admin: 09/13/19 03:18 Dose: 1 mg Documented by: Metformin HCl (Glucophage) 850 mg PO BID [facility] Last Admin: 09/14/19 08:58 Dose: 850 mg Documented by: Metoprolol Tartrate (Lopressor) 50 mg PO DAILY [facility] Last Admin: 09/14/19 08:57 Dose: 50 mg Documented by: Miscellaneous Information (Magnesium Per Protocol) 1 each MISCELLANE DAILY PRN; Protocol PRN Reason: Per Protocol Montelukast Sodium (Singulair) 10 mg PO DAILY [facility] Last Admin: 09/14/19 08:57 Dose: 10 mg Documented by: Naloxone HCl (Narcan) 0.2 mg IV Q2M PRN PRN Reason: Opioid Reversal Oxycodone HCl (Oxyir) 10 mg PO BID PRN PRN Reason: Pain Last Admin: 09/13/19 19:52 Dose: 10 mg Documented by: Senna (Senokot) 8.6 mg PO BID PRN PRN Reason: Constipation Last Admin: 09/14/19 08:56 Dose: 8.6 mg Documented by: Spironolactone (Aldactone) 25 mg PO DAILY [facility] Last Admin: 09/14/19 08:57 Dose: 25 mg Documented by: On examination: VITAL SIGNS: 97.4, 81, 18, blood pressure 126/70, 98% on 3.5 L GENERAL APPEARANCE: Laying in bed, more comfortable HEENT: Normal external appearance of nose and ear. Oral cavity normal EYES: Pupils equal. Conjunctiva pale. NECK: JVD not raised. Mass not palpable. RESPIRATORY: Respiratory effort increased. Decreased breath sounds CARDIOVASCULAR: First and second sounds normal. No edema. ABDOMEN: Soft. Liver and spleen not palpable. No tenderness. No mass palpable. PSYCHIATRY: Alert and oriented x3. Mood and affect a bit tired INVESTIGATIONS, reviewed in the clinical context: White count 4.8 hemoglobin 7.7 platelets 35 potassium 4 creatinine 0.74 Previous testing White count 0.7 hemoglobin 6.4 platelets 27 potassium 5.5 creatinine 1.12 Computed tomography scan of the chest abdomen pelvis-new multifocal groundglass T the left lower lobe, right hilar spiculated obesity, multiple thoracic compression deformities-chronic Sputum culture-negative Assessment: -Hemoptysis secondary to his non-small cell lung cancer/squamous cell-much improved -Left lower lobe pneumonia, suspect gram-negative organism -Squamous cell lung cancer, status post radiation treatment. Has 1 more cycle of chemotherapy left. -Chronic pulmonary embolism -Persistent atrial fibrillation rate controlled anticoagulation held-otherwise chronically on eliquis -Acute on chronic congestive heart failure exacerbation with EF of 35-40% systolic dysfunction-IV Lasix given today. -Moderate tricuspid regurgitation -COPD in an ex-smoker -Severe Secondary probably hypertension -Essential hypertension -Diabetes mellitus type 2 -Chronic thoracic spine compression Plan: Clinically doing better. Encouraged the patient to be out of bed. We will scaled back on the oxygen. Hopefully discharge in next 24 hours.
[2019-09-14 16:53] LABS: Glucose,Whole Blood 104 mg/dL (75-99)
--- NOTE | 2019-09-14 18:43 | P.PN ---
Subjective Progress Note Date: 09/14/19 Principal diagnosis: Pancytopenia and hemoptysis Patient did have some hemoptysis this am, dark older appearing blood, none since this time. He has not moved bowels, is passing gas. Right upper extremity noted to be swollen and tender compared to left. Objective - Vital Signs Vital signs: Vital Signs Temp 97.4 F L 09/14/19 11:10 Pulse 98 09/14/19 18:34 Resp 18 09/14/19 11:10 BP 126/70 09/14/19 11:10 Pulse Ox 98 09/14/19 17:57 Intake & Output 09/13/19 09/14/19 09/14/19 18:59 06:59 18:59 Intake Total 1220 290 Balance 1220 290 Intake: IV 430 Cefepime 2 gm In Sodium 100 Chloride 0.9% 100 ml @ 200 mls/hr IVPB Q12HR TAN Rx#:[id number] Magnesium Sulfate-D5w Pmx 100 1 gm In Dextrose/Water 1 100ml.bag @ 100 mls/hr IVPB Q1H TAN Rx#: [id number] Sodium Chloride 0.9% 1, 230 000 ml @ 100 mls/hr IV . Q10H TAN Rx#:[id number] Oral 480 290 Blood Product 310 Rc As-1 Unit 310 [id number] Other: Voiding Method Toilet # Voids 1 2 2 - Exam Gen: Alert and Oriented Head: NC/AT Neck: Supple Heart: Irregular, irregular Lungs: Diminished bilaterally note right more than the left. Scattered rhonchi. mild increased overall respiratory effort Abdomen: Soft, ND, NT Ext: RUEedema, No rash, Pale Neuro: Non-focal - Labs CBC & Chem 7: 09/14/19 07:23 09/14/19 07:23 Labs: Abnormal Lab Results - Last 24 Hours (Table) 09/13/19 09/14/19 09/14/19 Range/Units 20:22 06:59 07:23 RBC 2.57 L (4.30-5.90) m/uL Hgb 7.7 L (13.0-17.5) gm/dL Hct 23.1 L (39.0-53.0) % RDW 15.8 H (11.5-15.5) % Plt Count 35 L (150-450) k/uL Lymphocytes # 0.4 L (1.0-4.8) k/uL POC Glucose (mg/dL) 114 H 101 H (75-99) mg/dL Magnesium (1.6-2.3) mg/dL 09/14/19 09/14/19 09/14/19 Range/Units 07:23 11:05 16:51 RBC (4.30-5.90) m/uL Hgb (13.0-17.5) gm/dL Hct (39.0-53.0) % RDW (11.5-15.5) % Plt Count (150-450) k/uL Lymphocytes # (1.0-4.8) k/uL POC Glucose (mg/dL) 107 H 104 H (75-99) mg/dL Magnesium 1.4 L (1.6-2.3) mg/dL Microbiology - Last 24 Hours (Table) 09/09/19 23:14 Blood Culture - Preliminary Blood No Growth after 96 hours 09/09/19 23:00 Blood Culture - Preliminary Blood No Growth after 96 hours Assessment and Plan Plan: Assessment and Recomendations: 1. Locally Advanced Non-Small Cell Lung Cancer - Squamous Cell Carcinoma: - Status Post concurrent chemo and radiation - Now on Chemotherapy with Carboplatin and BLOOD BANK COORDINATOR-16, last on 08/30/19, did not receive growth factor. - Therapy on hold until re-evaluation as outpatient for possible dose adjustment or change, defer to primary oncologist 2. Pancytopenia: - Monitor Daily CBC with differential - Start [place] Stimulating Growth Factor - Zarxio Daily - for Neutropenia in presence of possible infection (Resolved - zarxio Discontinued on 09/14/19) - Transfuse RBC for hemoglobin less than 7 - Transfuse SDP for platelet count less than 15 or less than 50K with active bleeding. - Agree with Antibiotics while awaiting full [place] culture work-up - ID following. 3. Hemotysis: - This is improved - Eliquis currently on Hold - Restart as soon as platlet count greater than 50K 4. New Acute DVT right Subclavin: - ANticogulation on hold until platlet count increased - NO BP or IV in RIght arm. Discussed with RN Continue overall supportive care Thank you for allowing us to take part in the care of this patient I did speak with Pulmonology regarding this patient Discussed with nursing Cassie Roldan MAT CLEANING MACHINE OPERATOR
[2019-09-14 19:02] LABS: Folate, Serum 6.6 ng/mL
[2019-09-14 19:09] LABS: % Iron Saturation 25.76 (15.00-50.00); Ferritin 493.7 ng/mL (22.0-322.0)
[2019-09-14] MEDS: ATORVASTATIN 10 MG TAB PO SCH (20:09)
[2019-09-14] MEDS: SENNOSIDES 8.6 MG TAB PO SCH (20:09)
[2019-09-14 20:28] LABS: Glucose,Whole Blood 95 mg/dL (75-99)
[2019-09-14] MEDS: HYDROcodone/APAP 5-325MG 1 EACH TAB PO PRN (21:46)
--- NOTE | 2019-09-14 23:01 | PN ---
PROGRESS NOTE DATE OF SERVICE: 09/14/2019. REASON FOR FOLLOWUP: Pneumonia. INTERVAL HISTORY: The patient is currently afebrile. Has been breathing comfortably. Occasional hemoptysis. No chest pain. No nausea. No vomiting. No abdominal pain. No diarrhea. PHYSICAL EXAMINATION: Blood pressure 110/68 with a pulse of 100, temperature of 98. He is 98% on 2 liters nasal cannula. General description is an elderly male lying in bed in no distress. RESPIRATORY SYSTEM: Unlabored breathing. Decreased breath sounds at the bases. No wheeze. HEART: S1, S2. Regular rate and rhythm. ABDOMEN: Soft. No tenderness. LABS: Hemoglobin 7.7, white count 4.8. Creatinine 0.74. Blood and sputum cultures have been negative. DIAGNOSTIC IMPRESSION AND PLAN: Patient admitted to the hospital with hemoptysis in this patient who did have underlying lung cancer with radiation and chemo. Possible radiation pneumonitis pneumonia. Sputum has been negative for any resistant pathogen. The patient is on Omnicef, to continue for a short course. Finish course of therapy. Continue with supportive care. MMODL / IJN: [id number] /
[2019-09-15] MEDS: HYDROcodone/APAP 5-325MG 1 EACH TAB PO PRN (05:26)
[2019-09-15] MEDS: IPRATROPIUM-ALBUTEROL 3 ML NEB INHALATION PRN (05:35)
[2019-09-15] MEDS: IPRATROPIUM-ALBUTEROL 3 ML NEB INHALATION SCH ×3 (08:11→15:37)
[2019-09-15] MEDS ORDERED: POLYETHYLENE GLYCOL 3350 17 GM POWD.PACK PO SCH (09:00)
[2019-09-15 09:07] LABS: Basophils % (A) 0 %; Eosinophils % (A) 1 %; HCT 23.2 % (39.0-53.0); HGB 7.5 gm/dL (13.0-17.5); Hypochromasia Slight; Lymphocytes # (A) 0.5 k/uL (1.0-4.8); Lymphocytes % (A) 10 %; MCH 29.5 pg (25.0-35.0); MCHC 32.5 g/dL (31.0-37.0); Mean Platelet Volume 9.3; Monocytes # (A) 0.2 k/uL (0-1.0); Monocytes % (A) 4 %; Neutrophils # (A) 3.9 k/uL (1.3-7.7); Neutrophils % (A) 82 %; Poikilocytosis Slight; RBC 2.55 m/uL (4.30-5.90); WBC 4.8 k/uL (3.8-10.6)
[2019-09-15 09:23] LABS: ALT 6 U/L (4-49); AST 13 U/L (17-59); African American GFR (CKD) >90 (>60 ml/min/1.73 sqM); Alkaline Phosphatase 63 U/L (38-126); Anion Gap 5 mmol/L; Blood Urea Nitrogen 19 mg/dL (9-20); Calcium 8.8 mg/dL (8.4-10.2); Carbon Dioxide 30 mmol/L (22-30); Chloride 104 mmol/L (98-107); Glucose 83 mg/dL (74-99); Non-African American GFR(CKD) >90 (>60 ml/min/1.73 sqM); Sodium 139 mmol/L (137-145); Total Bilirubin 0.4 mg/dL (0.2-1.3); Total Protein 5.6 g/dL (6.3-8.2)
--- NOTE | 2019-09-15 09:30 | PN ---
PROGRESS NOTE DATE OF SERVICE: 09/13/2019 REASON FOR FOLLOWUP: Possible pneumonia. INTERVAL HISTORY: The patient is currently afebrile. The patient has been breathing comfortably. The patient's cough has decreased in intensity and he is not bringing up any sputum. No further hemoptysis. No chest pain. No abdominal pain. No diarrhea. PHYSICAL EXAMINATION: Blood pressure 110/70 with a pulse of 80, temperature 98.4. He is 98% on 2 L nasal cannula. General description is an elderly male lying in bed in no distress. RESPIRATORY SYSTEM: Unlabored breathing with decreased breath sounds at the base. No wheeze. HEART: S1, S2. Regular rate and rhythm. ABDOMEN: Soft. No tenderness. LABS: Hemoglobin 8, white count 2.6, creatinine 0.75. Sputum so far negative . Blood culture has been negative. DIAGNOSTIC IMPRESSION AND PLAN: Patient admitted to hospital with hemoptysis in this patient who did have lung cancer, status post chemoradiation. The patient is currently covered with cefepime; to continue and monitor his clinical course closely. Continue with supportive care. MMODL / IJN: [id number] /
[2019-09-15 09:39] LABS: Platelet Count 34 k/uL (150-450)
[2019-09-15] MEDS: SENNOSIDES 8.6 MG TAB PO SCH (09:59)
[2019-09-15] MEDS: SPIRONOLACTONE 25 MG TAB PO SCH (09:59)
[2019-09-15] MEDS: FUROSEMIDE 40 MG TAB PO SCH (09:59)
[2019-09-15] MEDS: DIGOXIN 125 MCG TAB PO SCH (09:59)
[2019-09-15] MEDS: CEFDINIR 300 MG CAP PO SCH (09:59)
[2019-09-15] MEDS: ISOSORBIDE MONONITRATE ER 30 MG TAB.ER.24H PO SCH (09:59)
[2019-09-15] MEDS: MONTELUKAST 10 MG TAB PO SCH (10:00)
[2019-09-15] MEDS: METOPROLOL TARTRATE 50 MG TAB PO SCH (10:00)
[2019-09-15] MEDS: levETIRAcetam 500 MG TAB PO SCH (10:00)
[2019-09-15] MEDS: metFORMIN 850 MG TAB PO SCH (10:00)
[2019-09-15 11:45] LABS: Glucose,Whole Blood 112 mg/dL (75-99)
[2019-09-15 11:50] VITALS: BMI 22.4
[2019-09-15 12:22] VITALS: BP 101/63; PULSE 78; RESP 17; TEMP 97.7
--- NOTE | 2019-09-15 14:08 | P.PN ---
Subjective Progress Note Date: 09/15/19 Principal diagnosis: Pancytopenia and hemoptysis Spoke to primary team planning to discharge today without AC therapy until platelets are greater than 50K Objective - Vital Signs Vital signs: Vital Signs Temp 97.7 F 09/15/19 12:22 Pulse 78 09/15/19 12:22 Resp 17 09/15/19 12:22 BP 101/63 09/15/19 12:22 Pulse Ox 100 09/15/19 12:22 Intake & Output 09/14/19 09/15/19 09/15/19 18:59 06:59 18:59 Weight 71.1 kg Other: Voiding Method Toilet Toilet # Voids 2 1 - Exam Gen: Alert and Oriented Head: NC/AT Neck: Supple Heart: Irregular, irregular Lungs: Diminished bilaterally note right more than the left. Scattered rhonchi. mild increased overall respiratory effort Abdomen: Soft, ND, NT Ext: RUEedema, No rash, Pale Neuro: Non-focal - Labs CBC & Chem 7: 09/15/19 07:18 09/15/19 07:18 Labs: Abnormal Lab Results - Last 24 Hours (Table) 09/14/19 09/14/19 09/15/19 Range/Units 12:43 16:51 07:18 RBC 2.55 L (4.30-5.90) m/uL Hgb 7.5 L (13.0-17.5) gm/dL Hct 23.2 L (39.0-53.0) % RDW 16.0 H (11.5-15.5) % Plt Count 34 L (150-450) k/uL Lymphocytes # 0.5 L (1.0-4.8) k/uL POC Glucose (mg/dL) 104 H (75-99) mg/dL Iron 59 L (65-175) ug/dL Ferritin 493.7 H (22.0-322.0) ng/mL AST (17-59) U/L Total Protein (6.3-8.2) g/dL Albumin (3.5-5.0) g/dL 09/15/19 09/15/19 Range/Units 07:18 11:39 RBC (4.30-5.90) m/uL Hgb (13.0-17.5) gm/dL Hct (39.0-53.0) % RDW (11.5-15.5) % Plt Count (150-450) k/uL Lymphocytes # (1.0-4.8) k/uL POC Glucose (mg/dL) 112 H (75-99) mg/dL Iron (65-175) ug/dL Ferritin (22.0-322.0) ng/mL AST 13 L (17-59) U/L Total Protein 5.6 L (6.3-8.2) g/dL Albumin 3.0 L (3.5-5.0) g/dL Microbiology - Last 24 Hours (Table) 09/09/19 23:00 Blood Culture - Preliminary Blood No Growth after 120 hours 09/09/19 23:14 Blood Culture - Preliminary Blood No Growth after 120 hours Assessment and Plan Plan: Assessment and Recomendations: 1. Locally Advanced Non-Small Cell Lung Cancer - Squamous Cell Carcinoma: - Status Post concurrent chemo and radiation - Now on Chemotherapy with Carboplatin and YARD SUPERVISOR-16, last on 08/30/19, did not receive growth factor. - Therapy on hold until re-evaluation as outpatient for possible dose adjustment or change, defer to primary oncologist 2. Pancytopenia: - Monitor Daily CBC with differential - Start [place] Stimulating Growth Factor - Zarxio Daily - for Neutropenia in presence of possible infection (Resolved - zarxio Discontinued on 09/14/19) - Transfuse RBC for hemoglobin less than 7 - Transfuse SDP for platelet count less than 15 or less than 50K with active bleeding. - Agree with Antibiotics while awaiting full [place] culture work-up - ID following. 3. Hemotysis: - This is improved - Eliquis currently on Hold - Restart as soon as platlet count greater than 50K 4. New Acute DVT right Subclavin: - ANticogulation on hold until platlet count increased - NO BP or IV in RIght arm. Discussed with RN Continue overall supportive care Thank you for allowing us to take part in the care of this patient I did speak with Pulmonology regarding this patient Discussed with nursing Spoke to primary team Patient to follow up wednesday for cbc Casise Roldan NP
--- NOTE | 2019-09-15 14:27 | P.PN ---
Subjective Progress Note Date: 09/15/19 Principal diagnosis: Hemoptysis secondary to squamous cell lung cancer and pancytopenia from chemotherapy This is a 69-year-old male patient with known history of metastatic small cell carcinoma diagnosed on 04/24/2019 by fine-needle aspirate of a right supraclavicular lymph node. The patient at that time presented to the hospital with an abnormal chest x-ray and the small right-sided pleural effusion and subsequent CAT scan imaging showed a right hilar mass and supraclavicular lymphadenopathy. Diagnosis was established. He is known to have COPD, history of a flutter, cardiomyopathy with impaired ejection fraction of 35% and severe pulmonary hypertension, hypertension and diabetes mellitus. The PET scan that was done on 05/13/2019 showed findings compatible with history of lung cancer. The patient at 4.1 cm supraclavicular lymph node that was metabolically active. The patient also had metabolically active nodes and an abnormal soft tissue density in the right lower lobe and the right hilar area with an SUV of 14. There was also volume loss in the right hemithorax in addition to a right-sided pleural effusion. He was referred to medical oncology and he was started to receive systemic treatment and radiation therapy. The exact regimen is not known. I the last session of systemic chemotherapy was given to him for around 10 days ago. The patient came into the emergency department today with hemoptysis. His blood work showed chemotherapy-induced neutropenia and his white cell count is at 0.7 with a hemoglobin of 6.4 and platelet count of 27. His lactic acid level was at 3.7. Correlation profile was essentially within normal limits. Potassium level is at 5.5. Troponin was negative. AST and ALT was within normal limits.. The patient was admitted to the intensive care unit. He is currently receiving a unit of packed RBC. He is afebrile. A CAT scan of the chest abdomen and pelvis was done in the ED. There is improvement in the volume loss in the right lung. There is resolution of the right lower lobe atelectasis and small effusion. There is a soft tissue density still in the hilum and the bronchus intermedius remains quite narrowed. The right supraclavicular lymph node was also shrunken in size and so is the mediastinal lymph nodes and the various lymph nodes within the mediastinum. As such , this is considered to be positive adequate response to treatment for now. On 09/10/2019 and seeing the patient for a follow-up visit is resting comfortably in bed. Overnight he received a total of 2 units of packed RBC, platelet transfusion and he also completed a central. Is currently on filgrastim and and the white cell count from today is at 0.6 with 0.55 with a hemoglobin of 7.9. Note that the platelet count dropped as low as 18 and is currently up to 86. The hemoptysis generally subsided. He did have another reese ut at around 5 AM this morning when he coughed out to large right large clots and there was some edison fresh blood mixed with it. I would say the volume is in the order of 10-15 mL in the bucket that I so. He had only 2 episodes has not had any further episodes since. He is on room air oxygen. Slightly tachycardic with atrial fibrillation. He is being given IV fluids at the rate of 100 mL an hour. He is afebrile is on empiric antibiotic coverage with IV cefepime. The follow-up CAT scan of the chest was noted. No other significant events overnight. As mentioned, Eliquis has been continued for now. Coagulation profile is back to normal including PT/PTT and INR. Patient was reevaluated today on 09/11/19, patient is resting in bed, very comfortable, no episodes of hemoptysis overnight. Patient denies being short of breath. Denies any chest pain, continues to have thrombocytopenia with leukopenia, WBC count is 0.4 hemoglobin is 7 platelets are 29,000. Basic metabolic profile and renal profile are normal. Patient received a total of 2 units of packed RBCs since admission, and 1 unit of platelets. His hemoptysis has completely subsided. He is presently on room air. Remains in atrial fibrillation but rate seems to be fairly well controlled. IV fluid is at 100 mL per hour. Patient remains empirically on cefepime. My plan is to possibly transfer the patient to a cardiac floor today. And will have to continue to monitor closely. Reevaluated today on 09/12/19, patient was transferred out of the ICU yesterday, however he develops further episodes of hemoptysis, and he was brought back to the ICU. Today no further episodes of hemoptysis, his hemoglobin remains sta ble. It is 7.2 today. However his WBC count remains 0.7. Platelets are 18,000. Electrolytes are normal renal profile is normal. Patient received a total of 2 units of packed RBCs since admission. Today, the patient is relatively asymptomatic, resting in bed, no episodes of hemoptysis, hemodyna mically stable. Reevaluated today on 09/13/19, patient remains in the ICU, no hemoptysis over the last 24 hours, however his hemoglobin dropped down to 5.5, and he is receiving a unit of packed RBCs today. The good news is his WBC count is coming up to 1.0, platelets are coming up to 42, and his renal profile is basically normal basic metabolic profile is normal. Chest x-ray is showing small bilateral pleural effusions, hence the patient will receive Lasix, and I will cut his IV fluids down to KVO. Considering the patient had no further episodes of hemoptysis, may transfer the patient out of the ICU today. Unless he develops further episodes of hemoptysis. On 09/14/2019 patient seen in follow-up on general medical oncology floor. He only had a few episodes of hemoptysis, quite small amount, with old dark blood. Breathing seems to be comfortable, he does have exertional dyspnea with any exertion. Patient is on 3 l of oxygen, with a pulse ox of 90%, he is afebrile, hemodynamically stable, no complaints of chest pain, today's chest x-ray was reviewed showing overall stable findings from previous chest x-ray with right- sided volume loss with right hilar mass/neoplasm with cardiomegaly and persistent small to moderate-sized right pleural effusion and right mid to lower lung atelectasis. Focal left basilar acute infiltrate and/or atelectasis are all redemonstrated. Patient has been afebrile, blood and sputum cultures have been negative, patient is on oral antibiotics, today's labs have been reviewed showing white blood cell count up to 4.8, hemoglobin of 7.7, platelet count is 35, electrolytes and renal profile are within normal limits. Patient is tolerating oral intake, mainly diarrhea. Patient is seen today 09/15/2019 in follow-up on the regular medical floor. He is awake and alert in no acute distress. Resting comfortably in bed. No worsening shortness of breath, cough or congestion. Maintaining O2 saturation up to 100% on 3 L/m per nasal cannula. Hemodynamically stable. No further hemoptysis. Current hemoglobin 7.5. He is status post 3 units of packed red blood cells this admission along with 1 unit of platelets. Current platelet count 34,000. Sodium 139. Creatinine 0.78. Objective - Vital Signs Vital signs: Vital Signs Temp 97.7 F 09/15/19 12:22 Pulse 78 09/15/19 12:22 Resp 17 09/15/19 12:22 BP 101/63 09/15/19 12:22 Pulse Ox 100 09/15/19 12:22 Intake & Output 09/14/19 09/15/19 09/15/19 18:59 06:59 18:59 Weight 71.1 kg Other: Voiding Method Toilet Toilet # Voids 2 1 - Exam GENERAL EXAM: Alert, pleasant, 69-year-old male patient, on 3 L nasal cannula, appears to be chronically ill, hair loss due to recent history of radiation and systemic chemotherapy, comfortable in no apparent distress. HEAD: Normocephalic/atraumatic. EYES: Normal reaction of pupils, equal size. Conjunctiva pink, sclera white. NOSE: Clear with pink turbinates. THROAT: No erythema or exudates. NECK: No masses, no JVD, no thyroid enlargement, no adenopathy. CHEST: No chest wall deformity. Symmetrical expansion. LUNGS: Equal air entry with few scattered rhonchi in the right lung. CVS: Regular rate and rhythm, normal S1 and S2, no gallops, no murmurs, no rubs ABDOMEN: Soft, nontender. No hepatosplenomegaly, normal bowel sounds, no guarding or rigidity. EXTREMITIES: No clubbing, no edema, no cyanosis, 2+ pulses and upper and lower extremities. MUSCULOSKELETAL: Muscle strength and tone normal. SPINE: No scoliosis or deformity SKIN: No rashes CENTRAL NERVOUS SYSTEM: No focal deficits, tone is normal in all 4 extremities. PSYCHIATRIC: Alert and oriented -3. Appropriate affect. Intact judgment and insight. - Labs CBC & Chem 7: 09/15/19 07:18 09/15/19 07:18 Labs: Abnormal Lab Results - Last 24 Hours (Table) 09/14/19 09/14/19 09/15/19 Range/Units 12:43 16:51 07:18 RBC 2.55 L (4.30-5.90) m/uL Hgb 7.5 L (13.0-17.5) gm/dL Hct 23.2 L (39.0-53.0) % RDW 16.0 H (11.5-15.5) % Plt Count 34 L (150-450) k/uL Lymphocytes # 0.5 L (1.0-4.8) k/uL POC Glucose (mg/dL) 104 H (75-99) mg/dL Iron 59 L (65-175) ug/dL Ferritin 493.7 H (22.0-322.0) ng/mL AST (17-59) U/L Total Protein (6.3-8.2) g/dL Albumin (3.5-5.0) g/dL 09/15/19 09/15/19 Range/Units 07:18 11:39 RBC (4.30-5.90) m/uL Hgb (13.0-17.5) gm/dL Hct (39.0-53.0) % RDW (11.5-15.5) % Plt Count (150-450) k/uL Lymphocytes # (1.0-4.8) k/uL POC Glucose (mg/dL) 112 H (75-99) mg/dL Iron (65-175) ug/dL Ferritin (22.0-322.0) ng/mL AST 13 L (17-59) U/L Total Protein 5.6 L (6.3-8.2) g/dL Albumin 3.0 L (3.5-5.0) g/dL Microbiology - Last 24 Hours (Table) 09/09/19 23:00 Blood Culture - Preliminary Blood No Growth after 120 hours 09/09/19 23:14 Blood Culture - Preliminary Blood No Growth after 120 hours Assessment and Plan Assessment: Recurrent episodes of hemoptysis, secondary to squamous cell lung cancer and pancytopenia Metastatic squamous cell lung cancer Chemotherapy-induced pancytopenia, status post 3 units of red blood cells and 1 unit of platelets this admission. Chronic atrial fibrillation, rate seems to be fairly well controlled Chronic obstructive pulmonary disease, relatively stable. History of seizure disorder Chronic cardiomyopathy with LV dysfunction, impaired ejection fraction, noted to have bilateral pleural effusions today, hence the patient will be diuresed Secondary pulmonary hypertension Benign essential hypertension Type 2 diabetes Plan: The patient was seen and evaluated by Dr. Barr. He is stable from the pulmonary and critical care standpoint. The plan is to discharge home today. Follow-up with oncology. Continue his home pulmonary medications including home oxygen and nebulized treatments. I, the cosigning physician, performed a history & physical examination of the patient. Lungs sounds with few scattered rhonchi in the right lung. Maintaining good O2 saturations in the 90s on 3 L/m per nasal cannula. I discussed the assessment and plan of care with my nurse practitioner, Nancy Mathias. I attest to the above note as dictated by her.
--- NOTE | 2019-09-15 16:17 | PN ---
PROGRESS NOTE DATE OF SERVICE: 09/15/2019 REASON FOR FOLLOWUP: Pneumonia. INTERIM HISTORY: The patient is currently afebrile. The patient has been breathing more comfortably. Patient denies any chest pain. Occasional cough. Overall hemoptysis has improved. No nausea, no vomiting. No diarrhea. PHYSICAL EXAMINATION: Blood pressure 101/63 with a pulse of 78. Temperature 97.7. He is 98% on 3 L nasal cannula. General description is an elderly male up in the bed in no distress. Respiratory system: Unlabored breathing. Decreased breath sounds in the bases. No wheeze. Heart S1, S2 regular rate and rhythm. Abdomen soft, no tenderness. LABORATORY DATA: Hemoglobin 10.5, white count 4.9, BUN 19, creatinine 0.78. Blood and sputum culture has been negative. DIAGNOSTIC IMPRESSION AND PLAN: The patient admitted to the hospital with hemoptysis, underlying pneumonitis. Underlying pneumonia less likely but not entirely excluded. Patient clinically responded to to continue for three days to finish course of therapy. Continue supportive care. MMODL / IJN: [id number] /
[2019-09-15] MEDS ORDERED: DOCUSATE 100 MG CAP PO SCH (21:00)
--- NOTE | 2019-09-16 00:08 | P.DS ---
Providers Date of admission: 09/09/19 16:08 Expected date of discharge: 09/15/19 Attending physician: [facility] Consults: 09/09/19 16:09 Consult Physician Urgent Consulting Provider: Reid Lora Consult Reason/Comments: lung cancer, on chemo and radiation Do you want consulting provider notified?: Yes 09/09/19 16:10 Consult Physician Urgent Consulting Provider: Nadine Sanabria Consult Reason/Comments: acute hemoptysis, hx lung cancer Do you want consulting provider notified?: Yes 09/09/19 17:36 Consult Physician Routine Consulting Provider: Amanda Grimes Consult Reason/Comments: neutropenia pneumonia Do you want consulting provider notified?: Yes Primary care physician: [facility] Course: Presenting complaint: Hemoptysis Interval history: This is a pleasant 69-year-old patient of Dr. Genesis Morales. history of lung cancer: Chemoradiation. Presented with hemoptysis the previous night. Significant amount. On 2 L oxygen at home. Patient has been on a blood thinner for A. fib that he held with the previous morning. Does follow with Dr. Lora. Admitted with hemoptysis due to lung cancer, left lower lobe pneumonia. Treat with IV Zosyn. Eliquis held. Doppler ultrasound did confirm right subclavian vein DVT. Patient told to use the Fareed wrap. Because of low platelets eliquis cannot be given. Today-less short of breath. Cough improved. Eating better. Up to the bathroom.. Hemoptysis settled . Platelets will be repeated as an outpatient. Discussed with mtay from oncology Consultation: Dr. Barr from pulmonary Dr. Grimes from ID Dr. Lora from oncology On examination: VITAL SIGNS: 97.7, 78, 17, blood pressure 101/63, 94% on room air GENERAL APPEARANCE: Sitting up, feeling better HEENT: Normal external appearance of nose and ear. Oral cavity normal EYES: Pupils equal. Conjunctiva pale. NECK: JVD not raised. Mass not palpable. RESPIRATORY: Respiratory effort increased. Decreased breath sounds CARDIOVASCULAR: First and second sounds normal. No edema. ABDOMEN: Soft. Liver and spleen not palpable. No tenderness. No mass palpable. PSYCHIATRY: Alert and oriented x3. Mood and affect a bit tired INVESTIGATIONS, reviewed in the clinical context: White count 4.8 hemoglobin 7.7 platelets 35 potassium 4 creatinine 0.74 Previous testing White count 0.7 hemoglobin 6.4 platelets 27 potassium 5.5 creatinine 1.12 Computed tomography scan of the chest abdomen pelvis-new multifocal groundglass T the left lower lobe, right hilar spiculated obesity, multiple thoracic compression deformities-chronic Sputum culture-negative Doppler ultrasound-DVT right subclavian vein Assessment: -Hemoptysis secondary to his non-small cell lung cancer/squamous cell-much improved, POA -Left lower lobe pneumonia, suspect gram-negative organism, POA -Squamous cell lung cancer, status post radiation treatment. Has 1 more cycle of chemotherapy left. -Chronic pulmonary embolism -Persistent atrial fibrillation rate controlled anticoagulation held-otherwise chronically on eliquis -Acute on chronic congestive heart failure exacerbation with EF of 35-40% systolic POA -Moderate tricuspid regurgitation -COPD in an ex-smoker -Severe Secondary probably hypertension -Essential hypertension -Diabetes mellitus type 2 -Chronic thoracic spine compression Disposition: Home Patient Condition at Discharge: Undetermined Plan - Discharge Summary Discharge Rx Participant: Yes New Discharge Prescriptions: New Spironolactone [Aldactone] 25 mg PO DAILY #30 tab Ipratropium-Albuterol Nebulize [Duoneb 0.5 mg-3 mg/3 ml Soln] 3 ml INHALATION TID #90 ml Cefdinir [Omnicef] 300 mg PO BID #10 cap Sennosides [Senokot] 8.6 mg PO BID #60 tab Continue Montelukast [Singulair] 10 mg PO DAILY metFORMIN HCL [Glucophage] 850 mg PO BID Simvastatin [Zocor] 20 mg PO HS Isosorbide Mononitrate ER [Imdur] 30 mg PO DAILY #30 tab.er.24h Digoxin [Lanoxin] 125 mcg PO DAILY #30 tab Furosemide [Lasix] 20 mg PO DAILY levETIRAcetam [Keppra] 500 mg PO BID Docusate [Colace] 100 mg PO BID oxyCODONE HCL [Roxicodone] 10 mg PO DAILY PRN PRN Reason: Pain Changed Metoprolol Tartrate [Lopressor] 25 mg PO BID #0 No Action Apixaban [Eliquis] 5 mg PO BID #60 tab Discharge Medication List Montelukast [Singulair] 10 mg PO DAILY 04/14/19 [History] Simvastatin [Zocor] 20 mg PO HS 04/14/19 [History] metFORMIN HCL [Glucophage] 850 mg PO BID 04/14/19 [History] Apixaban [Eliquis] 5 mg PO BID #60 tab 04/25/19 [Rx] Digoxin [Lanoxin] 125 mcg PO DAILY #30 tab 04/25/19 [Rx] Isosorbide Mononitrate ER [Imdur] 30 mg PO DAILY #30 tab.er.24h 04/25/19 [Rx] Furosemide [Lasix] 20 mg PO DAILY 05/31/19 [History] levETIRAcetam [Keppra] 500 mg PO BID 05/31/19 [History] Docusate [Colace] 100 mg PO BID 06/08/19 [History] oxyCODONE HCL [Roxicodone] 10 mg PO DAILY PRN 09/09/19 [History] Cefdinir [Omnicef] 300 mg PO BID #10 cap 09/15/19 [Rx] Ipratropium-Albuterol Nebulize [Duoneb 0.5 mg-3 mg/3 ml Soln] 3 ml INHALATION TID #90 ml 09/15/19 [Rx] Metoprolol Tartrate [Lopressor] 25 mg PO BID #0 09/15/19 [Rx] Sennosides [Senokot] 8.6 mg PO BID #60 tab 09/15/19 [Rx] Spironolactone [Aldactone] 25 mg PO DAILY #30 tab 09/15/19 [Rx] Follow up Appointment(s)/Referral(s): Ashlie Barr MD [STAFF PHYSICIAN] - 10/06/19 2:45 pm (Appointment will be with Nancy.) Reid Lora MD [STAFF PHYSICIAN] - 09/18/19 11:30 am Genesis Morales DO [REFERRING] - 1-2 days (The office will call you with your appointment .) Patient Instructions/Handouts: Spironolactone (By mouth), Ipratropium/Albuterol (By breathing), Cefdinir (By mouth), Senna (By mouth), Hemoptysis (ED), Anemia (DC) Activity/Diet/Wound Care/Special Instructions: Hold eliquis until further notice-until okayed by oncology CBC-Wednesday with results to Dr. Lora Discharge Disposition: HOME SELF-CARE
== END 2019-09-15 16:04 | disposition home or self-care (01) | DRG 180 ==
LOC: EC 14:01 → 2SICU 16:08 → 5NMEDONC 09-11 16:31 → 2SICU 09-11 17:21 → 4SSUR 09-13 17:49 → 5NMEDONC 09-13 18:51
PROVIDERS: ADMIT Hospitalist; ATTEND Hospitalist
PROC: 30233N1 Transfusion of Nonautologous Red Blood Cells into Peripheral Vein, Percutaneous Approach (ICD-10-PCS; 2019-09-09)
PROC: 30233R1 Transfusion of Nonautologous Platelets into Peripheral Vein, Percutaneous Approach (ICD-10-PCS; principal; 2019-09-12)
DX: C34.01 Malignant neoplasm of right main bronchus (principal); D61.810 Antineoplastic chemotherapy induced pancytopenia; I50.23 Acute on chronic systolic (congestive) heart failure; J15.6 Pneumonia due to other Gram-negative bacteria; I82.B11 Acute embolism and thrombosis of right subclavian vein; E87.2 Acidosis; I42.8 Other cardiomyopathies; I27.82 Chronic pulmonary embolism; I31.3 Pericardial effusion (noninflammatory); C77.0 Secondary and unspecified malignant neoplasm of lymph nodes of head, face and neck; I48.19 Other persistent atrial fibrillation; D62 Acute posthemorrhagic anemia; R04.2 Hemoptysis; M48.54XA Collapsed vertebra, not elsewhere classified, thoracic region, initial encounter for fracture; I48.92 Unspecified atrial flutter; J44.0 Chronic obstructive pulmonary disease with (acute) lower respiratory infection; I27.29 Other secondary pulmonary hypertension; I11.0 Hypertensive heart disease with heart failure; G40.909 Epilepsy, unspecified, not intractable, without status epilepticus; E78.5 Hyperlipidemia, unspecified; E11.9 Type 2 diabetes mellitus without complications; K29.70 Gastritis, unspecified, without bleeding; R13.10 Dysphagia, unspecified; I07.1 Rheumatic tricuspid insufficiency; F41.9 Anxiety disorder, unspecified; T45.1X5A Adverse effect of antineoplastic and immunosuppressive drugs, initial encounter; Z71.3 Dietary counseling and surveillance; Z79.01 Long term (current) use of anticoagulants; Z79.84 Long term (current) use of oral hypoglycemic drugs; Z99.81 Dependence on supplemental oxygen; Z79.899 Other long term (current) drug therapy; Z92.3 Personal history of irradiation; Z92.21 Personal history of antineoplastic chemotherapy; Z87.891 Personal history of nicotine dependence; Z87.19 Personal history of other diseases of the digestive system; Z80.9 Family history of malignant neoplasm, unspecified
CPT/HCPCS: 36415; 36430; 71045; 71260; 74177; 80048; 80053; 82607; 82728; 82746; 83010; 83540; 83550; 83605; 83615; 83735; 84484; 85025; 85027; 85045; 85379; 85384; 85610; 85730; 86850; 86900; 86901; 86920; 87040; 87070; 87205; 93005; 94640; 99285

== ENCOUNTER 2019-10-06 08:52 | Emergency (ER) | payer MEDICARE ==
[2019-10-06 08:57] VITALS: TEMP 98.3
[2019-10-06] MEDS ORDERED: SODIUM CHLORIDE 0.9% 1,000 ML IV STA ×2 (09:07)
--- NOTE | 2019-10-06 09:11 | ED ---
Recheck HPI - General Chief Complaint: Recheck/Abnormal Lab/Rx Stated Complaint: abn labs Time Seen by Provider: 10/06/19 08:59 Source: patient, RN notes reviewed, old records reviewed Mode of arrival: ambulatory Limitations: no limitations - History of Present Illness Initial Comments: Patient is a 69-year-old male with history of lung cancer. Presents emergency department today with abnormal labs. Patient had lab drawn on the seventh which showed a high potassium and he redrew yesterday which showed potassium to be 6.5. He's had this happen before. Patient recently started new chemo infusions as of Wednesday. He states that he has been using daily oxygen but denies any worsening shortness of breath or associated chest pain or palpitations. Patient does have a history of atrial fibrillation. - Related Data Home Medications Medication Instructions Recorded Confirmed Montelukast [Singulair] 10 mg PO DAILY 04/14/19 10/06/19 Simvastatin [Zocor] 20 mg PO HS 04/14/19 10/06/19 metFORMIN HCL [Glucophage] 850 mg PO BID 04/14/19 10/06/19 Furosemide [Lasix] 20 mg PO DAILY 05/31/19 10/06/19 levETIRAcetam [Keppra] 500 mg PO BID 05/31/19 10/06/19 Docusate [Colace] 100 mg PO BID PRN 06/08/19 10/06/19 Ipratropium-Albuterol Nebulize 3 ml INHALATION RT-TID 10/06/19 10/06/19 [Duoneb 0.5 mg-3 mg/3 ml Soln] Metoprolol Tartrate [Lopressor] 50 mg PO DAILY 10/06/19 10/06/19 Sennosides [Senokot] 8.6 mg PO BID PRN 10/06/19 10/06/19 oxyCODONE HCL [oxyCODONE HCL (IR)] 10 - 20 mg PO TID PRN 10/06/19 10/06/19 Previous Rx's Medication Instructions Recorded Apixaban [Eliquis] 5 mg PO BID #60 tab 04/25/19 Digoxin [Lanoxin] 125 mcg PO DAILY #30 tab 04/25/19 Isosorbide Mononitrate ER [Imdur] 30 mg PO DAILY #30 tab.er.24h 04/25/19 Sodium Polystyrene Sulfonate 30 gm PO BID #420 gm 10/06/19 [Kayexalate] Allergies Allergy/AdvReac Type Severity Reaction Status Date / Time No Known Allergies Allergy Verified 10/06/19 10:54 Review of Systems ROS Statement: Those systems with pertinent positive or pertinent negative responses have been documented in the HPI. ROS Other: All systems not noted in ROS Statement are negative. Past Medical History Past Medical History: Atrial Fibrillation, Cancer, Diabetes Mellitus, Hyperlipidemia, Hypertension, Pulmonary Embolus (PE), Seizure Disorder Additional Past Medical History / Comment(s): pt states was told he had a seizure-unknown when. NON SMALL CELL LUNG CANCER. History of Any Multi-Drug Resistant Organisms: None Reported Additional Past Surgical History / Comment(s): COLONOSCOPY. BRONCHOSCOPY Past Anesthesia/Blood Transfusion Reactions: No Reported Reaction Past Psychological History: No Psychological Hx Reported Smoking Status: Former smoker Past Alcohol Use History: None Reported Past Drug Use History: Marijuana - Past Family History Brother(s) Family Medical History: Cancer General Exam - General Exam Comments Initial Comments: 69 year old male, no distress. Limitations: no limitations General appearance: alert, in no apparent distress Head exam: Present: atraumatic, normocephalic, normal inspection Eye exam: Present: normal appearance, PERRL, EOMI. Absent: scleral icterus, conjunctival injection, periorbital swelling ENT exam: Present: normal exam Neck exam: Present: normal inspection. Absent: tenderness, meningismus, lymphadenopathy Respiratory exam: Present: normal lung sounds bilaterally. Absent: respiratory distress, wheezes, rales, rhonchi, stridor Cardiovascular Exam: Present: regular rate, normal rhythm, normal heart sounds. Absent: systolic murmur, diastolic murmur, rubs, gallop, clicks GI/Abdominal exam: Present: soft, normal bowel sounds. Absent: distended, tenderness, guarding, rebound, rigid Extremities exam: Present: normal inspection, full ROM, normal capillary refill. Absent: tenderness, pedal edema, joint swelling, calf tenderness Back exam: Present: normal inspection Neurological exam: Present: alert, oriented X3, CN II-XII intact Psychiatric exam: Present: normal affect, normal mood Skin exam: Present: warm, dry, intact, normal color. Absent: rash Course Vital Signs 10/06/19 10/06/19 10/06/19 08:52 09:27 09:30 Temperature 98.3 F Pulse Rate 103 H 105 H 120 H Respiratory 18 16 20 Rate Blood Pressure 137/64 126/96 O2 Sat by Pulse 100 100 100 Oximetry 10/06/19 10/06/19 10/06/19 10:00 10:30 11:02 Temperature Pulse Rate 107 H 133 H 96 Respiratory 20 19 Rate Blood Pressure 109/67 124/95 O2 Sat by Pulse 100 Oximetry 10/06/19 11:16 Temperature Pulse Rate 110 H Respiratory Rate Blood Pressure O2 Sat by Pulse Oximetry - Reevaluation(s) Reevaluation #1: 10/06/19 10:30 Delay in patient's care because labs are not process and unable to be found. Medical Decision Making - Medical Decision Making 69-year-old male presents today for enough for concern for abnormal lab levels. He had an elevated potassium of 6.5. He sees Dr. Sarmiento is a commercial fisher and Dr. Lora this patient's oncologist. Patient reports no symptoms associated with hyperkalemia and clean palpitations. Patient EKG was performed and shows atrial fibrillation. He has no history of A. fib. Heart rate fluctuates between 120 bpm and 100 bpm. Patient states potassium level was found be 6.1. Patient was given oral Kayexalate and albuterol treatment. The case with Dr. Livingston who discussed the case with Dr. Lora. Recommends discharging the Patient on course of Kayexalate orally and Patient can follow-up out patiently does not need to be admitted. Family is informed of this and happy with plan. - Lab Data Result diagrams: 10/06/19 09:20 10/06/19 09:20 Lab Results 10/06/19 10/06/19 10/06/19 Range/Units 09:20 09:20 09:20 WBC 3.2 L (3.8-10.6) k/uL RBC 2.43 L (4.30-5.90) m/uL Hgb 7.5 L (13.0-17.5) gm/dL Hct 24.0 L (39.0-53.0) % MCV 98.8 D (80.0-100.0) fL MCH 30.8 (25.0-35.0) pg MCHC 31.2 (31.0-37.0) g/dL RDW 18.4 H (11.5-15.5) % Plt Count 212 D (150-450) k/uL Neutrophils % 67 % Lymphocytes % 17 % Monocytes % 11 % Eosinophils % 1 % Basophils % 1 % Neutrophils # 2.1 (1.3-7.7) k/uL Lymphocytes # 0.5 L (1.0-4.8) k/uL Monocytes # 0.4 (0-1.0) k/uL Eosinophils # 0.1 (0-0.7) k/uL Basophils # 0.0 (0-0.2) k/uL Hypochromasia Moderate Anisocytosis Slight Macrocytosis Slight PT 9.5 (9.0-12.0) sec INR 0.9 (<1.2) APTT 23.1 (22.0-30.0) sec Sodium 138 (137-145) mmol/L Potassium 6.1 H* (3.5-5.1) mmol/L Chloride 109 H (98-107) mmol/L Carbon Dioxide 22 (22-30) mmol/L Anion Gap 7 mmol/L BUN 25 H (9-20) mg/dL Creatinine 1.05 (0.66-1.25) mg/dL Est GFR (CKD-EPI)AfAm 85 (>60 ml/min/1.73 sqM) Est GFR (CKD-EPI)NonAf 74 (>60 ml/min/1.73 sqM) Glucose 89 (74-99) mg/dL Calcium 8.7 (8.4-10.2) mg/dL Total Bilirubin 0.2 (0.2-1.3) mg/dL AST 22 (17-59) U/L ALT 9 (4-49) U/L Alkaline Phosphatase 43 (38-126) U/L Total Protein 6.4 (6.3-8.2) g/dL Albumin 3.7 (3.5-5.0) g/dL 10/06/19 09:29 EKG performed at 1923 shows atrial fibrillation with RVR. Nonspecific ST and normal. Ventricular rate of 117 bpm. Normal intervals not detect. QRS duration is 86 ms. QTC 322/444 ms Disposition Clinical Impression: Hyperkalemia Disposition: HOME SELF-CARE Condition: Good Instructions (If sedation given, give patient instructions): Hyperkalemia (ED) Additional Instructions: Patient should rest, increase her fluid intake while taking the Kayexalate. Follow-up with your primary care doctor and oncologist. Return to the ED if any alarming signs or symptoms occur. Prescriptions: Sodium Polystyrene Sulfonate [Kayexalate] 30 gm PO BID #420 gm Is patient prescribed a controlled substance at d/c from ED?: No Referrals: Genesis Morales DO [Primary Care Provider] - 1-2 days Time of Disposition: 11:28
[2019-10-06] MEDS ORDERED: SODIUM POLYSTYRENE SULFONATE 15 GM/60 ML BOTTLE PO ONE (10:35)
[2019-10-06 10:48] LABS: Albumin 3.7 g/dL (3.5-5.0); Calcium 8.7 mg/dL (8.4-10.2); Total Bilirubin 0.2 mg/dL (0.2-1.3); Total Protein 6.4 g/dL (6.3-8.2)
[2019-10-06 10:49] LABS: INR 0.9 (<1.2); Partial Thromboplastin Time 23.1 sec (22.0-30.0); Prothrombin Time 9.5 sec (9.0-12.0)
[2019-10-06 10:50] LABS: Potassium 6.1 mmol/L (3.5-5.1)
[2019-10-06] MEDS ORDERED: ALBUTEROL NEB (CONC) 2.5 MG/0.5 ML INHALATION ONE (10:51)
[2019-10-06 11:14] LABS: Anisocytosis Slight; Basophils % (A) 1 %; Eosinophils # (A) 0.1 k/uL (0-0.7); Eosinophils % (A) 1 %; HGB 7.5 gm/dL (13.0-17.5); Hypochromasia Moderate; Lymphocytes # (A) 0.5 k/uL (1.0-4.8); Lymphocytes % (A) 17 %; MCH 30.8 pg (25.0-35.0); MCHC 31.2 g/dL (31.0-37.0); Macrocytosis Slight; Mean Platelet Volume 8.5; Monocytes # (A) 0.4 k/uL (0-1.0); Monocytes % (A) 11 %; Neutrophils # (A) 2.1 k/uL (1.3-7.7); Neutrophils % (A) 67 %; RBC 2.43 m/uL (4.30-5.90); RDW 18.4 % (11.5-15.5); WBC 3.2 k/uL (3.8-10.6)
[2019-10-06 11:16] LABS: MCV 98.8 fL (80.0-100.0); Platelet Count 212 k/uL (150-450)
[2019-10-06 12:02] VITALS: BP 149/79; PULSE 111; RESP 18
== END 2019-10-06 12:00 | disposition home or self-care (01) ==
LOC: EC 08:52
DX: E87.5 Hyperkalemia (principal); I48.91 Unspecified atrial fibrillation; E11.9 Type 2 diabetes mellitus without complications; E78.5 Hyperlipidemia, unspecified; I10 Essential (primary) hypertension; G40.909 Epilepsy, unspecified, not intractable, without status epilepticus; Z87.891 Personal history of nicotine dependence; Z85.118 Personal history of other malignant neoplasm of bronchus and lung; Z79.84 Long term (current) use of oral hypoglycemic drugs; Z79.899 Other long term (current) drug therapy
CPT/HCPCS: 36415; 80053; 85025; 85610; 85730; 93005; 94640; 96360; 96361; 99285

== ENCOUNTER → 2019-12-01 | Outpatient (CLI) | payer MEDICARE ==
--- NOTE | 2019-12-01 12:42 | CT ---
EXAMINATION TYPE: CT ChestAbdPelvis w con DATE OF EXAM: 12/01/2019 COMPARISON: 09/09/2019 HISTORY: lung cancer CT DLP: 1168.2 mGycm. Automated Exposure Control for Dose Reduction was Utilized. CONTRAST: CT scan of the thorax, abdomen and pelvis is performed with IV Contrast, patient injected with 100 mL of Isovue 300. FINDINGS: LUNGS: There is marked worsening of the intralobular septal thickening, pleural thickening, and conso lidation emanating from the right hilum involving the right upper lobe, right lower lobe and right mi ddle lobe in comparison to the prior. New trace right pleural effusion with loculated component is se en. Right basilar and right middle lobe pleural parenchymal scarring is again noted. Right hemithorax volume loss and postsurgical change of the right hilum are redemonstrated. Minimal lingular atelecta sis and left basilar pleural-parenchymal scarring. Supraclavicular soft tissue fullness on the right is also seen surrounding the right subclavian artery. This is redemonstrated and overall unchanged. MEDIASTINUM: Previously seen abnormal right paratracheal adenopathy measuring 1.4 cm in short axis on the prior of 09/09/2019 now measures 1.7 cm in short axis. Right hilar abnormal soft tissue appears o verall similar on image 22 measuring 1.6 cm in short axis. Around the right hilum abnormal soft tissu e thickening has increased however with a consolidative process on image 25 measuring proximally 5.4 x 3.1 cm. Heart is again enlarged with trace pericardial effusion. Moderate coronary artery calcifica tions again seen. Moderate to severe atheromatous changes of the thoracic aorta. OTHER: Severe bilateral probable gynecomastia. LIVER/GB: Hepatic parenchyma is diffusely hypoattenuated in comparison to that of the spleen, most co mmonly seen in hepatic steatosis. This finding limits evaluation for hepatic masses. No gross evidenc e of hepatic mass is seen. No intrahepatic biliary ductal dilatation. No cholelithiasis. PANCREAS: Again there is pancreatic parenchymal atrophy. SPLEEN: No significant abnormality is seen. No splenomegaly. ADRENALS: No new nodule. KIDNEYS: 2.3 cm right exophytic cyst is appreciated as well as additional subcentimeter bilateral num erous too small to accurately characterize hypoattenuated renal lesions. No hydronephrosis of the kid neys. BOWEL: No dilated large or small bowel. Few scattered colonic diverticula are redemonstrated without pericolonic fat stranding. LYMPH NODES: No greater than 1cm abdominal or pelvic lymph nodes are appreciated. Calcified structure in the right lower quadrant may represent a calcified lymph node. OSSEOUS STRUCTURES: Multiple thoracic compression deformity is redemonstrated with diffuse osseous de mineralization and mild degenerative change of the spine OTHER: Advanced atheromatous change of the abdominal aorta and its branches. IMPRESSION: There is concern for progression of disease versus acute infectious process and post radiation change . PET/CT and clinical correlation recommended. Right paratracheal adenopathy has increased in size in the interim. Abnormal soft tissue density surrounding the right subclavian artery calcifications as on PET/CT.
== END | disposition home or self-care (01) ==
LOC: RADCTMAIN 09:24
PROVIDERS: ATTEND Internal Medicine Hematology & Oncology
DX: C34.31 Malignant neoplasm of lower lobe, right bronchus or lung (principal)
CPT/HCPCS: 82565; 84520; 71260; 74177; 36415; Q9967

== ENCOUNTER → 2020-02-05 | Outpatient (CLI) | payer MEDICARE ==
[2020-02-05 14:56] LABS: African American GFR (CKD) >90 (>60 ml/min/1.73 sqM); Blood Urea Nitrogen 28 mg/dL (9-20); Non-African American GFR(CKD) 89 (>60 ml/min/1.73 sqM)
--- NOTE | 2020-02-05 18:21 | CT ---
EXAMINATION TYPE: CT ChestAbdPelvis w con DATE OF EXAM: 02/05/2020 COMPARISON: CT chest abdomen pelvis 12/01/2019 HISTORY: Lung cancer CT DLP: 1182.7 mGycm Automated exposure control for dose reduction was used. CONTRAST: CT scan of the chest, abdomen and pelvis is performed with Oral Contrast and with IV Contrast, patien t injected with 100 mL of Isovue 300. FINDINGS: LUNGS: Right hemithorax volume loss and postsurgical change redemonstrated. There is redemonstrated i nterstitial coarsening with interlobular septal thickening and pleural thickening of the right hemith orax. There is increased pleural thickening of the upper anterior right hemithorax versus 12/01/2019 co mparison No evidence of pneumothorax. MEDIASTINUM: Similar soft tissue thickening of the right supraclavicular region associated with the r ight subclavian artery, not significantly changed versus 12/01/2019. There appear to be several right s upraclavicular and right chest collateral vessels. There is cardiomegaly. No significant pericardial effusion. Calcified coronary artery disease. There is redemonstrated right paratracheal lymphadenopat hy measuring up to 1.7 cm and right hilar soft tissue fullness, not significantly changed. No thoraci c aortic aneurysm. Calcified atherosclerotic disease of the thoracic aorta. OTHER: No axillary lymphadenopathy. Bilateral gynecomastia. LIVER/GB: No focal liver abnormality. Gallbladder and intrahepatic and extra hepatic biliary ducts no rmal. PANCREAS: Normal. SPLEEN: Normal. ADRENALS: Normal. KIDNEYS: Bilateral renal cysts and too small to characterize hypodense lesions. No hydronephrosis. BOWEL: No evidence of bowel obstruction or thickening. Few colonic diverticula. No acute diverticuli tis. Normal appendix. PERITONEUM: No pneumoperitoneum or free fluid. PELVIS: Normal. LYMPH NODES: No lymphadenopathy. VASCULATURE: No abdominal aortic aneurysm. Infrarenal abdominal aortic ectasia measures up to 2.2 cm. Marked atherosclerotic disease. OSSEOUS STRUCTURES: No aggressive osseous destructive lesions. Redemonstrated multilevel compression deformities of the thoracic spine, unchanged from 12/01/2019. IMPRESSION: 1. Overall similar appearance of right lung opacities and pleural thickening versus 12/01/2019. Mildly increased pleural thickening of the anterior upper right hemithorax is seen, however may be related t o treatment change versus neoplastic etiology. 2. Unchanged mediastinal lymphadenopathy versus 12/01/2019. 3. No evidence of metastatic disease of the abdomen or pelvis. 4. Additional chronic findings as above.
== END | disposition home or self-care (01) ==
LOC: RADCTMAIN 13:14
PROVIDERS: ATTEND Internal Medicine Hematology & Oncology
DX: J92.9 Pleural plaque without asbestos (principal); R59.0 Localized enlarged lymph nodes; I51.7 Cardiomegaly; I25.10 Atherosclerotic heart disease of native coronary artery without angina pectoris; I70.0 Atherosclerosis of aorta; K57.30 Diverticulosis of large intestine without perforation or abscess without bleeding; N28.1 Cyst of kidney, acquired; I77.811 Abdominal aortic ectasia; C34.31 Malignant neoplasm of lower lobe, right bronchus or lung
CPT/HCPCS: 82565; 84520; 71260; 74177; 36415; Q9967

== ENCOUNTER → 2020-04-29 | Outpatient (CLI) | payer MEDICARE ==
--- NOTE | 2020-04-29 16:09 | CT ---
EXAMINATION TYPE: CT ChestAbdPelvis w con DATE OF EXAM: 04/29/2020 COMPARISON: CT chest abdomen pelvis 02/05/2020 HISTORY: Lung CA CT DLP: 1870.2 mGycm Automated exposure control for dose reduction was used. CONTRAST: CT scan of the chest, abdomen and pelvis is performed with Oral Contrast and with IV Contrast, patien t injected with 100 mL of Isovue 300. FINDINGS: LUNGS: There is increased atelectasis of the right upper lobe, now with complete lobar collapse versu s 02/05/2020 comparison. There is also right apical pleural thickening which is also increased versus comparison. There is narrowing and attenuation of the right upper lobe mainstem bronchus near its origin (7:55-53). Redemonstrated right basilar scarring. MEDIASTINUM/SOFT TISSUES: There is redemonstrated soft tissue thickening of the superior mediastinum which is pretracheal in the right (3:22) which is minimally increased measuring up to 18 mm, previous ly 16 mm on 02/05/2020 comparison. Cardiac size is normal. Calcified coronary artery disease. New smal l to moderate pericardial effusion. No thoracic aortic aneurysm. LIVER: Normal. BILIARY SYSTEM: Normal. PANCREAS: Normal. SPLEEN: Normal. ADRENALS: Normal. KIDNEYS: Bilateral renal cysts and too small to characterize hypodense lesions. No hydronephrosis. BOWEL: No obstruction or thickening. Normal appendix. Minimal colonic diverticulosis. No acute diver ticulitis. PERITONEUM: No pneumoperitoneum. No free fluid. LYMPH NODES: No lymphadenopathy. PELVIS: Normal. VASCULATURE: No abdominal aortic aneurysm. Infrarenal abdominal aortic ectasia measures up to 2.3 cm . Marked atherosclerotic disease. MUSCULOSKELETAL: Degenerative changes of the spine. No aggressive osseous destructive lesions. Decre ased osseous mineralization. IMPRESSION: 1. Newly demonstrated complete collapse of the right upper lobe, and increased right apical pleural thickening versus 02/05/2020. Findings may be related to obstructive process due to neoplastic etiolog y or posttreatment stricturing of the right upper lobe bronchus. 2. Mediastinal soft tissue thickening is minimally increased versus 02/05/2020. 3. New [id number] pericardial effusion. 4. No metastatic disease of the abdomen or pelvis.
== END | disposition home or self-care (01) ==
LOC: RADCTMAIN 09:24
PROVIDERS: ATTEND Internal Medicine Hematology & Oncology
DX: C34.31 Malignant neoplasm of lower lobe, right bronchus or lung (principal); J98.19 Other pulmonary collapse; J92.9 Pleural plaque without asbestos; M79.89 Other specified soft tissue disorders; I31.3 Pericardial effusion (noninflammatory); E11.9 Type 2 diabetes mellitus without complications; Z79.84 Long term (current) use of oral hypoglycemic drugs
CPT/HCPCS: 82565; 84520; 71260; 74177; 36415; Q9967

== ENCOUNTER → 2020-06-14 | Day surgery (SDC) | payer MEDICARE ==
[2020-06-12 13:16] VITALS: BMI 26.0
[~2020-06-14] MED LIST changes: +ALBUTEROL NEB (CONC) 2.5 MG/0.5 ML INHALATION ONE; +ATROPINE SULFATE 0.4 MG/ML 1 ML VIAL IM ONE; -HUMAN PROTHROMBIN COMPLX 500 UNIT/16 ML VIAL IV ONE; +LIDOCAINE 1% (10MG/ML) FOR IV START INTRADERMA ONE; +LIDOCAINE 1% INJ 10MG/ML (20 ML MDV) ONE; +LIDOCAINE 2% (PF) 20 MG/ML 5 ML VIAL INHALATION ONE; +LIDOCAINE VISCOUS 300 MG/15 ML CUP MUCOUS MEM ONE; +PROPOFOL 10 MG/ML 20 ML VIAL IV ONE; +SODIUM CHLORIDE 0.9% 1,000 ML IV SCH; +SUCCINYLCHOLINE CHLORIDE 100 MG/5 ML SYR IV ONE
[2020-06-14] MEDS: LACTATED RINGERS 1,000 ML IV SCH ×2 (11:20→12:05)
[2020-06-14 11:21] LABS: Glucose,Whole Blood 111 mg/dL (75-99)
--- NOTE | 2020-06-14 12:53 | PCN ---
PROCEDURE NOTE PROCEDURES: Bronchoscopy, airway examination, therapeutic lavage, BAL right lung, brushes right upper lobe and right lower lobe and endobronchial and transbronchial biopsies right upper lobe. PREOPERATIVE DIAGNOSIS: Lung cancer. POSTOPERATIVE DIAGNOSIS: Lung cancer. SHIFT MANAGER: Dr. Chino Mcnair CRNA provided general anesthesia. The patient's procedure was done in room #1. There was informed consent and universal timeout. After the patient was adequately sedated and anesthetized, the bronchoscope was inserted through the bronchoscope adapter connected to the endotracheal tube. The left lung was initially evaluated. The left upper lobe and its two segments, the lingula and its two segments and left lower lobe and its four segments were all normal. On the right side, it was clear to me that the right upper lobe looked like it was obstructed with recurrent tumor. It could be scar, but it looked like tumor to me. In addition, there was some additional abnormalities noted in the bronchus intermedius heading down into the right lower lobe and right middle lobe. Therefore, we did sample the right upper lobe and right lower lobe by brushing those areas. We did endobronchial and transbronchial biopsies to the right upper lobe and we did pull cytology throughout the entire right lung. Samples will be sent for analysis. There was minimal bleeding. The patient tolerated the procedure well. He is stable throughout the procedure. The bronchoscope was withdrawn and the patient will be recovered. MMODL / IJN: [id number] /
[2020-06-14 12:57] VITALS: TEMP 97.3
[2020-06-14 13:42] VITALS: RESP 20
--- NOTE | 2020-06-14 13:59 | XR ---
EXAMINATION TYPE: XR chest 1V portable DATE OF EXAM: 06/14/2020 COMPARISON: 09/14/2019 INDICATION: Status post right upper lobe TECHNIQUE: Single frontal view of the chest is obtained. FINDINGS: The heart size is normal. The pulmonary vasculature is normal. Right suprahilar mass is evident. No pneumothorax is evident. Mainly the right apex and right lateral chest. IMPRESSION: 1. No pneumothorax post biopsy. 2. Right suprahilar mass 3. Some likely fluid may be within the right upper lung field superiorly and laterally.
[2020-06-14 14:44] VITALS: BP 122/69; PULSE 79
[2020-06-14 15:37] LABS: Appearance,BF Bloody
[2020-06-14 15:38] LABS: Nucleated Cells, Body Fluid 160 /uL; RBC, Body Fluid 23600 /uL
[2020-06-14 15:52] LABS: Mononuclear WBC,Body Fluid 14 %; Polynuclear WBC,Body Fluid 86 %; Total Cells Counted,Body Fluid 100
== END | disposition home or self-care (01) ==
LOC: ORWHC2ENDO 10:41
PROVIDERS: ATTEND Internal Medicine Critical Care Medicine
DX: J84.10 Pulmonary fibrosis, unspecified (principal); J98.4 Other disorders of lung; J18.9 Pneumonia, unspecified organism; Z85.118 Personal history of other malignant neoplasm of bronchus and lung; I48.92 Unspecified atrial flutter; D64.9 Anemia, unspecified; E78.5 Hyperlipidemia, unspecified; G40.909 Epilepsy, unspecified, not intractable, without status epilepticus; E11.9 Type 2 diabetes mellitus without complications; J44.1 Chronic obstructive pulmonary disease with (acute) exacerbation; K08.409 Partial loss of teeth, unspecified cause, unspecified class; I10 Essential (primary) hypertension; I48.91 Unspecified atrial fibrillation; K21.9 Gastro-esophageal reflux disease without esophagitis; Z92.3 Personal history of irradiation; Z92.21 Personal history of antineoplastic chemotherapy; Z79.899 Other long term (current) drug therapy; Z79.01 Long term (current) use of anticoagulants; Z79.84 Long term (current) use of oral hypoglycemic drugs; Z86.711 Personal history of pulmonary embolism; Z87.891 Personal history of nicotine dependence; Z98.890 Other specified postprocedural states; Z79.890 Hormone replacement therapy; Z80.9 Family history of malignant neoplasm, unspecified
CPT/HCPCS: 31628; 88108; 88104; 31623; 31624; 88305; 89050; 71045; J0461; J2001; J0330; J2704; 31625

== ENCOUNTER → 2020-07-29 | Outpatient (CLI) | payer MEDICARE ==
--- NOTE | 2020-07-29 15:00 | CT ---
EXAMINATION TYPE: CT ChestAbdPelvis w con DATE OF EXAM: 07/29/2020 COMPARISON: CT head April 29, 2020 and older CTs. PET/CT May 13, 2019. HISTORY: Follow up lung cancer. CT DLP: 1489.6 mGycm. Automated Exposure Control for Dose Reduction was Utilized. CONTRAST: CT scan of the thorax, abdomen and pelvis is performed with oral and with IV Contrast, patient inject ed with 100 mL of Isovue 300. FINDINGS: LUNGS: Persistent right-sided volume loss. Persistent small right pleural fluid collection. Persisten t right upper lung atelectasis and/or consolidation is improved from most recent CT. New focal consol idation or atelectasis right middle lobe along the fissure axial image 36. Persistent mild to moderat e right basilar linear scarring and atelectasis more prominent from prior. Left lung remains clear. M ild central left basilar linear scarring. Persistent narrowing right hilar bronchi. Most prominent na rrowing right middle lobe bronchus. MEDIASTINUM: There is persistent abnormal right peritracheal heterogeneous lymph node axial advanced quality engineer 17 with surrounding fluid difficult to accurately measure. Stable small to tiny pericardial effusion. Persistent cardiomegaly. Persistent coronary artery calcification. OTHER: More suspicious hyperdense tissue right supraclavicular region measuring 2.8 x 2.6 cm axial im age 43 remains present. LIVER/GB: No significant abnormality is appreciated. PANCREAS: No significant abnormality is seen. SPLEEN: No significant abnormality is seen. ADRENALS: No significant abnormality is seen. KIDNEYS: Symmetric corticomedullary uptake and excretion without hydronephrosis seen bilaterally. Sca ttered simple-appearing thin-walled cysts bilaterally BOWEL: Oral contrast does not reach level terminal ileum making evaluation distal wall suboptimal. So me scattered diverticula in the colon. No CT evidence for acute diverticulitis. No suspicious small o r large bowel dilatation. GENITAL ORGANS: No gross abnormality seen. LYMPH NODES: No greater than 1cm abdominal or pelvic lymph nodes are appreciated. OSSEOUS STRUCTURES: Osseous structures are demineralized. Some mild multilevel height loss in the mid to lower thoracic spine redemonstrated. OTHER: Moderate to severe mixed plaque of the aorta extends into branch vessels. Some ectasia. No gre ater than 3.0 cm aneurysm. IMPRESSION: Improved aeration right upper lobe since most recent prior CT. Extensive posttreatment c hanges right lung redemonstrated. Possible right peritracheal adenopathy or active neoplasm unchanged from most recent CT. Possible right supraclavicular active neoplasm unchanged from most recent CT. S table small right pleural fluid collection. No new suspicious mass or adenopathy to suggest neoplasti c progression.
== END | disposition home or self-care (01) ==
LOC: RADCTMAIN 12:35
PROVIDERS: ATTEND Internal Medicine Hematology & Oncology
DX: Z03.89 Encounter for observation for other suspected diseases and conditions ruled out (principal); C34.31 Malignant neoplasm of lower lobe, right bronchus or lung; J90 Pleural effusion, not elsewhere classified; E11.9 Type 2 diabetes mellitus without complications; Z79.84 Long term (current) use of oral hypoglycemic drugs
CPT/HCPCS: 82565; 84520; 71260; 74177; 36415; Q9967

== ENCOUNTER 2020-10-01 13:13 | Inpatient (IN) | payer MEDICARE ==
[2020-10-01] MEDS ORDERED: SODIUM CHLORIDE 0.9% 1,000 ML IV STA ×3 (13:48→20:03)
[2020-10-01 14:14] LABS: Basophils % (A) 0 %; Eosinophils % (A) 0 %; HCT 29.7 % (39.0-53.0); HGB 9.3 gm/dL (13.0-17.5); Hypochromasia Marked; Lymphocytes # (A) 0.5 k/uL (1.0-4.8); Lymphocytes % (A) 8 %; MCH 31.3 pg (25.0-35.0); MCHC 31.4 g/dL (31.0-37.0); MCV 99.5 fL (80.0-100.0); Macrocytosis Slight; Mean Platelet Volume 10.1; Monocytes # (A) 0.3 k/uL (0-1.0); Monocytes % (A) 5 %; Neutrophils % (A) 85 %; Platelet Count 105 k/uL (150-450); RBC 2.99 m/uL (4.30-5.90); RDW 15.7 % (11.5-15.5)
--- NOTE | 2020-10-01 14:18 | XR ---
EXAMINATION TYPE: XR chest 2V DATE OF EXAM: 10/01/2020 COMPARISON: 06/14/2020, 07/29/2020 CT INDICATION: Weakness TECHNIQUE: Frontal and lateral views of the chest are obtained. FINDINGS: The heart size is enlarged. The pulmonary vasculature is normal. There is a patchy infiltrate to the right suprahilar region extending towards the peripheral right tobi ng margin. Findings are worsening over the interval. Underlying mass should be considered. IMPRESSION: 1. Worsening opacity through the suprahilar extending towards the peripheral right lung margin 2. Cardiomegaly
[2020-10-01 14:28] LABS: INR 1.1 (<1.2); Partial Thromboplastin Time 22.4 sec (22.0-30.0); Prothrombin Time 11.3 sec (9.0-12.0)
--- NOTE | 2020-10-01 14:32 | ED ---
Weakness HPI - General Chief complaint: Weakness Stated complaint: Weakness Time Seen by Provider: 10/01/20 13:31 Source: patient, EMS, RN notes reviewed Mode of arrival: EMS Limitations: no limitations - History of Present Illness Initial comments: Patient is a 70-year-old male that presents to emergency department after stating that he went "limp" and fell down last night. He was found by family this morning who then called 911 to bring the emergency room to get evaluated. He was sitting up in bed in no apparent distress or pain. He denied any issues or complaints. He did state that he can move all extremities with most all of his fingers with his legs off the bed. He denied any chest pain shortness breath headache nausea vomiting diarrhea constipation fever fatigue chills. - Related Data Home Medications Medication Instructions Recorded Confirmed Montelukast [Singulair] 10 mg PO DAILY 04/14/19 10/01/20 Simvastatin [Zocor] 20 mg PO HS 04/14/19 10/01/20 metFORMIN HCL [Glucophage] 850 mg PO BID 04/14/19 10/01/20 Furosemide [Lasix] 20 mg PO DAILY 05/31/19 10/01/20 levETIRAcetam [Keppra] 500 mg PO BID 05/31/19 10/01/20 Ipratropium-Albuterol Nebulize 3 ml INHALATION RT-TID PRN 10/06/19 10/01/20 [Duoneb 0.5 mg-3 mg/3 ml Soln] Metoprolol Tartrate [Lopressor] 50 mg PO DAILY 10/06/19 10/01/20 Levothyroxine Sodium [Synthroid] 50 mcg PO DAILY 06/12/20 10/01/20 Magnesium Oxide [Mag-Ox] 400 mg PO DAILY 06/12/20 10/01/20 Sodium Polystyrene Sulfonate 7.5 gm PO Q48H 10/01/20 10/01/20 [Kayexalate] Previous Rx's Medication Instructions Recorded Apixaban [Eliquis] 5 mg PO BID #60 tab 04/25/19 Digoxin [Lanoxin] 125 mcg PO DAILY #30 tab 04/25/19 Isosorbide Mononitrate ER [Imdur] 30 mg PO DAILY #30 tab.er.24h 04/25/19 Allergies Allergy/AdvReac Type Severity Reaction Status Date / Time No Known Allergies Allergy Verified 10/01/20 16:59 Review of Systems ROS Statement: Those systems with pertinent positive or pertinent negative responses have been documented in the HPI. ROS Other: All systems not noted in ROS Statement are negative. Past Medical History Past Medical History: Atrial Fibrillation, Cancer, Diabetes Mellitus, Hyperlipidemia, Hypertension, Pulmonary Embolus (PE), Seizure Disorder Additional Past Medical History / Comment(s): pt states was told he had a seizure-unknown when. NON SMALL CELL LUNG CANCER. History of Any Multi-Drug Resistant Organisms: None Reported Additional Past Surgical History / Comment(s): COLONOSCOPY. BRONCHOSCOPY Past Anesthesia/Blood Transfusion Reactions: No Reported Reaction Past Psychological History: No Psychological Hx Reported Smoking Status: Former smoker Past Alcohol Use History: None Reported Past Drug Use History: Marijuana - Past Family History Brother(s) Family Medical History: Cancer General Exam Limitations: no limitations General appearance: alert, in no apparent distress Head exam: Present: atraumatic, normocephalic, normal inspection Eye exam: Present: normal appearance, PERRL, EOMI. Absent: scleral icterus, conjunctival injection, periorbital swelling Neck exam: Present: normal inspection. Absent: tenderness, meningismus, lymphadenopathy Respiratory exam: Present: normal lung sounds bilaterally. Absent: respiratory distress, wheezes, rales, rhonchi, stridor Cardiovascular Exam: Present: regular rate, normal rhythm, normal heart sounds. Absent: systolic murmur, diastolic murmur, rubs, gallop, clicks GI/Abdominal exam: Present: soft, normal bowel sounds. Absent: distended, tenderness, guarding, rebound, rigid Extremities exam: Present: normal inspection, full ROM, normal capillary refill. Absent: tenderness, pedal edema, joint swelling, calf tenderness Neurological exam: Present: alert, oriented X3, CN II-XII intact Psychiatric exam: Present: normal affect, normal mood Skin exam: Present: warm, dry, intact, normal color. Absent: rash Course Vital Signs 10/01/20 10/01/20 13:19 16:00 Temperature 99.0 F Pulse Rate 131 H 125 H Respiratory 20 22 Rate Blood Pressure 164/85 105/63 O2 Sat by Pulse 100 97 Oximetry Medical Decision Making - Medical Decision Making 70-year-old male who was found by family on the ground after feeling like he was going "limp". Labs, EKG, chest x-ray, 1 L normal saline ordered. Oxygen 4 L/m per nasal cannula Labs: Potassium 6.1, creatinine 1.3. Rest unremarkable. Chest x-ray: Worsening opacity to the suprahilar extending towards the perihilar right lung margin. Cardiomegaly 1 g of calcium gluconate, 10 units insulin, 50 mL of D50 ordered for potassium of 6.1. Case discussed with Dr. Patton, patient will be admitted, wants 10 mg of Cardizem bolus pushed and then a Cardizem drip. Dr. Flores works at the admit. - Lab Data Result diagrams: 10/01/20 13:54 10/01/20 13:54 Lab Results 10/01/20 10/01/20 10/01/20 Range/Units 13:54 13:54 13:54 WBC 6.0 (3.8-10.6) k/uL RBC 2.99 L (4.30-5.90) m/uL Hgb 9.3 L (13.0-17.5) gm/dL Hct 29.7 L (39.0-53.0) % MCV 99.5 (80.0-100.0) fL MCH 31.3 (25.0-35.0) pg MCHC 31.4 (31.0-37.0) g/dL RDW 15.7 H (11.5-15.5) % Plt Count 105 L (150-450) k/uL MPV 10.1 Neutrophils % 85 % Lymphocytes % 8 % Monocytes % 5 % Eosinophils % 0 % Basophils % 0 % Neutrophils # 5.0 (1.3-7.7) k/uL Lymphocytes # 0.5 L (1.0-4.8) k/uL Monocytes # 0.3 (0-1.0) k/uL Eosinophils # 0.0 (0-0.7) k/uL Basophils # 0.0 (0-0.2) k/uL Hypochromasia Marked Macrocytosis Slight PT 11.3 (9.0-12.0) sec INR 1.1 (<1.2) APTT 22.4 (22.0-30.0) sec Sodium 143 (137-145) mmol/L Potassium 6.1 H* (3.5-5.1) mmol/L Chloride 95 L (98-107) mmol/L Carbon Dioxide 39 H (22-30) mmol/L Anion Gap 9 mmol/L BUN 65 H (9-20) mg/dL Creatinine 1.30 H (0.66-1.25) mg/dL Est GFR (CKD-EPI)AfAm 65 (>60 ml/min/1.73 sqM) Est GFR (CKD-EPI)NonAf 56 (>60 ml/min/1.73 sqM) Glucose 149 H (74-99) mg/dL Plasma Lactic Acid Serjio (0.7-2.0) mmol/L Calcium 9.0 (8.4-10.2) mg/dL Magnesium 2.2 (1.6-2.3) mg/dL Total Bilirubin 0.7 (0.2-1.3) mg/dL AST 214 H (17-59) U/L ALT 147 H (4-49) U/L Alkaline Phosphatase 66 (38-126) U/L Troponin I (0.000-0.034) ng/mL Total Protein 7.1 (6.3-8.2) g/dL Albumin 4.1 (3.5-5.0) g/dL Digoxin ng/mL 10/01/20 10/01/20 10/01/20 Range/Units 13:54 13:54 13:54 WBC (3.8-10.6) k/uL RBC (4.30-5.90) m/uL Hgb (13.0-17.5) gm/dL Hct (39.0-53.0) % MCV (80.0-100.0) fL MCH (25.0-35.0) pg MCHC (31.0-37.0) g/dL RDW (11.5-15.5) % Plt Count (150-450) k/uL MPV Neutrophils % % Lymphocytes % % Monocytes % % Eosinophils % % Basophils % % Neutrophils # (1.3-7.7) k/uL Lymphocytes # (1.0-4.8) k/uL Monocytes # (0-1.0) k/uL Eosinophils # (0-0.7) k/uL Basophils # (0-0.2) k/uL Hypochromasia Macrocytosis PT (9.0-12.0) sec INR (<1.2) APTT (22.0-30.0) sec Sodium (137-145) mmol/L Potassium (3.5-5.1) mmol/L Chloride (98-107) mmol/L Carbon Dioxide (22-30) mmol/L Anion Gap mmol/L BUN (9-20) mg/dL Creatinine (0.66-1.25) mg/dL Est GFR (CKD-EPI)AfAm (>60 ml/min/1.73 sqM) Est GFR (CKD-EPI)NonAf (>60 ml/min/1.73 sqM) Glucose (74-99) mg/dL Plasma Lactic Acid Serjio 1.8 (0.7-2.0) mmol/L Calcium (8.4-10.2) mg/dL Magnesium (1.6-2.3) mg/dL Total Bilirubin (0.2-1.3) mg/dL AST (17-59) U/L ALT (4-49) U/L Alkaline Phosphatase (38-126) U/L Troponin I 0.098 H* (0.000-0.034) ng/mL Total Protein (6.3-8.2) g/dL Albumin (3.5-5.0) g/dL Digoxin <0.4 ng/mL - Radiology Data Radiology results: report reviewed, image reviewed Chest x-ray: Worsening opacity to the suprahilar extending towards the perihilar right lung margin. Cardiomegaly Disposition Clinical Impression: Atrial fibrillation with rapid ventricular response, Hyperkalemia Disposition: ADMITTED IP TO THIS HOSP Condition: Stable Is patient prescribed a controlled substance at d/c from ED?: No Referrals: Genesis Morales DO [Primary Care Provider] - 1-2 days Time of Disposition: 17:42
[2020-10-01 14:34] LABS: Albumin 4.1 g/dL (3.5-5.0); Magnesium 2.2 mg/dL (1.6-2.3); Total Bilirubin 0.7 mg/dL (0.2-1.3); Total Protein 7.1 g/dL (6.3-8.2)
[2020-10-01 14:42] LABS: Potassium 6.1 mmol/L (3.5-5.1)
[2020-10-01] MEDS ORDERED: CALCIUM GLUCONATE 1 GM in SODIUM CHLORIDE 0.9% 100 ML IVPB ONE (14:50)
[2020-10-01] MEDS ORDERED: INSULIN REGULAR 100 UNIT/ML VIAL IV ONE (14:50)
[2020-10-01] MEDS ORDERED: DEXTROSE 50% SYRINGE 50 ML IVP ONE (14:50)
[2020-10-01] MEDS ORDERED: DILTIAZEM 5 MG/ML 5 ML VIAL IVP STA (17:07)
[2020-10-01] MEDS ORDERED: SODIUM POLYSTYRENE SULFONATE 15 GM/60 ML BOTTLE PO STA ×2 (17:36→20:01)
[2020-10-01] MEDS ORDERED: SODIUM BICARB 8.4% 50 ML SYR (1 MEQ/ML) IV STA (17:36)
[2020-10-01] MEDS ORDERED: NALOXONE 0.4 MG/ML 1 ML VIAL IV PRN (17:39)
[2020-10-01] MEDS ORDERED: SODIUM CHLORIDE 0.9% 1,000 ML IV SCH (17:45)
[2020-10-01] MEDS: DILTIAZEM 125 MG in SODIUM CHLORIDE 0.9% 100 ML IV SCH (17:49)
[2020-10-01 19:30] LABS: Potassium 5.8 mmol/L (3.5-5.1)
[2020-10-01 22:19] LABS: Glucose,Whole Blood 97 mg/dL (75-99)
[2020-10-01] MEDS: levETIRAcetam 500 MG TAB PO SCH (22:54)
--- NOTE | 2020-10-02 00:50 | CT ---
EXAM: CT Head Without Intravenous Contrast CLINICAL HISTORY: ITS.REASON CT Reason: unwitnessed fall at home, patient on Eliquis TECHNIQUE: Axial computed tomography images of the head/brain without intravenous contrast. CTDI is 49.27 mGy and DLP is 1497.4 mGy-cm. This CT exam was performed using one or more of the following dose reduction techniques: automated exposure control, adjustment of the mA and/or kV according to patient size, and/or use of iterative reconstruction technique. Coronal and sagittal reformatted images were created and reviewed. COMPARISON: Brain MRI from 06/06/19 FINDINGS: Brain: Moderate age related generalized brain volume loss and chronic small vessel ischemic changes. 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 No hemorrhage. Ventricles: Unremarkable. No ventriculomegaly. Bones/joints: Unremarkable. Soft tissues: Unremarkable. Sinuses: Unremarkable as visualized. No acute sinusitis. Mastoid air cells: Unremarkable as visualized. No mastoid effusion. IMPRESSION: No intracranial hemorrhage or skull fracture
[2020-10-02 05:25] LABS: Glucose,Whole Blood 87 mg/dL (75-99)
[2020-10-02 06:38] LABS: Glucose,Whole Blood 94 mg/dL (75-99)
[2020-10-02 07:01] LABS: Amorphous Sediment,Urine Occasional /hpf; Appearance,Urine Cloudy (Clear); Bilirubin,Urine Negative (Negative); Blood,Urine Trace (Negative); Color,Urine Yellow; Glucose,Urine (UA) Negative (Negative); Ketones,Urine Negative (Negative); Leukocyte Esterase,Urine Negative (Negative); Mucus,Urine Rare /hpf; Nitrite,Urine Negative (Negative); PH, Urine 5.5 (5.0-8.0); Protein,Urine 2+ (Negative); RBC,Urine 4 /hpf (0-5); Specific Gravity,Urine 1.012 (1.001-1.035); Squamous Epithelial Cell,Urine <1 /hpf (0-4); Urobilinogen,Urine <2.0 mg/dL (<2.0); WBC,Urine 2 /hpf (0-5)
[2020-10-02] MEDS: LEVOTHYROXINE 50 MCG TAB PO SCH (07:02)
[2020-10-02] MEDS ORDERED: SODIUM POLYSTYRENE SULFONATE 15 GM/60 ML BOTTLE PO STA ×2 (10:07→17:14)
[2020-10-02] MEDS: SODIUM POLYSTYRENE SULFONATE 15 GM/60 ML BOTTLE PO SCH (11:12)
[2020-10-02] MEDS: levETIRAcetam 500 MG TAB PO SCH ×2 (11:15→20:42)
[2020-10-02] MEDS: ISOSORBIDE MONONITRATE ER 30 MG TAB.ER.24H PO SCH (11:15)
[2020-10-02] MEDS: METOPROLOL TARTRATE 50 MG TAB PO SCH (11:16)
[2020-10-02] MEDS: MONTELUKAST 10 MG TAB PO SCH (11:16)
[2020-10-02] MEDS: IPRATROPIUM-ALBUTEROL 3 ML NEB INHALATION PRN ×2 (11:31→19:05)
[2020-10-02 11:43] LABS: Albumin 3.9 g/dL (3.5-5.0); Calcium 8.4 mg/dL (8.4-10.2); Potassium 5.8 mmol/L (3.5-5.1); Total Bilirubin 0.4 mg/dL (0.2-1.3); Total Protein 6.6 g/dL (6.3-8.2)
--- NOTE | 2020-10-02 11:53 | P.GSCN ---
History of Present Illness Consult date: 10/02/20 History of present illness: The patient is a 62-year-old gentleman who is in the hospital with weakness. He has multiple medical problems including diabetes hypertension seizure disorder pulmonary emboli cancer. He was found by his family to be lethargic and down. He is brought into the hospital. He may be postictal. He is gone in urine retention. I was asked to see the patient to evaluate him as the nursing staff can only pass a pediatric feeding tube into the bladder. I can get no history as he is quite lethargic. Review of Systems ROS unobtainable: due to mental status Past Medical History Past Medical History: Atrial Fibrillation, Cancer, Diabetes Mellitus, Hyperlipidemia, Hypertension, Pulmonary Embolus (PE), Seizure Disorder Additional Past Medical History / Comment(s): pt states was told he had a seizure-unknown when. NON SMALL CELL LUNG CANCER. History of Any Multi-Drug Resistant Organisms: None Reported Additional Past Surgical History / Comment(s): COLONOSCOPY. BRONCHOSCOPY Past Anesthesia/Blood Transfusion Reactions: No Reported Reaction Past Psychological History: No Psychological Hx Reported Smoking Status: Former smoker Past Alcohol Use History: None Reported Past Drug Use History: Marijuana - Past Family History Brother(s) Family Medical History: Cancer Medications and Allergies Home Medications Medication Instructions Recorded Confirmed Type Montelukast [Singulair] 10 mg PO DAILY 04/14/19 10/01/20 History Simvastatin [Zocor] 20 mg PO HS 04/14/19 10/01/20 History metFORMIN HCL [Glucophage] 850 mg PO BID 04/14/19 10/01/20 History Apixaban [Eliquis] 5 mg PO BID #60 tab 04/25/19 10/01/20 Rx Digoxin [Lanoxin] 125 mcg PO DAILY #30 tab 04/25/19 10/01/20 Rx Isosorbide Mononitrate ER [Imdur] 30 mg PO DAILY #30 tab.er.24h 04/25/19 10/01/20 Rx Furosemide [Lasix] 20 mg PO DAILY 05/31/19 10/01/20 History levETIRAcetam [Keppra] 500 mg PO BID 05/31/19 10/01/20 History Ipratropium-Albuterol Nebulize 3 ml INHALATION RT-TID PRN 10/06/19 10/01/20 History [Duoneb 0.5 mg-3 mg/3 ml Soln] Metoprolol Tartrate [Lopressor] 50 mg PO DAILY 10/06/19 10/01/20 History Levothyroxine Sodium [Synthroid] 50 mcg PO DAILY 06/12/20 10/01/20 History Magnesium Oxide [Mag-Ox] 400 mg PO DAILY 06/12/20 10/01/20 History Sodium Polystyrene Sulfonate 7.5 gm PO Q48H 10/01/20 10/01/20 History [Kayexalate] Allergies Allergy/AdvReac Type Severity Reaction Status Date / Time No Known Allergies Allergy Verified 10/01/20 16:59 Surgical - Exam Vital Signs Temp Pulse Resp BP Pulse Ox 99.0 F 131 H 20 164/85 100 10/01/20 13:19 10/01/20 13:19 10/01/20 13:19 10/01/20 13:19 10/01/20 13:19 - General Lethargic and restless well developed, well nourished, obese - Eyes PERRL - ENT no hearing loss - Neck trachea midline - Respiratory normal expansion, normal respiratory effort - Cardiovascular Rhythm: regular - Abdomen Abdomen: soft, non tender - Genitourinary 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 The testicles are difficult to palpate and appear to be atrophic. - Integumentary no rash, no growths - Neurologic confused - Musculoskeletal normal posture Results - Labs 10/01/20 13:54 10/02/20 01:08 Abnormal Lab Results - Last 24 Hours (Table) 10/01/20 10/01/20 10/01/20 Range/Units 13:54 13:54 13:54 RBC 2.99 L (4.30-5.90) m/uL Hgb 9.3 L (13.0-17.5) gm/dL Hct 29.7 L (39.0-53.0) % RDW 15.7 H (11.5-15.5) % Plt Count 105 L (150-450) k/uL Lymphocytes # 0.5 L (1.0-4.8) k/uL Potassium 6.1 H* (3.5-5.1) mmol/L Chloride 95 L (98-107) mmol/L Carbon Dioxide 39 H (22-30) mmol/L BUN 65 H (9-20) mg/dL Creatinine 1.30 H (0.66-1.25) mg/dL Glucose 149 H (74-99) mg/dL AST 214 H (17-59) U/L ALT 147 H (4-49) U/L Troponin I 0.098 H* (0.000-0.034) ng/mL Urine Protein (Negative) Urine Blood (Negative) Amorphous Sediment (None) /hpf Urine Mucus (None) /hpf 10/01/20 10/02/20 10/02/20 Range/Units 19:10 01:08 06:35 RBC (4.30-5.90) m/uL Hgb (13.0-17.5) gm/dL Hct (39.0-53.0) % RDW (11.5-15.5) % Plt Count (150-450) k/uL Lymphocytes # (1.0-4.8) k/uL Potassium 5.8 H 5.7 H (3.5-5.1) mmol/L Chloride (98-107) mmol/L Carbon Dioxide (22-30) mmol/L BUN (9-20) mg/dL Creatinine (0.66-1.25) mg/dL Glucose (74-99) mg/dL AST (17-59) U/L ALT (4-49) U/L Troponin I (0.000-0.034) ng/mL Urine Protein 2+ H (Negative) Urine Blood Trace H (Negative) Amorphous Sediment Occasional H (None) /hpf Urine Mucus Rare H (None) /hpf Diabetes panel 10/01/20 10/01/20 10/02/20 Range/Units 13:54 19:10 01:08 Sodium 143 (137-145) mmol/L Potassium 6.1 H* 5.8 H 5.7 H (3.5-5.1) mmol/L Chloride 95 L (98-107) mmol/L Carbon Dioxide 39 H (22-30) mmol/L BUN 65 H (9-20) mg/dL Creatinine 1.30 H (0.66-1.25) mg/dL Glucose 149 H (74-99) mg/dL Calcium 9.0 (8.4-10.2) mg/dL AST 214 H (17-59) U/L ALT 147 H (4-49) U/L Alkaline Phosphatase 66 (38-126) U/L Total Protein 7.1 (6.3-8.2) g/dL Albumin 4.1 (3.5-5.0) g/dL Calcium panel 10/01/20 Range/Units 13:54 Calcium 9.0 (8.4-10.2) mg/dL Albumin 4.1 (3.5-5.0) g/dL Pituitary panel 10/01/20 10/01/20 10/02/20 Range/Units 13:54 19:10 01:08 Sodium 143 (137-145) mmol/L Potassium 6.1 H* 5.8 H 5.7 H (3.5-5.1) mmol/L Chloride 95 L (98-107) mmol/L Carbon Dioxide 39 H (22-30) mmol/L BUN 65 H (9-20) mg/dL Creatinine 1.30 H (0.66-1.25) mg/dL Glucose 149 H (74-99) mg/dL Calcium 9.0 (8.4-10.2) mg/dL Adrenal panel 10/01/20 10/01/20 10/02/20 Range/Units 13:54 19:10 01:08 Sodium 143 (137-145) mmol/L Potassium 6.1 H* 5.8 H 5.7 H (3.5-5.1) mmol/L Chloride 95 L (98-107) mmol/L Carbon Dioxide 39 H (22-30) mmol/L BUN 65 H (9-20) mg/dL Creatinine 1.30 H (0.66-1.25) mg/dL Glucose 149 H (74-99) mg/dL Calcium 9.0 (8.4-10.2) mg/dL Total Bilirubin 0.7 (0.2-1.3) mg/dL AST 214 H (17-59) U/L ALT 147 H (4-49) U/L Alkaline Phosphatase 66 (38-126) U/L Total Protein 7.1 (6.3-8.2) g/dL Albumin 4.1 (3.5-5.0) g/dL Assessment and Plan Assessment: Impression: Urine retention indeterminate etiology. Microphallus congenital. Multiple medical issues and possible post ictal seizure. Recommendations: Catheterization
--- NOTE | 2020-10-02 11:55 | P.PCN ---
Date of Procedure: 10/02/20 Preoperative Diagnosis: Urine retention, microphallus Postoperative Diagnosis: Same, fossa urethral stricture Procedure(s) Performed: Dilation of fossa navicularis with Shannon sounds 12-16, placement of 12- Citizen [place] coud-tip catheter Anesthesia: local Surgeon: Dario James Pathology: none sent Condition: stable Indications for Procedure: The patient is in the hospital post ictal possibly from a seizure. Retention. The nursing staff catheterized him with a gastric feeding tube last night for about 800 mL a urine. He has a congenital microphallus. I will try to place a catheter. The patient is prepped and draped sterilely. I attempted to pass a 12-[place]izen [place] coud-tip catheter but meet resistance in the fossa navicularis. I then dilate the fossa with [id number] Vamshi sounds. I then am able to pass a 12- [place] coud-tip cath in the bladder with large volume of clear urine Impression fossa navicularis stricture Recommendations: The Minor catheter should remain in place at least 48 hours before removing.
[2020-10-02 11:56] LABS: Glucose,Whole Blood 116 mg/dL (75-99)
[2020-10-02 12:21] LABS: HCT 30.3 % (39.0-53.0); Hypochromasia Marked; MCH 30.9 pg (25.0-35.0); MCHC 29.7 g/dL (31.0-37.0); Macrocytosis Moderate; Mean Platelet Volume 10.8; Platelet Count 101 k/uL (150-450); RBC 2.92 m/uL (4.30-5.90); RDW 15.7 % (11.5-15.5)
--- NOTE | 2020-10-02 12:24 | XR ---
EXAMINATION TYPE: XR chest 1V portable DATE OF EXAM: 10/02/2020 HISTORY: Shortness of breath. COMPARISON: 10/01/2020 TECHNIQUE: Single view of the chest is submitted. FINDINGS: Demonstrated are scattered senescent parenchymal change. Right suprahilar infiltrate as well as pleural effusion. Mild right-sided volume loss. Left-sided hyp erexpansion. The heart is stable. Hilar and mediastinal structures are within normal limits. Degenerative changes are seen of the dorsal spine. IMPRESSION: 1. Right suprahilar infiltrate as well as pleural effusion. Mild right-sided volume loss. Left-sided hyperexpansion.
--- NOTE | 2020-10-02 16:05 | P.CNNES ---
History of Present Illness Consult date: 10/02/20 Requesting physician: Booker Dailey Reason for Consult: History of seizures, periods of lethargy History of Present Illness: Patient is a 70-year-old male came to the hospital yesterday by ambulance at 1:19 PM. Patient not able to provide any history. According to EMS flow sheet, patient was transferred because of increased weakness. Brother has mentioned that patient was found on the floor where he reports he had been since 10 AM. Patient was awake and alert, oriented 4, denies any pain or trauma. Patient is on oxygen 2.5 later per minute by nasal cannula 24 7 basis. However when EMS arrived, he was not on oxygen. His oxygen saturation was 35% on room air, respiration 24, pulse 70 and blood pressure 120/69. His saturation improved to 91% with 3 L. EKG shows atrial fibrillation. Patient's vital signs on arrival blood pressure was 164/85, pulse rate 131 and temperature 99.0. Chest x-ray showed worsening opacity throughout the suprahilar extending towards the peripheral right lung margin. Cardiomegaly. EKG shows atrial fibrillation with rapid ventricular rate. CT head was normal. Paranasal sinuses are clear. Blood pressure shows normal WBC hemoglobin 9.3, platelets 105. PT/PTT normal. Sodium 143, potassium 6.1, BUN 65, creatinine 1.30. AST is 214, ALT 147 troponin is mildly elevated. UA showed trace blood. No signs of infection. Patient's renal functions have gotten slightly worse, with BUN 74, creatinine 1.73. Liver enzymes still slightly up. Patient not able to provide any history. Patient mumbles. Uncertain what is his baseline. Patient has been found to have urinary retention. Urology has seen the patient and has been catheterized. Patient has history of micro-phal kath. Review of Systems Patient denies headache, denies double vision, no nausea vomiting. Denies any numbness or tingling. Patient denies any weakness, although he came for generalized weakness, therefore unclear reliability of this information. ROS unobtainable: due to mental status Past Medical History Past Medical History: Atrial Fibrillation, Cancer, Diabetes Mellitus, Hyperlipidemia, Hypertension, Pulmonary Embolus (PE), Seizure Disorder Additional Past Medical History / Comment(s): pt states was told he had a seizure-unknown when. NON SMALL CELL LUNG CANCER. History of Any Multi-Drug Resistant Organisms: None Reported Additional Past Surgical History / Comment(s): COLONOSCOPY. BRONCHOSCOPY Past Anesthesia/Blood Transfusion Reactions: No Reported Reaction Past Psychological History: No Psychological Hx Reported Smoking Status: Former smoker Past Alcohol Use History: None Reported Past Drug Use History: Marijuana - Past Family History Brother(s) Family Medical History: Cancer Medications and Allergies Home Medications Medication Instructions Recorded Confirmed Type Montelukast [Singulair] 10 mg PO DAILY 04/14/19 10/01/20 History Simvastatin [Zocor] 20 mg PO HS 04/14/19 10/01/20 History metFORMIN HCL [Glucophage] 850 mg PO BID 04/14/19 10/01/20 History Apixaban [Eliquis] 5 mg PO BID #60 tab 04/25/19 10/01/20 Rx Digoxin [Lanoxin] 125 mcg PO DAILY #30 tab 04/25/19 10/01/20 Rx Isosorbide Mononitrate ER [Imdur] 30 mg PO DAILY #30 tab.er.24h 04/25/19 10/01/20 Rx Furosemide [Lasix] 20 mg PO DAILY 05/31/19 10/01/20 History levETIRAcetam [Keppra] 500 mg PO BID 05/31/19 10/01/20 History Ipratropium-Albuterol Nebulize 3 ml INHALATION RT-TID PRN 10/06/19 10/01/20 History [Duoneb 0.5 mg-3 mg/3 ml Soln] Metoprolol Tartrate [Lopressor] 50 mg PO DAILY 10/06/19 10/01/20 History Levothyroxine Sodium [Synthroid] 50 mcg PO DAILY 06/12/20 10/01/20 History Magnesium Oxide [Mag-Ox] 400 mg PO DAILY 06/12/20 10/01/20 History Sodium Polystyrene Sulfonate 7.5 gm PO Q48H 10/01/20 10/01/20 History [Kayexalate] Allergies Allergy/AdvReac Type Severity Reaction Status Date / Time No Known Allergies Allergy Verified 10/01/20 16:59 Physical Examination - Vital Signs Vital Signs: Vital Signs Temp Pulse Pulse Resp BP BP BP 10/02/20 11:12 97.5 F L 27 H 108/69 10/02/20 07:42 97.4 F L 111 H 24 116/66 10/02/20 04:00 97.9 F 110 H 18 116/62 10/02/20 01:32 113 H 19 10/02/20 00:00 97.8 F 113 H 19 130/62 10/01/20 22:00 97.9 F 100 18 146/81 10/01/20 21:53 97.7 F 118 H 18 115/61 10/01/20 21:00 114 H 16 10/01/20 20:00 118 H 10/01/20 19:30 118 H 14 122/85 10/01/20 19:20 115 H 18 10/01/20 18:55 114 H 16 118/87 10/01/20 17:52 98 16 128/97 10/01/20 17:00 130 H 16 132/76 10/01/20 16:15 130 H 10/01/20 16:00 125 H 22 105/63 10/01/20 13:19 99.0 F 131 H 20 164/85 Pulse Ox 10/02/20 11:12 94 L 10/02/20 07:42 99 10/02/20 04:00 100 10/02/20 01:32 10/02/20 00:00 100 10/01/20 22:00 100 10/01/20 21:53 93 L 10/01/20 21:00 94 L 10/01/20 20:00 10/01/20 19:30 10/01/20 19:20 10/01/20 18:55 94 L 10/01/20 17:52 98 10/01/20 17:00 10/01/20 16:15 10/01/20 16:00 97 10/01/20 13:19 100 Intake and Output 10/01/20 10/02/20 10/02/20 22:59 06:59 14:59 Intake Total 240 Output Total 0 Balance 0 240 Intake: Oral 240 Output: Urine 0 Other: Weight 87 kg On examination patient is an elderly male, who is laying comfortably in the bed. Patient is alert and awake. Patient has slow mentation. Patient most of the time mumbles, dysarthric speech, very difficult to understand. Patient knows his name, when I asked "how old", patient states "old". Patient could not tell the current month or the year, or the city. He just mumbles. Randall sandhu was able to tell he is in [place]. Patient states the current president is Fair, then states [place]gu[place]herme, then states "whatever". Patient was able to name and repeat without difficulty. On cranial examination pupils are round and reacting to light, visual golden appears full, face is symmetric and tongue protrudes to the midline. Palatal elevation is normal, hearing is slightly decreased, shoulder shrug normal. Facial sensation normal. On muscle strength testing the strength is normal in the upper limbs. Patient's strength is normal in the ankle dorsiflexion, plantar flexion. Hip flexion is 4-bilaterally. Reflexes are absent, plantars are downgoing bilaterally. Sensory to touch is equal. No ataxia for [id number] testing. Tone and bulk of muscles normal. No peripheral edema. Abdomen soft nontender, chest is clear. S1 and S2 audible. No obvious bruit. Results - Laboratory Findings CBC and BMP: 10/04/20 08:40 10/04/20 08:40 Abnormal Lab Findings: Abnormal Labs 10/01/20 10/01/20 10/01/20 13:54 13:54 13:54 RBC 2.99 L Hgb 9.3 L Hct 29.7 L RDW 15.7 H Plt Count 105 L Lymphocytes # 0.5 L Potassium 6.1 H* Chloride 95 L Carbon Dioxide 39 H BUN 65 H Creatinine 1.30 H Glucose 149 H AST 214 H ALT 147 H Troponin I 0.098 H* Urine Protein Urine Blood Amorphous Sediment Urine Mucus 10/01/20 10/02/20 10/02/20 19:10 01:08 06:35 RBC Hgb Hct RDW Plt Count Lymphocytes # Potassium 5.8 H 5.7 H Chloride Carbon Dioxide BUN Creatinine Glucose AST ALT Troponin I Urine Protein 2+ H Urine Blood Trace H Amorphous Sediment Occasional H Urine Mucus Rare H Assessment and Plan Assessment: * Altered mental status, possible due to metabolic encephalopathy. Patient has acute renal insufficiency, hyperkalemia, anemia, elevated liver enzymes, urinary retention. Patient's limited neurological examination is nonfocal. CT head showed no acute process. * Atrial fibrillation, on long-term anticoagulation with Eliquis * History of seizure disorder, currently on Keppra. * History of left cerebellar stroke per CT. * Slurred speech, possible due to encephalopathy. * History of lung cancer, on chemotherapy. * Thrombocytopenia * Diabetes * Hypertension * Hypothyroidism Plan: * Patient has multiple medical issues. Will defer IM to address metabolic dysfunction. * Continue Eliquis for stroke prevention related to atrial fibrillation. * Continue Zocor 20 mg. * Carotid Doppler. * Continue Keppra 500 mg twice a day for seizure prophylaxis. * We will check B12, folate, hemoglobin A1c fasting lipid panel. TSH is normal. * Optimize all vascular risk factors.
[2020-10-02] MEDS: SODIUM CHLORIDE 0.9% 1,000 ML IV SCH ×2 (16:42→20:42)
[2020-10-02] MEDS: DILTIAZEM 125 MG in SODIUM CHLORIDE 0.9% 100 ML IV SCH (16:52)
[2020-10-02 16:56] LABS: Glucose,Whole Blood 148 mg/dL (75-99)
--- NOTE | 2020-10-02 20:43 | P.HPIM ---
History of Present Illness H&P Date: 10/02/20 Chief Complaint: Tired History of presenting complaint: This is a 70-year-old patient, follows with Dr. Genesis Morales. Chronic stable medical conditions include atrial fibrillation, diabetes, hypertension, hyperlipidemia seizure disorder and history of non-small cell lung cancer. EMS was called out by patient's family. Patient's brother had a right earlier and found the patient on the floor. Been following since 10 AM. Patient is alert. Patient to be short of breath this morning and fell to the floor. Had been rather tired. Patient is on home oxygen 2.5 L at all times. When I saw the patient earlier today he was rather lethargic. Or dose off. Answer only some questions. Earlier coude catheter was placed by Dr. Falcon from urology. Patient denied any cough or fever. Limited history Review of systems could not be optimist patient lethargic though arousable Past medical history to include: Atrial fibrillation, diabetes mellitus, hyperlipidemia, hypertension, pulmonary embolism, seizure disorder, non-small cell lung cancer/squamous cell has received radiation treatment and chemotherapy. Congestive heart failure EF of 35-40% and moderate tricuspid regurgitation severe secondary pulmonary hypertension chronic thoracic spine compression fractures Social history: Lives alone. Stop smoking in 2014. No alcohol. Uses marijuana. Physical examination: VITAL SIGNS: 99, 131, 20, 164/85, 97% on room air GENERAL: BMI percent 0.5, laying in bed, lethargic but arousable. EYES: Pupils equal. Conjunctiva normal. HEENT: External appearance of nose and ears normal, oral cavity dry mucous membranes. NECK: JVD not raised; masses not palpable. HEART: First and second heart sounds are normal; no edema. LUNGS: Respiratory rate normal; decreased breath sounds. ABDOMEN: Soft, nontender, liver spleen not palpable, no masses palpable. PSYCH: Unable to assess lethargicl. NEUROLOGICAL: Cranial nerves grossly intact; no facial asymmetry, power and sensation grossly intact. Moving all 4 limbs LYMPHATICS: No lymph nodes palpable in the axilla and neck INVESTIGATIONS, reviewed in the clinical context: WBC 7 hemoglobin 9 platelets 101 potassium 5.8 bun 74 creatinine 1.73 AST 135 ALT 155 Coronavirus [PCR] not detected Admission labs: WBC 6 hemoglobin 9.3 platelets 105 potassium 6.1 bun 65 creatinine 1.30 Troponin I 0.098 EKG tracing personally reviewed by -atrial flutter with uncontrolled rate Chest x-ray film personally reviewed by me-cardiomegaly, lung opacity Computed tomography scan of the brain: Brain volume loss Previous labs: Creatinine 1.3 on October 01 and 0.9 on May 2020 Assessment and plan: -Acute metabolic encephalopathy multifactorial likely from acute kidney injury. Expect patient to improve with hydration -Acute kidney injury likely combination of ATN and prerenal. Patient creatinine was 0.9 back in May 2020. And 1.3 on presentation Give IV fluids. Follow electrolytes -Hyperkalemia secondary to acute kidney injury Renal diet and Kayexalate -Non-small cell lung cancer/squamous cell history of chemoradiation. Patient did follow up with Dr. Lora. At this point is unclear the status of this mal ignancy. Consult oncology. -Normocytic anemia likely combination of nutritional and from underlying malignancy Follow H&H with hydration -Bicytopenia likely from prior chemotherapy -Persistent atrial flutter with uncontrolled atrial presentation Cardiology consulted. IV Cardizem. Continue with eliquis. Lopressor -Diabetes mellitus type 2. Hold Glucophage. Follow Accu-Cheks diabetic diet -Hyperlipidemia Continue with Zocor -Essential hypertension Patient on Cardizem and Lopressor -Seizure disorder Continue with Keppra, seizure precautions. Consult neurology -Hypothyroid Continue with Synthroid -COPD in an ex-smoker Continue with bronchodilators -Recreational marijuana use -Major depression with suicidal ideations patient voiced this late in the day. 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 Consult psychiatry. Consultation made to Dr. Peterson from neurology, Dr. Lora from oncology, nephrology, psychiatry. Follow labs Given the complexity and severity of patient's condition expect the patient to be in the hospital at least for 2 overnights Past Medical History Past Medical History: Atrial Fibrillation, Cancer, Diabetes Mellitus, Hyperlipidemia, Hypertension, Pulmonary Embolus (PE), Seizure Disorder Additional Past Medical History / Comment(s): pt states was told he had a seizure-unknown when. NON SMALL CELL LUNG CANCER. History of Any Multi-Drug Resistant Organisms: None Reported Additional Past Surgical History / Comment(s): COLONOSCOPY. BRONCHOSCOPY Past Anesthesia/Blood Transfusion Reactions: No Reported Reaction Past Psychological History: No Psychological Hx Reported Additional Psychological History / Comment(s): Family voices that they have concerns "he is a hermit" "loner" and "has undiagnosed psych issues" Smoking Status: Former smoker Past Alcohol Use History: None Reported Additional Past Alcohol Use History / Comment(s): QUIT SMOKING 2014 Past Drug Use History: Marijuana Additional Drug Use History / Comment(s): USES MARIJUANA DAILY-INSTRUCTED TO REFRAIN FROM USE FOR AT LEAT 24 HOURS PRIOR TO PROCEDURE - Past Family History Brother(s) Family Medical History: Cancer Medications and Allergies Home Medications Medication Instructions Recorded Confirmed Type Montelukast [Singulair] 10 mg PO DAILY 04/14/19 10/01/20 History Simvastatin [Zocor] 20 mg PO HS 04/14/19 10/01/20 History metFORMIN HCL [Glucophage] 850 mg PO BID 04/14/19 10/01/20 History Apixaban [Eliquis] 5 mg PO BID #60 tab 04/25/19 10/01/20 Rx Digoxin [Lanoxin] 125 mcg PO DAILY #30 tab 04/25/19 10/01/20 Rx Isosorbide Mononitrate ER [Imdur] 30 mg PO DAILY #30 tab.er.24h 04/25/19 10/01/20 Rx Furosemide [Lasix] 20 mg PO DAILY 05/31/19 10/01/20 History levETIRAcetam [Keppra] 500 mg PO BID 05/31/19 10/01/20 History Ipratropium-Albuterol Nebulize 3 ml INHALATION RT-TID PRN 10/06/19 10/01/20 History [Duoneb 0.5 mg-3 mg/3 ml Soln] Metoprolol Tartrate [Lopressor] 50 mg PO DAILY 10/06/19 10/01/20 History Levothyroxine Sodium [Synthroid] 50 mcg PO DAILY 06/12/20 10/01/20 History Magnesium Oxide [Mag-Ox] 400 mg PO DAILY 06/12/20 10/01/20 History Sodium Polystyrene Sulfonate 7.5 gm PO Q48H 10/01/20 10/01/20 History [Kayexalate] Allergies Allergy/AdvReac Type Severity Reaction Status Date / Time No Known Allergies Allergy Verified 10/01/20 16:59 Physical Exam Vitals: Vital Signs Temp Pulse Pulse Resp BP BP BP 10/02/20 19:20 78 10/02/20 19:05 78 10/02/20 16:00 97.4 F L 99 20 93/65 10/02/20 12:00 97.5 F L 95 30 H 90/55 10/02/20 11:41 76 10/02/20 11:34 80 10/02/20 11:12 97.5 F L 27 H 108/69 10/02/20 07:42 97.4 F L 111 H 24 116/66 10/02/20 04:00 97.9 F 110 H 18 116/62 10/02/20 01:32 113 H 19 10/02/20 00:00 97.8 F 113 H 19 130/62 10/01/20 22:00 97.9 F 100 18 146/81 10/01/20 21:53 97.7 F 118 H 18 115/61 10/01/20 21:00 114 H 16 Pulse Ox 10/02/20 19:20 10/02/20 19:05 10/02/20 16:00 96 10/02/20 12:00 97 10/02/20 11:41 10/02/20 11:34 10/02/20 11:12 94 L 10/02/20 07:42 99 10/02/20 04:00 100 10/02/20 01:32 10/02/20 00:00 100 10/01/20 22:00 100 10/01/20 21:53 93 L 10/01/20 21:00 94 L Intake and Output 10/02/20 10/02/20 10/02/20 06:59 14:59 22:59 Intake Total 358 233.25 Output Total 0 700 Balance 0 -342 233.25 Intake: Intake, IV Titration 115.25 Amount Diltiazem 125 mg In 115.25 Sodium Chloride 0.9% 100 ml @ 5 MG/HR 5 mls/hr IV .Q24H [facility] Rx#:[id number] Oral 358 118 Output: Urine 0 700 Other: Voiding Method Indwelling Catheter Weight 87 kg 87 kg Results CBC & Chem 7: 10/02/20 11:00 10/02/20 11:00 Labs: Abnormal Lab Results - Last 24 Hours (Table) 10/02/20 10/02/20 10/02/20 Range/Units 01:08 06:35 11:00 RBC (4.30-5.90) m/uL Hgb (13.0-17.5) gm/dL Hct (39.0-53.0) % MCV (80.0-100.0) fL MCHC (31.0-37.0) g/dL RDW (11.5-15.5) % Plt Count (150-450) k/uL Potassium 5.7 H 5.8 H (3.5-5.1) mmol/L Carbon Dioxide 38 H (22-30) mmol/L BUN 74 H (9-20) mg/dL Creatinine 1.73 H (0.66-1.25) mg/dL Glucose 126 H (74-99) mg/dL POC Glucose (mg/dL) (75-99) mg/dL AST 135 H (17-59) U/L ALT 155 H (4-49) U/L Urine Protein 2+ H (Negative) Urine Blood Trace H (Negative) Amorphous Sediment Occasional H (None) /hpf Urine Mucus Rare H (None) /hpf 10/02/20 10/02/20 10/02/20 Range/Units 11:00 11:54 16:50 RBC 2.92 L (4.30-5.90) m/uL Hgb 9.0 L (13.0-17.5) gm/dL Hct 30.3 L (39.0-53.0) % MCV 104.0 H (80.0-100.0) fL MCHC 29.7 L (31.0-37.0) g/dL RDW 15.7 H (11.5-15.5) % Plt Count 101 L (150-450) k/uL Potassium (3.5-5.1) mmol/L Carbon Dioxide (22-30) mmol/L BUN (9-20) mg/dL Creatinine (0.66-1.25) mg/dL Glucose (74-99) mg/dL POC Glucose (mg/dL) 116 H 148 H (75-99) mg/dL AST (17-59) U/L ALT (4-49) U/L Urine Protein (Negative) Urine Blood (Negative) Amorphous Sediment (None) /hpf Urine Mucus (None) /hpf Thrombosis Risk Factor Assmnt - Choose All That Apply Any of the Below Risk Factors Present?: Yes Each Risk Factor Represents 2 Points: Age 61-74 years Thrombosis Risk Factor Assessment Total Risk Factor Score: 2 Thrombosis Risk Factor Assessment Level: Low Risk
[2020-10-02 20:49] LABS: Glucose,Whole Blood 119 mg/dL (75-99)
--- NOTE | 2020-10-02 23:34 | US ---
EXAMINATION TYPE: US carotid duplex BILAT DATE OF EXAM: 10/02/2020 COMPARISON: NONE CLINICAL HISTORY: Altered mental status. AMS EXAM MEASUREMENTS: RIGHT: Peak Systolic Velocity (PSV) cm/sec ----- Right CCA: 79.8 ----- Right ICA: 294.5 ----- Right ECA: 113.6 ICA/CCA ratio: 3.7 RIGHT: End Diastole cm/sec ----- Right CCA: 33.3 ----- Right ICA: 123.7 ----- Right ECA: 16.5 LEFT: Peak Systolic Velocity (PSV) cm/sec ----- Left CCA: 97.3 ----- Left ICA: 109.0 ----- Left ECA: 80.1 ICA/CCA ratio: 1.1 LEFT: End Diastole cm/sec ----- Left CCA: 41.6 ----- Left ICA: 32.3 ----- Left ECA: 0 VERTEBRALS (direction of flow): Right Vertebral: Antegrade Left Vertebral: Antegrade Rhythm: Normal No significant stenosis seen IMPRESSION: There is antegrade flow in the vertebral arteries. The images and measurements suggest 40% stenosis i n the left internal carotid artery and close to 50% stenosis in the right internal carotid artery. Th ere is calcified plaque which obscures detail. Criteria for Assigning % of Stenosis / Diameter reduction (Estimation based on the indirect measurements of the internal carotid artery velocities (ICA PSV). 1. Normal (no stenosis)=ICA PSV < 125 cm/s: ratio < 2.0: ICA EDV<40 cm/s. 2. Less than 50% stenosis=ICA PSV < 125 cm/s: ratio < 2.0: ICA EDV<40 cm/s. 3. 50 to 69% stenosis=ICA PSV of 125 to 230 cm/s: ration 2.0 ? 4.0: ICA EDV 40-100 cm/s. 4. Greater than 70% stenosis to near occlusion= ICA PSV > 230 cm/s: ratio > 4.0: ICA EDV > 100 cm/s. 5. Near occlusion= ICA PSV velocities may be low or undetectable: variable ratio and ICA EDV. 6. Total occlusion=unable to detect flow.
[2020-10-03 01:33] LABS: Hemoglobin A1C 5.4 % (4.0-6.0)
[2020-10-03 04:20] LABS: Folate, Serum 12.7 ng/mL
[2020-10-03 06:01] LABS: Glucose,Whole Blood 102 mg/dL (75-99)
[2020-10-03] MEDS: SODIUM CHLORIDE 0.9% 1,000 ML IV SCH ×3 (06:21→17:01)
[2020-10-03] MEDS: LEVOTHYROXINE 50 MCG TAB PO SCH (06:21)
[2020-10-03 07:19] LABS: Calcium 7.7 mg/dL (8.4-10.2); Potassium 4.8 mmol/L (3.5-5.1)
[2020-10-03 07:21] LABS: HCT 28.2 % (39.0-53.0); HGB 8.5 gm/dL (13.0-17.5); Hypochromasia Marked; MCH 31.3 pg (25.0-35.0); MCHC 30.3 g/dL (31.0-37.0); MCV 103.4 fL (80.0-100.0); Macrocytosis Moderate; Mean Platelet Volume 10.9; RBC 2.73 m/uL (4.30-5.90); RDW 15.6 % (11.5-15.5); WBC 6.7 k/uL (3.8-10.6)
[2020-10-03 08:57] LABS: Platelet Count 76 k/uL (150-450)
[2020-10-03 09:05] LABS: Band Neutrophils % 1 %; Lymphocytes # (M) 0.47 k/uL (1.0-4.8); Monocytes # (M) 0.54 k/uL (0-1.0); Myelocytes # (M) 0.07 k/uL (0); Myelocytes % 1 %; Neutrophils % (M) 84 %; Nucleated Red Blood Cells 0 /100 WBC (0-0); Total Cells Counted 200
[2020-10-03] MEDS: MONTELUKAST 10 MG TAB PO SCH (09:19)
[2020-10-03] MEDS: ISOSORBIDE MONONITRATE ER 30 MG TAB.ER.24H PO SCH (09:19)
[2020-10-03] MEDS: levETIRAcetam 500 MG TAB PO SCH ×2 (09:19→20:34)
[2020-10-03] MEDS: METOPROLOL TARTRATE 50 MG TAB PO SCH (09:19)
[2020-10-03] MEDS: IPRATROPIUM-ALBUTEROL 3 ML NEB INHALATION PRN ×3 (11:31→20:03)
[2020-10-03 12:00] LABS: Glucose,Whole Blood 158 mg/dL (75-99)
--- NOTE | 2020-10-03 14:30 | P.CN ---
Psychiatric Consult - . Consult date: 10/03/20 Consult:: IDENTIFYING DATA: This patient is a 70 yo male who currently lives alone in a house has no kids and is single. REASON FOR REFERRAL: Psychiatry was consulted for depression and thoughts of not wanting to live any longer. HISTORY OF PRESENT ILLNESS: The patient presented to the hospital initially on 10/01 for weakness and spoke in the ER of going "limp" which led to a fall. Patient was found to have elevated liver function tests potassium and also creatinine was mildly elevated. Patient had an elevation in his troponins as well. Nursing care patient states that patient has made statements of talking to God and thoughts of "not wanting to live any longer". She states that he has never mentioned any active suicidal thoughts or plans. Patient was seen at the bedside today and appeared to have poor hygiene and grooming. He was attempting to cooperate during the interview. He joked around with marketing writer at times and appeared to have a fair affect. He spoke about his cancer diagnosis and treatment and states that he is still getting "the infusions" referring to chemotherapy however is not getting radiation treatment any longer. He claims that he still wants to continue on with medical treatment and was fairly future oriented in terms of wanting to go home. He claims that he still wants to live however has been finding it difficult with his medical condition and his cancer going forward. He claims that his mood is "okay" and denies any depression. He states that he is not having any current suicidal thoughts and claims that he wants to live for his family. He did mention however that "I talk to God sometimes and he may take me". He is delighted anxiety. He did state that his sleep has been fairly poor and appetite has been poor and requested to have medications to help him with it. At this time patient denies any current suicidal or homical ideations, intent or plan. Patient denies any auditory, visual hallucinations and denies any paranoia or delusions. Patients admits to using cigarettes in the past however states that he quit 6 years ago. He states that he also smokes marijuana nightly. Spoke with Brothtatiana Rondon over the phone [phone] who states that patient has been battling lung cancer and other challenges and mainly isolates in his home. He claims that his brother has made vague thoughts of self-harm in the past however has never attempted suicide. He states that there may be weapons in the house and she claims that he will be able to go over there today to have them removed. He claims that he will also be more available to check on patient as a support. Questions and concerns were addressed and answered with her brother over the phone and we spoke about medication options. PAST PSYCHIATRIC HISTORY: Patient has no formal psychiatric history or diagnosis. Patient denies being on any psychiatric medications. Patient denies any previous psychiatric hospitalizations. Patient denies any psychiatric outpatient follow-up. Patient denies any history of suicide attempts in the past. PAST MEDICAL HISTORY: Of lung cancer, hyperlipidemia, diabetes mellitus, seizure disorder, thyroid disorder, A. fib, CHF. ALLERGIES: as per EMR. CHEMICAL DEPENDENCY HISTORY: as per HPI. FAMILY PSYCHIATRIC/SUBSTANCE USE HISTORY: denies SOCIAL HISTORY: Patient was born and raised in [place]. 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 He states that he does not have any legal history. He claims that he is single and has no kids and lives in a house alone. MENTAL STATUS EXAM: General Appearance: Patient appears to be stated age is alert, attempting to be cooperative. Patient appears to have poor hygiene and grooming wearing hospital gown with fair eye contact. Poor dentition. Behavior: Patient is calmly lying in bed without any agitated behavior. Joking around at times. Speech: Patient's speech is fluent and nonpressured. Mood/Affect: Patient reports their mood is "ok", affect is congruent Suicidality/Homicidality: Patient denies having any suicidal or homicidal ideation intent or plan. Passive thoughts of end-of-life. Perceptions: Patient denies any visual hallucinations and denies any auditory hallucinations Though content/process: There is no evidence of any delusional thought content and thought process is linear. Logical. Not endorsing any delusions or paranoia. Memory and concentration: AOX3, grossly intact for the purposes of this session. Can spell "WORLD" backwards Judgment and insight: limited IMPRESSIONS: Depressive disorder unspecified, likely adjustment disorder Cannabis use disorder mild PLAN: -At this time patient DOES NOT meet criteria for inpatient psychiatric admission. Patients passive end of life thoughts are likely related to patients underlying cancer diagnosis and medical condition. PAtient is still future oriented and has no previous suicide attempts and has no active suicidal thoughts or plans. -Would recommend the following medication changes/additions: Added Remeron 15 mg daily at bedtime for mood/appetite/insomnia. melatonin 3mg qhs prn for insomnia -sawmill production worker to provide patient with outpatient mental health/psychiatry resources for appropriate follow up upon discharge -Paint Tinter spoke with patient about substance abuse and the harmful effects on medical and mental health, patient verbally understood and agreed. -After speaking with brother over the phone he states that he will attempt to be more supportive and check on patient more regularly and also will go to have guns/weapons removed from the house. -Communicated plan to patient's nurse -Will continue to follow along -Please contact with any questions.
--- NOTE | 2020-10-03 15:42 | P.CONS ---
History of Present Illness - Reason for Consult Consult date: 10/03/20 Lung cancer Requesting physician: Shon Flores - Chief Complaint hypoxia, fall - History of Present Illness Mr. Hicks is a pleasant white male, with multiple medical problems. The patient was noted to be anemic, at least going back to 03/15 when hemoglobin was 10. Other CBC indices were normal. At that time and saturation was low at 16.7% but, ferritin was normal at 43. Chem panel was WNL. In 08/16 hgb was 9.4, and 8.7 in 12/14. Creatinine in 12/14 was 1.25. In 09/13 ferritin was again 59, with an saturation low at 13.5%. No Hx blood problem, obvious bleeding, no iron supplementation. Had a colonoscopy around 2010. Additional work up suggestive of iron deficiency, with sat 11%. Ferritin was 79, but sed rate was elevated at 91, at which level a ferritin < 100 can still indicate iron deficiency. Referred for an EGD and colonoscopy, but ended up getting admitted because of A. fib with RVR noted during the procedure. Diagnosed with mild gastritis and a tubular adenoma. During his hospitalization he had a CT chest, revealed a 3 cm right supraclavicular mass, prominent pretracheal lymph node, as well as a moderate right pleural effusion. He underwent a CT-guided needle biopsy of the right subclavicular mass on 04/24/19 revealing a squamous cell carcinoma. Primary site could not be determined based on IHC. He was discharged on eliquis. 04/2019 PET revealed suspicious uptake in right supraclavicular node, mediastinal nodes and RLL soft tissue lesion and right pleural effusion. PDL-1 is negative. [place] to be a lung primary. MRI of the brain was neg, thoracentesis not done to lack of pleural fluid. Patient was started on concurent chemo/RT with VP16 and cisplatin weekly. Completed concurrent therapy on 08/17/19. He was referred to Nephrology for high K+ . This improved with hydration, and kayexelate. Had an additional cycle of chemotherapy with DE IONIZER OPERATOR-16 and carboplatin on 08/30/19. Admitted to [facility] 09/09/19 with severe pancytopenia , and hemoptysis. Eliquis was held. Symptoms improved with supportive care and G-CSF. Treatment follow-up CT showed marked improvement in tumor burden. He was going to complete 4 cycles of chemo/IO but, due to side effects, chemo was stopped after cycle 3. He has been on maintenance imfinzi, status post about 19 cycles cycles, last treatment 09/03, he is due. Patient has had several ER visits for elevated potassium levels. He has been seen by Nephrology. He has required intermittent Kayexalate treatment. CT scan in 04/2020 had shown essentially complete collapse of the right upper lobe. The patient was referred back to primary medicine and had a repeat bronchoscopy in 06/14/20. On inspection he appeared to have recurrent tumor causing obstruction of the right upper lobe bronchus. However, biopsy and washings were negative with biopsy showing evidence of scarring and inflamma tion, no recurrent disease. He was continued on imfinzi. Patient is currently admitted after being found on the floor at home. Does not appear he had oxygen on, his oxygen saturation was low when found. Patient is still slightly confused when seen and examined. He is not able to give him a lo t of information. No complaint of chest pain, headaches, shortness of breath or pain. Review of Systems ROS unobtainable: due to mental status Past Medical History Past Medical History: Atrial Fibrillation, Cancer, Diabetes Mellitus, Hyperlipidemia, Hypertension, Pulmonary Embolus (PE), Seizure Disorder Additional Past Medical History / Comment(s): pt states was told he had a seizure-unknown when. NON SMALL CELL LUNG CANCER. History of Any Multi-Drug Resistant Organisms: None Reported Additional Past Surgical History / Comment(s): COLONOSCOPY. BRONCHOSCOPY Past Anesthesia/Blood Transfusion Reactions: No Reported Reaction Past Psychological History: No Psychological Hx Reported Additional Psychological History / Comment(s): Family voices that they have concerns "he is a hermit" "loner" and "has undiagnosed psych issues" Smoking Status: Former smoker Past Alcohol Use History: None Reported Additional Past Alcohol Use History / Comment(s): QUIT SMOKING 2014 Past Drug Use History: Marijuana Additional Drug Use History / Comment(s): USES MARIJUANA DAILY-INSTRUCTED TO REFRAIN FROM USE FOR AT LEAT 24 HOURS PRIOR TO PROCEDURE - Past Family History Brother(s) Family Medical History: Cancer Medications and Allergies Home Medications Medication Instructions Recorded Confirmed Type Montelukast [Singulair] 10 mg PO DAILY 04/14/19 10/01/20 History Simvastatin [Zocor] 20 mg PO HS 04/14/19 10/01/20 History metFORMIN HCL [Glucophage] 850 mg PO BID 04/14/19 10/01/20 History Apixaban [Eliquis] 5 mg PO BID #60 tab 04/25/19 10/01/20 Rx Digoxin [Lanoxin] 125 mcg PO DAILY #30 tab 04/25/19 10/01/20 Rx Isosorbide Mononitrate ER [Imdur] 30 mg PO DAILY #30 tab.er.24h 04/25/19 10/01/20 Rx Furosemide [Lasix] 20 mg PO DAILY 05/31/19 10/01/20 History levETIRAcetam [Keppra] 500 mg PO BID 05/31/19 10/01/20 History Ipratropium-Albuterol Nebulize 3 ml INHALATION RT-TID PRN 10/06/19 10/01/20 History [Duoneb 0.5 mg-3 mg/3 ml Soln] Metoprolol Tartrate [Lopressor] 50 mg PO DAILY 10/06/19 10/01/20 History Levothyroxine Sodium [Synthroid] 50 mcg PO DAILY 06/12/20 10/01/20 History Magnesium Oxide [Mag-Ox] 400 mg PO DAILY 06/12/20 10/01/20 History Sodium Polystyrene Sulfonate 7.5 gm PO Q48H 10/01/20 10/01/20 History [Kayexalate] Allergies Allergy/AdvReac Type Severity Reaction Status Date / Time No Known Allergies Allergy Verified 10/01/20 16:59 Physical Exam Vitals: Vital Signs Temp Pulse Pulse Resp BP Pulse Ox 10/03/20 04:00 97.5 F L 110 H 18 110/74 93 L 10/03/20 02:00 103 H 18 10/03/20 00:00 97.7 F 103 H 18 105/64 93 L 10/02/20 20:00 98.4 F 99 19 103/67 85 L 10/02/20 19:20 78 10/02/20 19:05 78 10/02/20 16:00 97.4 F L 99 20 93/65 96 10/02/20 12:00 97.5 F L 95 30 H 90/55 97 10/02/20 11:41 76 10/02/20 11:34 80 10/02/20 11:12 97.5 F L 27 H 108/69 94 L Intake and Output 10/02/20 10/03/20 10/03/20 22:59 06:59 14:59 Intake Total 233.25 Balance 233.25 Intake: Intake, IV Titration 115.25 Amount Diltiazem 125 mg In 115.25 Sodium Chloride 0.9% 100 ml @ 5 MG/HR 5 mls/hr IV .Q24H [facility] Rx#:[id number] Oral 118 Other: Voiding Method Indwelling Catheter Indwelling Catheter Weight 87 kg 82.5 kg - Constitutional General appearance: average body habitus, cooperative, no acute distress - EENT Eyes: anicteric sclerae, EOMI ENT: hearing grossly normal, normal oropharynx - Neck Neck: no lymphadenopathy - Respiratory Respiratory: right: other (Absent right upper lobe breath sounds), left: CTA - Cardiovascular Rhythm: regular Heart sounds: normal: S1, S2 Abnormal Heart Sounds: no systolic murmur, no diastolic murmur, no rub, no S3 Gallop, no S4 Gallop, no click, no other leg Peripheral Edema: bilateral: None - Gastrointestinal General gastrointestinal: no absent bowel sounds, no decreased bowel sounds, no distended, no hepatomegaly, no hyperactive bowel sounds, normal bowel sounds, no organomegaly, no rigid, no scaphoid, soft, no splenomegaly, no tenderness, no umbilical hernia, no ventral hernia - Integumentary Integumentary: pale - Musculoskeletal Musculoskeletal: generalized weakness - Psychiatric Slightly lethargic Psychiatric: no appropriate affect, no intact judgment & insight Results CBC & Chem 7: 10/03/20 06:05 10/03/20 06:05 Labs: Abnormal Lab Results - Last 24 Hours (Table) 10/02/20 10/02/20 10/02/20 Range/Units 11:00 11:00 11:54 RBC 2.92 L (4.30-5.90) m/uL Hgb 9.0 L (13.0-17.5) gm/dL Hct 30.3 L (39.0-53.0) % MCV 104.0 H (80.0-100.0) fL MCHC 29.7 L (31.0-37.0) g/dL RDW 15.7 H (11.5-15.5) % Plt Count 101 L (150-450) k/uL Potassium 5.8 H (3.5-5.1) mmol/L Carbon Dioxide 38 H (22-30) mmol/L BUN 74 H (9-20) mg/dL Creatinine 1.73 H (0.66-1.25) mg/dL Glucose 126 H (74-99) mg/dL POC Glucose (mg/dL) 116 H (75-99) mg/dL Calcium (8.4-10.2) mg/dL Phosphorus (2.5-4.5) mg/dL AST 135 H (17-59) U/L ALT 155 H (4-49) U/L 10/02/20 10/02/20 10/03/20 Range/Units 16:50 20:43 05:51 RBC (4.30-5.90) m/uL Hgb (13.0-17.5) gm/dL Hct (39.0-53.0) % MCV (80.0-100.0) fL MCHC (31.0-37.0) g/dL RDW (11.5-15.5) % Plt Count (150-450) k/uL Potassium (3.5-5.1) mmol/L Carbon Dioxide (22-30) mmol/L BUN (9-20) mg/dL Creatinine (0.66-1.25) mg/dL Glucose (74-99) mg/dL POC Glucose (mg/dL) 148 H 119 H 102 H (75-99) mg/dL Calcium (8.4-10.2) mg/dL Phosphorus (2.5-4.5) mg/dL AST (17-59) U/L ALT (4-49) U/L 10/03/20 10/03/20 10/03/20 Range/Units 06:05 06:05 06:05 RBC 2.73 L (4.30-5.90) m/uL Hgb 8.5 L (13.0-17.5) gm/dL Hct 28.2 L (39.0-53.0) % MCV 103.4 H (80.0-100.0) fL MCHC 30.3 L (31.0-37.0) g/dL RDW 15.6 H (11.5-15.5) % Plt Count (150-450) k/uL Potassium (3.5-5.1) mmol/L Carbon Dioxide 33 H (22-30) mmol/L BUN 76 H (9-20) mg/dL Creatinine 1.36 H (0.66-1.25) mg/dL Glucose (74-99) mg/dL POC Glucose (mg/dL) (75-99) mg/dL Calcium 7.7 L (8.4-10.2) mg/dL Phosphorus 5.1 H (2.5-4.5) mg/dL AST (17-59) U/L ALT (4-49) U/L CT Scan - head: report reviewed (Without contrast, no evidence of acute bleed) Assessment and Plan (1) Hyperkalemia Narrative/Plan: Patient has had this happen several times in the past. He has been prescribed Kayexalate in the outpatient setting. He has been seen by Nephrology. Agree with treatment of the same. Current Visit: Yes Status: Acute Priority: High Code(s): E87.5 - HYPERKALEMIA SNOMED Code(s): 45911366 (2) Lung cancer Narrative/Plan: Patient has been doing well on his current maintenance therapy treatments. Once patient's current condition has improved and he is back to baseline, so okay to continue imfinzi on schedule. Current Visit: No Status: Chronic Priority: Medium Code(s): C34.90 - MALIGNANT NEOPLASM OF UNSP PART OF UNSP BRONCHUS OR LUNG SNOMED Code(s): 102807053 Plan: Doctor attests: I performed a history and physical examination of this patient, developed impression and plan of care. Discussed with dictator. I agree with dictators note, documented as a scribe.
--- NOTE | 2020-10-03 16:43 | P.PN ---
Subjective Progress Note Date: 10/03/20 Patient was seen for a follow-up. Patient is much more alert and awake, in no distress. Patient able to provide much better history. Patient states that he lives alone, has no children, does not use any assistive device at home. Patient states that he has seizures couple years ago. Also admits that he had history of a stroke not too long ago but does not remember the deficits from it. Patient states the reason he came to the hospital is because he fell down and went numb from feet to the legs, felt he was dying. Fortunately his brother stopped by and saw he couldn't do anything, and he took him to the hospital. Patient states that he smoked 1 pack per day since age 12, quit 5 years ago. He used to drink a lot of beer for 20 years, also quit 5 years ago. Regarding urinary retention, patient states "I could have went if they asked me, but they never asked, and placed the catheter" Objective - Vital Signs Vital signs: Vital Signs Temp 98.1 F 10/03/20 16:23 Pulse 91 10/03/20 16:23 Resp 18 10/03/20 16:23 BP 93/63 10/03/20 16:23 Pulse Ox 90 L 10/03/20 16:23 Intake & Output 10/02/20 10/03/20 10/03/20 18:59 06:59 18:59 Intake Total 473.25 118 125 Output Total 700 Balance -226.75 118 125 Weight 87 kg 82.5 kg 82.5 kg Intake: Intake, IV Titration 115.25 Amount Diltiazem 125 mg In 115.25 Sodium Chloride 0.9% 100 ml @ 5 MG/HR 5 mls/hr IV .Q24H [facility] Rx#:[id number] Oral 358 118 125 Output: Urine 700 Other: Voiding Method Indwelling Catheter Indwelling Catheter Indwelling Catheter - Exam On examination patient is an elderly male, alert and awake, much better clinically. He is sitting in the recliner. Patient's speech is much more clear, completely comprehensible. No aphasia or dysarthria. Patient can name and repeat. He thinks the current date is 02/06/2022. He knows that he is in [facility] in [place] and name of the current president. Speech and language functions are normal. On cranial examination pupils are round and reacting to light, visual golden are full on confrontation, extraocular muscles are intact. Face is symmetric, tongue protrudes to the midline. Palatal elevation and sensation normal, hearing is slightly decreased, shoulder shrug normal, facial sensation normal. On muscle strength testing there is no pronator drift and the strength is normal in arms and legs distally and proximally except hip flexion which is 4-bilaterally. Patient has slight ataxia for [id number] testing on the right. Sensations are equal with no neglect. Tone and bulk of muscles normal. - Labs CBC & Chem 7: 10/03/20 06:05 10/03/20 06:05 Labs: Abnormal Lab Results - Last 24 Hours (Table) 10/02/20 10/02/20 10/03/20 Range/Units 16:50 20:43 05:51 RBC (4.30-5.90) m/uL Hgb (13.0-17.5) gm/dL Hct (39.0-53.0) % MCV (80.0-100.0) fL MCHC (31.0-37.0) g/dL RDW (11.5-15.5) % Plt Count (150-450) k/uL Lymphocytes # (Manual) (1.0-4.8) k/uL Myelocytes # (Manual) (0) k/uL Carbon Dioxide (22-30) mmol/L BUN (9-20) mg/dL Creatinine (0.66-1.25) mg/dL POC Glucose (mg/dL) 148 H 119 H 102 H (75-99) mg/dL Calcium (8.4-10.2) mg/dL Phosphorus (2.5-4.5) mg/dL 10/03/20 10/03/20 10/03/20 Range/Units 06:05 06:05 06:05 RBC 2.73 L (4.30-5.90) m/uL Hgb 8.5 L (13.0-17.5) gm/dL Hct 28.2 L (39.0-53.0) % MCV 103.4 H (80.0-100.0) fL MCHC 30.3 L (31.0-37.0) g/dL RDW 15.6 H (11.5-15.5) % Plt Count 76 L (150-450) k/uL Lymphocytes # (Manual) 0.47 L (1.0-4.8) k/uL Myelocytes # (Manual) 0.07 H (0) k/uL Carbon Dioxide 33 H (22-30) mmol/L BUN 76 H (9-20) mg/dL Creatinine 1.36 H (0.66-1.25) mg/dL POC Glucose (mg/dL) (75-99) mg/dL Calcium 7.7 L (8.4-10.2) mg/dL Phosphorus 5.1 H (2.5-4.5) mg/dL 10/03/20 Range/Units 11:52 RBC (4.30-5.90) m/uL Hgb (13.0-17.5) gm/dL Hct (39.0-53.0) % MCV (80.0-100.0) fL MCHC (31.0-37.0) g/dL RDW (11.5-15.5) % Plt Count (150-450) k/uL Lymphocytes # (Manual) (1.0-4.8) k/uL Myelocytes # (Manual) (0) k/uL Carbon Dioxide (22-30) mmol/L BUN (9-20) mg/dL Creatinine (0.66-1.25) mg/dL POC Glucose (mg/dL) 158 H (75-99) mg/dL Calcium (8.4-10.2) mg/dL Phosphorus (2.5-4.5) mg/dL Assessment and Plan Assessment: * Altered mental status, possible due to metabolic encephalopathy. Patient has acute renal insufficiency, hyperkalemia, anemia, elevated liver enzymes, urinary retention. Patient's full neurological examination is nonfocal. CT head showed no acute process. * Atrial fibrillation, on long-term anticoagulation with Eliquis * History of seizure disorder, currently on Keppra. * History of left cerebellar stroke per CT. * Diabetes, well controlled. No evidence of hypoglycemia since arrival to the hospital. * Hypertension * Hypothyroidism Plan: * Patient's mentation has much improved. Likely was toxic metabolic encephalopathy, which now has significantly improved. No evidence of dysarthria. Examination is nonfocal. * Patient has multiple medical issues. Will defer IM to address metabolic dysfunction. * Continue Eliquis for stroke prevention related to atrial fibrillation. * Continue Zocor 20 mg. * Carotid Doppler revealed antegrade flow in both vertebral arteries. There is possibility of 40% stenosis in the left ICA and close to 50% stenosis in the right ICA. These calcified plaque which obscures detail. No significant stenosis. * Continue Keppra 500 mg twice a day for seizure prophylaxis. * B12 576, folate 12.7, hemoglobin A1c 5.4, fasting lipid panel pending. TSH is normal 1.71, bone virus PCR negative.
[2020-10-03 17:02] LABS: Glucose,Whole Blood 114 mg/dL (75-99)
[2020-10-03] MEDS: MELATONIN 3 MG TABLET PO PRN (20:34)
[2020-10-03] MEDS: MIRTAZAPINE 15 MG TAB PO SCH (20:34)
--- NOTE | 2020-10-03 20:43 | CONS ---
CONSULTATION REASON FOR CONSULT: Renal failure. HISTORY OF PRESENT ILLNESS: Patient is a 70-year-old male who has a history of hypertension, type 2 diabetes, chronic kidney disease, history of yfa-spxug-emrl/ squamous cell lung cancer. Patient was admitted, as his family found him on the floor. He is currently awake, comfortable. He has been complaining of mild shortness of breath, currently maintained on oxygen via nasal cannula. Creatinine was 1.3 on initial admission and increased to 1.73 yesterday. Today it is back down to 1.36. Previous creatinine was as low as 0.9 on 06/25/2020. Currently patient is voiding. Actually he has an indwelling catheter. He is maintained on IV fluids. Serum potassium was elevated on admission at 6.1. It is down to 4.8 today. It appears that patient also had urine retention and was evaluated by Urology, and a catheter was placed. PAST MEDICAL HISTORY: Atrial fibrillation, aen-gtebw-xowc lung cancer, type 2 diabetes, hyperlipidemia, hypertension, seizure disorder, history of PE. PAST SURGICAL HISTORY: Colonoscopy, bronchoscopy. SOCIAL HISTORY: Patient is a former smoker. History of use of marijuana. No other drug abuse. MEDICATIONS: Medications prior to admission included Singulair, Zocor, Glucophage, Eliquis, Lanoxin, Imdur, Lasix, Keppra, Lopressor, Synthroid, magnesium oxide and Kayexalate. ALLERGIES: NONE. PHYSICAL EXAMINATION: Patient is comfortable, awake. He is not in any acute distress. Apparently mentation is much improved since admission. Blood pressure was 100/54, heart rate 87 per minute. He is afebrile. EXAMINATION OF THE HEART: S1 and S2. EXAMINATION OF LUNGS: Bilateral breath sounds are heard. ABDOMEN: Soft, non-tender. Examination of lower extremities shows no evidence of edema. PHARMACY OPERATIONS COORDINATOR exam shows patient moving all 4 extremities. He seems to be alert and oriented x3. LABS: Sodium 140, potassium 4.8, chloride 100, BUN 76, creatinine 1.36, hemoglobin 8.5 g/dL. ASSESSMENT: 1. Acute kidney injury, multifactorial, including some degree of volume depletion as well as urine retention, currently improved. Continue with IV fluids. Repeat labs in a.m. Avoid nephrotoxic agents. 2. Hyperkalemia associated with acute kidney injury. I do see Kayexalate on his home med list. Review of previous labs does show evidence of hyperkalemia on and off. Patient's blood sugars were not elevated this admission. He is advised to continue to avoid use of NSAIDs. 1. History of hxj-igbrs-frif lung cancer with a history of chemotherapy. 2. Mental status changes, currently improved. 4. Atrial flutter 5. Seizure disorder. 6. Anemia r/o iron deficiency. PLAN: Continue IV fluids. Repeat labs in a.m. Check iron profile for workup for anemia. Thank you for this consultation. Will continue to follow the patient with you during his hospitalization. MMODL / IJN: [id number] / STEW
[2020-10-03 20:59] LABS: Glucose,Whole Blood 192 mg/dL (75-99)
--- NOTE | 2020-10-03 21:52 | P.PN ---
Progress Note - Text Progress Note Date: 10/03/20 Chief Complaint: Tired History of presenting complaint: This is a 70-year-old patient, follows with Dr. Genesis Morales. Chronic stable medical conditions include atrial fibrillation, diabetes, hypertension, hyperlipidemia seizure disorder and history of non-small cell lung cancer. EMS was called out by patient's family. Patient's brother had a right earlier and found the patient on the floor. Been following since 10 AM. Patient is alert. Patient to be short of breath this morning and fell to the floor. Had been rather tired. Patient is on home oxygen 2.5 L at all times. When I saw the patient earlier today he was rather lethargic. Or dose off. Answer only some questions. Earlier coude catheter was placed by Dr. Falcon from urology. Patient denied any cough or fever. Limited history Admitted with acute metabolic encephalopathy multifactorial from 89 from acute kidney injury. Given IV fluids. Patient's creatinine was 0.9 back in May 2020. Given IV fluids. Hyperkalemia was treated with Kayexalate. Today: Patient has expressed suicidal ideation to the nurse. Psychiatry was consulted. Remeron was added. Patient more awake today. Sitting up in a chair. Did eat some. Breathing better. Review of systems: Was done for constitutional, cardiovascular, GI, pulmonary. relevant finding as above Active Medications Albuterol/Ipratropium (Ipratropium-Albuterol 3 Ml Neb) 3 ml INHALATION RT-TID PRN PRN Reason: Shortness Of Breath Last Admin: 10/03/20 20:03 Dose: 3 ml Documented by: Sodium Chloride (Saline 0.9%) 1,000 mls @ 130 mls/hr IV .[id number] [facility] Last Admin: 10/03/20 17:01 Dose: 130 mls/hr Documented by: Isosorbide Mononitrate (Isosorbide Mononitrate Er 30 Mg Tab.Er.24h) 30 mg PO DAILY [facility] Last Admin: 10/03/20 09:19 Dose: 30 mg Documented by: Levetiracetam (Levetiracetam 500 Mg Tab) 500 mg PO BID [facility] Last Admin: 10/03/20 20:34 Dose: 500 mg Documented by: Levothyroxine Sodium (Levothyroxine 50 Mcg Tab) 50 mcg PO DAILY@0630 [facility] Last Admin: 10/03/20 06:21 Dose: 50 mcg Documented by: Melatonin (Melatonin 3 Mg Tablet) 3 mg PO HS PRN PRN Reason: Insomnia Last Admin: 10/03/20 20:34 Dose: 3 mg Documented by: Metoprolol Tartrate (Metoprolol Tartrate 50 Mg Tab) 50 mg PO DAILY [facility] Last Admin: 10/03/20 09:19 Dose: 50 mg Documented by: Mirtazapine (Mirtazapine 15 Mg Tab) 15 mg PO HS [facility] Last Admin: 10/03/20 20:34 Dose: 15 mg Documented by: Montelukast Sodium (Montelukast 10 Mg Tab) 10 mg PO DAILY [facility] Last Admin: 10/03/20 09:19 Dose: 10 mg Documented by: Naloxone HCl (Naloxone 0.4 Mg/Ml 1 Ml Vial) 0.2 mg IV Q2M PRN PRN Reason: Opioid Reversal Sodium Polystyrene Sulfonate (Sodium Polystyrene Sulfonate 15 Gm/60 Ml Bottle) 7.5 gm PO Q48H [facility] Last Admin: 10/02/20 11:12 Dose: Not Given Documented by: Past medical history to include: Atrial fibrillation, diabetes mellitus, hyperlipidemia, hypertension, pulmonary embolism, seizure disorder, non-small cell lung cancer/squamous cell has received radiation treatment and chemotherapy. Congestive heart failure EF of 35-40% and moderate tricuspid regurgitation severe secondary pulmonary hypertension chronic thoracic spine compression fractures Social history: Lives alone. Stop smoking in 2014. No alcohol. Uses marijuana. Physical examination: VITAL SIGNS: 97.3, 87, 22, 100/54, 95% on 2 L GENERAL: Sitting upon a chair more awake, talking EYES: Pupils equal. Conjunctiva normal. HEENT: External appearance of nose and ears normal, oral cavity normal NECK: JVD not raised; masses not palpable. HEART: First and second heart sounds are normal; no edema. LUNGS: Respiratory rate normal; decreased breath sounds. ABDOMEN: Soft, nontender, liver spleen not palpable, no masses palpable. PSYCH: AO 3, mood and affect normal INVESTIGATIONS, reviewed in the clinical context: October 03: WBC 6.7 hemoglobin 8.5 platelets 76 potassium 4.8 creatinine 1.36 phosphorus 5.1 TSH 1.7 WBC 7 hemoglobin 9 platelets 101 potassium 5.8 bun 74 creatinine 1.73 AST 135 ALT 155 Coronavirus [PCR] not detected Admission labs: WBC 6 hemoglobin 9.3 platelets 105 potassium 6.1 bun 65 creatinine 1.30 Troponin I 0.098 EKG tracing personally reviewed by me-atrial flutter with uncontrolled rate Chest x-ray film personally reviewed by me-cardiomegaly, lung opacity Computed tomography scan of the brain: Brain volume loss Previous labs: Creatinine 1.3 on October 01 and 0.9 on May 2020 Assessment and plan: -Acute metabolic encephalopathy multifactorial likely from acute kidney injury. Improving Did better with hydration -Acute kidney injury likely combination of ATN and prerenal. Patient creatinine was 0.9 back in May 2020. And 1.7 on presentation. IV fluids. 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 Patient did follow up with Dr. Lora. Repeat bronchoscopy in May 2020 with biopsy and washings were negative. Patient's currently continued on Imfinzi -Normocytic anemia likely combination of nutritional and from underlying malignancy Follow H&H with hydration -Bicytopenia likely from prior chemotherapy -Persistent atrial flutter with uncontrolled atrial presentation Cardiology consulted. IV Cardizem. Continue with eliquis. Lopressor -Diabetes mellitus type 2. Hold Glucophage. Follow Accu-Cheks diabetic diet. Resume metformin -Hyperlipidemia Continue with Zocor -Essential hypertension Patient on Cardizem and Lopressor -Seizure disorder Continue with Keppra, seizure precautions. Consult neurology -Hypothyroid Continue with Synthroid -COPD in an ex-smoker Continue with bronchodilators -Recreational marijuana use -Depressive disorder unspecified, likely adjustment disorder Seen by psychiatry. Remeron added. Change patient's diet to a ground diet. Other medications to continue. Resume metformin.
[2020-10-03] MEDS: metFORMIN 850 MG TAB PO SCH (23:07)
[2020-10-04 03:55] LABS: Cholesterol 145 mg/dL (<200); HDL Cholesterol 56 mg/dL (40-60); LDL Cholesterol,Calculated 59 mg/dL (0-99); Triglycerides 151 mg/dL (<150)
[2020-10-04] MEDS: SODIUM CHLORIDE 0.9% 1,000 ML IV SCH ×2 (05:02→13:05)
[2020-10-04 06:07] LABS: % Iron Saturation 8.81 (15.00-50.00)
[2020-10-04] MEDS: LEVOTHYROXINE 50 MCG TAB PO SCH (06:19)
[2020-10-04] MEDS: metFORMIN 850 MG TAB PO SCH ×2 (06:19→16:56)
[2020-10-04 06:56] LABS: Glucose,Whole Blood 114 mg/dL (75-99)
[2020-10-04] MEDS: IPRATROPIUM-ALBUTEROL 3 ML NEB INHALATION PRN ×2 (07:29→11:22)
[2020-10-04] MEDS: METOPROLOL TARTRATE 50 MG TAB PO SCH (09:03)
[2020-10-04] MEDS: ISOSORBIDE MONONITRATE ER 30 MG TAB.ER.24H PO SCH (09:03)
[2020-10-04] MEDS: levETIRAcetam 500 MG TAB PO SCH ×2 (09:03→21:31)
[2020-10-04] MEDS: MONTELUKAST 10 MG TAB PO SCH (09:04)
[2020-10-04 09:07] LABS: Albumin 3.2 g/dL (3.5-5.0); Calcium 7.9 mg/dL (8.4-10.2); Total Bilirubin 0.5 mg/dL (0.2-1.3); Total Protein 5.9 g/dL (6.3-8.2)
[2020-10-04 09:12] LABS: Potassium 4.1 mmol/L (3.5-5.1)
[2020-10-04 09:20] LABS: Basophils % (A) 0 %; Eosinophils % (A) 1 %; HCT 30.1 % (39.0-53.0); HGB 8.7 gm/dL (13.0-17.5); Hypochromasia Marked; Lymphocytes # (A) 0.9 k/uL (1.0-4.8); Lymphocytes % (A) 18 %; MCH 29.7 pg (25.0-35.0); MCHC 28.8 g/dL (31.0-37.0); MCV 103.1 fL (80.0-100.0); Macrocytosis Slight; Mean Platelet Volume 11.3; Monocytes # (A) 0.3 k/uL (0-1.0); Monocytes % (A) 6 %; Neutrophils # (A) 3.6 k/uL (1.3-7.7); Neutrophils % (A) 72 %; Platelet Count 59 k/uL (150-450); RBC 2.92 m/uL (4.30-5.90); RDW 15.5 % (11.5-15.5)
--- NOTE | 2020-10-04 11:02 | P.PN ---
Progress Note - Text Progress Note Date: 10/04/20 Interval History: Patient was seen today for psychiatric follow-up regarding patient's depression. Patient was in his chair beside his bed today. He was more alert and cooperative with the customs entry writer today. He claims that he is doing "okay" today. He states that last night he was able to sleep well throughout the night. He once again spoke about "talking to God" and spoke about dying from his cancer. He states that his mood is "fine" and is denying any depression today. He is denying any anxiety. He states that his appetite is still poor and energy level is lower. He is still future oriented and spoke about going home and his ongoing cancer treatment. At this time patient denies any current suicidal or homical ideations, intent or plan. Patient denies any auditory, visual hallucinations and denies any paranoia or delusions. Patient denies any side effects from the medications and has been compliant with meds. Mental Status Exam: General Appearance: Patient appears to be stated age is alert, attempting to be cooperative. Patient appears to have mildly improving hygiene and grooming wearing hospital gown with fair eye contact. Poor dentition. Behavior: Patient is calmly lying in bed without any agitated behavior. Joking around at times. Speech: Patient's speech is fluent and nonpressured. Mood/Affect: Patient reports their mood is "fine", affect is congruent and constricted Suicidality/Homicidality: Patient denies having any suicidal or homicidal ideation intent or plan. Passive thoughts of end-of-life related to his cancer Perceptions: Patient denies any visual hallucinations and denies any auditory hallucinations Though content/process: There is no evidence of any delusional thought content and thought process is linear. Logical. Not endorsing any delusions or paranoia. Memory and concentration: AOX3, grossly intact for the purposes of this session Judgment and insight: limited Assessment Depressive disorder unspecified Cannabis use disorder mild Plan: -At this time patient DOES NOT meet criteria for inpatient psychiatric admission. Patients passive end of life thoughts are likely related to patients underlying cancer diagnosis and medical condition. Patient is still future oriented and has no previous suicide attempts and has no active suicidal thoughts or plans. -Would recommend the following medication changes/additions: continue with Remeron 15 mg daily at bedtime for mood/appetite/insomnia. continue with melatonin 3mg qhs prn for insomnia. Added prozac 20mg daily for mood. -top and trim worker to provide patient with outpatient mental health/psychiatry resources for appropriate follow up upon discharge -Decision Support Analyst spoke with patient about substance abuse and the harmful effects on medical and mental health, patient verbally understood and agreed. -After speaking with brother over the phone he states that he will attempt to be more supportive and check on patient more regularly and also will go to have guns/weapons removed from the house. -Communicated plan to patient's nurse -At this time will sign off -Please contact with any questions.
[2020-10-04 11:32] LABS: Anisocytosis (M) Present; Poikilocytosis (M) Present
[2020-10-04 11:47] LABS: Glucose,Whole Blood 127 mg/dL (75-99)
[2020-10-04] MEDS: SODIUM POLYSTYRENE SULFONATE 15 GM/60 ML BOTTLE PO SCH (13:04)
[2020-10-04] MEDS: FLUoxetine HCL 20 MG CAP PO SCH (13:05)
[2020-10-04] MEDS: IPRATROPIUM-ALBUTEROL 3 ML NEB INHALATION SCH ×3 (13:15→21:34)
--- NOTE | 2020-10-04 13:18 | CDI ---
Documentation Clarification Form Date: 10/04/2020 01:06:29 PM From: Eliana Coulter RN, CCDS Admit Date: 10/01/2020 08:41:00 PM Patient Name: Fidel Hicks Visit Number: [id number] ATTENTION: The Clinical Documentation Specialists (CDI) and [facility] Coding Staff appreciate your assistance in clarifying documentation. Please respond to the clarification below the line at the bottom and electronically sign. The CDI & [facility] Coding staff will review the response and follow-up if needed. Please note: Queries are made part of the Legal Health Record. If you have any questions, please contact the author of this message via ITS. Dr. Alyse Turner Unspecified CKD is documented in the 10/03 Nephrology consult]. Additional clarification regarding the stage of CKD is requested. History/Risk Factors: 06/25/20 Patients Historical BUN/CR./GFR:24/0.9/87.5 DM2, HTN, HLD, non-small cell lung CA, Atrial Fib, CHF Clinical Indicators: 10/03 Nephrology Consult: "70-year-old male who has a history of hypertension, type 2 diabetes, chronic kidney disease, history of ydd-nynwg-cfnd/ squamous cell lung cancer." 10/01-10/04 Current BUN: 65/74/76/71 CR: 1.3/1.73/1.36/1.17 GFR: 56/40/53/64 Treatment: 10/03 Nephrology Consult Completed 10/01 2L 0.9% NS IVF bolus followed by 75 cc/hr. then increased to 130 cc/hr. 10/01 TX of hyperkalemia with Kayexalate, Hco3 IVP, IVP insulin Please clarify the stage of the CKD, if known: [ ] CKD Stage 1 (GFR > 90) [ ] CKD Stage 2 (GFR 60-89) [ ] CKD Stage 3 (GFR 30-59) [ ] CKD Stage 3a (GFR 45-59) [ ] CKD Stage 3b (GFR 30-44) [ ] Other, please specify [ ] Unable to determine (Template last revised: July 2020) MTDD
--- NOTE | 2020-10-04 15:34 | P.PN ---
Subjective Progress Note Date: 10/04/20 Principal diagnosis: Thrombocytopenia Increased Oxygen need today, complains of SOB. Increasing LFTs, Decreasing Platelet count. Recheck coags, Chest Xray and further evaluate abdomen Liver. Potassium and renal function improved. He continues on eliquis and ababy aspirin, if platelet count drops below 50K will hold Anticoagulation. Consider immune related side effects, hepatitis. Objective - Vital Signs Vital signs: Vital Signs Temp 98 F 10/04/20 09:00 Pulse 90 10/04/20 13:15 Resp 18 10/04/20 13:15 BP 94/56 10/04/20 13:15 Pulse Ox 94 L 10/04/20 13:15 Intake & Output 10/03/20 10/04/20 10/04/20 18:59 06:59 18:59 Intake Total 250 180 Output Total 350 Balance 250 -170 Weight 82.5 kg 84.5 kg Intake: Oral 250 180 Output: Urine 350 Other: Voiding Method Indwelling Catheter Indwelling Catheter Indwelling Catheter - Exam - Constitutional General appearance: average body habitus, cooperative, no acute distress - EENT Eyes: anicteric sclerae, EOMI ENT: hearing grossly normal, normal oropharynx - Neck Neck: no lymphadenopathy - Respiratory Respiratory: right: other (Absent right upper lobe breath sounds), left: CTA - Cardiovascular Rhythm: regular Heart sounds: normal: S1, S2 Abnormal Heart Sounds: no systolic murmur, no diastolic murmur, no rub, no S3 Gallop, no S4 Gallop, no click, no other leg Peripheral Edema: bilateral: None - Gastrointestinal General gastrointestinal: no absent bowel sounds, no decreased bowel sounds, no distended, no hepatomegaly, no hyperactive bowel sounds, normal bowel sounds, no organomegaly, no rigid, no scaphoid, soft, no splenomegaly, no tenderness, no umbilical hernia, no ventral hernia - Integumentary Integumentary: pale - Musculoskeletal Musculoskeletal: generalized weakness - Psychiatric Slightly lethargic Psychiatric: no appropriate affect, no intact judgment & insight - Labs CBC & Chem 7: 10/04/20 08:40 10/04/20 08:40 Labs: Abnormal Lab Results - Last 24 Hours (Table) 10/03/20 10/03/20 10/03/20 Range/Units 06:05 06:05 16:54 RBC (4.30-5.90) m/uL Hgb (13.0-17.5) gm/dL Hct (39.0-53.0) % MCV (80.0-100.0) fL MCHC (31.0-37.0) g/dL Plt Count (150-450) k/uL Lymphocytes # (1.0-4.8) k/uL Carbon Dioxide (22-30) mmol/L BUN (9-20) mg/dL POC Glucose (mg/dL) 114 H (75-99) mg/dL Calcium (8.4-10.2) mg/dL Iron 20 L (65-175) ug/dL TIBC 227 L (228-460) ug/dL % Saturation 8.81 L (15.00-50.00) AST (17-59) U/L ALT (4-49) U/L Total Protein (6.3-8.2) g/dL Albumin (3.5-5.0) g/dL Triglycerides 151 H (<150) mg/dL 10/03/20 10/04/20 10/04/20 Range/Units 20:58 06:54 08:40 RBC 2.92 L (4.30-5.90) m/uL Hgb 8.7 L (13.0-17.5) gm/dL Hct 30.1 L (39.0-53.0) % MCV 103.1 H (80.0-100.0) fL MCHC 28.8 L (31.0-37.0) g/dL Plt Count 59 L (150-450) k/uL Lymphocytes # 0.9 L (1.0-4.8) k/uL Carbon Dioxide (22-30) mmol/L BUN (9-20) mg/dL POC Glucose (mg/dL) 192 H 114 H (75-99) mg/dL Calcium (8.4-10.2) mg/dL Iron (65-175) ug/dL TIBC (228-460) ug/dL % Saturation (15.00-50.00) AST (17-59) U/L ALT (4-49) U/L Total Protein (6.3-8.2) g/dL Albumin (3.5-5.0) g/dL Triglycerides (<150) mg/dL 10/04/20 10/04/20 Range/Units 08:40 11:45 RBC (4.30-5.90) m/uL Hgb (13.0-17.5) gm/dL Hct (39.0-53.0) % MCV (80.0-100.0) fL MCHC (31.0-37.0) g/dL Plt Count (150-450) k/uL Lymphocytes # (1.0-4.8) k/uL Carbon Dioxide 37 H (22-30) mmol/L BUN 71 H (9-20) mg/dL POC Glucose (mg/dL) 127 H (75-99) mg/dL Calcium 7.9 L (8.4-10.2) mg/dL Iron (65-175) ug/dL TIBC (228-460) ug/dL % Saturation (15.00-50.00) AST 112 H (17-59) U/L ALT 195 H (4-49) U/L Total Protein 5.9 L (6.3-8.2) g/dL Albumin 3.2 L (3.5-5.0) g/dL Triglycerides (<150) mg/dL Assessment and Plan Plan: CT Scan - head: report reviewed (Without contrast, no evidence of acute bleed) Assessment and Plan Acute Respiratory Insufficiency: - Likely pneumonia - Antibiotics - Repeat Chest Xray and rowland cultures today Hyperkalemia Patient has had this happen several times in the past. He has been prescribed Kayexalate in the outpatient setting. He has been seen by Nephrology. Agree with treatment of the same. Lung cancer Patient has been doing well on his current maintenance therapy treatments. Once patient's current condition has improved and he is back to baseline, so okay to continue imfinzi on schedule. Thrombocytopenia: - recheck Coags - Monitor daily - If less than 50K will need to hold anticoagulation - Monitor for bleeding. Increased LFTs: - Consider immune related hepatitis - Revie of current medications Doctor attests: I performed a history and physical examination of this patient, developed impression and plan of care. Discussed with dictator. I agree with dictators note, documented as a scribe.
[2020-10-04 15:55] LABS: Prothrombin Time 10.3 sec (9.0-12.0)
[2020-10-04] MEDS: ASPIRIN 81 MG PO SCH (16:26)
--- NOTE | 2020-10-04 16:49 | XR ---
EXAMINATION TYPE: XR chest 2V DATE OF EXAM: 10/04/2020 COMPARISON: 10/03/2019 INDICATION: Increased shortness of breath TECHNIQUE: Frontal and lateral views of the chest are obtained. FINDINGS: The heart size is enlarged. The pulmonary vasculature is normal. There is opacification to the right lung field which is worsened over the interval. Underlying right perihilar mass is not excluded. Posterior right pleural effusion is present. IMPRESSION: 1. Worsening opacification to the right lung. 2. Developing right posterior pleural effusion.
--- NOTE | 2020-10-04 16:54 | US ---
EXAMINATION TYPE: US abdomen comp/pelvis limited DATE OF EXAM: 10/04/2020 COMPARISON: CT CLINICAL HISTORY: increased LFTs; hyperkalemia. Patient unable to turn for US at bedside. EXAM MEASUREMENTS: Liver Length: 15.8 cm. Normal less than 15.5 cm Gallbladder Wall: 0.2 cm CBD: 0.4 cm Spleen: 9.2 cm in length Right Kidney: 10.9 x 5.7 x 4.4 cm Left Kidney: 9.9 x 3.8x 5.9 cm Post Void Residual: not assessed on inpatient with indwelling bladder catheter RT pleural effusion is noted during liver US survey. Pancreas: hyperechoic with mid and tail obscured by overlying bowel gas Liver: no masses seen Gallbladder: wnl on supine imaging; unable to turn patient CBD: wnl Spleen: wnl Right Kidney: multiple renal cysts seen with largest at lower cortex = 2.1 x 2.3 x 2.2cm Left Kidney: no hydronephrosis or masses seen with limited US views due to overlying bowel gas obscur ing inferior pole Upper IVC: prominent Abd Aorta: size is wnl; intimal thickening seen mid and distally Bladder: indwelling bladder catheter is seen Bilateral Jets Seen NA IMPRESSION: 1. Minimal Right pleural effusion noted. 2. Right renal cysts. 3. Mild hepatomegaly
[2020-10-04 17:02] LABS: Glucose,Whole Blood 102 mg/dL (75-99)
--- NOTE | 2020-10-04 18:53 | ECHOF ---
Referral Reason:pos troponin MEASUREMENTS -------- HEIGHT: 180.3 cm WEIGHT: 84.4 kg BP: RVIDd: 2.7 cm (< 3.3) IVSd: 1.4 cm (0.6 - 1.1) LVIDd: 3.3 cm (3.9 - 5.3) LVPWd: 1.8 cm (0.6 - 1.1) IVSs: 1.5 cm LVIDs: 2.5 cm LVPWs: 1.9 cm Ao Diam: 3.2 cm (2.0 - 3.7) AV Cusp: 1.9 cm (1.5 - 2.6) LA Diam: 2.8 cm (2.7 - 3.8) MV EXCURSION: 28.113 mm (> 18.000) MV EF SLOPE: 310 mm/s (70 - 150) EPSS: 1.1 cm MV E Rufus: 0.56 m/s MV DecT: 180 ms MV A Rufus: 0.54 m/s MV E/A Ratio: 1.04 RAP: 5.00 mmHg RVSP: 25.68 mmHg FINDINGS -------- This was a technically difficult study with suboptimal views. The left ventricular size is normal. There is moderate concentric left ventricular hypertrophy. O verall left ventricular systolic function is low-normal with, an EF between 50 - 55 %. The right ventricle is normal in size. The left atrial size is normal. The right atrial size is normal. Lumason used The aortic valve was not well visualized. There is trace mitral regurgitation. The tricuspid valve appears structurally normal. Trace tricuspid regurgitation present. Right joseph tricular systolic pressure is normal at < 35 mmHg. There is no pulmonic regurgitation present. The aortic root size is normal. IVC Not well visulized. There is no pericardial effusion. CONCLUSIONS -------- 1. The left ventricular size is normal. 2. There is moderate concentric left ventricular hypertrophy. 3. Overall left ventricular systolic function is low-normal with, an EF between 50 - 55 %. 4. There is trace mitral regurgitation. 5. Trace tricuspid regurgitation present. 6. There is no pericardial effusion. MONKEY KEEPER: Lynette Jolly RD
--- NOTE | 2020-10-04 18:57 | US ---
EXAMINATION TYPE: US venous doppler duplex UE RT DATE OF EXAM: 10/04/2020 COMPARISON: US CLINICAL HISTORY: Swelling. Right arm swelling, h/o DVT right arm SIDE PERFORMED: Right Right Arm: Appeared negative for DVT IMPRESSION: 1. Right upper extremity negative for deep venous thrombosis.
--- NOTE | 2020-10-04 20:30 | PN ---
PROGRESS NOTE Patient is seen for followup for acute kidney injury. Renal function has improved significantly, with creatinine down to 1.17 from 1.7 on 10/02/2020. Patient has had good urine output. He is status post IV fluids. He has had good urine output. PHYSICAL EXAMINATION: Blood pressure was 116/69, heart rate of 96 per minute. He is afebrile. EXAMINATION OF THE HEART: S1 and S2. EXAMINATION OF LUNGS: Bilateral breath sounds are heard. Decreased breath sounds at bases. ABDOMEN: Soft, non-tender. Examination of lower extremities shows no evidence of edema. BEATER ROOM SUPERVISOR exam shows patient is moving all 4 extremities. He is awake and alert and following commands. LABS: Sodium 141, potassium 4.1, chloride 100, BUN 71, creatinine 1.17, hemoglobin of 8.7 g/dL. ASSESSMENT: 1. Acute kidney injury, prerenal, currently improved. 2. Mental status changes; seems to have improved. 3. Hyperkalemia associated with acute kidney injury. It appears that patient has chronic hyperkalemia and is maintained on Kayexalate at home as well 3 times a week. Potassium has improved. 4. History of dov-mrnvb-orby lung cancer with history of chemotherapy. 5. Mental status changes, improving. 6. Atrial flutter. 7. Seizure disorder. 8. Anemia. Rule out iron deficiency. PLAN: Encourage increased oral intake. Add IV iron, as iron saturation was only 8%. May continue with the Glucophage. I will hold off on the Kayexalate for now, as his potassium was 4.1. MMODL / IJN: [id number] /
--- NOTE | 2020-10-04 20:42 | P.PN ---
Progress Note - Text Progress Note Date: 10/04/20 Chief Complaint: Tired History of presenting complaint: This is a 70-year-old patient, follows with Dr. Genesis Morales. Chronic stable medical conditions include atrial fibrillation, diabetes, hypertension, hyperlipidemia seizure disorder and history of non-small cell lung cancer. EMS was called out by patient's family. Patient's brother had a right earlier and found the patient on the floor. Been following since 10 AM. Patient is alert. Patient to be short of breath this morning and fell to the floor. Had been rather tired. Patient is on home oxygen 2.5 L at all times. When I saw the patient earlier today he was rather lethargic. Or dose off. Answer only some questions. Earlier coude catheter was placed by Dr. Falcon from urology. Patient denied any cough or fever. Limited history Admitted with acute metabolic encephalopathy multifactorial from 89 from acute kidney injury. Given IV fluids. Patient's creatinine was 0.9 back in May 2020. Given IV fluids. Hyperkalemia was treated with Kayexalate. Patient had expressed suicidal ideation to the nurse. Psychiatry was consulted. Remeron was added. Today: Sitting up in a chair. Not keen on eating. Feels a bit low. Breathing stable. Prozac was added today by psychiatry. Review of systems: Was done for constitutional, cardiovascular, GI, pulmonary. relevant finding as above Active Medications Albuterol/Ipratropium (Ipratropium-Albuterol 3 Ml Neb) 3 ml INHALATION RT-QID [facility] Last Admin: 10/04/20 16:27 Dose: Not Given Documented by: Apixaban (Apixaban 5 Mg Tab) 5 mg PO BID [facility] Aspirin (Aspirin 81 Mg) 81 mg PO DAILY [facility] Last Admin: 10/04/20 16:26 Dose: 81 mg Documented by: Fluoxetine HCl (Fluoxetine Hcl 20 Mg Cap) 20 mg PO DAILY [facility] Last Admin: 10/04/20 13:05 Dose: 20 mg Documented by: Sodium Chloride (Saline 0.9%) 1,000 mls @ 130 mls/hr IV .[id number] [facility] Last Admin: 10/04/20 13:05 Dose: 130 mls/hr Documented by: Levofloxacin 500 mg/ IV (Solution) 100 mls @ 100 mls/hr IVPB Q24H [facility] Ferric Sodium Gluconate 125 mg (/ Sodium Chloride) 110 mls @ 100 mls/hr IVPB DAILY [facility] Stop: 10/06/20 20:01 Isosorbide Mononitrate (Isosorbide Mononitrate Er 30 Mg Tab.Er.24h) 30 mg PO DAILY [facility] Last Admin: 10/04/20 09:03 Dose: 30 mg Documented by: Levetiracetam (Levetiracetam 500 Mg Tab) 500 mg PO BID [facility] Last Admin: 10/04/20 09:03 Dose: 500 mg Documented by: Levothyroxine Sodium (Levothyroxine 50 Mcg Tab) 50 mcg PO DAILY@0630 [facility] Last Admin: 10/04/20 06:19 Dose: 50 mcg Documented by: Melatonin (Melatonin 3 Mg Tablet) 3 mg PO HS PRN PRN Reason: Insomnia Last Admin: 10/03/20 20:34 Dose: 3 mg Documented by: Metformin HCl (Metformin 850 Mg Tab) 850 mg PO AC-BID [facility] Last Admin: 10/04/20 16:56 Dose: 850 mg Documented by: Metoprolol Tartrate (Metoprolol Tartrate 12.5 Mg Tab) 12.5 mg PO BID [facility] Mirtazapine (Mirtazapine 15 Mg Tab) 15 mg PO HS [facility] Last Admin: 10/03/20 20:34 Dose: 15 mg Documented by: Montelukast Sodium (Montelukast 10 Mg Tab) 10 mg PO DAILY [facility] Last Admin: 10/04/20 09:04 Dose: 10 mg Documented by: Naloxone HCl (Naloxone 0.4 Mg/Ml 1 Ml Vial) 0.2 mg IV Q2M PRN PRN Reason: Opioid Reversal Past medical history to include: Atrial fibrillation, diabetes mellitus, hyperlipidemia, hypertension, pulmonary embolism, seizure disorder, non-small cell lung cancer/squamous cell has received radiation treatment and chemotherapy. Congestive heart failure EF of 35-40% and moderate tricuspid regurgitation severe secondary pulmonary hypertension chronic thoracic spine compression fractures Social history: Lives alone. Stop smoking in 2014. No alcohol. Uses marijuana. Physical examination: VITAL SIGNS: 98, 96, 20, 101/68, 94% on 2 L GENERAL: Sitting upon a chair tired, feeling low EYES: Pupils equal. Conjunctiva normal. HEENT: External appearance of nose and ears normal, oral cavity normal NECK: JVD not raised; masses not palpable. HEART: First and second heart sounds are normal; no edema. LUNGS: Respiratory rate normal; decreased breath sounds. ABDOMEN: Soft, nontender, liver spleen not palpable, no masses palpable. PSYCH: AO 3, mood and affect feeling low INVESTIGATIONS, reviewed in the clinical context: October 04: WBC 5 hemoglobin 8.7 platelets 59 potassium 4.1 creatinine 1.17 Chest x-ray film personally reviewed by me-right upper lobe lung collapse with mediastinal shift October 03: WBC 6.7 hemoglobin 8.5 platelets 76 potassium 4.8 creatinine 1.36 ph osphorus 5.1 TSH 1.7 WBC 7 hemoglobin 9 platelets 101 potassium 5.8 bun 74 creatinine 1.73 AST 135 ALT 155 Coronavirus [PCR] not detected Admission labs: WBC 6 hemoglobin 9.3 platelets 105 potassium 6.1 bun 65 creatinine 1.30 Troponin I 0.098 EKG tracing personally reviewed by me-atrial flutter with uncontrolled rate Chest x-ray film personally reviewed by me-cardiomegaly, lung opacity Computed tomography scan of the brain: Brain volume loss Previous labs: Creatinine 1.3 on October 01 and 0.9 on May 2020 Assessment and plan: -Acute metabolic encephalopathy multifactorial likely from acute kidney injury. Improving Did better with hydration -Acute kidney injury likely combination of ATN and prerenal. Patient creatinine was 0.9 back in May 2020. And 1.7 on presentation. Now down to 1.17. IV fluids. 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 Patient did follow up with Dr. Lora. Repeat bronchoscopy in May 2020 with biopsy and washings were negative. Patient's currently continued on Imfinzi. We'll consult Dr. Peterson from pulmonary. Patient may need a repeat bronchoscopy with brushings. Repeat computed tomography scan of the chest in July of this year did show collapse of the right middle lobe. Strong suspicion for recurrence/malignancy persists -Normocytic anemia likely combination of nutritional and from underlying malignancy Follow H&H with hydration -Bicytopenia likely from prior chemotherapy -Persistent atrial flutter with uncontrolled atrial presentation Cardiology consulted. IV Cardizem. Continue with eliquis. Lopressor -Diabetes mellitus type 2. Hold Glucophage. Follow Accu-Cheks diabetic diet. Resume metformin -Hyperlipidemia Continue with Zocor -Essential hypertension Patient on Cardizem and Lopressor -Seizure disorder Continue with Keppra, seizure precautions. Consult neurology -Hypothyroid Continue with Synthroid -COPD in an ex-smoker Continue with bronchodilators -Recreational marijuana use -Depressive disorder unspecified, likely adjustment disorder Seen by psychiatry. Remeron added. Prozac also added today -Acute bladder outflow obstruction and a Minor catheter placed by urology Add Flomax Prozac was added today by psychiatry. We will consult Dr. Peterson from pulmonary. Patient will probably need a repeat bronchoscopy. Encourage oral intake. DC Minor catheter trial in the morning. Add Flomax
[2020-10-04 21:17] LABS: Glucose,Whole Blood 92 mg/dL (75-99)
[2020-10-04] MEDS: MELATONIN 3 MG TABLET PO PRN (21:30)
[2020-10-04] MEDS: APIXABAN 5 MG TAB PO SCH (21:31)
[2020-10-04] MEDS: SODIUM FERRIC GLUCONAT-SUCROSE 125 MG in SODIUM CHLORIDE 0.9% 100 ML IVPB SCH (21:31)
[2020-10-04] MEDS: TAMSULOSIN 0.4 MG CAP.ER.24H PO SCH (21:31)
[2020-10-04] MEDS: MIRTAZAPINE 15 MG TAB PO SCH (21:31)
--- NOTE | 2020-10-04 21:33 | P.PN ---
Subjective Progress Note Date: 10/04/20 10/04/2020: Patient is sitting on the side of the bed. Offers no new complaints. Patient denies any history of cancer. 10/03/2020: Patient was seen for a follow-up. Patient is much more alert and awake, in no distress. Patient able to provide much better history. Patient states that he lives alone, has no children, does not use any assistive device at home. Patient states that he has seizures couple years ago. Also admits that he had history of a stroke not too long ago but does not remember the deficits from it. Patient states the reason he came to the hospital is because he fell down and went numb from feet to the legs, felt he was dying. Fortunately his brother stopped by and saw he couldn't do anything, and he took him to the hospital. Patient states that he smoked 1 pack per day since age 12, quit 5 years ago. He used to drink a lot of beer for 20 years, also quit 5 years ago. Regarding urinary retention, patient states "I could have went if they asked me, but they never asked, and placed the catheter" Objective - Vital Signs Vital signs: Vital Signs Temp 98.0 F 10/04/20 19:36 Pulse 62 10/04/20 19:36 Resp 19 10/04/20 19:36 BP 135/89 10/04/20 19:36 Pulse Ox 90 L 10/04/20 19:36 Intake & Output 10/04/20 10/04/20 10/05/20 06:59 18:59 06:59 Intake Total 180 Output Total 550 Balance -370 Weight 84.5 kg Intake: Oral 180 Output: Urine 550 Other: Voiding Method Indwelling Catheter Indwelling Catheter - Exam 10/04/2020: Patient is sitting on the edge of the bed. Patient is comfortable. Speech and language functions appears normal. No aphasia or dysarthria. Patient can name and repeat very well. Results of the examination deferred. 10/03/2020: On examination patient is an elderly male, alert and awake, much better clinically. He is sitting in the recliner. Patient's speech is much more clear, completely comprehensible. No aphasia or dysarthria. Patient can name and repeat. He thinks the current date is 02/06/2022. He knows that he is in [facility] and name of the current president. Speech and language functions are normal. On cranial examination pupils are round and reacting to light, visual golden are full on confrontation, extraocular muscles are intact. Face is symmetric, tongue protrudes to the midline. Palatal elevation and sensation normal, hearing is slightly decreased, shoulder shrug normal, facial sensation normal. On muscle strength testing there is no pronator drift and the strength is normal in arms and legs distally and proximally except hip flexion which is 4-bilaterally. Patient has slight ataxia for [id number] testing on the right. Sensations are equal with no neglect. Tone and bulk of muscles normal. - Labs CBC & Chem 7: 10/04/20 08:40 10/04/20 08:40 Labs: Abnormal Lab Results - Last 24 Hours (Table) 10/03/20 10/03/20 10/04/20 Range/Units 06:05 06:05 06:54 RBC (4.30-5.90) m/uL Hgb (13.0-17.5) gm/dL Hct (39.0-53.0) % MCV (80.0-100.0) fL MCHC (31.0-37.0) g/dL Plt Count (150-450) k/uL Lymphocytes # (1.0-4.8) k/uL Carbon Dioxide (22-30) mmol/L BUN (9-20) mg/dL POC Glucose (mg/dL) 114 H (75-99) mg/dL Calcium (8.4-10.2) mg/dL Iron 20 L (65-175) ug/dL TIBC 227 L (228-460) ug/dL % Saturation 8.81 L (15.00-50.00) AST (17-59) U/L ALT (4-49) U/L Total Protein (6.3-8.2) g/dL Albumin (3.5-5.0) g/dL Triglycerides 151 H (<150) mg/dL 10/04/20 10/04/20 10/04/20 Range/Units 08:40 08:40 11:45 RBC 2.92 L (4.30-5.90) m/uL Hgb 8.7 L (13.0-17.5) gm/dL Hct 30.1 L (39.0-53.0) % MCV 103.1 H (80.0-100.0) fL MCHC 28.8 L (31.0-37.0) g/dL Plt Count 59 L (150-450) k/uL Lymphocytes # 0.9 L (1.0-4.8) k/uL Carbon Dioxide 37 H (22-30) mmol/L BUN 71 H (9-20) mg/dL POC Glucose (mg/dL) 127 H (75-99) mg/dL Calcium 7.9 L (8.4-10.2) mg/dL Iron (65-175) ug/dL TIBC (228-460) ug/dL % Saturation (15.00-50.00) AST 112 H (17-59) U/L ALT 195 H (4-49) U/L Total Protein 5.9 L (6.3-8.2) g/dL Albumin 3.2 L (3.5-5.0) g/dL Triglycerides (<150) mg/dL 10/04/20 Range/Units 17:00 RBC (4.30-5.90) m/uL Hgb (13.0-17.5) gm/dL Hct (39.0-53.0) % MCV (80.0-100.0) fL MCHC (31.0-37.0) g/dL Plt Count (150-450) k/uL Lymphocytes # (1.0-4.8) k/uL Carbon Dioxide (22-30) mmol/L BUN (9-20) mg/dL POC Glucose (mg/dL) 102 H (75-99) mg/dL Calcium (8.4-10.2) mg/dL Iron (65-175) ug/dL TIBC (228-460) ug/dL % Saturation (15.00-50.00) AST (17-59) U/L ALT (4-49) U/L Total Protein (6.3-8.2) g/dL Albumin (3.5-5.0) g/dL Triglycerides (<150) mg/dL Assessment and Plan Assessment: * Altered mental status, possible due to metabolic encephalopathy. Patient has acute renal insufficiency, hyperkalemia, anemia, elevated liver enzymes, urinary retention. Patient's limited neurological examination is nonfocal. CT head showed no acute process. * Atrial fibrillation, on long-term anticoagulation with Eliquis * History of seizure disorder, currently on Keppra. * History of left cerebellar stroke per CT. * Slurred speech, possible due to encephalopathy. * History of lung cancer, on chemotherapy. * Thrombocytopenia * Diabetes * Hypertension * Hypothyroidism Plan: * Patient's toxic metabolic encephalopathy has remarkably improved. His mentation appears back to baseline. * Patient has multiple medical issues. Will defer IM and other specialties to address metabolic dysfunction. * Continue Eliquis for stroke prevention related to atrial fibrillation. * 2-D echo revealed moderate concentric LVH. EF is 50-55%. Trace MR. * Carotid Doppler revealed antegrade flow in both vertebral arteries. There is possible to 40% stenosis in the left ICA, and close to 50% stenosis in the right ICA. These calcified plaque obscures detail. No significant stenosis. * Continue Keppra 500 mg twice a day for seizure prophylaxis. * B12 576, folate 12.7, hemoglobin A1c 5.4. * Fasting lipid panel with cholesterol 145, LDL 59, HDL 56 and triglycerides 151. Continue Zocor. TSH is normal 1.71. * As there is no active neurological issue, neurology will sign off. Please reconsult us if any other concerns.
[2020-10-05] MEDS: LEVOFLOXACIN 500MG-D5W PMX 500 MG in DEXTROSE/WATER 1 100ML.BAG IVPB SCH ×2 (00:23→20:40)
[2020-10-05] MEDS: SODIUM CHLORIDE 0.9% 1,000 ML IV SCH ×5 (02:00→20:40)
[2020-10-05 06:18] LABS: Glucose,Whole Blood 101 mg/dL (75-99)
[2020-10-05] MEDS: LEVOTHYROXINE 50 MCG TAB PO SCH (06:29)
[2020-10-05] MEDS: metFORMIN 500 MG TAB PO SCH ×2 (06:29→18:30)
[2020-10-05] MEDS ORDERED: TAMSULOSIN 0.4 MG CAP.ER.24H PO SCH (08:30)
[2020-10-05] MEDS ORDERED: METOPROLOL TARTRATE 50 MG TAB PO SCH (09:00)
[2020-10-05] MEDS: IPRATROPIUM-ALBUTEROL 3 ML NEB INHALATION SCH ×4 (09:05→20:14)
[2020-10-05 09:08] LABS: Basophils % (A) 0 %; Eosinophils % (A) 1 %; HCT 29.5 % (39.0-53.0); HGB 8.4 gm/dL (13.0-17.5); Hypochromasia Marked; Lymphocytes # (A) 0.6 k/uL (1.0-4.8); Lymphocytes % (A) 14 %; MCH 29.2 pg (25.0-35.0); MCHC 28.5 g/dL (31.0-37.0); MCV 102.5 fL (80.0-100.0); Macrocytosis Slight; Mean Platelet Volume 11.5; Monocytes # (A) 0.2 k/uL (0-1.0); Monocytes % (A) 6 %; Neutrophils % (A) 76 %; RBC 2.87 m/uL (4.30-5.90); RDW 15.6 % (11.5-15.5)
[2020-10-05 09:39] LABS: Albumin 3.2 g/dL (3.5-5.0); Potassium 3.6 mmol/L (3.5-5.1); Total Bilirubin 0.5 mg/dL (0.2-1.3); Total Protein 5.8 g/dL (6.3-8.2)
[2020-10-05 09:44] LABS: Platelet Count 45 k/uL (150-450)
[2020-10-05] MEDS: APIXABAN 5 MG TAB PO SCH (10:27)
[2020-10-05] MEDS: MONTELUKAST 10 MG TAB PO SCH (10:27)
[2020-10-05] MEDS: ASPIRIN 81 MG PO SCH (10:27)
[2020-10-05] MEDS: ISOSORBIDE MONONITRATE ER 30 MG TAB.ER.24H PO SCH (10:27)
[2020-10-05] MEDS: levETIRAcetam 500 MG TAB PO SCH ×2 (10:27→20:40)
[2020-10-05] MEDS: METOPROLOL TARTRATE 12.5 MG TAB PO SCH ×2 (10:27→23:07)
[2020-10-05] MEDS: FLUoxetine HCL 20 MG CAP PO SCH (10:28)
[2020-10-05] MEDS: SODIUM FERRIC GLUCONAT-SUCROSE 125 MG in SODIUM CHLORIDE 0.9% 100 ML IVPB SCH (10:28)
--- NOTE | 2020-10-05 11:31 | P.PN ---
Subjective Patient is seen in follow-up for acute kidney injury and hyperkalemia. Renal function stable. Potassium level normal. Blood pressure stable. No active complaints. Has a Minor catheter. Nonoliguric. Vital signs are stable. General: The patient appeared well nourished and normally developed. HEENT: Head exam is unremarkable. Neck is without jugular venous distension. LUNGS: Breath sounds decreased. HEART: Rate and Rhythm are regular. ABDOMEN: Soft, nontender. EXTREMITITES: No edema. Objective - Vital Signs Vital signs: Vital Signs Temp 97.3 F L 10/05/20 08:00 Pulse 96 10/05/20 09:16 Resp 18 10/05/20 04:00 BP 119/70 10/05/20 08:00 Pulse Ox 92 L 10/05/20 08:00 Intake & Output 10/04/20 10/05/20 10/05/20 18:59 06:59 18:59 Intake Total 180 Output Total 550 600 Balance -370 -600 Weight 88.5 kg Intake: Oral 180 Output: Urine 550 600 Other: Voiding Method Indwelling Catheter Indwelling Catheter Indwelling Catheter - Labs CBC & Chem 7: 10/05/20 08:50 10/05/20 08:50 Labs: Abnormal Lab Results - Last 24 Hours (Table) 10/04/20 10/04/20 10/04/20 Range/Units 08:40 11:45 17:00 RBC (4.30-5.90) m/uL Hgb (13.0-17.5) gm/dL Hct (39.0-53.0) % MCV (80.0-100.0) fL MCHC (31.0-37.0) g/dL RDW (11.5-15.5) % Plt Count 59 L (150-450) k/uL Lymphocytes # 0.9 L (1.0-4.8) k/uL Carbon Dioxide (22-30) mmol/L BUN (9-20) mg/dL Glucose (74-99) mg/dL POC Glucose (mg/dL) 127 H 102 H (75-99) mg/dL Calcium (8.4-10.2) mg/dL AST (17-59) U/L ALT (4-49) U/L Total Protein (6.3-8.2) g/dL Albumin (3.5-5.0) g/dL 10/05/20 10/05/20 10/05/20 Range/Units 06:12 08:50 08:50 RBC 2.87 L (4.30-5.90) m/uL Hgb 8.4 L (13.0-17.5) gm/dL Hct 29.5 L (39.0-53.0) % MCV 102.5 H (80.0-100.0) fL MCHC 28.5 L (31.0-37.0) g/dL RDW 15.6 H (11.5-15.5) % Plt Count 45 L (150-450) k/uL Lymphocytes # (1.0-4.8) k/uL Carbon Dioxide 36 H (22-30) mmol/L BUN 63 H (9-20) mg/dL Glucose 105 H (74-99) mg/dL POC Glucose (mg/dL) 101 H (75-99) mg/dL Calcium 8.0 L (8.4-10.2) mg/dL AST 84 H (17-59) U/L ALT 180 H (4-49) U/L Total Protein 5.8 L (6.3-8.2) g/dL Albumin 3.2 L (3.5-5.0) g/dL Assessment and Plan Plan: Assessment: 1. Acute kidney injury mostly prerenal. Component of urinary retention. Improved. 2. Hyperkalemia secondary to acute kidney injury. Patient has chronic hyperkalemia and is maintained on Slit outpatient. 3. History of non-small cell lung cancer status post chemotherapy. 4. Anemia. Iron deficiency noted. Receiving IV iron. 5. Diabetes mellitus. 6. Urinary retention status post Minor catheter placement. Urology following. On Flomax as well. Plan: Avoid nephrotoxins. Continue to monitor renal function and urine output.
[2020-10-05 11:56] LABS: Glucose,Whole Blood 110 mg/dL (75-99)
--- NOTE | 2020-10-05 16:08 | PN ---
PROGRESS NOTE DATE OF SERVICE: 10/05/2020 CHIEF COMPLAINT: Weak. INTERVAL HISTORY: Fidel was seen today as a followup. He feels weak, but overall he reports feeling tired. He denies any nausea or vomiting. His appetite is down and no diarrhea. CURRENT MEDICATION: Include DuoNeb nebulizer, Eliquis 5 mg b.i.d., aspirin 81 mg daily, iron. He is getting daily IV, Prozac 20 mg daily, Imdur 30 mg daily, Keppra 500 mg b.i.d., Levaquin 500 mg IV piggyback daily, Synthroid 50 mcg daily, melatonin 3 mg q.h.s. as needed, Glucophage 500 mg b.i.d., Lopressor 12.5 mg daily, Remeron 50 mg q.h.s., Singulair 10 mg daily. He is on daily Flomax 0.4 mg. PHYSICAL EXAMINATION: He is alert, oriented x3. He does not appear to be in distress. His vital signs are temperature 97.4, afebrile, pulse 115, respiration 18, blood pressure 119/70. HEENT: Normocephalic, atraumatic. NECK: Supple. CHEST: Equal expansion bilaterally. LUNGS: Clear to auscultation. HEART: Regular rate and rhythm. ABDOMEN: Soft. No tenderness. EXTREMITIES: Reveal trace edema. LABORATORY DATA: WBC of 4.0, hemoglobin 8.4, hematocrit 29.5, and platelets of 45. Sodium 144, potassium 3.6, chloride 99, CO2 is 36, BUN is 63, creatinine 1.17. AST is 84, ALT is 180, alkaline phosphatase 58, total bilirubin 0.5. IMAGING DATA: Recent right upper extremity was negative for DVT. IMPRESSION: 1. Squamous cell lung carcinoma. He completed chemoradiation and now he completed 1 year of maintenance immunotherapy. 2. Hyperkalemia. This appears to be chronic and happened in the past several times since he was initially diagnosed, now appears to be improving. 3. Acute renal injury. This also appears to be improving. 4. Elevated liver function tests. I doubt this is related to immunotherapy. This has been improving without any intervention like steroid. 5. Thrombocytopenia. This is relatively new, likely related to recent pneumonia and also the medication and also the related to liver injury and consumption, however, I would consider holding aspirin and Eliquis for now until his platelets improve. Thank you very much. JAY / ROSIEN: [id number] /
--- NOTE | 2020-10-05 16:14 | P.CNPUL ---
History of Present Illness Consult date: 10/05/20 Requesting physician: Shon Flores Reason for consult: abnormal CXR/CT (Near complete opacification of the right lung) Chief complaint: Generalized weakness, fall History of present illness: This is a 70-year-old gentleman with a known history of non-small cell lung cancer currently on Imfinzi, he did have follow-up biopsies in May 2020 which were negative for recurrent cancer, atrial fibrillation, diabetes mellitus, hyperlipidemia, hypertension, pulmonary embolism, seizure disorder, former smoker. He presented to the emergency room on 10/01/2020 with increased weakness and fall. Chest x-ray showed right suprahilar infiltrate as well as pleural effusion. Mild right-sided volume loss. Left-sided hyperexpansion. CT scan of the brain revealed no intracranial hemorrhage or skull fracture. His initial potassium was 6.1. Hemoglobin 9.3. Platelets 15. This was having some issues with shortness of breath. All of chest x-ray revealed worsening needing opacity of the right lung. Developing right posterior pleural effusion. We are consulted today for the same. He is seen on the selective care unit. He is currently sitting up in a chair at the bedside. He is somewhat confused. Quite weak and fatigued. Currently maintaining O2 saturations in the 90s on 4 L/m per nasal cannula. His been afebrile. Hemodynamically stable. White count 4.0. Hemoglobin 8.4. MCV 102.5. Sodium 144. Potassium 3.6. BUN 63. Creatinine 1.17. AST 84. ALT 180. Pro calcitonin 0.27. Review of Systems ROS unobtainable: due to mental status Past Medical History Past Medical History: Atrial Fibrillation, Cancer, Diabetes Mellitus, Hyperlipidemia, Hypertension, Pulmonary Embolus (PE), Seizure Disorder Additional Past Medical History / Comment(s): pt states was told he had a seizure-unknown when. NON SMALL CELL LUNG CANCER. History of Any Multi-Drug Resistant Organisms: None Reported Additional Past Surgical History / Comment(s): COLONOSCOPY. BRONCHOSCOPY Past Anesthesia/Blood Transfusion Reactions: No Reported Reaction Past Psychological History: No Psychological Hx Reported Smoking Status: Former smoker Past Alcohol Use History: None Reported Past Drug Use History: Marijuana - Past Family History Brother(s) Family Medical History: Cancer Medications and Allergies Home Medications Medication Instructions Recorded Confirmed Type Montelukast [Singulair] 10 mg PO DAILY 04/14/19 10/01/20 History Simvastatin [Zocor] 20 mg PO HS 04/14/19 10/01/20 History metFORMIN HCL [Glucophage] 850 mg PO BID 04/14/19 10/01/20 History Apixaban [Eliquis] 5 mg PO BID #60 tab 04/25/19 10/01/20 Rx Digoxin [Lanoxin] 125 mcg PO DAILY #30 tab 04/25/19 10/01/20 Rx Isosorbide Mononitrate ER [Imdur] 30 mg PO DAILY #30 tab.er.24h 04/25/19 10/01/20 Rx Furosemide [Lasix] 20 mg PO DAILY 05/31/19 10/01/20 History levETIRAcetam [Keppra] 500 mg PO BID 05/31/19 10/01/20 History Ipratropium-Albuterol Nebulize 3 ml INHALATION RT-TID PRN 10/06/19 10/01/20 History [Duoneb 0.5 mg-3 mg/3 ml Soln] Metoprolol Tartrate [Lopressor] 50 mg PO DAILY 10/06/19 10/01/20 History Levothyroxine Sodium [Synthroid] 50 mcg PO DAILY 06/12/20 10/01/20 History Magnesium Oxide [Mag-Ox] 400 mg PO DAILY 06/12/20 10/01/20 History Sodium Polystyrene Sulfonate 7.5 gm PO Q48H 10/01/20 10/01/20 History [Kayexalate] Allergies Allergy/AdvReac Type Severity Reaction Status Date / Time No Known Allergies Allergy Verified 10/01/20 16:59 Physical Exam Vitals: Vital Signs Temp Pulse Pulse Resp BP BP Pulse Ox 10/05/20 15:43 76 10/05/20 15:33 80 10/05/20 09:16 96 10/05/20 09:05 92 10/05/20 08:00 97.3 F L 115 H 119/70 92 L 10/05/20 04:00 97.4 F L 98 18 109/60 92 L 10/05/20 00:00 97.6 F 113 H 19 109/74 93 L 10/04/20 21:51 97.6 F 93/57 10/04/20 19:36 98.0 F 62 19 135/89 90 L 10/04/20 16:39 96 20 10/04/20 16:00 98.0 F 96 20 101/68 94 L Intake and Output 10/05/20 10/05/20 10/05/20 06:59 14:59 22:59 Intake Total 125 Output Total 600 Balance -600 125 Intake: Oral 125 Output: Urine 600 Other: Voiding Method Indwelling Catheter Indwelling Catheter Weight 88.5 kg GENERAL EXAM: Alert, weak, frail 70-year-old gentleman appears older than stated age, on 4 L nasal cannula,, comfortable in no apparent distress. HEAD: Normocephalic. EYES: Normal reaction of pupils, equal size. NOSE: Clear with pink turbinates. THROAT: No erythema or exudates. NECK: No masses, no JVD. CHEST: No chest wall deformity. LUNGS: Equal air entry with crackles and quite diminished in the right lung base. CVS: S1 and S2 normal with no audible murmur, regular rhythm. ABDOMEN: No hepatosplenomegaly, normal bowel sounds, no guarding or rigidity. SPINE: No scoliosis or deformity SKIN: No rashes CENTRAL NERVOUS SYSTEM: No focal deficits, tone is normal in all 4 extremities. EXTREMITIES: There is no peripheral edema. No clubbing, no cyanosis. Peripheral pulses are intact. Results - Laboratory Findings CBC and BMP: 10/05/20 08:50 10/05/20 08:50 PT/INR, D-dimer PT 10.3 sec (9.0-12.0) 10/04/20 14:37 INR 1.0 (<1.2) 10/04/20 14:37 Abnormal lab findings: Abnormal Labs 10/01/20 10/01/20 10/01/20 13:54 13:54 13:54 RBC 2.99 L Hgb 9.3 L Hct 29.7 L MCV MCHC RDW 15.7 H Plt Count 105 L Lymphocytes # 0.5 L Lymphocytes # (Manual) Myelocytes # (Manual) Potassium 6.1 H* Chloride 95 L Carbon Dioxide 39 H BUN 65 H Creatinine 1.30 H Glucose 149 H POC Glucose (mg/dL) Calcium Phosphorus Iron TIBC % Saturation AST 214 H ALT 147 H Troponin I 0.098 H* Total Protein Albumin Triglycerides Procalcitonin Urine Protein Urine Blood Amorphous Sediment Urine Mucus 10/01/20 10/02/20 10/02/20 19:10 01:08 06:35 RBC Hgb Hct MCV MCHC RDW Plt Count Lymphocytes # Lymphocytes # (Manual) Myelocytes # (Manual) Potassium 5.8 H 5.7 H Chloride Carbon Dioxide BUN Creatinine Glucose POC Glucose (mg/dL) Calcium Phosphorus Iron TIBC % Saturation AST ALT Troponin I Total Protein Albumin Triglycerides Procalcitonin Urine Protein 2+ H Urine Blood Trace H Amorphous Sediment Occasional H Urine Mucus Rare H 10/02/20 10/02/20 10/02/20 11:00 11:00 11:54 RBC 2.92 L Hgb 9.0 L Hct 30.3 L MCV 104.0 H MCHC 29.7 L RDW 15.7 H Plt Count 101 L Lymphocytes # Lymphocytes # (Manual) Myelocytes # (Manual) Potassium 5.8 H Chloride Carbon Dioxide 38 H BUN 74 H Creatinine 1.73 H Glucose 126 H POC Glucose (mg/dL) 116 H Calcium Phosphorus Iron TIBC % Saturation AST 135 H ALT 155 H Troponin I Total Protein Albumin Triglycerides Procalcitonin Urine Protein Urine Blood Amorphous Sediment Urine Mucus 10/02/20 10/02/20 10/03/20 16:50 20:43 05:51 RBC Hgb Hct MCV MCHC RDW Plt Count Lymphocytes # Lymphocytes # (Manual) Myelocytes # (Manual) Potassium Chloride Carbon Dioxide BUN Creatinine Glucose POC Glucose (mg/dL) 148 H 119 H 102 H Calcium Phosphorus Iron TIBC % Saturation AST ALT Troponin I Total Protein Albumin Triglycerides Procalcitonin Urine Protein Urine Blood Amorphous Sediment Urine Mucus 10/03/20 10/03/20 10/03/20 06:05 06:05 06:05 RBC 2.73 L Hgb 8.5 L Hct 28.2 L MCV 103.4 H MCHC 30.3 L RDW 15.6 H Plt Count 76 L Lymphocytes # Lymphocytes # (Manual) 0.47 L Myelocytes # (Manual) 0.07 H Potassium Chloride Carbon Dioxide 33 H BUN 76 H Creatinine 1.36 H Glucose POC Glucose (mg/dL) Calcium 7.7 L Phosphorus 5.1 H Iron TIBC % Saturation AST ALT Troponin I Total Protein Albumin Triglycerides Procalcitonin Urine Protein Urine Blood Amorphous Sediment Urine Mucus 10/03/20 10/03/20 10/03/20 06:05 06:05 11:52 RBC Hgb Hct MCV MCHC RDW Plt Count Lymphocytes # Lymphocytes # (Manual) Myelocytes # (Manual) Potassium Chloride Carbon Dioxide BUN Creatinine Glucose POC Glucose (mg/dL) 158 H Calcium Phosphorus Iron 20 L TIBC 227 L % Saturation 8.81 L AST ALT Troponin I Total Protein Albumin Triglycerides 151 H Procalcitonin Urine Protein Urine Blood Amorphous Sediment Urine Mucus 10/03/20 10/03/20 10/04/20 16:54 20:58 06:54 RBC Hgb Hct MCV MCHC RDW Plt Count Lymphocytes # Lymphocytes # (Manual) Myelocytes # (Manual) Potassium Chloride Carbon Dioxide BUN Creatinine Glucose POC Glucose (mg/dL) 114 H 192 H 114 H Calcium Phosphorus Iron TIBC % Saturation AST ALT Troponin I Total Protein Albumin Triglycerides Procalcitonin Urine Protein Urine Blood Amorphous Sediment Urine Mucus 10/04/20 10/04/20 10/04/20 08:40 08:40 11:45 RBC 2.92 L Hgb 8.7 L Hct 30.1 L MCV 103.1 H MCHC 28.8 L RDW Plt Count 59 L Lymphocytes # 0.9 L Lymphocytes # (Manual) Myelocytes # (Manual) Potassium Chloride Carbon Dioxide 37 H BUN 71 H Creatinine Glucose POC Glucose (mg/dL) 127 H Calcium 7.9 L Phosphorus Iron TIBC % Saturation AST 112 H ALT 195 H Troponin I Total Protein 5.9 L Albumin 3.2 L Triglycerides Procalcitonin Urine Protein Urine Blood Amorphous Sediment Urine Mucus 10/04/20 10/05/20 10/05/20 17:00 06:12 08:50 RBC Hgb Hct MCV MCHC RDW Plt Count Lymphocytes # Lymphocytes # (Manual) Myelocytes # (Manual) Potassium Chloride Carbon Dioxide BUN Creatinine Glucose POC Glucose (mg/dL) 102 H 101 H Calcium Phosphorus Iron TIBC % Saturation AST ALT Troponin I Total Protein Albumin Triglycerides Procalcitonin 0.27 H Urine Protein Urine Blood Amorphous Sediment Urine Mucus 10/05/20 10/05/20 10/05/20 08:50 08:50 11:46 RBC 2.87 L Hgb 8.4 L Hct 29.5 L MCV 102.5 H MCHC 28.5 L RDW 15.6 H Plt Count 45 L Lymphocytes # 0.6 L Lymphocytes # (Manual) Myelocytes # (Manual) Potassium Chloride Carbon Dioxide 36 H BUN 63 H Creatinine Glucose 105 H POC Glucose (mg/dL) 110 H Calcium 8.0 L Phosphorus Iron TIBC % Saturation AST 84 H ALT 180 H Troponin I Total Protein 5.8 L Albumin 3.2 L Triglycerides Procalcitonin Urine Protein Urine Blood Amorphous Sediment Urine Mucus - Diagnostic Findings Chest x-ray: image reviewed Assessment and Plan Assessment: 1 Acute hypoxemic respiratory failure secondary to near complete opacification of the right lung 2 History of non-small cell lung cancer status post treatment, currently on Imf in, biopsies repeated in May 2020 revealing no malignancy 3 Generalized weakness and falls suspect metabolic encephalopathy 4 Hyperkalemia 5 Acute kidney injury 6 Bicytopenia secondary to chemotherapy 7 History of atrial fibrillation/flutter, anticoagulated with Eliquis 8 Diabetes mellitus and 9 Hyperlipidemia 10 Hypertension 11 History of seizure disorder 12 Hypothyroidism 13 Chronic obstructive pulmonary disease 14 Previous heavy smoker 15 History of marijuana use Plan: The patient was seen and evaluated by Dr. Mcnair Chest x-ray and labs reviewed Ordered chest physiotherapy The patient is quite frail and cachectic Not likely to tolerate bronchoscopy at this point He is a DO NOT RESUSCITATE/DO NOT INTUBATE CODE STATUS Currently on 4 L nasal cannula, titrate as tolerated We will continue to follow and make further recommendations based on his clinical status I, the cosigning physician, performed a history & physical examination of the patient. Lungs sounds glucose, diminished in the right lung. Maintaining good O2 saturations in the 90s on 4 L/m per nasal cannula. I discussed the assessment and plan of care with my nurse practitioner, Nancy Mathias. I attest to the above consultation as dictated by her. Time with Patient: Greater than 30
[2020-10-05 17:15] LABS: Glucose,Whole Blood 135 mg/dL (75-99)
[2020-10-05] MEDS: TAMSULOSIN 0.4 MG CAP.ER.24H PO SCH (18:30)
[2020-10-05] MEDS: MIRTAZAPINE 15 MG TAB PO SCH (20:40)
[2020-10-05 21:00] LABS: Glucose,Whole Blood 123 mg/dL (75-99)
--- NOTE | 2020-10-05 22:52 | P.PN ---
Progress Note - Text Progress Note Date: 10/05/20 Chief Complaint: Tired History of presenting complaint: This is a 70-year-old patient, follows with Dr. Genesis Morales. Chronic stable medical conditions include atrial fibrillation, diabetes, hypertension, hyperlipidemia seizure disorder and history of non-small cell lung cancer. EMS was called out by patient's family. Patient's brother had a right earlier and found the patient on the floor. Been following since 10 AM. Patient is alert. Patient to be short of breath this morning and fell to the floor. Had been rather tired. Patient is on home oxygen 2.5 L at all times. When I saw the patient earlier today he was rather lethargic. Or dose off. Answer only some questions. Earlier coude catheter was placed by Dr. Falcon from urology. Patient denied any cough or fever. Limited history Admitted with acute metabolic encephalopathy multifactorial from from acute kidney injury. Given IV fluids. Patient's creatinine was 0.9 back in May 2020. Given IV fluids. Hyperkalemia was treated with Kayexalate. Patient had expressed suicidal ideation to the nurse. Psychiatry was consulted. Remeron was added. Today: Laying in bed. Tired. I fed the patient and he ate about 50% of his lunch. Patient has been rather sleepy. The arousable Review of systems: Was done for constitutional, cardiovascular, GI, pulmonary. relevant finding as above Active Medications Albuterol/Ipratropium (Ipratropium-Albuterol 3 Ml Neb) 3 ml INHALATION RT-QID [facility] Last Admin: 10/05/20 20:14 Dose: 3 ml Documented by: Fluoxetine HCl (Fluoxetine Hcl 20 Mg Cap) 20 mg PO DAILY [facility] Last Admin: 10/05/20 10:28 Dose: 20 mg Documented by: Sodium Chloride (Saline 0.9%) 1,000 mls @ 130 mls/hr IV .Q7H42M [facility] Last Admin: 10/05/20 20:40 Dose: 130 mls/hr Documented by: Levofloxacin 500 mg/ IV (Solution) 100 mls @ 100 mls/hr IVPB Q24H [facility] Last Admin: 10/05/20 20:40 Dose: 100 mls/hr Documented by: Ferric Sodium Gluconate 125 mg (/ Sodium Chloride) 110 mls @ 100 mls/hr IVPB DAILY [facility] Stop: 10/06/20 20:01 Last Admin: 10/05/20 10:28 Dose: 100 mls/hr Documented by: Isosorbide Mononitrate (Isosorbide Mononitrate Er 30 Mg Tab.Er.24h) 30 mg PO DAILY [facility] Last Admin: 10/05/20 10:27 Dose: 30 mg Documented by: Levetiracetam (Levetiracetam 500 Mg Tab) 500 mg PO BID [facility] Last Admin: 10/05/20 20:40 Dose: 500 mg Documented by: Levothyroxine Sodium (Levothyroxine 50 Mcg Tab) 50 mcg PO DAILY@0630 [facility] Last Admin: 10/05/20 06:29 Dose: 50 mcg Documented by: Melatonin (Melatonin 3 Mg Tablet) 3 mg PO HS PRN PRN Reason: Insomnia Last Admin: 10/04/20 21:30 Dose: 3 mg Documented by: Metformin HCl (Metformin 500 Mg Tab) 500 mg PO AC-BID [facility] Last Admin: 10/05/20 18:30 Dose: 500 mg Documented by: Metoprolol Tartrate (Metoprolol Tartrate 12.5 Mg Tab) 12.5 mg PO BID [facility] Last Admin: 10/05/20 10:27 Dose: 12.5 mg Documented by: Mirtazapine (Mirtazapine 15 Mg Tab) 15 mg PO HS [facility] Last Admin: 10/05/20 20:40 Dose: 15 mg Documented by: Montelukast Sodium (Montelukast 10 Mg Tab) 10 mg PO DAILY [facility] Last Admin: 10/05/20 10:27 Dose: 10 mg Documented by: Naloxone HCl (Naloxone 0.4 Mg/Ml 1 Ml Vial) 0.2 mg IV Q2M PRN PRN Reason: Opioid Reversal Tamsulosin HCl (Tamsulosin 0.4 Mg Cap.Er.24h) 0.4 mg PO PC-SUPPER [facility] Last Admin: 10/05/20 18:30 Dose: 0.4 mg Documented by: Past medical history to include: Atrial fibrillation, diabetes mellitus, hyperlipidemia, hypertension, pulmonary embolism, seizure disorder, non-small cell lung cancer/squamous cell has received radiation treatment and chemotherapy. Congestive heart failure EF of 35-40% and moderate tricuspid regurgitation severe secondary pulmonary hypertension chronic thoracic spine compression fractures Social history: Lives alone. Stop smoking in 2014. No alcohol. Uses marijuana. Physical examination: VITAL SIGNS: 97.3, 92, 18, 119/70, 92% on 4 L GENERAL: Laying in bed, lethargic but arousable EYES: Pupils equal. Conjunctiva normal. HEENT: External appearance of nose and ears normal, oral cavity normal NECK: JVD not raised; masses not palpable. HEART: First and second heart sounds are normal; no edema. LUNGS: Respiratory rate normal; decreased breath sounds. ABDOMEN: Soft, nontender, liver spleen not palpable, no masses palpable. PSYCH: Sleepy but arousable INVESTIGATIONS, reviewed in the clinical context: October 05: WBC 4 hemoglobin 8.4 platelets 45 potassium 3.6 creatinine 1.17 pro- calcitonin 0.27 October 04: WBC 5 hemoglobin 8.7 platelets 59 potassium 4.1 creatinine 1.17 Chest x-ray film personally reviewed by me-right upper lobe lung collapse with mediastinal shift October 03: WBC 6.7 hemoglobin 8.5 platelets 76 potassium 4.8 creatinine 1.36 phosphorus 5.1 TSH 1.7 WBC 7 hemoglobin 9 platelets 101 potassium 5.8 bun 74 creatinine 1.73 AST 135 ALT 155 Coronavirus [PCR] not detected Admission labs: WBC 6 hemoglobin 9.3 platelets 105 potassium 6.1 bun 65 creatinine 1.30 Troponin I 0.098 EKG tracing personally reviewed by me-atrial flutter with uncontrolled rate Chest x-ray film personally reviewed by me-cardiomegaly, lung opacity Computed tomography scan of the brain: Brain volume loss Previous labs: Creatinine 1.3 on October 01 and 0.9 on May 2020 Assessment and plan: -Acute metabolic encephalopathy multifactorial likely from acute kidney injury. Improving. With some further worsening could be a combination of patient being on Remeron and Prozac. -Acute kidney injury likely combination of ATN and prerenal. -Corrected Patient creatinine was 0.9 back in May 2020. And 1.7 on presentation. Now down to 1.17. IV fluids. 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 Patient did follow up with Dr. Lora. Repeat bronchoscopy in May 2020 with biopsy and washings were negative. Patient's currently continued on Imfinzi. Patient may need a repeat bronchoscopy with brushings. Repeat computed tomography scan of the chest in July of this year did show collapse of the right middle lobe. Strong suspicion for recurrence/malignancy persists-Dr. Mcnair consulted -Normocytic anemia likely combination of nutritional and from underlying malignancy Follow H&H with hydration -Bicytopenia likely from prior chemotherapy -Persistent atrial flutter with uncontrolled atrial presentation Cardiology consulted. IV Cardizem. Continue with eliquis. Lopressor -Diabetes mellitus type 2. Hold Glucophage. Follow Accu-Cheks diabetic diet. Resume metformin -Hyperlipidemia Continue with Zocor -Essential hypertension Patient on Cardizem and Lopressor -Seizure disorder Continue with Keppra, seizure precautions. Consult neurology -Hypothyroid Continue with Synthroid -COPD in an ex-smoker Continue with bronchodilators -Recreational marijuana use -Depressive disorder unspecified, likely adjustment disorder Seen by psychiatry. Remeron added. Prozac also added -Acute bladder outflow obstruction and a Minor catheter placed by urology Flomax As patient is very lethargic sleepy. Will DC Prozac for now. On further evaluation by psychiatry. Continue with mirtazapine
[2020-10-05] MEDS: MELATONIN 3 MG TABLET PO PRN (23:08)
[2020-10-06] MEDS: LEVOTHYROXINE 50 MCG TAB PO SCH (06:16)
[2020-10-06] MEDS: metFORMIN 500 MG TAB PO SCH ×2 (06:17→18:33)
[2020-10-06 06:53] LABS: Glucose,Whole Blood 78 mg/dL (75-99)
[2020-10-06] MEDS: IPRATROPIUM-ALBUTEROL 3 ML NEB INHALATION SCH ×4 (08:04→19:35)
[2020-10-06 09:07] LABS: Calcium 8.1 mg/dL (8.4-10.2); Magnesium 1.9 mg/dL (1.6-2.3); Potassium 3.8 mmol/L (3.5-5.1)
--- NOTE | 2020-10-06 10:09 | P.PN ---
Subjective Patient is seen in follow-up for acute kidney injury and hyperkalemia. Renal function stable. Potassium level normal. Blood pressure stable. No active complaints. Vital signs are stable. General: The patient appeared well nourished and normally developed. HEENT: Head exam is unremarkable. Neck is without jugular venous distension. LUNGS: Breath sounds decreased. HEART: Rate and Rhythm are regular. ABDOMEN: Soft, nontender. EXTREMITITES: No edema. Objective - Vital Signs Vital signs: Vital Signs Temp 97.6 F 10/06/20 04:00 Pulse 94 10/06/20 04:00 Resp 18 10/06/20 04:00 BP 111/57 10/06/20 04:00 Pulse Ox 93 L 10/06/20 04:00 Intake & Output 10/05/20 10/06/20 10/06/20 18:59 06:59 18:59 Intake Total 125 100 Balance 125 100 Weight 88.5 kg Intake: Oral 125 100 Other: Voiding Method Indwelling Catheter Indwelling Catheter - Labs CBC & Chem 7: 10/05/20 08:50 10/06/20 07:56 Labs: Abnormal Lab Results - Last 24 Hours (Table) 10/05/20 10/05/20 10/05/20 Range/Units 08:50 08:50 11:46 Lymphocytes # 0.6 L (1.0-4.8) k/uL Carbon Dioxide (22-30) mmol/L BUN (9-20) mg/dL POC Glucose (mg/dL) 110 H (75-99) mg/dL Calcium (8.4-10.2) mg/dL Procalcitonin 0.27 H (0.02-0.09) ng/mL 10/05/20 10/05/20 10/06/20 Range/Units 17:02 20:21 07:56 Lymphocytes # (1.0-4.8) k/uL Carbon Dioxide 38 H (22-30) mmol/L BUN 57 H (9-20) mg/dL POC Glucose (mg/dL) 135 H 123 H (75-99) mg/dL Calcium 8.1 L (8.4-10.2) mg/dL Procalcitonin (0.02-0.09) ng/mL Microbiology - Last 24 Hours (Table) 10/04/20 19:20 Blood Culture - Preliminary Blood No Growth after 24 hours 10/04/20 19:14 Blood Culture - Preliminary Blood No Growth after 24 hours Assessment and Plan Plan: Assessment: 1. Acute kidney injury mostly prerenal. Component of urinary retention. Improved. 2. Hyperkalemia secondary to acute kidney injury. Patient has chronic hyperkalemia and is maintained on Kayexalate outpatient. 3. History of non-small cell lung cancer status post chemotherapy. 4. Anemia. Iron deficiency noted. Receiving IV iron. 5. Diabetes mellitus. 6. Urinary retention status post Minor catheter placement. Urology following. On Flomax as well. 7. Acute hypoxic respiratory failure. Opacification of the right lung. Pulmonology following. Plan: Avoid nephrotoxins. Continue to monitor renal function and urine output. Decrease rate of normal saline to 50 mL an hour. Encourage oral intake.
[2020-10-06] MEDS: SODIUM CHLORIDE 0.9% 1,000 ML IV SCH ×3 (10:35→14:07)
[2020-10-06] MEDS: levETIRAcetam 500 MG TAB PO SCH ×2 (10:35→21:12)
[2020-10-06] MEDS: METOPROLOL TARTRATE 12.5 MG TAB PO SCH ×2 (10:35→21:09)
[2020-10-06] MEDS: ISOSORBIDE MONONITRATE ER 30 MG TAB.ER.24H PO SCH (10:35)
[2020-10-06] MEDS: MONTELUKAST 10 MG TAB PO SCH (10:35)
--- NOTE | 2020-10-06 10:44 | P.PN ---
Progress Note - Text Progress Note Date: 10/06/20 The patient underwent urethral dilation with Minor catheter insertion by Dr. James on 10/02/2020. The Minor catheter was removed this morning, and he has voided a small amount without difficulty. Bladder scan will be utilized to check the postvoid residual and confirm adequate bladder emptying.
[2020-10-06 11:28] LABS: HCT 26.6 % (39.0-53.0); HGB 8.1 gm/dL (13.0-17.5); Hypochromasia Marked; MCH 31.1 pg (25.0-35.0); MCHC 30.6 g/dL (31.0-37.0); MCV 101.6 fL (80.0-100.0); Macrocytosis Slight; Mean Platelet Volume 12.6; RBC 2.62 m/uL (4.30-5.90); RDW 15.7 % (11.5-15.5); WBC 3.2 k/uL (3.8-10.6)
[2020-10-06 11:44] LABS: Platelet Count 41 k/uL (150-450)
[2020-10-06 12:12] LABS: Glucose,Whole Blood 114 mg/dL (75-99)
[2020-10-06] MEDS: SODIUM FERRIC GLUCONAT-SUCROSE 125 MG in SODIUM CHLORIDE 0.9% 100 ML IVPB SCH (14:06)
--- NOTE | 2020-10-06 15:56 | P.PN ---
Subjective Progress Note Date: 10/06/20 Principal diagnosis: Near complete opacification of the right lung, hypoxemic respiratory failure This is a 70-year-old gentleman with a known history of non-small cell lung cancer currently on Imfinzi, he did have follow-up biopsies in May 2020 which were negative for recurrent cancer, atrial fibrillation, diabetes mellitus, hyperlipidemia, hypertension, pulmonary embolism, seizure disorder, former smoker. He presented to the emergency room on 10/01/2020 with increased weakness and fall. Chest x-ray showed right suprahilar infiltrate as well as pleural effusion. Mild right-sided volume loss. Left-sided hyperexpansion. CT scan of the brain revealed no intracranial hemorrhage or skull fracture. His initial potassium was 6.1. Hemoglobin 9.3. Platelets 15. This was having some issues with shortness of breath. All of chest x-ray revealed worsening needing opacity of the right lung. Developing right posterior pleural effusion. We are consulted today for the same. He is seen on the selective care unit. He is currently sitting up in a chair at the bedside. He is somewhat confused. Quite weak and fatigued. Currently maintaining O2 saturations in the 90s on 4 L/m per nasal cannula. His been afebrile. Hemodynamically stable. White count 4.0. H emoglobin 8.4. MCV 102.5. Sodium 144. Potassium 3.6. BUN 63. Creatinine 1.17. AST 84. ALT 180. Pro calcitonin 0.27. The patient is seen today 10/06/2020 in follow-up on the selective care unit. He is currently resting comfortably in bed. Awake and alert in no acute distress. Talking on the telephone. He is maintaining O2 saturations in the low 90s on 4 L/m per nasal cannula. White count 3.2. Hemoglobin 8.1. Platelet count 41,000. Sodium 143. Potassium 3.8. Creatinine 1.16. 0.9 normal saline at 50 MLS per hour. He remains on bronchodilators, Singulair, antibiotics in the form of Levaquin. Objective - Vital Signs Vital signs: Vital Signs Temp 98.5 F 10/06/20 08:00 Pulse 92 10/06/20 15:38 Resp 18 10/06/20 04:00 BP 110/70 10/06/20 08:00 Pulse Ox 90 L 10/06/20 08:00 Intake & Output 10/05/20 10/06/20 10/06/20 18:59 06:59 18:59 Intake Total 125 100 Balance 125 100 Weight 88.5 kg Intake: Oral 125 100 Other: Voiding Method Indwelling Catheter Indwelling Catheter Indwelling Catheter - Exam GENERAL EXAM: Alert, frail 70-year-old gentleman, appears older than stated age, on 4 L nasal cannula,, comfortable in no apparent distress. HEAD: Normocephalic. EYES: Normal reaction of pupils, equal size. NOSE: Clear with pink turbinates. THROAT: No erythema or exudates. NECK: No masses, no JVD. CHEST: No chest wall deformity. LUNGS: Equal air entry with crackles and quite diminished in the right lung base. CVS: S1 and S2 normal with no audible murmur, regular rhythm. ABDOMEN: No hepatosplenomegaly, normal bowel sounds, no guarding or rigidity. SPINE: No scoliosis or deformity SKIN: No rashes CENTRAL NERVOUS SYSTEM: No focal deficits, tone is normal in all 4 extremities. EXTREMITIES: There is no peripheral edema. No clubbing, no cyanosis. Peripheral pulses are intact. - Labs CBC & Chem 7: 10/06/20 07:56 10/06/20 07:56 Labs: Abnormal Lab Results - Last 24 Hours (Table) 10/05/20 10/05/20 10/06/20 Range/Units 17:02 20:21 07:56 WBC (3.8-10.6) k/uL RBC (4.30-5.90) m/uL Hgb (13.0-17.5) gm/dL Hct (39.0-53.0) % MCV (80.0-100.0) fL MCHC (31.0-37.0) g/dL RDW (11.5-15.5) % Plt Count (150-450) k/uL Carbon Dioxide 38 H (22-30) mmol/L BUN 57 H (9-20) mg/dL POC Glucose (mg/dL) 135 H 123 H (75-99) mg/dL Calcium 8.1 L (8.4-10.2) mg/dL 10/06/20 10/06/20 Range/Units 07:56 11:35 WBC 3.2 L (3.8-10.6) k/uL RBC 2.62 L (4.30-5.90) m/uL Hgb 8.1 L (13.0-17.5) gm/dL Hct 26.6 L (39.0-53.0) % MCV 101.6 H (80.0-100.0) fL MCHC 30.6 L (31.0-37.0) g/dL RDW 15.7 H (11.5-15.5) % Plt Count 41 L (150-450) k/uL Carbon Dioxide (22-30) mmol/L BUN (9-20) mg/dL POC Glucose (mg/dL) 114 H (75-99) mg/dL Calcium (8.4-10.2) mg/dL Microbiology - Last 24 Hours (Table) 10/04/20 19:20 Blood Culture - Preliminary Blood No Growth after 24 hours 10/04/20 19:14 Blood Culture - Preliminary Blood No Growth after 24 hours Assessment and Plan Assessment: 1 Acute hypoxemic respiratory failure secondary to near complete opacification of the right lung 2 History of non-small cell lung cancer status post treatment, currently on Imfinzi, biopsies repeated in May 2020 revealing no malignancy 3 Generalized weakness and falls suspect metabolic encephalopathy 4 Hyperkalemia 5 Acute kidney injury 6 Bicytopenia secondary to chemotherapy 7 History of atrial fibrillation/flutter, anticoagulated with Eliquis 8 Diabetes mellitus and 9 Hyperlipidemia 10 Hypertension 11 History of seizure disorder 12 Hypothyroidism 13 Chronic obstructive pulmonary disease 14 Previous heavy smoker 15 History of marijuana use Plan: The patient was seen and evaluated by Dr. Mcnair Continue chest physiotherapy, stable on 4 L nasal cannula The patient is quite frail and cachectic Not likely to tolerate bronchoscopy at this point He is a DO NOT RESUSCITATE/DO NOT INTUBATE CODE STATUS Follow-up chest x-ray in a.m. We will continue to follow I, the cosigning physician, performed a history & physical examination of the patient. Lungs sounds glucose, diminished in the right lung. Maintaining good O2 saturations in the 90s on 4 L/m per nasal cannula. I discussed the assessment and plan of care with my nurse practitioner, Nancy Mathias. I attest to the above note as dictated by her.
[2020-10-06 16:31] LABS: Glucose,Whole Blood 121 mg/dL (75-99)
[2020-10-06] MEDS: TAMSULOSIN 0.4 MG CAP.ER.24H PO SCH (18:33)
--- NOTE | 2020-10-06 19:38 | P.PN ---
Progress Note - Text Progress Note Date: 10/06/20 Chief Complaint: Tired History of presenting complaint: This is a 70-year-old patient, follows with Dr. Genesis Morales. Chronic stable medical conditions include atrial fibrillation, diabetes, hypertension, hyperlipidemia seizure disorder and history of non-small cell lung cancer. EMS was called out by patient's family. Patient's brother had a right earlier and found the patient on the floor. Been following since 10 AM. Patient is alert. Patient to be short of breath this morning and fell to the floor. Had been rather tired. Patient is on home oxygen 2.5 L at all times. When I saw the patient earlier today he was rather lethargic. Or dose off. Answer only some questions. Earlier coude catheter was placed by Dr. Falcon from urology. Patient denied any cough or fever. Limited history Admitted with acute metabolic encephalopathy multifactorial from 90 from acute kidney injury. Given IV fluids. Patient's creatinine was 0.9 back in May 2020. Given IV fluids. Hyperkalemia was treated with Kayexalate. Patient had expressed suicidal ideation to the nurse. Psychiatry was consulted. Remeron and Prozac was added. Because patient been very sleepy Prozac was discontinued Today: Minor catheter removed today. Making urine. Patient bit more awake today. Does not like the hospital food. Review of systems: Was done for constitutional, cardiovascular, GI, pulmonary. relevant finding as above Active Medications Albuterol/Ipratropium (Ipratropium-Albuterol 3 Ml Neb) 3 ml INHALATION RT-QID [facility] Last Admin: 10/06/20 15:18 Dose: 3 ml Documented by: Levofloxacin 500 mg/ IV (Solution) 100 mls @ 100 mls/hr IVPB Q24H [facility] Last Admin: 10/05/20 20:40 Dose: 100 mls/hr Documented by: Ferric Sodium Gluconate 125 mg (/ Sodium Chloride) 110 mls @ 100 mls/hr IVPB DAILY [facility] Stop: 10/06/20 20:01 Last Admin: 10/06/20 14:06 Dose: 100 mls/hr Documented by: Sodium Chloride (Saline 0.9%) 1,000 mls @ 50 mls/hr IV .Q20H [facility] Last Admin: 10/06/20 14:07 Dose: 50 mls/hr Documented by: Isosorbide Mononitrate (Isosorbide Mononitrate Er 30 Mg Tab.Er.24h) 30 mg PO DAILY [facility] Last Admin: 10/06/20 10:35 Dose: 30 mg Documented by: Levetiracetam (Levetiracetam 500 Mg Tab) 500 mg PO BID [facility] Last Admin: 10/06/20 10:35 Dose: 500 mg Documented by: Levothyroxine Sodium (Levothyroxine 50 Mcg Tab) 50 mcg PO DAILY@0630 [facility] Last Admin: 10/06/20 06:16 Dose: 50 mcg Documented by: Melatonin (Melatonin 3 Mg Tablet) 3 mg PO HS PRN PRN Reason: Insomnia Last Admin: 10/05/20 23:08 Dose: 3 mg Documented by: Metformin HCl (Metformin 500 Mg Tab) 500 mg PO AC-BID [facility] Last Admin: 10/06/20 18:33 Dose: 500 mg Documented by: Metoprolol Tartrate (Metoprolol Tartrate 12.5 Mg Tab) 12.5 mg PO BID [facility] Last Admin: 10/06/20 10:35 Dose: 12.5 mg Documented by: Mirtazapine (Mirtazapine 15 Mg Tab) 15 mg PO HS [facility] Last Admin: 10/05/20 20:40 Dose: 15 mg Documented by: Montelukast Sodium (Montelukast 10 Mg Tab) 10 mg PO DAILY [facility] Last Admin: 10/06/20 10:35 Dose: 10 mg Documented by: Naloxone HCl (Naloxone 0.4 Mg/Ml 1 Ml Vial) 0.2 mg IV Q2M PRN PRN Reason: Opioid Reversal Tamsulosin HCl (Tamsulosin 0.4 Mg Cap.Er.24h) 0.4 mg PO PC-SUPPER [facility] Last Admin: 10/06/20 18:33 Dose: 0.4 mg Documented by: Past medical history to include: Atrial fibrillation, diabetes mellitus, hyperlipidemia, hypertension, pulmonary embolism, seizure disorder, non-small cell lung cancer/squamous cell has recei natalee radiation treatment and chemotherapy. Congestive heart failure EF of 35-40% and moderate tricuspid regurgitation severe secondary pulmonary hypertension chronic thoracic spine compression fractures Social history: Lives alone. Stop smoking in 2014. No alcohol. Uses marijuana. Physical examination: VITAL SIGNS: 98.2, 88, 16, 101/68, 96% on 4 L GENERAL: Reclining in bed, lethargic but arousable EYES: Pupils equal. Conjunctiva normal. HEENT: External appearance of nose and ears normal, oral cavity normal NECK: JVD not raised; masses not palpable. HEART: First and second heart sounds are normal; no edema. LUNGS: Respiratory rate normal; decreased breath sounds. ABDOMEN: Soft, nontender, liver spleen not palpable, no masses palpable. PSYCH: Answering questions sleepy INVESTIGATIONS, reviewed in the clinical context: October 06: WBC 3.2 hemoglobin 8.1 platelets 41 potassium 3.8 creatinine 1.16 October 05: WBC 4 hemoglobin 8.4 platelets 45 potassium 3.6 creatinine 1.17 pro-ca lcitonin 0.27 October 04: WBC 5 hemoglobin 8.7 platelets 59 potassium 4.1 creatinine 1.17 Chest x-ray film personally reviewed by me-right upper lobe lung collapse with mediastinal shift October 03: WBC 6.7 hemoglobin 8.5 platelets 76 potassium 4.8 creatinine 1.36 phosphorus 5.1 TSH 1.7 WBC 7 hemoglobin 9 platelets 101 potassium 5.8 bun 74 creatinine 1.73 AST 135 ALT 155 Coronavirus [PCR] not detected Admission labs: WBC 6 hemoglobin 9.3 platelets 105 potassium 6.1 bun 65 creatinine 1.30 Troponin I 0.098 EKG tracing personally reviewed by me-atrial flutter with uncontrolled rate Chest x-ray film personally reviewed by me-cardiomegaly, lung opacity Computed tomography scan of the brain: Brain volume loss Previous labs: Creatinine 1.3 on October 01 and 0.9 on May 2020 Assessment and plan: -Acute metabolic encephalopathy multifactorial likely from acute kidney injury. Improving. With some further worsening could be a combination of patient being on Remeron and Prozac. Prozac discontinued -Acute kidney injury likely combination of ATN and prerenal. -Corrected Patient creatinine was 0.9 back in May 2020. And 1.7 on presentation. Now down to 1.17. IV fluids. 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 Patient did follow up with Dr. Lora. Repeat bronchoscopy in May 2020 with biopsy and washings were negative. Patient's currently continued on Imfinzi. Patient may need a repeat bronchoscopy with brushings. Repeat computed tomography scan of the chest in July of this year did show collapse of the right middle lobe. Strong suspicion for recurrence/malignancy persists-Dr. Mcnair consulted -Normocytic anemia likely combination of nutritional and from underlying malignancy Follow H&H with hydration -Bicytopenia likely from prior chemotherapy -Persistent atrial flutter with uncontrolled atrial presentation Cardiology consulted. IV Cardizem. Continue with eliquis. Lopressor -Diabetes mellitus type 2. Hold Glucophage. Follow Accu-Cheks diabetic diet. Resume metformin -Hyperlipidemia Continue with Zocor -Essential hypertension Patient on Cardizem and Lopressor -Seizure disorder Continue with Keppra, seizure precautions. Consult neurology -Hypothyroid Continue with Synthroid -COPD in an ex-smoker Continue with bronchodilators -Recreational marijuana use -Depressive disorder unspecified, likely adjustment disorder Seen by psychiatry. Remeron added. Prozac also added -Acute bladder outflow obstruction and a Minor catheter placed by urology Flomax added. Minor catheter discontinued Patient encouraged oral intake. Await further evaluation by psychiatry as Prozac was discontinued for patient being rather sleepy.
[2020-10-06 20:06] LABS: Glucose,Whole Blood 107 mg/dL (75-99)
[2020-10-06] MEDS: MIRTAZAPINE 15 MG TAB PO SCH (21:09)
[2020-10-06] MEDS: LEVOFLOXACIN 500MG-D5W PMX 500 MG in DEXTROSE/WATER 1 100ML.BAG IVPB SCH (21:09)
[2020-10-06] MEDS: MELATONIN 3 MG TABLET PO PRN (22:49)
[2020-10-07] MEDS: IPRATROPIUM-ALBUTEROL 3 ML NEB INHALATION SCH ×5 (04:23→20:07)
[2020-10-07 06:08] LABS: Glucose,Whole Blood 91 mg/dL (75-99)
[2020-10-07] MEDS: LEVOTHYROXINE 50 MCG TAB PO SCH (06:19)
[2020-10-07] MEDS: metFORMIN 500 MG TAB PO SCH (06:19)
--- NOTE | 2020-10-07 07:56 | XR ---
EXAMINATION TYPE: XR chest 1V portable DATE OF EXAM: 10/07/2020 CLINICAL HISTORY: History of lung cancer with right lung collapse progress study. TECHNIQUE: Single AP portable upright view of the chest is obtained. COMPARISON: Chest x-ray from 3 days earlier and older studies. Chest CT July 29, 2020. FINDINGS: Completely opacified right upper lung on current study shows interval progression. Persist ent right mid to lower lung opacity with some aerated central lung. Persistent right-sided volume los s with mediastinal shift. Persistent cardiomegaly with atherosclerotic and ectatic aorta. Background chronic emphysematous change with new patchy left basilar opacity. Osseous structures remain deminera lized. IMPRESSION: New left basilar acute infiltrate and/or atelectasis and probable tiny left pleural effus ion. Persistent right lung opacification and right-sided volume loss. Increasing right upper lung obs tructive atelectasis and/or infiltrate felt present. Probable occluding right hilar mass or neoplasm.
[2020-10-07] MEDS: METOPROLOL TARTRATE 12.5 MG TAB PO SCH ×2 (09:44→20:19)
[2020-10-07] MEDS: levETIRAcetam 500 MG TAB PO SCH ×2 (09:44→20:19)
[2020-10-07] MEDS: ISOSORBIDE MONONITRATE ER 30 MG TAB.ER.24H PO SCH (09:44)
[2020-10-07] MEDS: MONTELUKAST 10 MG TAB PO SCH (09:44)
--- NOTE | 2020-10-07 10:55 | P.PN ---
Subjective Patient is seen in follow-up for acute kidney injury and hyperkalemia. Renal function and potassium level stable as of yesterday. Blood pressure stable. No active complaints. No changes overnight. Vital signs are stable. General: The patient appeared well nourished and normally developed. HEENT: Head exam is unremarkable. Neck is without jugular venous distension. LUNGS: Breath sounds decreased. HEART: Rate and Rhythm are regular. ABDOMEN: Soft, nontender. EXTREMITITES: No edema. Objective - Vital Signs Vital signs: Vital Signs Temp 98.1 F 10/07/20 09:00 Pulse 106 H 10/07/20 09:00 Resp 22 10/07/20 09:00 BP 123/69 10/07/20 09:00 Pulse Ox 90 L 10/07/20 09:00 Intake & Output 10/06/20 10/07/20 10/07/20 18:59 06:59 18:59 Intake Total 100 0 Output Total 1648 Balance 100 -1648 0 Weight 88 kg Intake: Oral 100 0 Output: Urine 1600 Post Void Residual 48 Other: Voiding Method Indwelling Catheter Indwelling Catheter # Voids 1 # Bowel Movements 1 - Labs CBC & Chem 7: 10/06/20 07:56 10/06/20 07:56 Labs: Abnormal Lab Results - Last 24 Hours (Table) 10/06/20 10/06/20 10/06/20 Range/Units 07:56 11:35 16:29 WBC 3.2 L (3.8-10.6) k/uL RBC 2.62 L (4.30-5.90) m/uL Hgb 8.1 L (13.0-17.5) gm/dL Hct 26.6 L (39.0-53.0) % MCV 101.6 H (80.0-100.0) fL MCHC 30.6 L (31.0-37.0) g/dL RDW 15.7 H (11.5-15.5) % Plt Count 41 L (150-450) k/uL POC Glucose (mg/dL) 114 H 121 H (75-99) mg/dL 10/06/20 Range/Units 20:04 WBC (3.8-10.6) k/uL RBC (4.30-5.90) m/uL Hgb (13.0-17.5) gm/dL Hct (39.0-53.0) % MCV (80.0-100.0) fL MCHC (31.0-37.0) g/dL RDW (11.5-15.5) % Plt Count (150-450) k/uL POC Glucose (mg/dL) 107 H (75-99) mg/dL Microbiology - Last 24 Hours (Table) 10/04/20 19:14 Blood Culture - Preliminary Blood No Growth after 48 hours 10/04/20 19:20 Blood Culture - Preliminary Blood No Growth after 48 hours Assessment and Plan Plan: Assessment: 1. Acute kidney injury mostly prerenal. Component of urinary retention. Improved. 2. Hyperkalemia secondary to acute kidney injury. Patient has chronic hy perkalemia and is maintained on Kayexalate outpatient. 3. History of non-small cell lung cancer status post chemotherapy. 4. Anemia. Iron deficiency noted. Status post IV iron. 5. Diabetes mellitus. 6. Urinary retention status post Minor catheter placement. Urology following. On Flomax as well. 7. Acute hypoxic respiratory failure. Opacification of the right lung. Pulmonology following. Plan: Avoid nephrotoxins. Continue to monitor renal function and urine output. Maintain gentle IV hydration. Encourage oral intake. Repeat electrolytes in the morning.
--- NOTE | 2020-10-07 11:02 | P.PN ---
Subjective Progress Note Date: 10/07/20 Near complete opacification of the right lung, hypoxemic respiratory failure This is a 70-year-old gentleman with a known history of non-small cell lung cancer currently on Imfinzi, he did have follow-up biopsies in May 2020 which were negative for recurrent cancer, atrial fibrillation, diabetes me llitus, hyperlipidemia, hypertension, pulmonary embolism, seizure disorder, former smoker. He presented to the emergency room on 10/01/2020 with increased weakness and fall. Chest x-ray showed right suprahilar infiltrate as well as pleural effusion. Mild right-sided volume loss. Left-sided hyperexpansion. CT scan of the brain revealed no intracranial hemorrhage or skull fracture. His initial potassium was 6.1. Hemoglobin 9.3. Platelets 15. This was having some issues with shortness of breath. All of chest x-ray revealed worsening needing opacity of the right lung. Developing right posterior pleural effusion. We are consulted today for the same. He is seen on the selective care unit. He is currently sitting up in a chair at the bedside. He is somewhat confused. Quite weak and fatigued. Currently maintaining O2 saturations in the 90s on 4 L/m per nasal cannula. His been afebrile. Hemodynamically stable. White count 4.0. Hemoglobin 8.4. MCV 102.5. Sodium 144. Potassium 3.6. BUN 63. Creatinine 1.17. AST 84. ALT 180. Pro calcitonin 0.27. The patient is seen today 10/06/2020 in follow-up on the selective care unit. He is currently resting comfortably in bed. Awake and alert in no acute distress. Talking on the telephone. He is maintaining O2 saturations in the low 90s on 4 L/m per nasal cannula. White count 3.2. Hemoglobin 8.1. Platelet count 41,000. Sodium 143. Potassium 3.8. Creatinine 1.16. 0.9 normal saline at 50 MLS per hour. He remains on bronchodilators, Singulair, antibiotics in the form of Levaquin. On 10/07/2020 patient for a follow-up. The patient is known to have non-small cell lung cancer with extensive right lung changes with near complete opacification and volume loss in the involving the right lung. The patient is k nown to have multiple other medical problems and comorbidities including chronic atrial fibrillation, diabetes mellitus, hypertension and hyperlipidemia pulmonary embolism and seizure disorder. The patient was progressively getting more weak and the patient came into the hospital. CAT scan of the brain was negative for any acute abnormalities. The patient's had a previous bronchoscopy that showed no evidence of any tumor recurrence. The patient is being treated with immunotherapy and the patient was receiving Imfinzi . The COVID19 evaluation was negative the patient is extremely debilitated. The patient is a very poor historian. The patient's right upper extremities Objective - Vital Signs Vital signs: Vital Signs Temp 98.1 F 10/07/20 09:00 Pulse 106 H 10/07/20 09:00 Resp 22 10/07/20 09:00 BP 123/69 10/07/20 09:00 Pulse Ox 90 L 10/07/20 09:00 Intake & Output 10/06/20 10/07/20 10/07/20 18:59 06:59 18:59 Intake Total 100 0 Output Total 1648 Balance 100 -1648 0 Weight 88 kg Intake: Oral 100 0 Output: Urine 1600 Post Void Residual 48 Other: Voiding Method Indwelling Catheter Indwelling Catheter # Voids 1 # Bowel Movements 1 - Exam GENERAL EXAM: Alert, frail 70-year-old gentleman, appears older than stated age, on 4 L nasal cannula,, comfortable in no apparent distress. HEAD: Normocephalic. EYES: Normal reaction of pupils, equal size. NOSE: Clear with pink turbinates. THROAT: No erythema or exudates. NECK: No masses, no JVD. CHEST: No chest wall deformity. LUNGS: Equal air entry with crackles and quite diminished in the right lung base. CVS: S1 and S2 normal with no audible murmur, regular rhythm. ABDOMEN: No hepatosplenomegaly, normal bowel sounds, no guarding or rigidity. SPINE: No scoliosis or deformity SKIN: No rashes CENTRAL NERVOUS SYSTEM: No focal deficits, tone is normal in all 4 extremities. EXTREMITIES: There is no peripheral edema. No clubbing, no cyanosis. P eripheral pulses are intact. - Labs CBC & Chem 7: 10/06/20 07:56 10/06/20 07:56 Labs: Abnormal Lab Results - Last 24 Hours (Table) 10/06/20 10/06/20 10/06/20 Range/Units 07:56 11:35 16:29 WBC 3.2 L (3.8-10.6) k/uL RBC 2.62 L (4.30-5.90) m/uL Hgb 8.1 L (13.0-17.5) gm/dL Hct 26.6 L (39.0-53.0) % MCV 101.6 H (80.0-100.0) fL MCHC 30.6 L (31.0-37.0) g/dL RDW 15.7 H (11.5-15.5) % Plt Count 41 L (150-450) k/uL POC Glucose (mg/dL) 114 H 121 H (75-99) mg/dL 10/06/20 Range/Units 20:04 WBC (3.8-10.6) k/uL RBC (4.30-5.90) m/uL Hgb (13.0-17.5) gm/dL Hct (39.0-53.0) % MCV (80.0-100.0) fL MCHC (31.0-37.0) g/dL RDW (11.5-15.5) % Plt Count (150-450) k/uL POC Glucose (mg/dL) 107 H (75-99) mg/dL Microbiology - Last 24 Hours (Table) 10/04/20 19:14 Blood Culture - Preliminary Blood No Growth after 48 hours 10/04/20 19:20 Blood Culture - Preliminary Blood No Growth after 48 hours Assessment and Plan Plan: 1 Acute hypoxemic respiratory failure secondary to near complete opacification of the right lung 2 History of non-small cell lung cancer status post treatment, currently on Imfinzi, biopsies repeated in May 2020 revealing no malignancy 3 Generalized weakness and falls suspect metabolic encephalopathy 4 Hyperkalemia 5 Acute kidney injury 6 Bicytopenia secondary to chemotherapy 7 History of atrial fibrillation/flutter, anticoagulated with Eliquis 8 Diabetes mellitus and 9 Hyperlipidemia 10 Hypertension 11 History of seizure disorder 12 Hypothyroidism 13 Chronic obstructive pulmonary disease 14 Previous heavy smoker 15 History of marijuana use Plan: Continue chest physiotherapy, stable on 4 L nasal cannula The patient is quite frail and cachectic Not likely to tolerate bronchoscopy at this point, likely would benefit from a CAT scan of the chest to evaluate the progression of the underlying non-small cell lung cancer. I reviewed the chest x-ray and there is obviously some opaci fication volume loss which is probably a combination of tumor and atelectasis. There may be also an underlying pleural effusion. Ultrasound Doppler of the right upper extremity He is a DO NOT RESUSCITATE/DO NOT INTUBATE CODE STATUS We will continue to follow
--- NOTE | 2020-10-07 11:46 | CDI ---
Documentation Clarification Form Date: 10/04/2020 01:06:00 PM From: Eliana Coulter Admit Date: 10/01/2020 08:41:00 PM Patient Name: Fidel Hicks Visit Number: [id number] ATTENTION: The Clinical Documentation Specialists (CDI) and [facility] Coding Staff appreciate your assistance in clarifying documentation. Please respond to the clarification below the line at the bottom and electronically sign. The CDI & [facility] Coding staff will review the response and follow-up if needed. Please note: Queries are made part of the Legal Health Record. If you have any questions, please contact the author of this message via ITS. Dr. Cruz Sarmiento Unspecified CKD is documented in the 10/03 Nephrology consult. Additional clarification regarding the stage of CKD is requested. History/Risk Factors: 06/25/20 Patients Historical BUN/CR./GFR:24/0.9/87.5 DM2, HTN, HLD, non-small cell lung CA, Atrial Fib, CHF Clinical Indicators: 10/03 Nephrology Consult: "70-year-old male who has a history of hypertension, type 2 diabetes, chronic kidney disease, history of [id number]/ squamous cell lung cancer." 10/01-10/04 Current BUN: 65/74/76/71 CR: 1.3/1.73/1.36/1.17 GFR: 56/40/53/64 Treatment: 10/03 Nephrology Consult Completed 10/01 2L 0.9% NS IVF bolus followed by 75 cc/hr. then increased to 130 cc/hr. 10/01 TX of hyperkalemia with Kayexalate, Hco3 IVP, IVP insulin Please clarify the stage of the CKD, if known: [ ] CKD Stage 1 (GFR > 90) [ ] CKD Stage 2 (GFR 60-89) [ ] CKD Stage 3 (GFR 30-59) [ ] CKD Stage 3a (GFR 45-59) [ ] CKD Stage 3b (GFR 30-44) [ ] Other, please specify [ ] Unable to determine (Template last revised: July 2020) no ckd MTDD
[2020-10-07 12:00] LABS: Glucose,Whole Blood 107 mg/dL (75-99)
--- NOTE | 2020-10-07 12:05 | CDI ---
Documentation Clarification Form Date: 10/07/2020 11:47:21 AM From: Eliana Coulter RN, CCDS Admit Date: 10/01/2020 08:41:00 PM Patient Name: Fidel Hicks Visit Number: [id number] ATTENTION: The Clinical Documentation Specialists (CDI) and [facility] Coding Staff appreciate your assistance in clarifying documentation. Please respond to the clarification below the line at the bottom and electronically sign. The CDI & [facility] Coding staff will review the response and follow-up if needed. Please note: Queries are made part of the Legal Health Record. If you have any questions, please contact the author of this message via ITS. Dr. Shon Flores Your patient has the documented diagnosis of unspecified CHF 10/03 H&P-10/06 progress Notes. Additional information regarding the type & acuity of CHF is requested. History/Risk Factors: Chronic Atrial Fib, DM2, HTN, HLD, Non-Small Cell Lung CA, Home O2 2.5L OTC, PE Clinical Indicators: 10/02 H&P: "Congestive heart failure EF of 35-40% and moderate tricuspid regurgitation severe secondary pulmonary hypertension chronic thoracic spine compression fractures." 10/01 1319 VS/Pulse OX: Temp 99, HR 131, RR 20, B/P 164/85, Spo2 100% 2L NC BNP: not checked on this admission 10/04 Echocardiogram Results: Moderate concentric LVH with EF 50-55% 10/07 Chest X Ray: "New left basilar acute infiltrate and/or atelectasis and probable tiny left pleural effusion. Persistent right lung opacification and right-sided volume loss. Increasing right upper lung obstructive atelectasis and/or infiltrate felt present. Probable occluding right hilar mass or neoplasm." Treatment: 10/01 2L 0.9% NS IVF Bolus followed by 130 cc/hr. x 2L, the 50 cc/hr. 10/02-10/04 Lopressor 50 mg Po QD, changed on 10/05 to 25 mg Po BID 10/02 Imdur 30 mg PO Daily In your professional opinion, can you please clarify the [acuity and type] of CHF if known? [ ] Acute Systolic Heart Failure (reduced EF) [ ] Chronic Systolic Heart Failure (reduced EF) [ ] Acute on Chronic Systolic Heart Failure (reduced EF) [ ] Acute Diastolic Heart Failure (preserved EF) [ ] Chronic Diastolic Heart Failure (preserved EF) [ ] Acute on Chronic Diastolic Heart Failure (preserved EF) [ ] Acute Systolic & Diastolic Heart Failure [ ] Chronic Systolic & Diastolic Heart Failure [ ] Acute on Chronic Heart Failure Systolic & Diastolic Heart Failure [ ] Other, please specify [ ] Unable to determine (Template Last Revised: July 2020) Chronic congestive heart failure from systolic dysfunction EF 35-40% MTDD
--- NOTE | 2020-10-07 12:18 | CDI ---
Documentation Clarification Form Date: 10/07/2020 12:05:58 PM From: Eliana Coulter RN, CCDS Admit Date: 10/01/2020 08:41:00 PM Patient Name: Fidel Hicks Visit Number: [id number] ATTENTION: The Clinical Documentation Specialists (CDI) and [facility] Coding Staff appreciate your assistance in clarifying documentation. Please respond to the clarification below the line at the bottom and electronically sign. The CDI & [facility] Coding staff will review the response and follow-up if needed. Please note: Queries are made part of the Legal Health Record. If you have any questions, please contact the author of this message via ITS. Dr. Shon Flores Persistent Atrial Flutter is documented in the H&P, Progress notes and Consults. Additional clarification regarding the type of Atrial Flutter is requested. Persistent only applies to an Atrial Fibrillation diagnosis, and Atrial Flutter must be further clarified. History/Risk factors: Persistent Atrial Fib, DM2, HTN, HLD, Seizure Disorder, Non-Small Cell Lung CA, PE, Severe Secondary Pulmonary HTN Clinical Indicators: 10/01 EKG: Atrial Fib RVR 10/02 H&P-10/06 Attending Progress notes: "Persistent atrial flutter with uncontrolled atrial presentation Cardiology consulted." 10/03 Nephrology consult: "Atrial flutter." 10/05-10/07 Pulmonary progress Notes: "History of atrial fibrillation/flutter, anticoagulated with Eliquis." Treatment: No cardiology consult 10/04-10/05 Eliquis 5 mg Po BID 10/04-10/05 ASA 81 mg Po daily 10/01-10/02 Cardizem 10 mg IVP followed by Gtt @ 5 mg/hr. 10/02-10/04 Lopressor 50 mg Po QD, decreased to 12.5mg PO BID on 10/05 Please clarify the type of Atrial Flutter, if known: [ ] Typical/Type I [ ] Atypical/Type II [ ] Other, please specify [ ] Unable to determine (Template Last Revised: August 2020) Unable to determine MTDD
--- NOTE | 2020-10-07 12:54 | CT ---
EXAMINATION TYPE: CT chest wo con DATE OF EXAM: 10/07/2020 COMPARISON: 07/29/2020 HISTORY: Left arm swelling CT DLP: 442.7 mGycm. Automated Exposure Control for Dose Reduction was Utilized. TECHNIQUE: CT scan of the thorax is performed without IV contrast. FINDINGS: There is right-sided volume loss with consolidation and pleural effusion which is increased from the prior exam. There is a small left pleural effusion and basilar consolidation.. Assessment for adenopathy limited by the lack of contrast. Atherosclerotic change aorta and dense cor onary artery atherosclerotic changes. There is severe focal cardiomegaly with moderate pericardial ef fusion. Hypertrophic and degenerative changes spine. There is a multiple endplate compression fractures one o f which are densely sclerotic in the upper thoracic spine. These have been noted on prior exam but wi thout sclerosis of the upper thoracic region. Metastatic disease in the differential diagnosis. No overt compression of the SVC seen by noncontrast exam. IMPRESSION: 1. Increasing consolidation and bilateral pleural effusion greater on the right relative to the prior exam. 2. Severe cardiomegaly with small to moderate-sized pericardial effusion 3. Dense three-vessel coronary artery atherosclerotic disease #4 sclerotic compression fracture upper thoracic spine correlate for metastases.
[2020-10-07 13:12] VITALS: BMI 27.8
--- NOTE | 2020-10-07 13:45 | P.PN ---
Progress Note - Text Progress Note Date: 10/07/20 Interval History: Patient was seen today for psychiatric follow-up regarding patient's depression. Patient was sitting in his chair today after eating his soup for lunch. He was alert and cooperative with the caption writer today and attempted to answer most questions. He continues to ramble at times and was tangential/circumstantial. He claims that he is doing "crappy" today and when asked more about this he mainly related to his medical condition. He states that last night he was not able to get good sleep. He did not speak about talking to God today. He is denying any anxiety. He states that his appetite is still poor and energy level is lower. He is still future oriented and spoke about going home and also with wanting to stay alive for his family and his brothers. At this time patient denies any current suicidal or homical ideations, intent or plan. Patient denies any auditory, visual hallucinations and denies any paranoia or delusions. Patient denies any side effects from the medications and has been compliant with meds. According to EMR, patient had mentioned passive suicidal remarks to a practical nursing faculty earlier however no intent or plan. Mental Status Exam: General Appearance: Patient appears to be stated age is alert, attempting to be cooperative. Patient appears to have mildly improving hygiene and grooming wearing hospital gown with fair eye contact. Poor dentition. Behavior: Patient is calmly lying in bed without any agitated behavior. Speech: Patient's speech is fluent and nonpressured. [place] and soft tone Mood/Affect: Patient reports their mood is "crappy", affect is congruent and constricted Suicidality/Homicidality: Patient denies having any suicidal or homicidal ideation intent or plan. Perceptions: Patient denies any visual hallucinations and denies any auditory hallucinations Though content/process: There is no evidence of any delusional thought content and thought process is linear. Logical. Not endorsing any delusions or paranoia. Memory and concentration: AOX3, grossly intact for the purposes of this session Judgment and insight: limited Assessment Depressive disorder unspecified Cannabis use disorder mild Plan: -At this time patient DOES NOT meet criteria for inpatient psychiatric admission. Patients passive end of life thoughts are likely related to patients underlying cancer diagnosis and medical condition. Patient is still future oriented and has no previous suicide attempts and has no active suicidal thoughts or plans. -Would recommend the following medication changes/additions: Increased Remeron 30 mg daily at bedtime for mood/appetite/insomnia. continue with melatonin 3mg qhs prn for insomnia. Prozac was discontinued over the weekend by primary team. We'll start Effexor 37.5 mg daily for mood/anxiety. -gas pit worker to provide patient with outpatient mental health/psychiatry resources for appropriate follow up upon discharge -Twisting Press Operator spoke with patient about substance abuse and the harmful effects on medical and mental health, patient verbally understood and agreed. -After speaking with brother over the phone he states that he will attempt to be more supportive and check on patient more regularly and also will go to have guns/weapons removed from the house. -Communicated plan to patient's nurse. Informed her that if patient does continue to mention suicidal thoughts then the sitter needs to be ordered. -Psychiatry will follow along. -Please contact with any questions.
--- NOTE | 2020-10-07 14:58 | P.PN ---
Subjective Progress Note Date: 10/07/20 Principal diagnosis: Sq cell lung carcinoma Pt resting comfortably, he opened eyes to voice and touch, denied pain. Objective - Vital Signs Vital signs: Vital Signs Temp 97.4 F L 10/07/20 12:00 Pulse 98 10/07/20 12:00 Resp 22 10/07/20 09:00 BP 114/67 10/07/20 12:00 Pulse Ox 91 L 10/07/20 12:00 Intake & Output 10/06/20 10/07/20 10/07/20 18:59 06:59 18:59 Intake Total 100 118 Output Total 1648 Balance 100 -1648 118 Weight 88 kg 88 kg Intake: Oral 100 118 Output: Urine 1600 Post Void Residual 48 Other: Voiding Method Indwelling Catheter Indwelling Catheter # Voids 1 # Bowel Movements 1 - Constitutional General appearance: Present: average body habitus, no acute distress - EENT Eyes: Present: anicteric sclerae ENT: Present: hearing grossly normal - Respiratory Details: resp even and unlabored - Cardiovascular Heart sounds: normal: S1, S2 - Integumentary Integumentary: Present: pale - Musculoskeletal Musculoskeletal: Present: generalized weakness - Allied health notes Allied health notes reviewed: case management - Labs CBC & Chem 7: 10/06/20 07:56 10/06/20 07:56 Labs: Abnormal Lab Results - Last 24 Hours (Table) 10/06/20 10/06/20 10/07/20 Range/Units 16:29 20:04 11:58 POC Glucose (mg/dL) 121 H 107 H 107 H (75-99) mg/dL Microbiology - Last 24 Hours (Table) 10/04/20 19:14 Blood Culture - Preliminary Blood No Growth after 48 hours 10/04/20 19:20 Blood Culture - Preliminary Blood No Growth after 48 hours Assessment and Plan (1) Hyperkalemia Narrative/Plan: Patient has had this happen several times in the past. He has been prescribed Kayexalate in the outpatient setting. K+ normal. He has been seen by [facility] hrology. Agree with treatment of the same. Current Visit: Yes Status: Acute Priority: High Code(s): E87.5 - HYPERKALEMIA SNOMED Code(s): 13538104 (2) Lung cancer Narrative/Plan: Patient has been doing well on his current maintenance therapy treatments. Once patient's current condition has improved, he is back to baseline and he has completed rehabilitation he will then be evaluated by Medical Oncologist to see if he is a candidate for any further treatment. Current Visit: No Status: Chronic Priority: Medium Code(s): C34.90 - MALIGNANT NEOPLASM OF UNSP PART OF UNSP BRONCHUS OR LUNG SNOMED Code(s): 738945536
[2020-10-07 16:45] LABS: Glucose,Whole Blood 122 mg/dL (75-99)
[2020-10-07] MEDS: TAMSULOSIN 0.4 MG CAP.ER.24H PO SCH (17:30)
[2020-10-07] MEDS: VENLAFAXINE HCL 37.5 MG TAB PO SCH (17:30)
[2020-10-07] MEDS: SODIUM CHLORIDE 0.9% 1,000 ML IV SCH (18:51)
[2020-10-07] MEDS: LEVOFLOXACIN 500MG-D5W PMX 500 MG in DEXTROSE/WATER 1 100ML.BAG IVPB SCH (18:51)
[2020-10-07] MEDS: MELATONIN 3 MG TABLET PO PRN (20:19)
[2020-10-07] MEDS: MIRTAZAPINE 15 MG TAB PO SCH (20:19)
[2020-10-07 20:38] LABS: Glucose,Whole Blood 105 mg/dL (75-99)
--- NOTE | 2020-10-07 22:51 | P.PN ---
Progress Note - Text Progress Note Date: 10/07/20 Chief Complaint: Tired History of presenting complaint: This is a 70-year-old patient, follows with Dr. Genesis Morales. Chronic stable medical conditions include atrial fibrillation, diabetes, hypertension, hyperlipidemia seizure disorder and history of non-small cell lung cancer. EMS was called out by patient's family. Patient's brother had a right earlier and found the patient on the floor. Been following since 10 AM. Patient is alert. Patient to be short of breath this morning and fell to the floor. Had been rather tired. Patient is on home oxygen 2.5 L at all times. When I saw the patient earlier today he was rather lethargic. Or dose off. Answer only some questions. Earlier coude catheter was placed by Dr. Falcon from urology. Patient denied any cough or fever. Limited history Admitted with acute metabolic encephalopathy multifactorial from 90 from acute kidney injury. Given IV fluids. Patient's creatinine was 0.9 back in May 2020. Given IV fluids. Hyperkalemia was treated with Kayexalate. Patient had expressed suicidal ideation to the nurse. Psychiatry was consulted. Remeron and Prozac was added. Because patient been very sleepy Prozac was discontinued. Minor catheter removed. Today: Sitting upon a chair. With sleepy and a bit depressed. Not eating much. Vitamin D discussed with Dr. Khan from psychiatry. He has started the patient on Effexor. Expecting some stimulatory effect. Review of systems: Was done for constitutional, cardiovascular, GI, pulmonary. relevant finding as above Active Medications Albuterol/Ipratropium (Ipratropium-Albuterol 3 Ml Neb) 3 ml INHALATION RT-QID [facility] Last Admin: 10/07/20 20:07 Dose: 3 ml Documented by: Dronabinol (Dronabinol 2.5 Mg Cap) 5 mg PO AC-BID [facility] Last Admin: 10/07/20 17:30 Dose: 5 mg Documented by: Levofloxacin 500 mg/ IV (Solution) 100 mls @ 100 mls/hr IVPB Q24H [facility] Last Admin: 10/07/20 18:51 Dose: 100 mls/hr Documented by: Sodium Chloride (Saline 0.9%) 1,000 mls @ 50 mls/hr IV .Q20H [facility] Last Admin: 10/07/20 18:51 Dose: 50 mls/hr Documented by: Isosorbide Mononitrate (Isosorbide Mononitrate Er 30 Mg Tab.Er.24h) 30 mg PO DAILY [facility] Last Admin: 10/07/20 09:44 Dose: 30 mg Documented by: Levetiracetam (Levetiracetam 500 Mg Tab) 500 mg PO BID [facility] Last Admin: 10/07/20 20:19 Dose: 500 mg Documented by: Levothyroxine Sodium (Levothyroxine 50 Mcg Tab) 50 mcg PO DAILY@0630 [facility] Last Admin: 10/07/20 06:19 Dose: 50 mcg Documented by: Melatonin (Melatonin 3 Mg Tablet) 3 mg PO HS PRN PRN Reason: Insomnia Last Admin: 10/07/20 20:19 Dose: 3 mg Documented by: Metoprolol Tartrate (Metoprolol Tartrate 12.5 Mg Tab) 12.5 mg PO BID [facility] Last Admin: 10/07/20 20:19 Dose: 12.5 mg Documented by: Mirtazapine (Mirtazapine 15 Mg Tab) 30 mg PO HS [facility] Last Admin: 10/07/20 20:19 Dose: 30 mg Documented by: Montelukast Sodium (Montelukast 10 Mg Tab) 10 mg PO DAILY [facility] Last Admin: 10/07/20 09:44 Dose: 10 mg Documented by: Naloxone HCl (Naloxone 0.4 Mg/Ml 1 Ml Vial) 0.2 mg IV Q2M PRN PRN Reason: Opioid Reversal Tamsulosin HCl (Tamsulosin 0.4 Mg Cap.Er.24h) 0.4 mg PO PC-SUPPER [facility] Last Admin: 10/07/20 17:30 Dose: 0.4 mg Documented by: Venlafaxine HCl (Venlafaxine Hcl 37.5 Mg Tab) 37.5 mg PO DAILY [facility] Last Admin: 10/07/20 17:30 Dose: 37.5 mg Documented by: Past medical history to include: Atrial fibrillation, diabetes mellitus, hyperlipidemia, hypertension, pulmonary embolism, seizure disorder, non-small cell lung cancer/squamous cell has received radiation treatment and chemotherapy. Congestive heart failure EF of 35-40% and moderate tricuspid regurgitation severe secondary pulmonary hypertension chronic thoracic spine compression fractures Social history: Lives alone. Stop smoking in 2014. No alcohol. Uses marijuana. Physical examination: VITAL SIGNS: 97.4, 98, 16, 140s over 67, 91% on 2 L GENERAL: Sitting up in a chair, eyes closed a bit tired but arousable EYES: Pupils equal. Conjunctiva normal. HEENT: External appearance of nose and ears normal, oral cavity normal NECK: JVD not raised; masses not palpable. HEART: First and second heart sounds are normal; no edema. LUNGS: Respiratory rate normal; decreased breath sounds. ABDOMEN: Soft, nontender, liver spleen not palpable, no masses palpable. PSYCH: Answering questions sleepy INVESTIGATIONS, reviewed in the clinical context: Computed tomography scan of the chest: October 07: Increase in consolidation and bilateral pleural effusion, more on the right. Severe cardiomegaly with pericardial effusion. October 06: WBC 3.2 hemoglobin 8.1 platelets 41 potassium 3.8 creatinine 1.16 October 05: WBC 4 hemoglobin 8.4 platelets 45 potassium 3.6 creatinine 1.17 pro- calcitonin 0.27 October 04: WBC 5 hemoglobin 8.7 platelets 59 potassium 4.1 creatinine 1.17 Chest x-ray film personally reviewed by me-right upper lobe lung collapse with mediastinal shift October 03: WBC 6.7 hemoglobin 8.5 platelets 76 potassium 4.8 creatinine 1.36 phosphorus 5.1 TSH 1.7 WBC 7 hemoglobin 9 platelets 101 potassium 5.8 bun 74 creatinine 1.73 AST 135 ALT 155 Coronavirus [PCR] not detected Admission labs: WBC 6 hemoglobin 9.3 platelets 105 potassium 6.1 bun 65 creatinine 1.30 Troponin I 0.098 EKG tracing personally reviewed by me-atrial flutter with uncontrolled rate Chest x-ray film personally reviewed by me-cardiomegaly, lung opacity Computed tomography scan of the brain: Brain volume loss Previous labs: Creatinine 1.3 on October 01 and 0.9 on May 2020 Assessment and plan: -Acute metabolic encephalopathy multifactorial likely from acute kidney injury. Improving. With some further worsening could be a combination of patient being on Remeron and Prozac. Prozac discontinued -Acute kidney injury likely combination of ATN and prerenal. -Corrected Patient creatinine was 0.9 back in May 2020. And 1.7 on presentation. Now down to 1.17. IV fluids. 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 Patient did follow up with Dr. Lora. Repeat bronchoscopy in May 2020 with biopsy and washings were negative. Patient's currently continued on Imfinzi. Patient may need a repeat bronchoscopy with brushings. Repeat computed tomography scan of the chest in July of this year did show collapse of the right middle lobe. Strong suspicion for recurrence/malignancy persists-Dr. Mcnair consulted -Normocytic anemia likely combination of nutritional and from underlying malignancy Follow H&H with hydration -Bicytopenia likely from prior chemotherapy -Persistent atrial flutter with uncontrolled atrial presentation Cardiology consulted. IV Cardizem. Continue with eliquis. Lopressor -Diabetes mellitus type 2. Hold Glucophage. Follow Accu-Cheks diabetic diet. Resume metformin -Hyperlipidemia Continue with Zocor -Essential hypertension Patient on Cardizem and Lopressor -Seizure disorder Continue with Keppra, seizure precautions. Consult neurology -Hypothyroid Continue with Synthroid -COPD in an ex-smoker Continue with bronchodilators -Recreational marijuana use -Depressive disorder unspecified, likely adjustment disorder Seen by psychiatry. Remeron added. Prozac also added/discontinued. Effexor added. -Acute bladder outflow obstruction and a Minor catheter placed by urology Flomax added. Minor catheter discontinued Patient again encouraged to increase oral intake. Discussed at length with Dr. Goins from psychiatry. Effexor started. We'll see how patient does. Not ready for discharge at least for 24-48 hours. Total time spent today about 40 minutes with over 20 minutes of discussion
[2020-10-08 06:13] LABS: Glucose,Whole Blood 86 mg/dL (75-99)
[2020-10-08] MEDS: LEVOTHYROXINE 50 MCG TAB PO SCH (06:28)
[2020-10-08] MEDS: IPRATROPIUM-ALBUTEROL 3 ML NEB INHALATION SCH ×4 (07:18→21:03)
[2020-10-08 08:08] LABS: Basophils % (A) 1 %; Eosinophils # (A) 0.1 k/uL (0-0.7); Eosinophils % (A) 2 %; HGB 7.9 gm/dL (13.0-17.5); Hypochromasia Marked; Lymphocytes # (A) 0.5 k/uL (1.0-4.8); Lymphocytes % (A) 20 %; MCH 30.7 pg (25.0-35.0); MCHC 30.5 g/dL (31.0-37.0); MCV 100.8 fL (80.0-100.0); Macrocytosis Slight; Mean Platelet Volume 11.2; Monocytes # (A) 0.2 k/uL (0-1.0); Monocytes % (A) 9 %; Neutrophils # (A) 1.6 k/uL (1.3-7.7); Neutrophils % (A) 66 %; RBC 2.58 m/uL (4.30-5.90); RDW 15.9 % (11.5-15.5); WBC 2.4 k/uL (3.8-10.6)
[2020-10-08 08:14] LABS: Platelet Count 51 k/uL (150-450)
[2020-10-08 08:20] LABS: African American GFR (CKD) >90 (>60 ml/min/1.73 sqM); Anion Gap 3 mmol/L; Blood Urea Nitrogen 30 mg/dL (9-20); Calcium 8.4 mg/dL (8.4-10.2); Carbon Dioxide 39 mmol/L (22-30); Chloride 99 mmol/L (98-107); Glucose 73 mg/dL (74-99); Magnesium 1.6 mg/dL (1.6-2.3); Non-African American GFR(CKD) 83 (>60 ml/min/1.73 sqM); Sodium 141 mmol/L (137-145)
[2020-10-08] MEDS: MONTELUKAST 10 MG TAB PO SCH (09:29)
[2020-10-08] MEDS: METOPROLOL TARTRATE 12.5 MG TAB PO SCH ×2 (09:29→20:11)
[2020-10-08] MEDS: VENLAFAXINE HCL 37.5 MG TAB PO SCH (09:29)
[2020-10-08] MEDS: ISOSORBIDE MONONITRATE ER 30 MG TAB.ER.24H PO SCH (09:29)
[2020-10-08] MEDS: levETIRAcetam 500 MG TAB PO SCH ×2 (09:29→20:11)
[2020-10-08] MEDS ORDERED: FUROSEMIDE 10 MG/ML 4 ML VIAL IV STA (11:13)
--- NOTE | 2020-10-08 11:13 | P.PN ---
Subjective Patient is seen in follow-up for acute kidney injury and hyperkalemia. Renal function and potassium level stable. Blood pressure stable. No active complaints. No changes overnight. Currently on 2 L nasal cannula. Vital signs are stable. General: The patient appeared well nourished and normally developed. HEENT: Head exam is unremarkable. Neck is without jugular venous distension. LUNGS: Breath sounds decreased. HEART: Rate and Rhythm are regular. ABDOMEN: Soft, nontender. EXTREMITITES: No edema. Objective - Vital Signs Vital signs: Vital Signs Temp 97.9 F 10/08/20 08:30 Pulse 76 10/08/20 11:05 Resp 18 10/08/20 08:30 BP 119/71 10/08/20 08:30 Pulse Ox 94 L 10/08/20 08:30 Intake & Output 10/07/20 10/08/20 10/08/20 18:59 06:59 18:59 Intake Total 236 180 Balance 236 180 Weight 88 kg 87 kg Intake: Oral 236 180 Other: Voiding Method Toilet # Voids 1 1 # Bowel Movements 1 - Labs CBC & Chem 7: 10/08/20 06:37 10/08/20 06:37 Labs: Abnormal Lab Results - Last 24 Hours (Table) 10/07/20 10/07/20 10/07/20 Range/Units 11:58 16:43 20:36 WBC (3.8-10.6) k/uL RBC (4.30-5.90) m/uL Hgb (13.0-17.5) gm/dL Hct (39.0-53.0) % MCV (80.0-100.0) fL MCHC (31.0-37.0) g/dL RDW (11.5-15.5) % Plt Count (150-450) k/uL Lymphocytes # (1.0-4.8) k/uL Carbon Dioxide (22-30) mmol/L BUN (9-20) mg/dL Glucose (74-99) mg/dL POC Glucose (mg/dL) 107 H 122 H 105 H (75-99) mg/dL 10/08/20 10/08/20 Range/Units 06:37 06:37 WBC 2.4 L (3.8-10.6) k/uL RBC 2.58 L (4.30-5.90) m/uL Hgb 7.9 L (13.0-17.5) gm/dL Hct 26.0 L (39.0-53.0) % MCV 100.8 H (80.0-100.0) fL MCHC 30.5 L (31.0-37.0) g/dL RDW 15.9 H (11.5-15.5) % Plt Count 51 L (150-450) k/uL Lymphocytes # 0.5 L (1.0-4.8) k/uL Carbon Dioxide 39 H (22-30) mmol/L BUN 30 H (9-20) mg/dL Glucose 73 L (74-99) mg/dL POC Glucose (mg/dL) (75-99) mg/dL Microbiology - Last 24 Hours (Table) 10/04/20 19:14 Blood Culture - Preliminary Blood No Growth after 72 hours 10/04/20 19:20 Blood Culture - Preliminary Blood No Growth after 72 hours Assessment and Plan Plan: Assessment: 1. Acute kidney injury mostly prerenal. Component of urinary retention. Improved. 2. Hyperkalemia secondary to acute kidney injury. Patient has chronic h yperkalemia and is maintained on Kayexalate outpatient. 3. History of non-small cell lung cancer status post chemotherapy. 4. Anemia. Iron deficiency noted. Status post IV iron. 5. Diabetes mellitus. 6. Urinary retention status post Minor catheter placement. Urology following. On Flomax as well. 7. Acute hypoxic respiratory failure. Opacification of the right lung. Pulmonology following. 8. Volume overload. CT of the chest revealed bilateral pleural effusions as well as pericardial effusion. Plan: Hep-Lock IV fluids. Lasix 40 mg IV once today. Avoid nephrotoxins. Continue to monitor renal function and urine output. Encourage oral intake. Repeat electrolytes in the morning.
--- NOTE | 2020-10-08 11:37 | P.PN ---
Subjective Progress Note Date: 10/08/20 Near complete opacification of the right lung, hypoxemic respiratory failure This is a 70-year-old gentleman with a known history of non-small cell lung cancer currently on Imfinzi, he did have follow-up biopsies in May 2020 which were negative for recurrent cancer, atrial fibrillation, diabetes me llitus, hyperlipidemia, hypertension, pulmonary embolism, seizure disorder, former smoker. He presented to the emergency room on 10/01/2020 with increased weakness and fall. Chest x-ray showed right suprahilar infiltrate as well as pleural effusion. Mild right-sided volume loss. Left-sided hyperexpansion. CT scan of the brain revealed no intracranial hemorrhage or skull fracture. His initial potassium was 6.1. Hemoglobin 9.3. Platelets 15. This was having some issues with shortness of breath. All of chest x-ray revealed worsening needing opacity of the right lung. Developing right posterior pleural effusion. We are consulted today for the same. He is seen on the selective care unit. He is currently sitting up in a chair at the bedside. He is somewhat confused. Quite weak and fatigued. Currently maintaining O2 saturations in the 90s on 4 L/m per nasal cannula. His been afebrile. Hemodynamically stable. White count 4.0. Hemoglobin 8.4. MCV 102.5. Sodium 144. Potassium 3.6. BUN 63. Creatinine 1.17. AST 84. ALT 180. Pro calcitonin 0.27. The patient is seen today 10/06/2020 in follow-up on the selective care unit. He is currently resting comfortably in bed. Awake and alert in no acute distress. Talking on the telephone. He is maintaining O2 saturations in the low 90s on 4 L/m per nasal cannula. White count 3.2. Hemoglobin 8.1. Platelet count 41,000. Sodium 143. Potassium 3.8. Creatinine 1.16. 0.9 normal saline at 50 MLS per hour. He remains on bronchodilators, Singulair, antibiotics in the form of Levaquin. On 10/07/2020 patient for a follow-up. The patient is known to have non-small cell lung cancer with extensive right lung changes with near complete opacification and volume loss in the involving the right lung. The patient is k nown to have multiple other medical problems and comorbidities including chronic atrial fibrillation, diabetes mellitus, hypertension and hyperlipidemia pulmonary embolism and seizure disorder. The patient was progressively getting more weak and the patient came into the hospital. CAT scan of the brain was negative for any acute abnormalities. The patient's had a previous bronchoscopy that showed no evidence of any tumor recurrence. The patient is being treated with immunotherapy and the patient was receiving Imfinzi . The COVID19 evaluation was negative the patient is extremely debilitated. The patient is a very poor historian. The patient's right upper extremities 10/08/2020, the patient is still on 4 L of oxygen by nasal cannula. Computed tomography scan of the chest was done yesterday shows consolidation in the right lung which is probably an area of a tumor causing significant obstruction of the bronchus intermedius. He is also a loculated right-sided pleural effusion and there is also left-sided pleural effusion developing. The patient is very much debilitated. He is currently weaned down to 2 L of oxygen by nasal cannula. No signs of any significant respiratory distress. The patient is afebrile. White count was at 2.4 with a hemoglobin of 7.9, and the platelet counts are at 51. These are comparable to yesterday. No other new complaints for now. He is a very poor historian. Right upper extremity Doppler was negative for DVT. He does have non-small cell lung cancer with secondary respiratory failure. Objective - Vital Signs Vital signs: Vital Signs Temp 97.9 F 10/08/20 08:30 Pulse 76 10/08/20 11:05 Resp 18 10/08/20 08:30 BP 119/71 10/08/20 08:30 Pulse Ox 94 L 10/08/20 08:30 Intake & Output 10/07/20 10/08/20 10/08/20 18:59 06:59 18:59 Intake Total 236 180 Balance 236 180 Weight 88 kg 87 kg Intake: Oral 236 180 Other: Voiding Method Toilet # Voids 1 1 # Bowel Movements 1 - Exam GENERAL EXAM: Alert, frail 70-year-old gentleman, appears older than stated age, on 2 L nasal cannula,, comfortable in no apparent distress. HEAD: Normocephalic. EYES: Normal reaction of pupils, equal size. NOSE: Clear with pink turbinates. THROAT: No erythema or exudates. NECK: No masses, no JVD. CHEST: No chest wall deformity. LUNGS: Equal air entry with crackles and quite diminished in the right lung base. CVS: S1 and S2 normal with no audible murmur, regular rhythm. ABDOMEN: No hepatosplenomegaly, normal bowel sounds, no guarding or rigidity. SPINE: No scoliosis or deformity SKIN: No rashes CENTRAL NERVOUS SYSTEM: No focal deficits, tone is normal in all 4 extremities. EXTREMITIES: There is no peripheral edema. No clubbing, no cyanosis. Peripheral pulses are intact. - Labs CBC & Chem 7: 10/08/20 06:37 10/08/20 06:37 Labs: Abnormal Lab Results - Last 24 Hours (Table) 10/07/20 10/07/20 10/07/20 Range/Units 11:58 16:43 20:36 WBC (3.8-10.6) k/uL RBC (4.30-5.90) m/uL Hgb (13.0-17.5) gm/dL Hct (39.0-53.0) % MCV (80.0-100.0) fL MCHC (31.0-37.0) g/dL RDW (11.5-15.5) % Plt Count (150-450) k/uL Lymphocytes # (1.0-4.8) k/uL Carbon Dioxide (22-30) mmol/L BUN (9-20) mg/dL Glucose (74-99) mg/dL POC Glucose (mg/dL) 107 H 122 H 105 H (75-99) mg/dL 10/08/20 10/08/20 Range/Units 06:37 06:37 WBC 2.4 L (3.8-10.6) k/uL RBC 2.58 L (4.30-5.90) m/uL Hgb 7.9 L (13.0-17.5) gm/dL Hct 26.0 L (39.0-53.0) % MCV 100.8 H (80.0-100.0) fL MCHC 30.5 L (31.0-37.0) g/dL RDW 15.9 H (11.5-15.5) % Plt Count 51 L (150-450) k/uL Lymphocytes # 0.5 L (1.0-4.8) k/uL Carbon Dioxide 39 H (22-30) mmol/L BUN 30 H (9-20) mg/dL Glucose 73 L (74-99) mg/dL POC Glucose (mg/dL) (75-99) mg/dL Microbiology - Last 24 Hours (Table) 10/04/20 19:14 Blood Culture - Preliminary Blood No Growth after 72 hours 10/04/20 19:20 Blood Culture - Preliminary Blood No Growth after 72 hours Assessment and Plan Plan: 1 Acute hypoxemic respiratory failure secondary to near complete opacification of the right lung, CAT scan of the chest was reviewed and the patient's bilater al pleural effusion, the effusion on the right is more so loculated. There is also consolidation of the right lung, centrally, probably an area of tumor causing significant narrowing of the bronchus intermedius. 2 History of non-small cell lung cancer status post treatment, currently on Imfinzi, biopsies repeated in May 2020 revealing no malignancy, based on my review of the CAT scan, I have a suspicion of a centrally located mass an area of consolidation in the right lung causing narrowing of the bronchus intermedius. The patient also has bilateral pleural effusion, the effusion on the right is loculated. 3 Generalized weakness and falls suspect metabolic encephalopathy 4 Hyperkalemia 5 Acute kidney injury 6 Bicytopenia secondary to chemotherapy 7 History of atrial fibrillation/flutter, anticoagulated with Eliquis 8 Diabetes mellitus and 9 Hyperlipidemia 10 Hypertension 11 History of seizure disorder 12 Hypothyroidism 13 Chronic obstructive pulmonary disease 14 Previous heavy smoker 15 History of marijuana use Plan: Continue chest physiotherapy, stable on 2 L nasal cannula The patient is quite frail and cachectic CAT scan of the chest was reviewed. Lasix was given by nephrology weaned down to 2 L of oxygen by nasal cannula Very much debilitated. I'm not sure if the patient will be a candidate for further treatment. I do think that there is some residual tumor within his right lung base on the most recent CAT scan findings. He is a DO NOT RESUSCITATE/DO NOT INTUBATE CODE STATUS
[2020-10-08 11:43] LABS: Glucose,Whole Blood 162 mg/dL (75-99)
--- NOTE | 2020-10-08 14:15 | P.PN ---
Progress Note - Text Progress Note Date: 10/08/20 Interval History: Patient was seen today for psychiatric follow-up regarding patient's depression. Patient was sitting in his bed after eating his lunch. He was alert and cooperative with the typewriter repairer. He continues to state that his energy level has been "not that good". He continues to ramble at times however today was more goal oriented. He claims that he is still doing "crappy" today spoke of mainly his medical issues and situation. He states that last night he was able to sleep a bit better but still "not that good". He did not speak about talking to God today. He is denying any anxiety. He is still future oriented and spoke about going home. At this time patient denies any current suicidal or homical ideations, intent or plan. Patient denies any auditory, visual hallucinations and denies any paranoia or delusions. Patient denies any side effects from the medications and has been compliant with meds. Mental Status Exam: General Appearance: Patient appears to be debilitated, stated age is alert, attempting to be cooperative. Patient appears to have mildly improving hygiene and grooming wearing hospital gown with fair eye contact. Poor dentition. Behavior: Patient is calmly lying in bed without any agitated behavior. Speech: Patient's speech is fluent and nonpressured. Harrells and soft tone Mood/Affect: Patient reports their mood is "not good", affect is congruent and constricted Suicidality/Homicidality: Patient denies having any suicidal or homicidal ideati on intent or plan. Perceptions: Patient denies any visual hallucinations and denies any auditory hallucinations Though content/process: There is no evidence of any delusional thought content and thought process is linear. Logical. Not endorsing any delusions or paranoia. Memory and concentration: AOX3, grossly intact for the purposes of this session Judgment and insight: limited, improve mildly. Assessment Depressive disorder unspecified Cannabis use disorder mild Plan: -At this time patient DOES NOT meet criteria for inpatient psychiatric admission. Patients passive end of life thoughts are likely related to patients underlying cancer diagnosis and medical condition. Patient is still future oriented and has no previous suicide attempts and has no active suicidal thoughts or plans. -Would recommend the following medication changes/additions: Continue with Remeron 30 mg daily at bedtime for mood/appetite/insomnia. Increased melatonin 6 mg qhs for insomnia. Continue with Effexor 37.5 mg daily for mood/anxiety. -log pond worker to provide patient with outpatient mental health/psychiatry resources for appropriate follow up upon discharge -Supervisor Grips spoke with patient about substance abuse and the harmful effects on medical and mental health, patient verbally understood and agreed. -After speaking with brother over the phone he states that he will attempt to be more supportive and check on patient more regularly and also will go to have guns/weapons removed from the house. -Communicated plan to patient's nurse. -At this time psychiatry will sign off. Patient can follow-up as an outpatient with mental health. -Please contact with any questions.
--- NOTE | 2020-10-08 14:28 | P.DS ---
Providers Date of admission: 10/01/20 20:41 Expected date of discharge: 10/08/20 Attending physician: Shon Flores Consults: 10/02/20 06:24 Consult Physician Urgent Consulting Provider: Paul Knott Consult Reason/Comments: Retaining urine Do you want consulting provider notified?: Yes 10/02/20 06:28 Consult Physician Urgent Consulting Provider: Mynor Mcnair Consult Reason/Comments: History of seizures, periods of lethargy Do you want consulting provider notified?: Yes 10/02/20 17:30 Consult Physician Routine Consulting Provider: Cruz Sarmiento Consult Reason/Comments: Hyperkalemia Do you want consulting provider notified?: Yes 10/02/20 20:36 Consult Physician Routine Consulting Provider: Reid Lora Consult Reason/Comments: Lung cancer Do you want consulting provider notified?: Yes 10/04/20 13:02 Consult Physician Routine Consulting Provider: Keo Hernadez Consult Reason/Comments: pos troponin Do you want consulting provider notified?: Yes 10/04/20 20:36 Consult Physician Routine Consulting Provider: Chino Mcnair Consult Reason/Comments: Right upper lobe collapse with mediastinal shift Do you want consulting provider notified?: Yes 10/07/20 11:04 Consult Physician Routine Consulting Provider: Conor Goins Consult Reason/Comments: Reconsult for depression Do you want consulting provider notified?: Yes Primary care physician: Genesis Morales [facility] Course: Chief Complaint: Tired History of presenting complaint: This is a 70-year-old patient, follows with Dr. Genesis Morales. Chronic stable medical conditions include atrial fibrillation, diabetes, hypertension, hyperlipidemia seizure disorder and history of non-small cell lung cancer. EMS was called out by patient's family. Patient's brother found the patient on the floor. Been following since 10 AM. Patient is alert. Kramer short of breath this morning and fell to the floor. Had been rather tired. Patient is on home oxygen 2.5 L at all times. When I saw the patient earlier today he was rather lethargic. Dozes off while talking. Answer only some questions. Earlier coude catheter was placed by Dr. Falcon from urology. Patient denied any cough or fever. Limited history Admitted with acute metabolic encephalopathy multifactorial from acute kidney injury. Given IV fluids. Patient's creatinine was 0.9 back in May 2020. Hyperkalemia was treated with Kayexalate. Patient had expressed suicidal ideation to the nurse. Psychiatry was consulted. Remeron and Prozac was added. Because patient been very sleepy Prozac was discontinued. Minor catheter removed. Making good urine. Effexor was added. Patient seems to have recurrence of his lung canceled the right side. He was seen by pulmonary felt to be too weak for a repeat bronchoscopy this point. Maybe at a later stage. Today: More awake today. Does not like hospital food. Requesting his food to be advanced. Discussed with Dr. Goins from psychiatry. Current medications be continued. We'll have patient follow-up with pulmonary also as outpatient. DC to rehab. Discussion and discharge planning more than 35 minutes Consultation: Dr. Goins from psychiatry Dr. Sanabria and partners from pulmonary Dr. Sarmiento from nephrology Dr. lora from oncology Dr. 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 Congestive heart failure EF of 35-40% and moderate tricuspid regurgitation severe secondary pulmonary hypertension chronic thoracic spine compression fractures Social history: Lives alone. Stop smoking in 2014. No alcohol. Uses marijuana. Physical examination: VITAL SIGNS: 98.1, 95, 18, 95/64, 96% on 2 L GENERAL: Sitting up in a chair, awake more cheerful EYES: Pupils equal. Conjunctiva normal. HEENT: External appearance of nose and ears normal, oral cavity normal NECK: JVD not raised; masses not palpable. HEART: First and second heart sounds are normal; no edema. LUNGS: Respiratory rate normal; decreased breath sounds. ABDOMEN: Soft, nontender, liver spleen not palpable, no masses palpable. PSYCH: AO 3, mood and affect more improved INVESTIGATIONS, reviewed in the clinical context: October 08: WBC 2.4 hemoglobin 7.9 platelets 51 Computed tomography scan of the chest: October 07: Increase in consolidation and bilateral pleural effusion, more on the right. Severe cardiomegaly with pericardial effusion. October 06: WBC 3.2 hemoglobin 8.1 platelets 41 potassium 3.8 creatinine 1.16 October 05: WBC 4 hemoglobin 8.4 platelets 45 potassium 3.6 creatinine 1.17 pro- calcitonin 0.27 October 04: WBC 5 hemoglobin 8.7 platelets 59 potassium 4.1 creatinine 1.17 Chest x-ray film personally reviewed by me-right upper lobe lung collapse with mediastinal shift October 03: WBC 6.7 hemoglobin 8.5 platelets 76 potassium 4.8 creatinine 1.36 phosphorus 5.1 TSH 1.7 WBC 7 hemoglobin 9 platelets 101 potassium 5.8 bun 74 creatinine 1.73 AST 135 ALT 155 Coronavirus [PCR] not detected Admission labs: WBC 6 hemoglobin 9.3 platelets 105 potassium 6.1 bun 65 creatinine 1.30 Troponin I 0.098 EKG tracing personally reviewed by me-atrial flutter with uncontrolled rate Chest x-ray film personally reviewed by me-cardiomegaly, lung opacity Computed tomography scan of the brain: Brain volume loss Previous labs: Creatinine 1.3 on October 01 and 0.9 on May 2020 Assessment and plan: -Acute metabolic encephalopathy -improved multifactorial likely from acute kidney injury. Improving. With some further worsening could be a combination of patient being on Remeron and Prozac. Prozac discontinued -Acute kidney injury likely combination of ATN and prerenal. -Corrected Patient creatinine was 0.9 back in May 2020. And 1.7 on presentation. Now down to 1.17. IV fluids. 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 Patient did follow up with Dr. Lora. Repeat bronchoscopy in May 2020 with biopsy and washings were negative. Patient's currently continued on Imfinzi. Patient may need a repeat bronchoscopy with brushings. Repeat computed tomography scan of the chest in July of this year did show collapse of the right middle lobe. Strong suspicion for recurrence/malignancy persists-computed tomography scan of the chest shows progression. patient will follow up with pulmonary's and outpatient. -Normocytic anemia likely combination of nutritional and from underlying malignancy Follow H&H with hydration -Pancytopenia likely from prior chemotherapy -Persistent atrial flutter with uncontrolled atrial presentation Cardiology consulted. IV Cardizem. Continue with eliquis. Lopressor -Diabetes mellitus type 2. Hold Glucophage. Follow Accu-Cheks diabetic diet. Resume metformin -Hyperlipidemia Continue with Zocor -Essential hypertension Patient on Cardizem and Lopressor -Seizure disorder Continue with Keppra, seizure precautions. Consult neurology -Hypothyroid Continue with Synthroid -COPD in an ex-smoker Continue with bronchodilators -Recreational marijuana use -Depressive disorder unspecified, likely adjustment disorder Seen by psychiatry. Remeron added. Prozac also added/discontinued. Effexor added. Better -Acute bladder outflow obstruction and a Minor catheter placed by urology Flomax added. Minor catheter discontinued Disposition: [facility] CBC BMP 5 days Renal diet Patient Condition at Discharge: Stable Plan - Discharge Summary New Discharge Prescriptions: No Action Montelukast [Singulair] 10 mg PO DAILY metFORMIN HCL [Glucophage] 850 mg PO BID Simvastatin [Zocor] 20 mg PO HS Apixaban [Eliquis] 5 mg PO BID #60 tab Isosorbide Mononitrate ER [Imdur] 30 mg PO DAILY #30 tab.er.24h Digoxin [Lanoxin] 125 mcg PO DAILY #30 tab Furosemide [Lasix] 20 mg PO DAILY levETIRAcetam [Keppra] 500 mg PO BID Ipratropium-Albuterol Nebulize [Duoneb 0.5 mg-3 mg/3 ml Soln] 3 ml INHALATION RT-TID PRN PRN Reason: Shortness Of Breath Metoprolol Tartrate [Lopressor] 50 mg PO DAILY Levothyroxine Sodium [Synthroid] 50 mcg PO DAILY Magnesium Oxide [Mag-Ox] 400 mg PO DAILY Sodium Polystyrene Sulfonate [Kayexalate] 7.5 gm PO Q48H Discharge Medication List Montelukast [Singulair] 10 mg PO DAILY 04/14/19 [History] Simvastatin [Zocor] 20 mg PO HS 04/14/19 [History] metFORMIN HCL [Glucophage] 850 mg PO BID 04/14/19 [History] Apixaban [Eliquis] 5 mg PO BID #60 tab 04/25/19 [Rx] Digoxin [Lanoxin] 125 mcg PO DAILY #30 tab 04/25/19 [Rx] Isosorbide Mononitrate ER [Imdur] 30 mg PO DAILY #30 tab.er.24h 04/25/19 [Rx] Furosemide [Lasix] 20 mg PO DAILY 05/31/19 [History] levETIRAcetam [Keppra] 500 mg PO BID 05/31/19 [History] Ipratropium-Albuterol Nebulize [Duoneb 0.5 mg-3 mg/3 ml Soln] 3 ml INHALATION RT-TID PRN 10/06/19 [History] Metoprolol Tartrate [Lopressor] 50 mg PO DAILY 10/06/19 [History] Levothyroxine Sodium [Synthroid] 50 mcg PO DAILY 06/12/20 [History] Magnesium Oxide [Mag-Ox] 400 mg PO DAILY 06/12/20 [History] Sodium Polystyrene Sulfonate [Kayexalate] 7.5 gm PO Q48H 10/01/20 [History] Follow up Appointment(s)/Referral(s): Reid Lora MD [STAFF PHYSICIAN] - 10/25/20 11:45 am Genesis Morales DO [Primary Care Provider] - 1-2 days
--- NOTE | 2020-10-08 16:31 | P.PN ---
Subjective Progress Note Date: 10/08/20 Principal diagnosis: Sq cell lung carcinoma Pt resting comfortably, he talked to me today, no nausea or pain, generalized weakness. He ate and is drinking. Objective - Vital Signs Vital signs: Vital Signs Temp 98.1 F 10/08/20 12:00 Pulse 95 10/08/20 12:00 Resp 18 10/08/20 12:00 BP 95/64 10/08/20 12:00 Pulse Ox 96 10/08/20 12:00 Intake & Output 10/07/20 10/08/20 10/08/20 18:59 06:59 18:59 Intake Total 236 660 Output Total 1000 Balance 236 -340 Weight 88 kg 87 kg Intake: Oral 236 660 Output: Urine 1000 Other: Voiding Method Toilet # Voids 1 1 # Bowel Movements 1 - Constitutional General appearance: Present: average body habitus, cooperative, no acute distress - EENT Eyes: Present: anicteric sclerae, EOMI, poor dentition ENT: Present: hearing grossly normal - Respiratory Respiratory: bilateral: rales (anterior) - Cardiovascular Heart sounds: normal: S1, S2 Abnormal Heart Sounds: Absent: systolic murmur, diastolic murmur, rub, S3 Gallop, S4 Gallop, click, other - Peripheral edema leg Peripheral Edema: bilateral: None - Gastrointestinal General gastrointestinal: Present: normal bowel sounds, soft - Musculoskeletal Musculoskeletal: Present: generalized weakness, strength equal bilaterally - Psychiatric Psychiatric: Present: A&O x's 3, appropriate affect - Labs CBC & Chem 7: 10/08/20 06:37 10/08/20 06:37 Labs: Abnormal Lab Results - Last 24 Hours (Table) 10/07/20 10/07/20 10/08/20 Range/Units 16:43 20:36 06:37 WBC (3.8-10.6) k/uL RBC (4.30-5.90) m/uL Hgb (13.0-17.5) gm/dL Hct (39.0-53.0) % MCV (80.0-100.0) fL MCHC (31.0-37.0) g/dL RDW (11.5-15.5) % Plt Count (150-450) k/uL Lymphocytes # (1.0-4.8) k/uL Carbon Dioxide 39 H (22-30) mmol/L BUN 30 H (9-20) mg/dL Glucose 73 L (74-99) mg/dL POC Glucose (mg/dL) 122 H 105 H (75-99) mg/dL 10/08/20 10/08/20 Range/Units 06:37 11:41 WBC 2.4 L (3.8-10.6) k/uL RBC 2.58 L (4.30-5.90) m/uL Hgb 7.9 L (13.0-17.5) gm/dL Hct 26.0 L (39.0-53.0) % MCV 100.8 H (80.0-100.0) fL MCHC 30.5 L (31.0-37.0) g/dL RDW 15.9 H (11.5-15.5) % Plt Count 51 L (150-450) k/uL Lymphocytes # 0.5 L (1.0-4.8) k/uL Carbon Dioxide (22-30) mmol/L BUN (9-20) mg/dL Glucose (74-99) mg/dL POC Glucose (mg/dL) 162 H (75-99) mg/dL Microbiology - Last 24 Hours (Table) 10/04/20 19:14 Blood Culture - Preliminary Blood No Growth after 72 hours 10/04/20 19:20 Blood Culture - Preliminary Blood No Growth after 72 hours Assessment and Plan (1) Hyperkalemia Current Visit: Yes Status: Resolved Priority: High Code(s): E87.5 - HYPERKALEMIA SNOMED Code(s): 92099901 (2) Lung cancer Narrative/Plan: Patient has been doing well on his current maintenance therapy, actually completed 1 year, just shy 1 dose. Imfinzi is 1 year so, basically he completed treatment. Plan if for routine imaging, he is currently scheduled for 10/18/20. Would recommend moving that CT out and allow pt to recover before imaging. We can wait until he is released from [facility]. Current Visit: Yes Status: Chronic Priority: Medium Code(s): C34.90 - MALIGNANT NEOPLASM OF UNSP PART OF UNSP BRONCHUS OR LUNG SNOMED Code(s): 000412447
[2020-10-08 16:33] LABS: Glucose,Whole Blood 157 mg/dL (75-99)
[2020-10-08] MEDS: TAMSULOSIN 0.4 MG CAP.ER.24H PO SCH (18:00)
[2020-10-08 20:04] LABS: Glucose,Whole Blood 212 mg/dL (75-99)
[2020-10-08] MEDS: MIRTAZAPINE 15 MG TAB PO SCH (20:11)
[2020-10-08] MEDS ORDERED: MELATONIN 3 MG TABLET PO SCH (21:00)
[2020-10-09 06:07] LABS: Glucose,Whole Blood 125 mg/dL (75-99)
[2020-10-09] MEDS: LEVOTHYROXINE 50 MCG TAB PO SCH (07:25)
[2020-10-09] MEDS: IPRATROPIUM-ALBUTEROL 3 ML NEB INHALATION SCH ×2 (07:27→11:30)
[2020-10-09 08:31] VITALS: RESP 18
[2020-10-09] MEDS: levETIRAcetam 500 MG TAB PO SCH (08:33)
[2020-10-09] MEDS: VENLAFAXINE HCL 37.5 MG TAB PO SCH (08:33)
[2020-10-09] MEDS: METOPROLOL TARTRATE 12.5 MG TAB PO SCH (08:33)
[2020-10-09] MEDS: MONTELUKAST 10 MG TAB PO SCH (08:33)
[2020-10-09] MEDS: ISOSORBIDE MONONITRATE ER 30 MG TAB.ER.24H PO SCH (08:33)
[2020-10-09 08:43] LABS: Calcium 8.4 mg/dL (8.4-10.2); Magnesium 1.5 mg/dL (1.6-2.3); Potassium 3.9 mmol/L (3.5-5.1)
[2020-10-09 09:09] LABS: Anisocytosis Slight; Basophils % (A) 0 %; Eosinophils # (A) 0.1 k/uL (0-0.7); Eosinophils % (A) 2 %; HCT 27.4 % (39.0-53.0); HGB 8.5 gm/dL (13.0-17.5); Hypochromasia Marked; Lymphocytes # (A) 0.7 k/uL (1.0-4.8); Lymphocytes % (A) 20 %; MCH 31.5 pg (25.0-35.0); MCHC 31.2 g/dL (31.0-37.0); MCV 101.2 fL (80.0-100.0); Macrocytosis Slight; Mean Platelet Volume 11.5; Monocytes # (A) 0.3 k/uL (0-1.0); Monocytes % (A) 8 %; Neutrophils # (A) 2.3 k/uL (1.3-7.7); Neutrophils % (A) 68 %; RBC 2.71 m/uL (4.30-5.90); RDW 16.1 % (11.5-15.5); WBC 3.4 k/uL (3.8-10.6)
[2020-10-09 09:30] LABS: Platelet Count 63 k/uL (150-450)
[2020-10-09 10:10] LABS: Poikilocytosis (M) Present
[2020-10-09] MEDS ORDERED: acetaZOLAMIDE 250 MG TAB PO SCH (10:45)
--- NOTE | 2020-10-09 10:47 | P.PN ---
Subjective Patient is seen in follow-up for acute kidney injury and hyperkalemia. Renal function and potassium level stable. Blood pressure stable. No active complaints. No changes overnight. Currently on 2 L nasal cannula. Bicarb level of to 45 today. He did receive 1 dose of IV Lasix yesterday. Vital signs are stable. General: The patient appeared well nourished and normally developed. HEENT: Head exam is unremarkable. Neck is without jugular venous distension. LUNGS: Breath sounds decreased. Scattered rhonchi. HEART: Rate and Rhythm are regular. ABDOMEN: Soft, nontender. EXTREMITITES: No edema. Objective - Vital Signs Vital signs: Vital Signs Temp 97.9 F 10/09/20 08:00 Pulse 76 10/09/20 08:00 Resp 18 10/09/20 08:00 BP 126/55 10/09/20 08:00 Pulse Ox 93 L 10/09/20 08:00 Intake & Output 10/08/20 10/09/20 10/09/20 18:59 06:59 18:59 Intake Total 900 75 480 Output Total 1000 400 Balance -100 -325 480 Weight 86 kg Intake: Oral 900 75 480 Output: Urine 1000 400 Other: Voiding Method Toilet # Voids 1 1 - Labs CBC & Chem 7: 10/09/20 07:51 10/09/20 07:51 Labs: Abnormal Lab Results - Last 24 Hours (Table) 10/08/20 10/08/20 10/08/20 Range/Units 11:41 16:25 20:00 WBC (3.8-10.6) k/uL RBC (4.30-5.90) m/uL Hgb (13.0-17.5) gm/dL Hct (39.0-53.0) % MCV (80.0-100.0) fL RDW (11.5-15.5) % Plt Count (150-450) k/uL Lymphocytes # (1.0-4.8) k/uL Chloride (98-107) mmol/L Carbon Dioxide (22-30) mmol/L BUN (9-20) mg/dL Glucose (74-99) mg/dL POC Glucose (mg/dL) 162 H 157 H 212 H (75-99) mg/dL Magnesium (1.6-2.3) mg/dL 04/10/09/20 10/09/20 Range/Units 06:01 07:51 07:51 WBC 3.4 L (3.8-10.6) k/uL RBC 2.71 L (4.30-5.90) m/uL Hgb 8.5 L (13.0-17.5) gm/dL Hct 27.4 L (39.0-53.0) % MCV 101.2 H (80.0-100.0) fL RDW 16.1 H (11.5-15.5) % Plt Count 63 L (150-450) k/uL Lymphocytes # 0.7 L (1.0-4.8) k/uL Chloride 96 L (98-107) mmol/L Carbon Dioxide 45 H* (22-30) mmol/L BUN 24 H (9-20) mg/dL Glucose 127 H (74-99) mg/dL POC Glucose (mg/dL) 125 H (75-99) mg/dL Magnesium 1.5 L (1.6-2.3) mg/dL Microbiology - Last 24 Hours (Table) 10/04/20 19:14 Blood Culture - Preliminary Blood No Growth after 96 hours 10/04/20 19:20 Blood Culture - Preliminary Blood No Growth after 96 hours Assessment and Plan Plan: Assessment: 1. Acute kidney injury mostly prerenal. Component of urinary retention. Improved. 2. Hyperkalemia secondary to acute kidney injury. Patient has chronic hyperkalemia and is maintained on Kayexalate outpatient. 3. History of non-small cell lung cancer status post chemotherapy. 4. Anemia. Iron deficiency noted. Status post IV iron. 5. Diabetes mellitus. 6. Urinary retention status post Minor catheter placement. Urology following. On Flomax as well. 7. Acute hypoxic respiratory failure. Opacification of the right lung. Pulmonology following. 8. Volume overload. CT of the chest revealed bilateral pleural effusions as well as pericardial effusion. Status post IV Lasix October 08. 9. Metabolic alkalosis. Bicarb level 45 today. 10. Hypomagnesemia from diuresis and poor intake. Plan: Remains off IV fluids. Add Diamox 250 mg twice daily. Check ABG to further evaluate the alkalosis. Avoid nephrotoxins. Continue to monitor renal function and urine output. Encourage oral intake. Replace magnesium. 2 g IV today. Repeat electrolytes in the morning.
[2020-10-09] MEDS: MAGNESIUM SULFATE-D5W PMX 1 GM in DEXTROSE/WATER 1 100ML.BAG IVPB SCH ×2 (11:08→12:55)
[2020-10-09 11:21] LABS: ABG Base Excess 23.1 mmol/L; ABG PO2 78 mmHg (83-108); ABG TCO2 53 mmol/L (19-24); Allen Test Performed? Yes
[2020-10-09 11:26] LABS: ABG HCO3 50 mmol/L (21-25); ABG PCO2 101 mmHg (35-45)
[2020-10-09 11:52] LABS: Glucose,Whole Blood 192 mg/dL (75-99)
[2020-10-09 11:59] VITALS: BP 106/57; PULSE 103; TEMP 98
--- NOTE | 2020-10-09 13:26 | P.PN ---
Progress Note - Text Progress Note Date: 10/08/20 Chief Complaint: Tired History of presenting complaint: This is a 70-year-old patient, follows with Dr. Genesis Morales. Chronic stable medical conditions include atrial fibrillation, diabetes, hypertension, hyperlipidemia seizure disorder and history of non-small cell lung cancer. EMS was called out by patient's family. Patient's brother found the patient on the floor. Been following since 10 AM. Patient is alert. [place] short of breath this morning and fell to the floor. Had been rather tired. Patient is on home oxygen 2.5 L at all times. When I saw the patient earlier today he was rather lethargic. Dozes off while talking. Answer only some questions. Earlier coude catheter was placed by Dr. Falcon from urology. Patient denied any cough or fever. Limited history Admitted with acute metabolic encephalopathy multifactorial from acute kidney injury. Given IV fluids. Patient's creatinine was 0.9 back in May 2020. Hyperkalemia was treated with Kayexalate. Patient had expressed suicidal ideation to the nurse. Psychiatry was consulted. Remeron and Prozac was added. Because patient been very sleepy Prozac was discontinued. Minor catheter removed. Making good urine. Effexor was added. Patient seems to have recurrence of his lung canceled the right side. He was seen by pulmonary felt to be too weak for a repeat bronchoscopy this point. Maybe at a later stage. Today: More awake today. Does not like hospital food. Requesting his food to be advanced. Discussed with Dr. Goins from psychiatry. Current medications be continued. We'll have patient follow-up with pulmonary also as outpatient. DC to rehab. Authorization are received. Review of systems: Was done for constitutional, cardiovascular, GI, pulmonary. relevant finding as above Consultation: Dr. Goins from psychiatry Dr. Sanabria and partners from pulmonary Dr. Sarmiento from nephrology Dr. lora from oncology Dr. jaramillo from urology Past medical history to include: Atrial fibrillation, diabetes mellitus, hyperlipidemia, hypertension, pulmonary embolism, seizure disorder, non-small cell lung cancer/squamous cell has received radiation treatment and chemotherapy. Congestive heart failure EF of 35-40% and moderate tricuspid regurgitation severe secondary pulmonary hypertension chronic thoracic spine compression fractures Social history: Lives alone. Stop smoking in 2014. No alcohol. Uses marijuana. Physical examination: VITAL SIGNS: 98.1, 95, 18, 95/64, 96% on 2 L GENERAL: Sitting up in a chair, awake more cheerful EYES: Pupils equal. Conjunctiva normal. HEENT: External appearance of nose and ears normal, oral cavity normal NECK: JVD not raised; masses not palpable. HEART: First and second heart sounds are normal; no edema. LUNGS: Respiratory rate normal; decreased breath sounds. ABDOMEN: Soft, nontender, liver spleen not palpable, no masses palpable. PSYCH: AO 3, mood and affect more improved INVESTIGATIONS, reviewed in the clinical context: October 08: WBC 2.4 hemoglobin 7.9 platelets 51 Computed tomography scan of the chest: October 07: Increase in consolidation and bilateral pleural effusion, more on the right. Severe cardiomegaly with pericardial effusion. October 06: WBC 3.2 hemoglobin 8.1 platelets 41 potassium 3.8 creatinine 1.16 October 05: WBC 4 hemoglobin 8.4 platelets 45 potassium 3.6 creatinine 1.17 pro- calcitonin 0.27 October 04: WBC 5 hemoglobin 8.7 platelets 59 potassium 4.1 creatinine 1.17 Chest x-ray film personally reviewed by me-right upper lobe lung collapse with mediastinal shift October 03: WBC 6.7 hemoglobin 8.5 platelets 76 potassium 4.8 creatinine 1.36 phosphorus 5.1 TSH 1.7 WBC 7 hemoglobin 9 platelets 101 potassium 5.8 bun 74 creatinine 1.73 AST 135 ALT 155 Coronavirus [PCR] not detected Admission labs: WBC 6 hemoglobin 9.3 platelets 105 potassium 6.1 bun 65 creatinine 1.30 Troponin I 0.098 EKG tracing personally reviewed by me-atrial flutter with uncontrolled rate Chest x-ray film personally reviewed by me-cardiomegaly, lung opacity Computed tomography scan of the brain: Brain volume loss Previous labs: Creatinine 1.3 on October 01 and 0.9 on May 2020 Assessment and plan: -Acute metabolic encephalopathy -improved multifactorial likely from acute kidney injury. Improving. With some further worsening could be a combination of patient being on Remeron and Prozac. Prozac discontinued -Acute kidney injury likely combination of ATN and prerenal. -Corrected Patient creatinine was 0.9 back in May 2020. And 1.7 on presentation. Now down to 1.17. IV fluids. 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 Patient did follow up with Dr. Lora. Repeat bronchoscopy in May 2020 with biopsy and washings were negative. Patient's currently continued on Imfinzi. Patient may need a repeat bronchoscopy with brushings. Repeat computed tomography scan of the chest in July of this year did show collapse of the right middle lobe. Strong suspicion for recurrence/malignancy persists-computed tomography scan of the chest shows progression. patient will follow up with pulmonary's and outpatient. -Normocytic anemia likely combination of nutritional and from underlying malignancy Follow H&H with hydration -Pancytopenia likely from prior chemotherapy -Persistent atrial flutter with uncontrolled atrial presentation Cardiology consulted. IV Cardizem. Continue with eliquis. Lopressor -Diabetes mellitus type 2. Hold Glucophage. Follow Accu-Cheks diabetic diet. Resume metformin -Hyperlipidemia Continue with Zocor -Essential hypertension Patient on Cardizem and Lopressor -Seizure disorder Continue with Keppra, seizure precautions. Consult neurology -Hypothyroid Continue with Synthroid -COPD in an ex-smoker Continue with bronchodilators -Recreational marijuana use -Depressive disorder unspecified, likely adjustment disorder Seen by psychiatry. Remeron added. Prozac also added/discontinued. Effexor added. Better -Acute bladder outflow obstruction and a Minor catheter placed by urology Flomax added. Minor catheter discontinued Continue current medication treatment plan. Await authorization for transfer to [facility]
--- NOTE | 2020-10-09 13:29 | P.DS ---
Providers Date of admission: 10/01/20 20:41 Expected date of discharge: 10/09/20 Attending physician: Shon Flores Consults: 10/02/20 06:24 Consult Physician Urgent Consulting Provider: Paul Knott Consult Reason/Comments: Retaining urine Do you want consulting provider notified?: Yes 10/02/20 06:28 Consult Physician Urgent Consulting Provider: Mynor Mcnair Consult Reason/Comments: History of seizures, periods of lethargy Do you want consulting provider notified?: Yes 10/02/20 17:30 Consult Physician Routine Consulting Provider: Cruz Sarmiento Consult Reason/Comments: Hyperkalemia Do you want consulting provider notified?: Yes 10/02/20 20:36 Consult Physician Routine Consulting Provider: Reid Lora Consult Reason/Comments: Lung cancer Do you want consulting provider notified?: Yes 10/04/20 13:02 Consult Physician Routine Consulting Provider: Keo Hernadez Consult Reason/Comments: pos troponin Do you want consulting provider notified?: Yes 10/04/20 20:36 Consult Physician Routine Consulting Provider: Chino Mcnair Consult Reason/Comments: Right upper lobe collapse with mediastinal shift Do you want consulting provider notified?: Yes 10/07/20 11:04 Consult Physician Routine Consulting Provider: Conor Goins Consult Reason/Comments: Reconsult for depression Do you want consulting provider notified?: Yes Primary care physician: Genesis Morales [facility] Course: Chief Complaint: Tired History of presenting complaint: This is a 70-year-old patient, follows with Dr. Genesis Morales. Chronic stable medical conditions include atrial fibrillation, diabetes, hypertension, hyperlipidemia seizure disorder and history of non-small cell lung cancer. EMS was called out by patient's family. Patient's brother found the patient on the floor. Been following since 10 AM. Patient is alert. [place] short of breath this morning and fell to the floor. Had been rather tired. Patient is on home oxygen 2.5 L at all times. When I saw the patient earlier today he was rather lethargic. Dozes off while talking. Answer only some questions. Earlier coude catheter was placed by Dr. Falcon from urology. Patient denied any cough or fever. Limited history Admitted with acute metabolic encephalopathy multifactorial from acute kidney injury. Given IV fluids. Patient's creatinine was 0.9 back in May 2020. Hyperkalemia was treated with Kayexalate. Patient had expressed suicidal ideation to the nurse. Psychiatry was consulted. Remeron and Prozac was added. Because patient been very sleepy Prozac was discontinued. Minor catheter removed. Making good urine. Effexor was added. Patient seems to have recurrence of his lung canceled the right side. He was seen by pulmonary felt to be too weak for a repeat bronchoscopy this point. Maybe at a later stage. Does not like hospital food. Requesting his food to be advanced. Discussed with Dr. Goins from psychiatry. Current medications be continued. We'll have patient follow-up with pulmonary also as outpatient. DC to rehab. Today: Remains picky about his food. Will be discharged to rehab. Authorization received. Consultation: Dr. Goins from psychiatry Dr. Sanabria and partners from pulmonary Dr. Sarmiento from nephrology Dr. lora from oncology Dr. 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 Congestive heart failure EF of 35-40% and moderate tricuspid regurgitation severe secondary pulmonary hypertension chronic thoracic spine compression fractures Social history: Lives alone. Stop smoking in 2014. No alcohol. Uses marijuana. Physical examination: VITAL SIGNS: 98, 103, 18, 106/57, 95% 2 L GENERAL: Sitting up in a chair, awake EYES: Pupils equal. Conjunctiva normal. HEENT: External appearance of nose and ears normal, oral cavity normal NECK: JVD not raised; masses not palpable. HEART: First and second heart sounds are normal; no edema. LUNGS: Respiratory rate normal; decreased breath sounds. ABDOMEN: Soft, nontender, liver spleen not palpable, no masses palpable. PSYCH: AO 3, mood and affect more improved INVESTIGATIONS, reviewed in the clinical context: October 09: WBC 3.4 hemoglobin 8.5 platelets potassium 2.9 creatinine 1.03 mag 1.05 October 08: WBC 2.4 hemoglobin 7.9 platelets 51 Computed tomography scan of the chest: October 07: Increase in consolidation and bilateral pleural effusion, more on the right. Severe cardiomegaly with pericardial effusion. October 06: WBC 3.2 hemoglobin 8.1 platelets 41 potassium 3.8 creatinine 1.16 October 05: WBC 4 hemoglobin 8.4 platelets 45 potassium 3.6 creatinine 1.17 pro- calcitonin 0.27 October 04: WBC 5 hemoglobin 8.7 platelets 59 potassium 4.1 creatinine 1.17 Chest x-ray film personally reviewed by me-right upper lobe lung collapse with mediastinal shift October 03: WBC 6.7 hemoglobin 8.5 platelets 76 potassium 4.8 creatinine 1.36 phosphorus 5.1 TSH 1.7 WBC 7 hemoglobin 9 platelets 101 potassium 5.8 bun 74 creatinine 1.73 AST 135 ALT 155 Coronavirus [PCR] not detected Admission labs: WBC 6 hemoglobin 9.3 platelets 105 potassium 6.1 bun 65 creatinine 1.30 Troponin I 0.098 EKG tracing personally reviewed by me-atrial flutter with uncontrolled rate Chest x-ray film personally reviewed by me-cardiomegaly, lung opacity Computed tomography scan of the brain: Brain volume loss Previous labs: Creatinine 1.3 on October 01 and 0.9 on May 2020 Assessment and plan: -Acute metabolic encephalopathy -improved multifactorial likely from acute kidney injury. Improving. With some further worsening could be a combination of patient being on Remeron and Prozac. Prozac discontinued -Acute kidney injury likely combination of ATN and prerenal. -Corrected Patient creatinine was 0.9 back in May 2020. And 1.7 on presentation. Now down to 1.17. IV fluids. 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 Patient did follow up with Dr. Lora. Repeat bronchoscopy in May 2020 with biopsy and washings were negative. Patient's currently continued on Imfinzi. Patient may need a repeat bronchoscopy with brushings. Repeat computed tomogr aphy scan of the chest in July of this year did show collapse of the right middle lobe. Strong suspicion for recurrence/malignancy persists-computed tomography scan of the chest shows progression. patient will follow up with pulmonary's and outpatient. -Normocytic anemia likely combination of nutritional and from underlying malignancy Follow H&H with hydration -Pancytopenia likely from prior chemotherapy -Persistent atrial flutter with uncontrolled atrial presentation Cardiology consulted. IV Cardizem. Continue with eliquis. Lopressor -Diabetes mellitus type 2. Hold Glucophage. Follow Accu-Cheks diabetic diet. Resume metformin -Hyperlipidemia Continue with Zocor -Essential hypertension Patient on Cardizem and Lopressor -Seizure disorder Continue with Keppra, seizure precautions. Consult neurology -Hypothyroid Continue with Synthroid -COPD in an ex-smoker Continue with bronchodilators -Recreational marijuana use -Depressive disorder unspecified, likely adjustment disorder Seen by psychiatry. Remeron added. Prozac also added/discontinued. Effexor added. Better -Acute bladder outflow obstruction and a Minor catheter placed by urology Flomax added. Minor catheter discontinued Disposition: [facility] CBC BMP 5 days Renal diet Patient Condition at Discharge: Undetermined Plan - Discharge Summary New Discharge Prescriptions: New Venlafaxine HCl [Effexor] 37.5 mg PO DAILY tab Atorvastatin Calcium [Lipitor] 20 mg PO HS #1 tab Mirtazapine [Remeron] 30 mg PO HS tab Tamsulosin [Flomax] 0.4 mg PO PC-SUPPER cap.er.24h Melatonin 6 mg PO HS tablet Continue Montelukast [Singulair] 10 mg PO DAILY Apixaban [Eliquis] 5 mg PO BID #60 tab Isosorbide Mononitrate ER [Imdur] 30 mg PO DAILY #30 tab.er.24h levETIRAcetam [Keppra] 500 mg PO BID Ipratropium-Albuterol Nebulize [Duoneb 0.5 mg-3 mg/3 ml Soln] 3 ml INHALATION RT-TID PRN PRN Reason: Shortness Of Breath Metoprolol Tartrate [Lopressor] 50 mg PO DAILY Levothyroxine Sodium [Synthroid] 50 mcg PO DAILY Magnesium Oxide [Mag-Ox] 400 mg PO DAILY Sodium Polystyrene Sulfonate [Kayexalate] 7.5 gm PO Q48H Discontinued metFORMIN HCL [Glucophage] 850 mg PO BID Simvastatin [Zocor] 20 mg PO HS Digoxin [Lanoxin] 125 mcg PO DAILY #30 tab Furosemide [Lasix] 20 mg PO DAILY Discharge Medication List Montelukast [Singulair] 10 mg PO DAILY 04/14/19 [History] Apixaban [Eliquis] 5 mg PO BID #60 tab 04/25/19 [Rx] Isosorbide Mononitrate ER [Imdur] 30 mg PO DAILY #30 tab.er.24h 04/25/19 [Rx] levETIRAcetam [Keppra] 500 mg PO BID 05/31/19 [History] Ipratropium-Albuterol Nebulize [Duoneb 0.5 mg-3 mg/3 ml Soln] 3 ml INHALATION RT-TID PRN 10/06/19 [History] Metoprolol Tartrate [Lopressor] 50 mg PO DAILY 10/06/19 [History] Levothyroxine Sodium [Synthroid] 50 mcg PO DAILY 06/12/20 [History] Magnesium Oxide [Mag-Ox] 400 mg PO DAILY 06/12/20 [History] Sodium Polystyrene Sulfonate [Kayexalate] 7.5 gm PO Q48H 10/01/20 [History] Atorvastatin Calcium [Lipitor] 20 mg PO HS #1 tab 10/08/20 [Rx] Melatonin 6 mg PO HS tablet 10/08/20 [Rx] Mirtazapine [Remeron] 30 mg PO HS tab 10/08/20 [Rx] Tamsulosin [Flomax] 0.4 mg PO PC-SUPPER cap.er.24h 10/08/20 [Rx] Venlafaxine HCl [Effexor] 37.5 mg PO DAILY tab 10/08/20 [Rx] Follow up Appointment(s)/Referral(s): cardiology, [Other] - [address] ignacio [Other] - 2 Weeks Reid Lora MD [STAFF PHYSICIAN] - 10/25/20 11:45 am Genesis Morales DO [Primary Care Provider] - As Needed Chino Mcnair DO [Doctor of Osteopathic Medicine] - 1 Week Activity/Diet/Wound Care/Special Instructions: Renal diet Weekly CBC and report sent to Dr. Lora's office.
[2020-10-09] MEDS ORDERED: MAGNESIUM OXIDE 400 MG TAB PO SCH (16:00)
--- NOTE | 2020-10-09 16:03 | P.PN ---
Subjective Progress Note Date: 10/09/20 Principal diagnosis: Sq cell lung carcinoma Pt is in the chair today, appears to be comfortable. When asked how he is doing he said that he is fair. He currently denies any pain, his breathing is comfortable at rest, he is very weak. Objective - Vital Signs Vital signs: Vital Signs Temp 98 F 10/09/20 11:56 Pulse 103 H 10/09/20 11:56 Resp 18 10/09/20 14:52 BP 106/57 10/09/20 11:56 Pulse Ox 95 10/09/20 11:56 Intake & Output 10/08/20 10/09/20 10/09/20 18:59 06:59 18:59 Intake Total 900 75 798 Output Total 1000 400 500 Balance -100 -325 298 Weight 86 kg Intake: Intake, IV Titration 200 Amount Magnesium Sulfate-D5w Pmx 200 1 gm In Dextrose/Water 1 100ml.bag @ 100 mls/hr IVPB Q1H TAN Rx#: [id number] Oral 900 75 598 Output: Urine 1000 400 500 Other: Voiding Method Toilet # Voids 1 1 - Constitutional General appearance: Present: average body habitus, cooperative, no acute distress - EENT Eyes: Present: anicteric sclerae, EOMI, poor dentition ENT: Present: hearing grossly normal - Respiratory Details: respirations even and unlabored at rest, no audible abnormal breath sounds - Labs CBC & Chem 7: 10/09/20 07:51 10/09/20 07:51 Labs: Abnormal Lab Results - Last 24 Hours (Table) 10/08/20 10/08/20 10/09/20 Range/Units 16:25 20:00 06:01 WBC (3.8-10.6) k/uL RBC (4.30-5.90) m/uL Hgb (13.0-17.5) gm/dL Hct (39.0-53.0) % MCV (80.0-100.0) fL RDW (11.5-15.5) % Plt Count (150-450) k/uL Lymphocytes # (1.0-4.8) k/uL ABG pH (7.35-7.45) ABG pCO2 (35-45) mmHg ABG pO2 (83-108) mmHg ABG HCO3 (21-25) mmol/L ABG Total CO2 (19-24) mmol/L Chloride (98-107) mmol/L Carbon Dioxide (22-30) mmol/L BUN (9-20) mg/dL Glucose (74-99) mg/dL POC Glucose (mg/dL) 157 H 212 H 125 H (75-99) mg/dL Magnesium (1.6-2.3) mg/dL 10/09/20 10/09/20 10/09/20 Range/Units 07:51 07:51 11:18 WBC 3.4 L (3.8-10.6) k/uL RBC 2.71 L (4.30-5.90) m/uL Hgb 8.5 L (13.0-17.5) gm/dL Hct 27.4 L (39.0-53.0) % MCV 101.2 H (80.0-100.0) fL RDW 16.1 H (11.5-15.5) % Plt Count 63 L (150-450) k/uL Lymphocytes # 0.7 L (1.0-4.8) k/uL ABG pH 7.30 L (7.35-7.45) ABG pCO2 101 H* (35-45) mmHg ABG pO2 78 L (83-108) mmHg ABG HCO3 50 H* (21-25) mmol/L ABG Total CO2 53 H (19-24) mmol/L Chloride 96 L (98-107) mmol/L Carbon Dioxide 45 H* (22-30) mmol/L BUN 24 H (9-20) mg/dL Glucose 127 H (74-99) mg/dL POC Glucose (mg/dL) (75-99) mg/dL Magnesium 1.5 L (1.6-2.3) mg/dL 10/09/20 Range/Units 11:50 WBC (3.8-10.6) k/uL RBC (4.30-5.90) m/uL Hgb (13.0-17.5) gm/dL Hct (39.0-53.0) % MCV (80.0-100.0) fL RDW (11.5-15.5) % Plt Count (150-450) k/uL Lymphocytes # (1.0-4.8) k/uL ABG pH (7.35-7.45) ABG pCO2 (35-45) mmHg ABG pO2 (83-108) mmHg ABG HCO3 (21-25) mmol/L ABG Total CO2 (19-24) mmol/L Chloride (98-107) mmol/L Carbon Dioxide (22-30) mmol/L BUN (9-20) mg/dL Glucose (74-99) mg/dL POC Glucose (mg/dL) 192 H (75-99) mg/dL Magnesium (1.6-2.3) mg/dL Microbiology - Last 24 Hours (Table) 10/04/20 19:14 Blood Culture - Preliminary Blood No Growth after 96 hours 10/04/20 19:20 Blood Culture - Preliminary Blood No Growth after 96 hours Assessment and Plan (1) Hyperkalemia Status: Resolved Priority: High Code(s): E87.5 - HYPERKALEMIA SNOMED Code(s): 84729478 (2) Lung cancer Narrative/Plan: Patient has been doing well on his current maintenance therapy, actually completed 1 year, just shy 1 dose. Imfinzi treatment is for 1 year so, basically he completed treatment. Plan is for routine imaging. Currently scheduled CT is being moved out to allow pt to recover before imaging. He will follow-up with Dr. Lora after imaging for results and ongoing follow-up plan. Status: Chronic Priority: Medium Code(s): C34.90 - MALIGNANT NEOPLASM OF UNSP PART OF UNSP BRONCHUS OR LUNG SNOMED Code(s): 293484543 Plan: Weekly CBC while at [facility]. Patient is on anticoagulation and, his platelets have been running lower than his baseline. Confirmed with Powder Expert that this order is in the patient's chart
== END 2020-10-09 15:37 | DRG 682 ==
LOC: EC 13:13 → 3SCARD 20:41
PROVIDERS: ADMIT Hospitalist; ATTEND Hospitalist
DX: N17.0 Acute kidney failure with tubular necrosis (principal); G93.41 Metabolic encephalopathy; G92 Toxic encephalopathy; J96.01 Acute respiratory failure with hypoxia; D61.810 Antineoplastic chemotherapy induced pancytopenia; J18.9 Pneumonia, unspecified organism; I48.20 Chronic atrial fibrillation, unspecified; I48.92 Unspecified atrial flutter; R45.851 Suicidal ideations; E87.4 Mixed disorder of acid-base balance; I50.22 Chronic systolic (congestive) heart failure; J98.19 Other pulmonary collapse; J44.0 Chronic obstructive pulmonary disease with (acute) lower respiratory infection; I31.3 Pericardial effusion (noninflammatory); M48.54XA Collapsed vertebra, not elsewhere classified, thoracic region, initial encounter for fracture; C34.91 Malignant neoplasm of unspecified part of right bronchus or lung; G40.909 Epilepsy, unspecified, not intractable, without status epilepticus; E87.5 Hyperkalemia; I27.20 Pulmonary hypertension, unspecified; D63.0 Anemia in neoplastic disease; T45.1X5A Adverse effect of antineoplastic and immunosuppressive drugs, initial encounter; I11.0 Hypertensive heart disease with heart failure; E78.5 Hyperlipidemia, unspecified; E03.9 Hypothyroidism, unspecified; F32.9 Major depressive disorder, single episode, unspecified; Z79.01 Long term (current) use of anticoagulants; R33.9 Retention of urine, unspecified; R47.81 Slurred speech; R79.89 Other specified abnormal findings of blood chemistry; I27.29 Other secondary pulmonary hypertension; N32.0 Bladder-neck obstruction; F43.20 Adjustment disorder, unspecified; E83.42 Hypomagnesemia; N35.919 Unspecified urethral stricture, male, unspecified site; E86.9 Volume depletion, unspecified; K29.70 Gastritis, unspecified, without bleeding; J98.09 Other diseases of bronchus, not elsewhere classified; I07.1 Rheumatic tricuspid insufficiency; Z79.84 Long term (current) use of oral hypoglycemic drugs; Z87.891 Personal history of nicotine dependence; Z86.711 Personal history of pulmonary embolism; Z79.890 Hormone replacement therapy; Z79.82 Long term (current) use of aspirin; Z86.73 Personal history of transient ischemic attack (TIA), and cerebral infarction without residual deficits; Z92.3 Personal history of irradiation; Z87.01 Personal history of pneumonia (recurrent)
CPT/HCPCS: 36415; 36600; 70450; 71045; 71046; 71250; 76700; 76857; 80048; 80053; 80061; 80162; 81001; 82550; 82607; 82746; 82805; 83036; 83540; 83550; 83605; 83735; 84100; 84132; 84145; 84443; 84484; 85025; 85027; 85384; 85610; 85730; 87040; 87635; 93005; 93306; 93880; 94640; 94664; 94760; 96361; 96365; 96366; 96374; 99285

== ENCOUNTER 2020-10-10 14:21 | Inpatient (IN) | payer MEDICARE ==
[2020-10-10] MEDS ORDERED: SODIUM CHLORIDE 0.9% 500 ML 500 ML IV ONE (14:28)
--- NOTE | 2020-10-10 14:52 | ED ---
General Adult HPI - General Chief complaint: Altered Mental Status Stated complaint: CATE, AFib Time Seen by Provider: 10/10/20 14:35 Source: patient, EMS, RN notes reviewed, old records reviewed Mode of arrival: EMS Limitations: altered mental status - History of Present Illness Initial comments: This is a 70-year-old male who presents to the emergency department from a halfway. Patient was sent in because he is altered mentally. EMS did give Narcan even though no narcotics were known to be given to the patient. He thought that might of had a positive effect on the patient. Patient's oxygenation when they picked him up was in the 70s. Patient eventually put him on a nonrebreather and brought his pulse ox up into the 90s. Patient was only responsive to painful stimuli upon arrival. Patient is unable to give any history no other history is available - Related Data Home Medications Medication Instructions Recorded Confirmed Montelukast [Singulair] 10 mg PO HS 04/14/19 10/10/20 levETIRAcetam [Keppra] 500 mg PO BID 05/31/19 10/10/20 Ipratropium-Albuterol Nebulize 3 ml INHALATION RT-TID PRN 10/06/19 10/10/20 [Duoneb 0.5 mg-3 mg/3 ml Soln] Metoprolol Tartrate [Lopressor] 50 mg PO DAILY 10/06/19 10/10/20 Levothyroxine Sodium [Synthroid] 50 mcg PO DAILY@0600 06/12/20 10/10/20 Magnesium Oxide [Mag-Ox] 400 mg PO DAILY 06/12/20 10/10/20 Sodium Polystyrene Sulfonate 7.5 gm PO Q48H 10/01/20 10/10/20 [Kayexalate] Glucerna Shake 237 ml PO PC-TID 10/10/20 10/10/20 Tamsulosin [Flomax] 0.4 mg PO HS 10/10/20 10/10/20 Venlafaxine HCl ER [Effexor Xr] 37.5 mg PO HS 10/10/20 10/10/20 acetaZOLAMIDE [Diamox] 250 mg PO BID@0600,1400 10/10/20 10/10/20 Previous Rx's Medication Instructions Recorded Apixaban [Eliquis] 5 mg PO BID #60 tab 04/25/19 Isosorbide Mononitrate ER [Imdur] 30 mg PO DAILY #30 tab.er.24h 04/25/19 Atorvastatin Calcium [Lipitor] 20 mg PO HS #1 tab 10/08/20 Melatonin 6 mg PO HS tablet 10/08/20 Mirtazapine [Remeron] 30 mg PO HS tab 10/08/20 Allergies Allergy/AdvReac Type Severity Reaction Status Date / Time No Known Allergies Allergy Verified 10/10/20 15:31 Review of Systems ROS Statement: Those systems with pertinent positive or pertinent negative responses have been documented in the HPI. ROS Other: All systems not noted in ROS Statement are negative. Past Medical History Past Medical History: Atrial Fibrillation, Cancer, Diabetes Mellitus, Hyperlipidemia, Hypertension, Pulmonary Embolus (PE), Seizure Disorder Additional Past Medical History / Comment(s): pt states was told he had a seizure-unknown when. NON SMALL CELL LUNG CANCER. History of Any Multi-Drug Resistant Organisms: None Reported Additional Past Surgical History / Comment(s): COLONOSCOPY. BRONCHOSCOPY Past Anesthesia/Blood Transfusion Reactions: No Reported Reaction Past Psychological History: No Psychological Hx Reported Smoking Status: Former smoker Past Alcohol Use History: None Reported Past Drug Use History: Marijuana - Past Family History Brother(s) Family Medical History: Cancer General Exam - General Exam Comments Initial Comments: GENERAL: Patient is well-developed and well-nourished. Patient is nontoxic and well- hydrated and is in moderate distress. ENT: Neck is soft and supple. No significant lymphadenopathy is noted. Oropharynx is clear. Moist mucous membranes. Neck has full range of motion without eliciting any pain. EYES: The sclera were anicteric and conjunctiva were pink and moist. Extraocular movements were intact and pupils were equal round and reactive to light. Eyelids were unremarkable. PULMONARY: Unlabored respirations. Good breath sounds bilaterally. No audible rales rhonchi or wheezing was noted. CARDIOVASCULAR: There is a regular rate and rhythm without any murmurs gallops or rubs. ABDOMEN: Soft and nontender with normal bowel sounds. SKIN: Skin is clear with no lesions or rashes and otherwise unremarkable. NEUROLOGIC: Patient is awake but not oriented at all. Patient only is responding to some painful stimuli at this time. MUSCULOSKELETAL: Normal extremities with adequate strength and full range of motion. No lower extremity swelling or edema. No calf tenderness. LYMPHATICS: No significant lymphadenopathy is noted PSYCHIATRIC: Unable to assess Limitations: altered mental status Course Vital Signs 10/10/20 10/10/20 10/10/20 14:38 15:14 15:20 Temperature Pulse Rate 103 H 127 H 149 H Respiratory 24 22 22 Rate Blood Pressure 108/90 117/72 140/83 O2 Sat by Pulse 91 L 99 99 Oximetry 10/10/20 10/10/20 10/10/20 15:30 15:40 15:50 Temperature Pulse Rate 126 H 126 H 129 H Respiratory 22 22 22 Rate Blood Pressure 140/83 133/98 127/79 O2 Sat by Pulse 100 99 99 Oximetry 10/10/20 10/10/20 17:01 17:09 Temperature 96.0 F L Pulse Rate 121 H Respiratory 20 20 Rate Blood Pressure 106/83 O2 Sat by Pulse 94 L Oximetry Medical Decision Making - Medical Decision Making EKG shows atrial fibrillation with rapid ventricular response at 123 bpm QRS 112 QT interval 326 QTC is 466. No ST segment elevation. - Lab Data Result diagrams: 10/10/20 14:47 10/10/20 14:47 Lab Results 10/10/20 10/10/20 10/10/20 Range/Units 14:47 14:47 14:47 WBC 4.6 (3.8-10.6) k/uL RBC 3.23 L (4.30-5.90) m/uL Hgb 9.5 L (13.0-17.5) gm/dL Hct 35.0 L (39.0-53.0) % MCV 108.4 H D (80.0-100.0) fL MCH 29.4 (25.0-35.0) pg MCHC 27.1 L (31.0-37.0) g/dL RDW 16.1 H (11.5-15.5) % Plt Count 93 L (150-450) k/uL MPV 11.6 Neutrophils % (Manual) 72 % Lymphocytes % (Manual) 18 % Monocytes % (Manual) 6 % Basophils % (Manual) 1 % Metamyelocytes % 3 % Neutrophils # (Manual) 3.31 (1.3-7.7) k/uL Lymphocytes # (Manual) 0.83 L (1.0-4.8) k/uL Monocytes # (Manual) 0.28 (0-1.0) k/uL Basophils # (Manual) 0.05 (0-0.2) k/uL Metamyelocytes # (Man) 0.14 H (0) k/uL Nucleated RBCs 0 (0-0) /100 WBC Manual Slide Review Performed Large Platelets Present Polychromasia Present Hypochromasia Marked Anisocytosis Slight Macrocytosis Marked A Stomatocytes Present PT 10.3 (9.0-12.0) sec INR 1.0 (<1.2) APTT 27.1 (22.0-30.0) sec Sample Site ABG pH (7.35-7.45) ABG pCO2 (35-45) mmHg ABG pO2 (83-108) mmHg ABG O2 Saturation (94-97) % Saman Test FiO2 % Sodium (137-145) mmol/L Potassium (3.5-5.1) mmol/L Chloride (98-107) mmol/L Carbon Dioxide (22-30) mmol/L Anion Gap mmol/L BUN (9-20) mg/dL Creatinine (0.66-1.25) mg/dL Est GFR (CKD-EPI)AfAm (>60 ml/min/1.73 sqM) Est GFR (CKD-EPI)NonAf (>60 ml/min/1.73 sqM) Glucose (74-99) mg/dL Plasma Lactic Acid Serjio (0.7-2.0) mmol/L Calcium (8.4-10.2) mg/dL Total Bilirubin (0.2-1.3) mg/dL AST (17-59) U/L ALT (4-49) U/L Alkaline Phosphatase (38-126) U/L Troponin I (0.000-0.034) ng/mL Total Protein (6.3-8.2) g/dL Albumin (3.5-5.0) g/dL Urine Color Yellow Urine Appearance Clear (Clear) Urine pH 5.5 (5.0-8.0) Ur Specific Carnation 1.010 (1.001-1.035) Urine Protein 1+ H (Negative) Urine Glucose (UA) Negative (Negative) Urine Ketones Negative (Negative) Urine Blood Negative (Negative) Urine Nitrite Negative (Negative) Urine Bilirubin Negative (Negative) Urine Urobilinogen <2.0 (<2.0) mg/dL Ur Leukocyte Esterase Negative (Negative) Urine RBC 1 (0-5) /hpf Urine WBC 1 (0-5) /hpf Urine Bacteria Rare H (None) /hpf Hyaline Casts 7 H (0-2) /lpf Urine Opiates Screen Detected H (NotDetected) Ur Oxycodone Screen Detected H (NotDetected) Urine Methadone Screen Not Detected (NotDetected) Ur Propoxyphene Screen Not Detected (NotDetected) Ur Barbiturates Screen Not Detected (NotDetected) U Tricyclic Antidepress Not Detected (NotDetected) Ur Phencyclidine Scrn Not Detected (NotDetected) Ur Amphetamines Screen Not Detected (NotDetected) U Methamphetamines Scrn Not Detected (NotDetected) U Benzodiazepines Scrn Not Detected (NotDetected) Urine Cocaine Screen Not Detected (NotDetected) U Marijuana (THC) Screen Detected H (NotDetected) Coronavirus (PCR) (Not Detectd) 10/10/20 10/10/20 10/10/20 Range/Units 14:47 14:47 14:47 WBC (3.8-10.6) k/uL RBC (4.30-5.90) m/uL Hgb (13.0-17.5) gm/dL Hct (39.0-53.0) % MCV (80.0-100.0) fL MCH (25.0-35.0) pg MCHC (31.0-37.0) g/dL RDW (11.5-15.5) % Plt Count (150-450) k/uL MPV Neutrophils % (Manual) % Lymphocytes % (Manual) % Monocytes % (Manual) % Basophils % (Manual) % Metamyelocytes % % Neutrophils # (Manual) (1.3-7.7) k/uL Lymphocytes # (Manual) (1.0-4.8) k/uL Monocytes # (Manual) (0-1.0) k/uL Basophils # (Manual) (0-0.2) k/uL Metamyelocytes # (Man) (0) k/uL Nucleated RBCs (0-0) /100 WBC Manual Slide Review Large Platelets Polychromasia Hypochromasia Anisocytosis Macrocytosis Stomatocytes PT (9.0-12.0) sec INR (<1.2) APTT (22.0-30.0) sec Sample Site ABG pH (7.35-7.45) ABG pCO2 (35-45) mmHg ABG pO2 (83-108) mmHg ABG O2 Saturation (94-97) % Saman Test FiO2 % Sodium 145 (137-145) mmol/L Potassium 4.5 (3.5-5.1) mmol/L Chloride 94 L (98-107) mmol/L Carbon Dioxide 46 H* (22-30) mmol/L Anion Gap 5 mmol/L BUN 24 H (9-20) mg/dL Creatinine 1.70 H (0.66-1.25) mg/dL Est GFR (CKD-EPI)AfAm 47 (>60 ml/min/1.73 sqM) Est GFR (CKD-EPI)NonAf 41 (>60 ml/min/1.73 sqM) Glucose 161 H (74-99) mg/dL Plasma Lactic Acid Serjio 0.5 L (0.7-2.0) mmol/L Calcium 8.7 (8.4-10.2) mg/dL Total Bilirubin 0.4 (0.2-1.3) mg/dL AST 19 (17-59) U/L ALT 50 H (4-49) U/L Alkaline Phosphatase 58 (38-126) U/L Troponin I 0.023 (0.000-0.034) ng/mL Total Protein 6.5 (6.3-8.2) g/dL Albumin 3.7 (3.5-5.0) g/dL Urine Color Urine Appearance (Clear) Urine pH (5.0-8.0) Ur Specific Carnation (1.001-1.035) Urine Protein (Negative) Urine Glucose (UA) (Negative) Urine Ketones (Negative) Urine Blood (Negative) Urine Nitrite (Negative) Urine Bilirubin (Negative) Urine Urobilinogen (<2.0) mg/dL Ur Leukocyte Esterase (Negative) Urine RBC (0-5) /hpf Urine WBC (0-5) /hpf Urine Bacteria (None) /hpf Hyaline Casts (0-2) /lpf Urine Opiates Screen (NotDetected) Ur Oxycodone Screen (NotDetected) Urine Methadone Screen (NotDetected) Ur Propoxyphene Screen (NotDetected) Ur Barbiturates Screen (NotDetected) U Tricyclic Antidepress (NotDetected) Ur Phencyclidine Scrn (NotDetected) Ur Amphetamines Screen (NotDetected) U Methamphetamines Scrn (NotDetected) U Benzodiazepines Scrn (NotDetected) Urine Cocaine Screen (NotDetected) U Marijuana (THC) Screen (NotDetected) Coronavirus (PCR) (Not Detectd) 10/10/20 10/10/20 Range/Units 14:52 15:40 WBC (3.8-10.6) k/uL RBC (4.30-5.90) m/uL Hgb (13.0-17.5) gm/dL Hct (39.0-53.0) % MCV (80.0-100.0) fL MCH (25.0-35.0) pg MCHC (31.0-37.0) g/dL RDW (11.5-15.5) % Plt Count (150-450) k/uL MPV Neutrophils % (Manual) % Lymphocytes % (Manual) % Monocytes % (Manual) % Basophils % (Manual) % Metamyelocytes % % Neutrophils # (Manual) (1.3-7.7) k/uL Lymphocytes # (Manual) (1.0-4.8) k/uL Monocytes # (Manual) (0-1.0) k/uL Basophils # (Manual) (0-0.2) k/uL Metamyelocytes # (Man) (0) k/uL Nucleated RBCs (0-0) /100 WBC Manual Slide Review Large Platelets Polychromasia Hypochromasia Anisocytosis Macrocytosis Stomatocytes PT (9.0-12.0) sec INR (<1.2) APTT (22.0-30.0) sec Sample Site L rad ABG pH 6.97 L* (7.35-7.45) ABG pCO2 >120 H* (35-45) mmHg ABG pO2 182 H (83-108) mmHg ABG O2 Saturation 99.0 H (94-97) % Saman Test Yes FiO2 100 % Sodium (137-145) mmol/L Potassium (3.5-5.1) mmol/L Chloride (98-107) mmol/L Carbon Dioxide (22-30) mmol/L Anion Gap mmol/L BUN (9-20) mg/dL Creatinine (0.66-1.25) mg/dL Est GFR (CKD-EPI)AfAm (>60 ml/min/1.73 sqM) Est GFR (CKD-EPI)NonAf (>60 ml/min/1.73 sqM) Glucose (74-99) mg/dL Plasma Lactic Acid Serjio (0.7-2.0) mmol/L Calcium (8.4-10.2) mg/dL Total Bilirubin (0.2-1.3) mg/dL AST (17-59) U/L ALT (4-49) U/L Alkaline Phosphatase (38-126) U/L Troponin I (0.000-0.034) ng/mL Total Protein (6.3-8.2) g/dL Albumin (3.5-5.0) g/dL Urine Color Urine Appearance (Clear) Urine pH (5.0-8.0) Ur Specific Carnation (1.001-1.035) Urine Protein (Negative) Urine Glucose (UA) (Negative) Urine Ketones (Negative) Urine Blood (Negative) Urine Nitrite (Negative) Urine Bilirubin (Negative) Urine Urobilinogen (<2.0) mg/dL Ur Leukocyte Esterase (Negative) Urine RBC (0-5) /hpf Urine WBC (0-5) /hpf Urine Bacteria (None) /hpf Hyaline Casts (0-2) /lpf Urine Opiates Screen (NotDetected) Ur Oxycodone Screen (NotDetected) Urine Methadone Screen (NotDetected) Ur Propoxyphene Screen (NotDetected) Ur Barbiturates Screen (NotDetected) U Tricyclic Antidepress (NotDetected) Ur Phencyclidine Scrn (NotDetected) Ur Amphetamines Screen (NotDetected) U Methamphetamines Scrn (NotDetected) U Benzodiazepines Scrn (NotDetected) Urine Cocaine Screen (NotDetected) U Marijuana (THC) Screen (NotDetected) Coronavirus (PCR) Not Detected (Not Detectd) Disposition Clinical Impression: Lung cancer, Hypercapnia, Altered mental status, Hypoxia Disposition: ADMITTED IP TO THIS HOSP Referrals: Avelino Gannon MD [Primary Care Provider] - 1-2 days Time of Disposition: 17:24
[2020-10-10 15:05] LABS: Anisocytosis Slight; HGB 9.5 gm/dL (13.0-17.5); Hypochromasia Marked; MCH 29.4 pg (25.0-35.0); MCHC 27.1 g/dL (31.0-37.0); Macrocytosis Marked; Mean Platelet Volume 11.6; RBC 3.23 m/uL (4.30-5.90); RDW 16.1 % (11.5-15.5); WBC 4.6 k/uL (3.8-10.6)
[2020-10-10 15:12] LABS: Appearance,Urine Clear (Clear); Bacteria,Urine Rare /hpf; Bilirubin,Urine Negative (Negative); Blood,Urine Negative (Negative); Color,Urine Yellow; Glucose,Urine (UA) Negative (Negative); Hyaline Casts,Urine 7 /lpf (0-2); Ketones,Urine Negative (Negative); Leukocyte Esterase,Urine Negative (Negative); Nitrite,Urine Negative (Negative); PH, Urine 5.5 (5.0-8.0); Protein,Urine 1+ (Negative); RBC,Urine 1 /hpf (0-5); Urobilinogen,Urine <2.0 mg/dL (<2.0); WBC,Urine 1 /hpf (0-5)
[2020-10-10 15:14] LABS: Albumin 3.7 g/dL (3.5-5.0); Calcium 8.7 mg/dL (8.4-10.2); Potassium 4.5 mmol/L (3.5-5.1); Total Bilirubin 0.4 mg/dL (0.2-1.3); Total Protein 6.5 g/dL (6.3-8.2)
[2020-10-10 15:15] LABS: Amphetamine Screen,Urine Not Detected (NotDetected); Barbiturate Screen,Urine Not Detected (NotDetected); Benzodiazepines Screen,Urine Not Detected (NotDetected); Cocaine Screen,Urine Not Detected (NotDetected); Methadone Screen, Urine Not Detected (NotDetected); Opiate Screen,Urine Detected (NotDetected); Oxycodone Screen, Urine Detected (NotDetected); Phencyclidine Screen,Urine Not Detected (NotDetected); Tricyclic Antidepressant,Urine Not Detected (NotDetected); Urn Cannabinoid Scrn Detected (NotDetected)
[2020-10-10 15:20] LABS: MCV 108.4 fL (80.0-100.0); Partial Thromboplastin Time 27.1 sec (22.0-30.0); Platelet Count 93 k/uL (150-450); Prothrombin Time 10.3 sec (9.0-12.0)
--- NOTE | 2020-10-10 15:24 | CT ---
EXAMINATION TYPE: CT brain wo con DATE OF EXAM: 10/10/2020 HISTORY: altered mental status, history of metastatic lung cancer. CT DLP: 1098.4 mGycm. Automated Exposure Control for Dose Reduction was Utilized. TECHNIQUE: CT scan of the head is performed without contrast. COMPARISON: CT brain October 02, 2020. FINDINGS: There is no acute intracranial hemorrhage or midline shift identified. There is mild diff use ventricular and sulcal prominence consistent with diffuse age-related cerebral atrophy. There is mild low-attenuation in the periventricular white matter consistent with chronic small vessel ischem ic change. The globes are intact and the visualized sinuses are clear. IMPRESSION: No acute intracranial hemorrhage or midline shift. There is mild diffuse age-related ce rebral atrophy and chronic small vessel ischemic change redemonstrated. No significant change from r ecent CT.
--- NOTE | 2020-10-10 15:25 | XR ---
EXAMINATION TYPE: XR chest 1V portable DATE OF EXAM: 10/10/2020 COMPARISON: 10/07/2020 INDICATION: Altered mental status difficulty in breathing TECHNIQUE: Dental view of the obtained. FINDINGS: The heart size is indistinct. The pulmonary vasculature is normal. Mild left lower lobe infiltrate is present There is complete opacification to the right lung. There shift of the mediastinum towards the right. Findings have worsened.. IMPRESSION: 1. There appears to be complete opacification and/or atelectasis of the right lung. 2. Small left basilar infiltrate
[2020-10-10 15:40] LABS: Basophils # (M) 0.05 k/uL (0-0.2); Large Platelets Present; Lymphocytes # (M) 0.83 k/uL (1.0-4.8); Metamyelocytes # (M) 0.14 k/uL (0); Metamyelocytes % 3 %; Monocytes # (M) 0.28 k/uL (0-1.0); Neutrophils # (M) 3.31 k/uL (1.3-7.7); Neutrophils % (M) 72 %; Nucleated Red Blood Cells 0 /100 WBC (0-0); Polychromasia Present; Stomatocytes Present; Total Cells Counted 100
[2020-10-10 15:45] LABS: ABG PO2 182 mmHg (83-108); Allen Test Performed? Yes
[2020-10-10 16:09] LABS: ABG PCO2 >120 mmHg (35-45); ABG PH 6.97 (7.35-7.45)
[2020-10-10] MEDS ORDERED: NALOXONE 0.4 MG/ML 1 ML VIAL IVP STA (16:47)
[2020-10-10] MEDS: SODIUM CHLORIDE 0.9% 1,000 ML IV ONE ×2 (17:39→20:53)
[2020-10-10 18:34] LABS: Glucose,Whole Blood 158 mg/dL (75-99)
[2020-10-10] MEDS ORDERED: SODIUM BICARB 8.4% 50 ML SYR (1 MEQ/ML) IV STA (19:50)
[2020-10-10 19:59] LABS: ABG Oxygen Saturation 97.2 % (94-97); ABG PO2 104 mmHg (83-108); Allen Test Performed? Yes
[2020-10-10] MEDS ORDERED: IPRATROPIUM-ALBUTEROL 3 ML NEB INHALATION PRN (20:01)
[2020-10-10 20:03] LABS: ABG PCO2 >120 mmHg (35-45); ABG PH 7.07 (7.35-7.45)
[2020-10-10] MEDS: DEXTROSE 5% IN WATER 1,000 ML with SODIUM BICARB (1 MEQ/ML) 150 ML IV SCH (20:53)
[2020-10-10] MEDS: levETIRAcetam IV 500 MG in SODIUM CHLORIDE 0.9% 100 ML IVPB SCH (20:53)
[2020-10-10] MEDS ORDERED: MONTELUKAST 10 MG TAB PO SCH (21:00)
[2020-10-10] MEDS ORDERED: MIRTAZAPINE 15 MG TAB PO SCH (21:00)
[2020-10-10] MEDS ORDERED: ATORVASTATIN 20 MG TAB PO SCH (21:00)
[2020-10-10] MEDS ORDERED: TAMSULOSIN 0.4 MG CAP.ER.24H PO SCH (21:00)
--- NOTE | 2020-10-10 22:29 | P.EN ---
Cassi called on this patient for unresponsiveness and hypotension patient 70 year old , with lung cancer, afib on eliquis, DM , seizure disorder he was recently discharged from hospital yesterday 10/09/20 noted that he was sitting in chair, talking, expressing needs and wishes, he was discharged to [place] on 2.5 LPM nasal canula , with plans to follow up with oncology , CT (during that admission )noted mild moderate pericardial effusion and bilateral worse on right pleural effusion today he was sent in from [place], for AMS, and increase oxygen requirement with hypoxemia in the 70s in the ED, he was found in afib with RVR, and CXR showed complete white out of the right lung . ABG showed severe acidosis 6.9 with PCO2 >120 . bicarb 46 and lactic acid 0.5 patient is currently on bipap 13/12 on 100% patient brother has made patient no code , but to pursue full medical measures. on exam , patient is unresponsive, there is already brusing over the sternal area noted. lungs, diminished breath sounds over right side of the lung no leg edema bilaterally pupiles small equal , reactive CT brain no acute pathology blood pressure systolic in 80s, heart rate in 120s patient is hypotensive , unresponsive, with severe respiratory acidosis patient given 1 L normal saline bolus , 2 amps of bicarb and initiated on bicarb drip (150 meq NaHCO3, in 1 L D5%) at a rate of 75 cc/hr continue on normal saline 75 cc /hour interval evaluation , patient still unresponsive heart rate 80s, blood pressure 96/63 , oxygen sat 100% ABG 7.02 , PCO2 >120 case discussed with ICU dr Sanabria . we have limited availability of beds, and patient seems to be terminal , will continue with aggressive resuscitation measures on the step down unit with close monitoring , if patient requires IV pressors , then will transfer to the ICU , otherwise patient is DNI, and will be maintained on the bipap for now. with pulmonary evaluation in AM for possible thoracentesis repeat ABG in 1-2 hours for evaluation prognosis is poor 45 minutes were spent providing critical care service in the care of this complex patient
[2020-10-10] MEDS: APIXABAN 5 MG TAB PO SCH (22:35)
[2020-10-11 01:56] LABS: ABG Oxygen Saturation 93.7 % (94-97); ABG PO2 82 mmHg (83-108); Allen Test Performed? Yes
[2020-10-11 02:03] LABS: ABG PCO2 >120 mmHg (35-45); ABG PH 6.96 (7.35-7.45)
[2020-10-11] MEDS ORDERED: SODIUM BICARB 8.4% 50 ML SYR (1 MEQ/ML) IV STA (03:03)
[2020-10-11] MEDS ORDERED: SODIUM CHLORIDE 0.9% 1,000 ML IV ONE ×2 (04:48→06:08)
[2020-10-11] MEDS ORDERED: LEVOTHYROXINE 50 MCG TAB PO SCH (06:00)
[2020-10-11 06:19] LABS: Glucose,Whole Blood 133 mg/dL (75-99)
--- NOTE | 2020-10-11 06:44 | P.EN ---
Cassi called on this patient for refractory hypotension patient 70 year old , with lung cancer, afib on eliquis, DM , seizure disorder he was recently discharged from hospital yesterday 10/09/20 noted that he was sitting in chair, talking, expressing needs and wishes, he was discharged to [place] on 2.5 LPM nasal canula , with plans to follow up with oncology , CT (during that admission )noted mild moderate pericardial effusion and bilateral worse on right pleural effusion today he was sent in from [place], for AMS, and increase oxygen requirement with hy poxemia in the 70s patient has received a total of 3.5 L of fluids over past 11 hours. his blood pressure improved slightly after midnight , but now seems to have worsen again , with systolic blood pressure in the 60s poor urine output since admission , patient has joseph cath in place with less than 50 cc of urine patient is still unresponsive, per RN , he woke up briefly , ripped off his bipa p mask and for about 30min to an hour, he was moving his arms but did not say anything and was not following commands family was updated, still wants full medical measures at this time, code status is DNI , no code patient unresponsive , on bipap 18/6, BP systolic in the 60s, oxygen sat 99% , patient is warm to the touch (he was hypothermic earlier and we had to actively warm him , however, this has since been discontinued) abd soft lax no leg edema bilaterally lungs, diminished breath sounds on right lung and left base pupiles equal small , reactive ABG done after midnight PH 6.9, PCO2>120 please refer to prior event note, for full workup done upon admission in the ED assessment shock with refractory hypotension JACQUELINE , oliguric acute hypercapnic respiratory failure with chronic hypoxic respiratory failure acute metabolic encephalopathy lung cancer with large right pleural effusion plan to give another bolus of 1 L normal saline discuss with ICU dr Sanabria , possibility of escalating care to the ICU to start IV pressors , Dr Daniele bangura , await call back consider discussion with family , to define goals of care, patient has very poor prognosis continue current supportive care continue with bicarb drip continue with bipap pulmonary to evaluate for thoracentesis 47 minutes were spent in critical care service in the care of this complex patient
[2020-10-11] MEDS: acetaZOLAMIDE 250 MG TAB PO SCH ×2 (07:43→14:18)
[2020-10-11] MEDS: APIXABAN 5 MG TAB PO SCH (07:59)
[2020-10-11 08:20] VITALS: RESP 15
[2020-10-11] MEDS ORDERED: NON FORMULARY DRUG (Glucerna Shake 1 CAN Liquid) PO SCH (08:30)
[2020-10-11] MEDS ORDERED: METOPROLOL TARTRATE 50 MG TAB PO SCH (09:00)
[2020-10-11] MEDS ORDERED: SODIUM POLYSTYRENE SULFONATE 15 GM/60 ML BOTTLE PO SCH (09:00)
[2020-10-11] MEDS ORDERED: ISOSORBIDE MONONITRATE ER 30 MG TAB.ER.24H PO SCH (09:00)
[2020-10-11] MEDS ORDERED: VENLAFAXINE HCL ER 37.5 MG CAP PO SCH (09:00)
[2020-10-11] MEDS: levETIRAcetam IV 500 MG in SODIUM CHLORIDE 0.9% 100 ML IVPB SCH (09:37)
[2020-10-11 11:44] LABS: Glucose,Whole Blood 129 mg/dL (75-99)
[2020-10-11 11:59] VITALS: BP 83/52; PULSE 101; TEMP 97.5
--- NOTE | 2020-10-11 11:59 | P.CNPUL ---
History of Present Illness Consult date: 10/11/20 Reason for consult: dyspnea, abnormal CXR/CT Chief complaint: Altered mental status History of present illness: 70-year-old male patient presents back within 24 hours of discharge from the hospital because of worsening shortness of breath and diminished level of consciousness and unresponsiveness. The patient is known to have non-small cell lung cancer, and he was receiving immunotherapy on outpatient basis. He has hypertension, hyperlipidemia, seizure disorder, diabetes mellitus and previous history of pulmonary embolism. He was doing poorly and he was in the hospital on 10/01/2020 because of increased weakness and falls and at that time his chest x-ray showed near complete opacification of the right lung. I was briefly involved in this case and I reviewed the CAT scan of the chest and this was completed on 10/07/2020. I reviewed the CAT scan a compared to earlier films. There was obvious increasing consolidation of the right lung very highly suggestive of recurrent tumor. There was also better pleural effusions right more than left and the pleural effusion on the right was quite loculated. There was also severe cardiomegaly with small to moderate-sized pericardial effusion. Coronary arteries were calcified. The patient back in was on 40 Celexa by nasal cannula. [facility] to be readmitted yesterday because of altered mentation. The patient was completely unresponsive. Pulse ox was in the low 70s. He was initially on nonrebreather facemask. His blood gas showed severe respiratory acidosis. This patient with a 6.97 with a pCO2 of more than 120 and pO2 of 182. At that time, the patient was fully unresponsive. His chest x-ray showed complete opacification of the right lung. The patient was a DNR/DNI CODE STATUS. He was placed on a BiPAP and the BiPAP currently is at the pressure of 16/8 cm of water with an FiO2 of 100%. Despite this, the patient is able to generate only tidal volumes of 280 and his current respiratory rate is 16. He remains fully unresponsive. Follow-up blood gases that has been obtained over the past 12 hours showed ongoing respiratory acidosis without any improvement in his acid base status. This patient at 6.96 with a pCO2 of more than 120 and pO2 of 82 from this morning. There presentation is highly suspicious for tumor progression and possibly development of a right lung collapse with plural effusion. Current creatinine is at 1.7. Serum bicarb is 46. The patient is not following any commands. Fact he is laying down completely unresponsive to any verbal or painful stimulation. He is CAT scan of the brain that was done during this current admission shows no acute abnormalities. There was mild diffuse age-related atrophy and chronic small vessel ischemic changes. Note that the patient was initially diagnosed having non-small cell lung cancer, metastatic disease on 04/24/2019. Diagnosis establ ished by fine-needle aspirate of the supraclavicular lymph node. At that time the patient also had a small right-sided pleural effusion. He is also known to have COPD, cardiomyopathy with an ejection fraction of 35% and severe pulmonary hypertension, hypertension diabetes mellitus. The patient was initially given systemic chemotherapy and subsequently he was placed on immune therapy. Review of Systems ROS unobtainable: due to mental status Past Medical History Past Medical History: Atrial Fibrillation, Cancer, Diabetes Mellitus, Hyperlipidemia, Hypertension, Pulmonary Embolus (PE), Seizure Disorder Additional Past Medical History / Comment(s): Metastatic squamous cell carcinoma of the lung, COPD, cardiomyopathy with ejection fraction is depressed in the order of 35%, hypertension, diabetes, atrial flutter, remote history of pulmonary embolism, history of atrial flutter maintained on anticoagulation with Eliquis, seizure disorder, hyperlipidemia. History of Any Multi-Drug Resistant Organisms: None Reported Additional Past Surgical History / Comment(s): COLONOSCOPY. BRONCHOSCOPY Past Anesthesia/Blood Transfusion Reactions: No Reported Reaction Past Psychological History: No Psychological Hx Reported Additional Psychological History / Comment(s): Family voices that they have concerns "he is a hermit" "loner" and "has undiagnosed psych issues" Smoking Status: Former smoker Past Alcohol Use History: None Reported Additional Past Alcohol Use History / Comment(s): QUIT SMOKING 2016 Past Drug Use History: Marijuana Additional Drug Use History / Comment(s): USES MARIJUANA DAILY-INSTRUCTED TO REFRAIN FROM USE FOR AT LEAT 24 HOURS PRIOR TO PROCEDURE - Past Family History Brother(s) Family Medical History: Cancer Medications and Allergies Home Medications Medication Instructions Recorded Confirmed Type Montelukast [Singulair] 10 mg PO HS 04/14/19 10/10/20 History Apixaban [Eliquis] 5 mg PO BID #60 tab 04/25/19 10/10/20 Rx Isosorbide Mononitrate ER [Imdur] 30 mg PO DAILY #30 tab.er.24h 04/25/19 10/10/20 Rx levETIRAcetam [Keppra] 500 mg PO BID 05/31/19 10/10/20 History Ipratropium-Albuterol Nebulize 3 ml INHALATION RT-TID PRN 10/06/19 10/10/20 History [Duoneb 0.5 mg-3 mg/3 ml Soln] Metoprolol Tartrate [Lopressor] 50 mg PO DAILY 10/06/19 10/10/20 History Levothyroxine Sodium [Synthroid] 50 mcg PO DAILY@0600 06/12/20 10/10/20 History Magnesium Oxide [Mag-Ox] 400 mg PO DAILY 06/12/20 10/10/20 History Sodium Polystyrene Sulfonate 7.5 gm PO Q48H 10/01/20 10/10/20 History [Kayexalate] Atorvastatin Calcium [Lipitor] 20 mg PO HS #1 tab 10/08/20 10/10/20 Rx Melatonin 6 mg PO HS tablet 10/08/20 10/10/20 Rx Mirtazapine [Remeron] 30 mg PO HS tab 10/08/20 10/10/20 Rx Glucerna Shake 237 ml PO PC-TID 10/10/20 10/10/20 History Tamsulosin [Flomax] 0.4 mg PO HS 10/10/20 10/10/20 History Venlafaxine HCl ER [Effexor Xr] 37.5 mg PO HS 10/10/20 10/10/20 History acetaZOLAMIDE [Diamox] 250 mg PO BID@0600,1400 10/10/20 10/10/20 History Allergies Allergy/AdvReac Type Severity Reaction Status Date / Time No Known Allergies Allergy Verified 10/10/20 15:31 Physical Exam Vitals: Vital Signs Temp Pulse Pulse Resp BP BP Pulse Ox 10/11/20 09:57 78/61 10/11/20 09:06 94 L 10/11/20 08:19 97.6 F 106 H 15 91/49 91 L 10/11/20 08:00 106 H 15 10/11/20 06:00 65/47 10/11/20 04:40 97.4 F L 80 14 76/47 95 10/10/20 23:25 94.7 F L 114 H 14 116/67 97 10/10/20 21:00 97.2 F L 75 14 97/64 99 10/10/20 19:37 89/60 97 10/10/20 19:27 83/52 84 L 10/10/20 18:30 118 H 16 129/77 94 L 10/10/20 17:30 126 H 16 102/50 96 10/10/20 17:09 96.0 F L 121 H 20 106/83 94 L 10/10/20 17:01 20 10/10/20 16:00 130 H 16 127/79 94 L 10/10/20 15:50 129 H 22 127/79 99 10/10/20 15:40 126 H 22 133/98 99 10/10/20 15:30 126 H 22 140/83 100 10/10/20 15:20 149 H 22 140/83 99 10/10/20 15:14 127 H 22 117/72 99 10/10/20 14:38 103 H 24 108/90 91 L Intake and Output 10/10/20 10/11/20 10/11/20 22:59 06:59 14:59 Output Total 50 150 Balance -50 -150 Output: Urine 50 150 Other: Voiding Method Indwelling Catheter Indwelling Catheter Weight 93.5 kg 93.5 kg Clinically unresponsive on BiPAP, comfortable, no agitation, generating volumes of 250-280 mL Head exam was generally normal. There was no scleral icterus or corneal arcus. Mucous membranes were moist. Neck was supple and without jugular venous distension, thyromegaly, or carotid bruits. Carotids were easily palpable bilaterally. There was no adenopathy. Lung examination reveals no breath sounds on the right, diminished breath on the left along with some scattered wheeze Cardiac exam revealed the PMI to be normally situated and sized. The rhythm was regular and no extrasystoles were noted during several minutes of auscultation. The first and second heart sounds were normal and physiologic splitting of the second heart sound was noted. There were no murmurs, rubs, clicks, or gallops. Abdominal exam revealed normal bowel sounds. The abdomen was soft, non-tender, and without masses, organomegaly, or appreciable enlargement of the abdominal aorta. Examination of the extremities revealed easily palpable radial, femoral and pedal pulses. There was no cyanosis, clubbing or edema. Examination of the skin revealed no evidence of significant rashes, suspicious appearing nevi or other concerning lesions. Results - Laboratory Findings CBC and BMP: 10/10/20 14:47 10/10/20 14:47 ABG WBC 4.6 k/uL (3.8-10.6) 10/10/20 14:47 RBC 3.23 m/uL (4.30-5.90) L 10/10/20 14:47 Hgb 9.5 gm/dL (13.0-17.5) L 10/10/20 14:47 Hct 35.0 % (39.0-53.0) L 10/10/20 14:47 MCV 108.4 fL (80.0-100.0) H D 10/10/20 14:47 MCH 29.4 pg (25.0-35.0) 10/10/20 14:47 MCHC 27.1 g/dL (31.0-37.0) L 10/10/20 14:47 RDW 16.1 % (11.5-15.5) H 10/10/20 14:47 Plt Count 93 k/uL (150-450) L 10/10/20 14:47 MPV 11.6 10/10/20 14:47 Neutrophils % (Manual) 72 % 10/10/20 14:47 Lymphocytes % (Manual) 18 % 10/10/20 14:47 Monocytes % (Manual) 6 % 10/10/20 14:47 Basophils % (Manual) 1 % 10/10/20 14:47 Metamyelocytes % 3 % 10/10/20 14:47 Neutrophils # (Manual) 3.31 k/uL (1.3-7.7) 10/10/20 14:47 Lymphocytes # (Manual) 0.83 k/uL (1.0-4.8) L 10/10/20 14:47 Monocytes # (Manual) 0.28 k/uL (0-1.0) 10/10/20 14:47 Basophils # (Manual) 0.05 k/uL (0-0.2) 10/10/20 14:47 Metamyelocytes # (Man) 0.14 k/uL (0) H 10/10/20 14:47 Nucleated RBCs 0 /100 WBC (0-0) 10/10/20 14:47 Manual Slide Review Performed 10/10/20 14:47 Large Platelets Present 10/10/20 14:47 Polychromasia Present 10/10/20 14:47 Hypochromasia Marked 10/10/20 14:47 Anisocytosis Slight 10/10/20 14:47 Macrocytosis Marked A 10/10/20 14:47 Stomatocytes Present 10/10/20 14:47 PT 10.3 sec (9.0-12.0) 10/10/20 14:47 INR 1.0 (<1.2) 10/10/20 14:47 APTT 27.1 sec (22.0-30.0) 10/10/20 14:47 Sample Site rrad 10/11/20 00:25 ABG pH 6.96 (7.35-7.45) L* 10/11/20 00:25 ABG pCO2 >120 mmHg (35-45) H* 10/11/20 00:25 ABG pO2 82 mmHg (83-108) L 10/11/20 00:25 ABG O2 Saturation 93.7 % (94-97) L 10/11/20 00:25 Saman Test Yes 10/11/20 00:25 FiO2 100 % 10/11/20 00:25 Sodium 145 mmol/L (137-145) 10/10/20 14:47 Potassium 4.5 mmol/L (3.5-5.1) 10/10/20 14:47 Chloride 94 mmol/L (98-107) L 10/10/20 14:47 Carbon Dioxide 46 mmol/L (22-30) H* 10/10/20 14:47 Anion Gap 5 mmol/L 10/10/20 14:47 BUN 24 mg/dL (9-20) H 10/10/20 14:47 Creatinine 1.70 mg/dL (0.66-1.25) H 10/10/20 14:47 Est GFR (CKD-EPI)AfAm 47 (>60 ml/min/1.73 sqM) 10/10/20 14:47 Est GFR (CKD-EPI)NonAf 41 (>60 ml/min/1.73 sqM) 10/10/20 14:47 Glucose 161 mg/dL (74-99) H 10/10/20 14:47 POC Glucose (mg/dL) 129 mg/dL (75-99) H 10/11/20 11:33 POC Glu Patient Placement Coordinator ID Pau Manriquez 10/11/20 11:33 Plasma Lactic Acid Serjio 0.5 mmol/L (0.7-2.0) L 10/10/20 14:47 Calcium 8.7 mg/dL (8.4-10.2) 10/10/20 14:47 Total Bilirubin 0.4 mg/dL (0.2-1.3) 10/10/20 14:47 AST 19 U/L (17-59) 10/10/20 14:47 ALT 50 U/L (4-49) H 10/10/20 14:47 Alkaline Phosphatase 58 U/L (38-126) 10/10/20 14:47 Troponin I 0.023 ng/mL (0.000-0.034) 10/10/20 14:47 Total Protein 6.5 g/dL (6.3-8.2) 10/10/20 14:47 Albumin 3.7 g/dL (3.5-5.0) 10/10/20 14:47 Urine Color Yellow 10/10/20 14:47 Urine Appearance Clear (Clear) 10/10/20 14:47 Urine pH 5.5 (5.0-8.0) 10/10/20 14:47 Ur Specific [place] 1.010 (1.001-1.035) 10/10/20 14:47 Urine Protein 1+ (Negative) H 10/10/20 14:47 Urine Glucose (UA) Negative (Negative) 10/10/20 14:47 Urine Ketones Negative (Negative) 10/10/20 14:47 Urine Blood Negative (Negative) 10/10/20 14:47 Urine Nitrite Negative (Negative) 10/10/20 14:47 Urine Bilirubin Negative (Negative) 10/10/20 14:47 Urine Urobilinogen <2.0 mg/dL (<2.0) 10/10/20 14:47 Ur Leukocyte Esterase Negative (Negative) 10/10/20 14:47 Urine RBC 1 /hpf (0-5) 10/10/20 14:47 Urine WBC 1 /hpf (0-5) 10/10/20 14:47 Urine Bacteria Rare /hpf (None) H 10/10/20 14:47 Hyaline Casts 7 /lpf (0-2) H 10/10/20 14:47 Urine Opiates Screen Detected (NotDetected) H 10/10/20 14:47 Ur Oxycodone Screen Detected (NotDetected) H 10/10/20 14:47 Urine Methadone Screen Not Detected (NotDetected) 10/10/20 14:47 Ur Propoxyphene Screen Not Detected (NotDetected) 10/10/20 14:47 Ur Barbiturates Screen Not Detected (NotDetected) 10/10/20 14:47 U Tricyclic Antidepress Not Detected (NotDetected) 10/10/20 14:47 Ur Phencyclidine Scrn Not Detected (NotDetected) 10/10/20 14:47 Ur Amphetamines Screen Not Detected (NotDetected) 10/10/20 14:47 U Methamphetamines Scrn Not Detected (NotDetected) 10/10/20 14:47 U Benzodiazepines Scrn Not Detected (NotDetected) 10/10/20 14:47 Urine Cocaine Screen Not Detected (NotDetected) 10/10/20 14:47 U Marijuana (THC) Screen Detected (NotDetected) H 10/10/20 14:47 Coronavirus (PCR) Not Detected (Not Detectd) 10/10/20 14:52 PT/INR, D-dimer PT 10.3 sec (9.0-12.0) 10/10/20 14:47 INR 1.0 (<1.2) 10/10/20 14:47 Abnormal lab findings: Abnormal Labs 10/10/20 10/10/20 10/10/20 14:30 14:47 14:47 RBC 3.23 L Hgb 9.5 L Hct 35.0 L MCV 108.4 H D MCHC 27.1 L RDW 16.1 H Plt Count 93 L Lymphocytes # (Manual) 0.83 L Metamyelocytes # (Man) 0.14 H Macrocytosis Marked A ABG pH ABG pCO2 ABG pO2 ABG O2 Saturation Chloride Carbon Dioxide BUN Creatinine Glucose POC Glucose (mg/dL) 158 H Plasma Lactic Acid Serjio ALT Urine Protein 1+ H Urine Bacteria Rare H Hyaline Casts 7 H Urine Opiates Screen Detected H Ur Oxycodone Screen Detected H U Marijuana (THC) Screen Detected H 10/10/20 10/10/20 10/10/20 14:47 14:47 15:40 RBC Hgb Hct MCV MCHC RDW Plt Count Lymphocytes # (Manual) Metamyelocytes # (Man) Macrocytosis ABG pH 6.97 L* ABG pCO2 >120 H* ABG pO2 182 H ABG O2 Saturation 99.0 H Chloride 94 L Carbon Dioxide 46 H* BUN 24 H Creatinine 1.70 H Glucose 161 H POC Glucose (mg/dL) Plasma Lactic Acid Serjio 0.5 L ALT 50 H Urine Protein Urine Bacteria Hyaline Casts Urine Opiates Screen Ur Oxycodone Screen U Marijuana (THC) Screen 10/10/20 10/11/20 10/11/20 19:55 00:25 06:18 RBC Hgb Hct MCV MCHC RDW Plt Count Lymphocytes # (Manual) Metamyelocytes # (Man) Macrocytosis ABG pH 7.07 L* 6.96 L* ABG pCO2 >120 H* >120 H* ABG pO2 82 L ABG O2 Saturation 97.2 H 93.7 L Chloride Carbon Dioxide BUN Creatinine Glucose POC Glucose (mg/dL) 133 H Plasma Lactic Acid Serjio ALT Urine Protein Urine Bacteria Hyaline Casts Urine Opiates Screen Ur Oxycodone Screen U Marijuana (THC) Screen 10/11/20 11:33 RBC Hgb Hct MCV MCHC RDW Plt Count Lymphocytes # (Manual) Metamyelocytes # (Man) Macrocytosis ABG pH ABG pCO2 ABG pO2 ABG O2 Saturation Chloride Carbon Dioxide BUN Creatinine Glucose POC Glucose (mg/dL) 129 H Plasma Lactic Acid Serjio ALT Urine Protein Urine Bacteria Hyaline Casts Urine Opiates Screen Ur Oxycodone Screen U Marijuana (THC) Screen - Diagnostic Findings Chest x-ray: image reviewed Assessment and Plan Plan: 1 metastatic squamous cell carcinoma of the lung with a large right hilar mass/ lymphadenopathy, volume loss in the pleural effusion in addition to supracervical lymphadenopathy which has responded nicely to systemic treatment and the patient had some initial response to systemic chemotherapy followed by immune therapy. Subsequently, the patient developed recurrent consolidation of the right upper lobe and there was a consolidating mass causing mass effect on the bronchus intermedius and loculated bilateral pleural effusion more so on the right. The patient currently is presenting with complete opacification of the right lung and the right lung is a much opacified at this point in time which is probably due to volume loss, tumor and pleural effusion. In addition the patient is completely unresponsive and acute hypoxic and hypercapnic respiratory failure. 2 Acute hypoxic and hypercapnic respiratory failure. The patient has severe respiratory acidosis with a pH of 6.9 and a pCO2 of more than 120. 3 Diminished level of consciousness the due to hypercapnia 4 history of atrial fibrillation/flutter maintained on long-term and long-term anticoagulation with Eliquis 5 COPD 6 cardiomyopathy with impaired ejection fraction and second and pulmonary hypertension 7 history of seizure disorder 8 diabetes mellitus 9 hypertension 10 hyperlipidemia 11 chronic metabolic alkalosis 12 multiple thoracic compression deformities of the spine seen on previous evaluations. 13 acute kidney injury with a creatinine of 1.7 Plan Keep BiPAP for now Obviously the patient is unable to generate enough tidal volume and he continues to be an acute hypercapnic respiratory failure with secondary CO2 narcosis. He is a DNR/DNI CODE STATUS. Not a candidate for intubation. Reviewed the computed tomography scan of the chest that was done a few days ago. No role for any further interventions. Obviously, the patient with past from his metastatic non-small cell lung cancer and my recommendations are hospice care. I contacted the brother, and informed them of the above mentioned situation. my recommendations are end-of-life care. Keep the BiPAP for now. Provide IV fluids. Provide supportive care.
[2020-10-11] MEDS ORDERED: MORPHINE SULFATE 2 MG/ML SYRINGE IVP PRN (13:40)
[2020-10-11] MEDS ORDERED: LORazepam 2 MG/ML INJ IV PRN (13:42)
[2020-10-11] MEDS ORDERED: MORPHINE SULFATE 4 MG/ML SYRINGE IVP PRN (13:48)
[2020-10-11] MEDS: DEXTROSE 5% IN WATER 1,000 ML with SODIUM BICARB (1 MEQ/ML) 150 ML IV SCH (14:18)
--- NOTE | 2020-10-11 20:15 | P.HPIM ---
History of Present Illness H&P Date: 10/11/20 Chief Complaint: Short of breath History of presenting complaint: This is a 70-year-old patient, follows with Dr. Genesis Morales. Patient was recently admitted to the hospital from October 01 through October 09." EMS was called out by patient's family. Patient's brother earlier and found the patient on the floor. alert.,short of breath and fell to the floor. Had been rather tired. on home oxygen 2.5 L at all times. Patient was admitted with acute metabolic encephalopathy multifactorial. Had acute kidney injury. Hyperkalemia, suicidal ideation seen by psychiatry. Patient was placed on AcipHex or and Remeron. Also seen by pulmonary who felt that the patient may have had a recurrence office right lung cancer. But because of oral poor physical state they did not feel that this point to do any further intervention. Patient was discharged to the ECF." The left patient is able to talk coat tired. Does not like hospital food. He was sent in from the ECF altered mental status. He was given Narcan with not much help. Patient's oxygenation was in the 70s and the EMS picked him up. He was placed on nonrebreather with a pulse ox in the 90s. In the ER he went into atrial fibrillation with rapid ventricular rate. Initially placed on a BiPAP. Patient's brother had made the patient no code. Patient is unresponsive. Patient kept on BiPAP. Review of systems cannot be obtained as patient is lethargic on the BiPAP Past medical history to include: Atrial fibrillation, diabetes mellitus, hyperlipidemia, hypertension, pulmonary embolism, seizure disorder, non-small cell lung cancer/squamous cell has received radiation treatment and chemotherapy. Congestive heart failure EF of 35-40% and moderate tricuspid regurgitation severe secondary pulmonary hype rtension chronic thoracic spine compression fractures Social history: Lives alone. Stop smoking in 2014. No alcohol. Uses marijuana. Physical examination: VITAL SIGNS: 97.6, 106, 15, 91/49, 91% on BiPAP at 100% GENERAL: BMI 31.3 laying in bed, lethargic EYES: Pupils equal. Conjunctiva normal. HEENT: External appearance of nose and ears normal, NECK: JVD not raised; masses not palpable. HEART: First and second heart sounds are normal; no edema. LUNGS: Respiratory rate increased; ecstasy muscles are working. ABDOMEN: Soft, nontender, liver spleen not palpable, no masses palpable. PSYCH: Unable to assess lethargicl. NEUROLOGICAL: Cranial nerves grossly intact; no facial asymmetry, LYMPHATICS: No lymph nodes palpable in the axilla and neck INVESTIGATIONS, reviewed in the clinical context: ABG pH 6.96 pCO2 120 Po2 82 WBC 4.6 hemoglobin 9.5 platelets 93 potassium 4.5, 46 BUN 24 creatinine 1.7 Coronavirus [PCR]-not detected Urine drug screen positive for opiates, oxycodone, marijuana EKG tracing personally reviewed by me-atrial flutter fibrillation with a rapid ventricular rate Chest x-ray film personally reviewed by [id number] whiteout on the right side Assessment and plan: -Acute hypoxic respiratory failure in a patient with known non-small cell lung cancer with a near whiteout on the right site. Likely from lobar collapse Patient's currently on a BiPAP -Acute metabolic encephalopathy multifactorial Combination of hypoxic encephalopathy and other factors -Acute kidney injury likely ATN Patient's creatinine jumped from 1. 03 up to 1.7 -Non-small cell lung cancer/squamous cell history of chemoradiation. Patient did follow up with Dr. Lora. Repeat bronchoscopy in May 2020 with biopsy and washings were negative. Patient's currently continued on Imfinzi. Patient may need a repeat bronchoscopy with brushings. Repeat computed tomogr aphy scan of the chest in July of this year did show collapse of the right middle lobe. Strong suspicion for recurrence/malignancy persists-recent computed tomography scan of the chest shows progression. Patient was seen by pulmonary in the last admission and they felt nothing more could be offered at this point. -Normocytic anemia likely combination of nutritional and from underlying malig yvette Follow H&H with hydration -Pancytopenia likely from prior chemotherapy -Persistent atrial flutter with uncontrolled atrial presentation Patient has been on eliquis. Lopressor -Diabetes mellitus type 2. Follow Accu-Cheks -Hyperlipidemia Continue with Zocor -Essential hypertension Patient on Cardizem and Lopressor -Seizure disorder Continue with Keppra, seizure precautions. -Hypothyroid Continue with Synthroid -COPD in an ex-smoker Continue with bronchodilators -Recreational marijuana use -Depressive disorder unspecified, likely adjustment disorder Patient on Remeron and Effexor BPH: On Flomax Patient doing rather poorly. Prognosis is poor. Earlier communicated with the pulmonary team. Patient will be appropriate for comfort measures. Patient had been put on bicarbonate and IV fluids bronchodilators Advanced care planning: I spoke to patient's brother over the phone. Was pretty well worse with patient's condition. He agreed that patient's prognosis is rather poor. Plan was to start the patient on comfort measures. This will be done as an inpatient. He did not want the patient to be suffering. Other family members visiting. He'll be coming up to see the patient. No artificial feeding. An end-of-life care was discussed. Questions answered. About 20 minutes was spent for this. Past Medical History Past Medical History: Atrial Fibrillation, Cancer, Diabetes Mellitus, Hyperlipidemia, Hypertension, Pulmonary Embolus (PE), Seizure Disorder Additional Past Medical History / Comment(s): pt states was told he had a seizure-unknown when. NON SMALL CELL LUNG CANCER. History of Any Multi-Drug Resistant Organisms: None Reported Additional Past Surgical History / Comment(s): COLONOSCOPY. BRONCHOSCOPY Past Anesthesia/Blood Transfusion Reactions: No Reported Reaction Past Psychological History: No Psychological Hx Reported Additional Psychological History / Comment(s): Family voices that they have concerns "he is a hermit" "loner" and "has undiagnosed psych issues" Smoking Status: Former smoker Past Alcohol Use History: None Reported Additional Past Alcohol Use History / Comment(s): QUIT SMOKING 2016 Past Drug Use History: Marijuana Additional Drug Use History / Comment(s): USES MARIJUANA DAILY-INSTRUCTED TO REFRAIN FROM USE FOR AT LEAT 24 HOURS PRIOR TO PROCEDURE - Past Family History Brother(s) Family Medical History: Cancer Medications and Allergies Home Medications Medication Instructions Recorded Confirmed Type Montelukast [Singulair] 10 mg PO HS 04/14/19 10/10/20 History Apixaban [Eliquis] 5 mg PO BID #60 tab 04/25/19 10/10/20 Rx Isosorbide Mononitrate ER [Imdur] 30 mg PO DAILY #30 tab.er.24h 04/25/19 10/10/20 Rx levETIRAcetam [Keppra] 500 mg PO BID 05/31/19 10/10/20 History Ipratropium-Albuterol Nebulize 3 ml INHALATION RT-TID PRN 10/06/19 10/10/20 History [Duoneb 0.5 mg-3 mg/3 ml Soln] Metoprolol Tartrate [Lopressor] 50 mg PO DAILY 10/06/19 10/10/20 History Levothyroxine Sodium [Synthroid] 50 mcg PO DAILY@0600 06/12/20 10/10/20 History Magnesium Oxide [Mag-Ox] 400 mg PO DAILY 06/12/20 10/10/20 History Sodium Polystyrene Sulfonate 7.5 gm PO Q48H 10/01/20 10/10/20 History [Kayexalate] Atorvastatin Calcium [Lipitor] 20 mg PO HS #1 tab 10/08/20 10/10/20 Rx Melatonin 6 mg PO HS tablet 10/08/20 10/10/20 Rx Mirtazapine [Remeron] 30 mg PO HS tab 10/08/20 10/10/20 Rx Glucerna Shake 237 ml PO PC-TID 10/10/20 10/10/20 History Tamsulosin [Flomax] 0.4 mg PO HS 10/10/20 10/10/20 History Venlafaxine HCl ER [Effexor Xr] 37.5 mg PO HS 10/10/20 10/10/20 History acetaZOLAMIDE [Diamox] 250 mg PO BID@0600,1400 10/10/20 10/10/20 History Allergies Allergy/AdvReac Type Severity Reaction Status Date / Time No Known Allergies Allergy Verified 10/10/20 15:31 Physical Exam Vitals: Vital Signs Temp Pulse Pulse Resp BP BP Pulse Ox 10/11/20 09:57 78/61 10/11/20 09:06 94 L 10/11/20 08:19 97.6 F 106 H 15 91/49 91 L 10/11/20 08:00 106 H 15 10/11/20 06:00 65/47 10/11/20 04:40 97.4 F L 80 14 76/47 95 10/10/20 23:25 94.7 F L 114 H 14 116/67 97 10/10/20 21:00 97.2 F L 75 14 97/64 99 10/10/20 19:37 89/60 97 10/10/20 19:27 83/52 84 L 10/10/20 18:30 118 H 16 129/77 94 L 10/10/20 17:30 126 H 16 102/50 96 10/10/20 17:09 96.0 F L 121 H 20 106/83 94 L 10/10/20 17:01 20 10/10/20 16:00 130 H 16 127/79 94 L 10/10/20 15:50 129 H 22 127/79 99 10/10/20 15:40 126 H 22 133/98 99 10/10/20 15:30 126 H 22 140/83 100 10/10/20 15:20 149 H 22 140/83 99 10/10/20 15:14 127 H 22 117/72 99 10/10/20 14:38 103 H 24 108/90 91 L Intake and Output 10/10/20 10/11/20 10/11/20 22:59 06:59 14:59 Output Total 50 Balance -50 Output: Urine 50 Other: Voiding Method Indwelling Catheter Indwelling Catheter Weight 93.5 kg 93.5 kg Results CBC & Chem 7: 10/10/20 14:47 10/10/20 14:47 Labs: Abnormal Lab Results - Last 24 Hours (Table) 10/10/20 10/10/20 10/10/20 Range/Units 14:30 14:47 14:47 RBC 3.23 L (4.30-5.90) m/uL Hgb 9.5 L (13.0-17.5) gm/dL Hct 35.0 L (39.0-53.0) % MCV 108.4 H D (80.0-100.0) fL MCHC 27.1 L (31.0-37.0) g/dL RDW 16.1 H (11.5-15.5) % Plt Count 93 L (150-450) k/uL Lymphocytes # (Manual) 0.83 L (1.0-4.8) k/uL Metamyelocytes # (Man) 0.14 H (0) k/uL Macrocytosis Marked A ABG pH (7.35-7.45) ABG pCO2 (35-45) mmHg ABG pO2 (83-108) mmHg ABG O2 Saturation (94-97) % Chloride (98-107) mmol/L Carbon Dioxide (22-30) mmol/L BUN (9-20) mg/dL Creatinine (0.66-1.25) mg/dL Glucose (74-99) mg/dL POC Glucose (mg/dL) 158 H (75-99) mg/dL Plasma Lactic Acid Serjio (0.7-2.0) mmol/L ALT (4-49) U/L Urine Protein 1+ H (Negative) Urine Bacteria Rare H (None) /hpf Hyaline Casts 7 H (0-2) /lpf Urine Opiates Screen Detected H (NotDetected) Ur Oxycodone Screen Detected H (NotDetected) U Marijuana (THC) Screen Detected H (NotDetected) 10/10/20 10/10/20 10/10/20 Range/Units 14:47 14:47 15:40 RBC (4.30-5.90) m/uL Hgb (13.0-17.5) gm/dL Hct (39.0-53.0) % MCV (80.0-100.0) fL MCHC (31.0-37.0) g/dL RDW (11.5-15.5) % Plt Count (150-450) k/uL Lymphocytes # (Manual) (1.0-4.8) k/uL Metamyelocytes # (Man) (0) k/uL Macrocytosis ABG pH 6.97 L* (7.35-7.45) ABG pCO2 >120 H* (35-45) mmHg ABG pO2 182 H (83-108) mmHg ABG O2 Saturation 99.0 H (94-97) % Chloride 94 L (98-107) mmol/L Carbon Dioxide 46 H* (22-30) mmol/L BUN 24 H (9-20) mg/dL Creatinine 1.70 H (0.66-1.25) mg/dL Glucose 161 H (74-99) mg/dL POC Glucose (mg/dL) (75-99) mg/dL Plasma Lactic Acid Serjio 0.5 L (0.7-2.0) mmol/L ALT 50 H (4-49) U/L Urine Protein (Negative) Urine Bacteria (None) /hpf Hyaline Casts (0-2) /lpf Urine Opiates Screen (NotDetected) Ur Oxycodone Screen (NotDetected) U Marijuana (THC) Screen (NotDetected) 10/10/20 10/11/20 10/11/20 Range/Units 19:55 00:25 06:18 RBC (4.30-5.90) m/uL Hgb (13.0-17.5) gm/dL Hct (39.0-53.0) % MCV (80.0-100.0) fL MCHC (31.0-37.0) g/dL RDW (11.5-15.5) % Plt Count (150-450) k/uL Lymphocytes # (Manual) (1.0-4.8) k/uL Metamyelocytes # (Man) (0) k/uL Macrocytosis ABG pH 7.07 L* 6.96 L* (7.35-7.45) ABG pCO2 >120 H* >120 H* (35-45) mmHg ABG pO2 82 L (83-108) mmHg ABG O2 Saturation 97.2 H 93.7 L (94-97) % Chloride (98-107) mmol/L Carbon Dioxide (22-30) mmol/L BUN (9-20) mg/dL Creatinine (0.66-1.25) mg/dL Glucose (74-99) mg/dL POC Glucose (mg/dL) 133 H (75-99) mg/dL Plasma Lactic Acid Serjio (0.7-2.0) mmol/L ALT (4-49) U/L Urine Protein (Negative) Urine Bacteria (None) /hpf Hyaline Casts (0-2) /lpf Urine Opiates Screen (NotDetected) Ur Oxycodone Screen (NotDetected) U Marijuana (THC) Screen (NotDetected) Thrombosis Risk Factor Assmnt - Choose All That Apply Any of the Below Risk Factors Present?: No Other Risk Factors: Yes Each Risk Factor Represents 2 Points: Age 61-74 years Other congenital or acquired thrombophilia - If yes, enter type in comment: No Thrombosis Risk Factor Assessment Total Risk Factor Score: 2 Thrombosis Risk Factor Assessment Level: Low Risk
--- NOTE | 2020-10-11 20:17 | P.DS ---
Providers Date of admission: 10/10/20 17:25 Expected date of discharge: 10/11/20 (Patient ) Attending physician: Shon Flores Consults: 10/10/20 17:25 Consult Physician Urgent Consulting Provider: Nadine Sanabria Consult Reason/Comments: Lung cancer Do you want consulting provider notified?: Yes 10/11/20 03:56 Consult Physician Routine Consulting Provider: Paul Knott Consult Reason/Comments: retention Do you want consulting provider notified?: Yes, Notify in am Primary care physician: [facility] Course: Chief Complaint: Short of breath History of presenting complaint: This is a 70-year-old patient, follows with Dr. Genesis Morales. Patient was recently admitted to the hospital from October 01 through October 09." EMS was called out by patient's family. Patient's brother earlier and found the patient on the floor. alert.,short of breath and fell to the floor. Had been rather tired. on home oxygen 2.5 L at all times. Patient was admitted with acute metabolic encephalopathy multifactorial. Had acute kidney injury. Hyperkalemia, suicidal ideation seen by psychiatry. Patient was placed on AcipHex or and Remeron. Also seen by pulmonary who felt that the patient may have had a recurrence office right lung cancer. But because of oral poor physical state they did not feel that this point to do any further intervention. Patient was discharged to the ECF." The left patient is able to talk coat tired. Does not like hospital food. He was sent in from the ECF altered mental status. He was given Narcan with not much help. Patient's oxygenation was in the 70s and the EMS picked him up. He was placed on nonrebreather with a pulse ox in the 90s. In the ER he went into atrial fibrillation with rapid ventricular rate. Initially placed on a BiPAP. Patient's brother had made the patient no code. Patient is unresponsive. Patient kept on BiPAP. I spoke to patient was on the phone. Patient is made comfort care. Comfort care packing was started. Patient succumbed to the same. Consultation: Dr. Sanabria from pulmonary Past medical history to include: Atrial fibrillation, diabetes mellitus, hyperlipidemia, hypertension, pulmonary embolism, seizure disorder, non-small cell lung cancer/squamous cell has received radiation treatment and chemotherapy. Congestive heart failure EF of 35-40% and moderate tricuspid regurgitation severe secondary pulmonary hypertension chronic thoracic spine compression fractures Social history: Lives alone, currently at [facility], [facility]. Stop smoking in 2014. No alcohol. Uses marijuana. INVESTIGATIONS, reviewed in the clinical context: ABG pH 6.96 pCO2 120 Po2 82 WBC 4.6 hemoglobin 9.5 platelets 93 potassium 4.5, 46 BUN 24 creatinine 1.7 Coronavirus [PCR]-not detected Urine drug screen positive for opiates, oxycodone, marijuana EKG tracing personally reviewed by me-atrial flutter fibrillation with a rapid ventricular rate Chest x-ray film personally reviewed by [id number] whiteout on the right side Cause of : Squamous cell non-small cell lung cancer Additional medical problems: -Acute hypoxic respiratory failure in a patient with known non-small cell lung cancer with a near whiteout on the right site. Likely from lobar collapse Patient's currently on a BiPAP -Acute metabolic encephalopathy multifactorial Combination of hypoxic encephalopathy and other factors -Acute kidney injury likely ATN Patient's creatinine jumped from 1. 03 up to 1.7 -Non-small cell lung cancer/squamous cell history of chemoradiation. Patient did follow up with Dr. Lora. Repeat bronchoscopy in May 2020 with biopsy and washings were negative. Patient's currently continued on Imfinzi. Patient may need a repeat bronchoscopy with brushings. Repeat computed tomography scan of the chest in July of this year did show collapse of the right middle lobe. Strong suspicion for recurrence/malignancy persists-recent computed tomography scan of the chest shows progression. Patient was seen by pulmonary in the last admission and they felt nothing more could be offered at this point. -Normocytic anemia likely combination of nutritional and from underlying malignancy Follow H&H with hydration -Pancytopenia likely from prior chemotherapy -Persistent atrial flutter with uncontrolled atrial presentation Patient has been on eliquis. Lopressor -Diabetes mellitus type 2. Follow Accu-Cheks -Hyperlipidemia Continue with Zocor -Essential hypertension Patient on Cardizem and Lopressor -Seizure disorder Continue with Keppra, seizure precautions. -Hypothyroid Continue with Synthroid -COPD in an ex-smoker Continue with bronchodilators -Recreational marijuana use -Depressive disorder unspecified, likely adjustment disorder Patient on Remeron and Effexor BPH: On Flomax Disposition: Patient Plan - Discharge Summary Discharge Rx Participant: No New Discharge Prescriptions: No Action Montelukast [Singulair] 10 mg PO HS Apixaban [Eliquis] 5 mg PO BID #60 tab Isosorbide Mononitrate ER [Imdur] 30 mg PO DAILY #30 tab.er.24h levETIRAcetam [Keppra] 500 mg PO BID Ipratropium-Albuterol Nebulize [Duoneb 0.5 mg-3 mg/3 ml Soln] 3 ml INHALATION RT-TID PRN PRN Reason: Shortness Of Breath Metoprolol Tartrate [Lopressor] 50 mg PO DAILY Levothyroxine Sodium [Synthroid] 50 mcg PO DAILY@0600 Magnesium Oxide [Mag-Ox] 400 mg PO DAILY Atorvastatin Calcium [Lipitor] 20 mg PO HS #1 tab Mirtazapine [Remeron] 30 mg PO HS tab acetaZOLAMIDE [Diamox] 250 mg PO BID@0600,1400 Sodium Polystyrene Sulfonate [Kayexalate] 7.5 gm PO Q48H Melatonin 6 mg PO HS tablet Glucerna Shake 237 ml PO PC-TID Venlafaxine HCl ER [Effexor Xr] 37.5 mg PO HS Tamsulosin [Flomax] 0.4 mg PO HS Discharge Medication List Montelukast [Singulair] 10 mg PO HS 04/14/19 [History] Apixaban [Eliquis] 5 mg PO BID #60 tab 04/25/19 [Rx] Isosorbide Mononitrate ER [Imdur] 30 mg PO DAILY #30 tab.er.24h 04/25/19 [Rx] levETIRAcetam [Keppra] 500 mg PO BID 05/31/19 [History] Ipratropium-Albuterol Nebulize [Duoneb 0.5 mg-3 mg/3 ml Soln] 3 ml INHALATION RT-TID PRN 10/06/19 [History] Metoprolol Tartrate [Lopressor] 50 mg PO DAILY 10/06/19 [History] Levothyroxine Sodium [Synthroid] 50 mcg PO DAILY@0600 06/12/20 [History] Magnesium Oxide [Mag-Ox] 400 mg PO DAILY 06/12/20 [History] Sodium Polystyrene Sulfonate [Kayexalate] 7.5 gm PO Q48H 10/01/20 [History] Atorvastatin Calcium [Lipitor] 20 mg PO HS #1 tab 10/08/20 [Rx] Melatonin 6 mg PO HS tablet 10/08/20 [Rx] Mirtazapine [Remeron] 30 mg PO HS tab 10/08/20 [Rx] Glucerna Shake 237 ml PO PC-TID 10/10/20 [History] Tamsulosin [Flomax] 0.4 mg PO HS 10/10/20 [History] Venlafaxine HCl ER [Effexor Xr] 37.5 mg PO HS 10/10/20 [History] acetaZOLAMIDE [Diamox] 250 mg PO BID@0600,1400 10/10/20 [History] Follow up Appointment(s)/Referral(s): Avelino Gannon MD [Primary Care Provider] - 1-2 days Discharge Disposition: - Preliminary Cause of Preliminary Cause of : Squamous cell carcinoma of the lung
== END 2020-10-11 16:17 | disposition expired | DRG 189 ==
LOC: EC 14:21 → 3SCARD 17:25
PROVIDERS: ADMIT Hospitalist; ATTEND Hospitalist
PROC: 5A09357 Assistance with Respiratory Ventilation, Less than 24 Consecutive Hours, Continuous Positive Airway Pressure (ICD-10-PCS; principal; 2020-10-10)
DX: J96.21 Acute and chronic respiratory failure with hypoxia (principal); N17.0 Acute kidney failure with tubular necrosis; G93.41 Metabolic encephalopathy; D61.810 Antineoplastic chemotherapy induced pancytopenia; J91.8 Pleural effusion in other conditions classified elsewhere; J98.19 Other pulmonary collapse; C34.91 Malignant neoplasm of unspecified part of right bronchus or lung; E87.2 Acidosis; G93.1 Anoxic brain damage, not elsewhere classified; I42.9 Cardiomyopathy, unspecified; I48.92 Unspecified atrial flutter; M48.54XA Collapsed vertebra, not elsewhere classified, thoracic region, initial encounter for fracture; R57.9 Shock, unspecified; E87.3 Alkalosis; I31.3 Pericardial effusion (noninflammatory); J96.22 Acute and chronic respiratory failure with hypercapnia; I11.0 Hypertensive heart disease with heart failure; I27.29 Other secondary pulmonary hypertension; J44.9 Chronic obstructive pulmonary disease, unspecified; I50.9 Heart failure, unspecified; T68.XXXA Hypothermia, initial encounter; Z51.5 Encounter for palliative care; Z66 Do not resuscitate; Z99.81 Dependence on supplemental oxygen; Z20.822 Contact with and (suspected) exposure to COVID-19; T45.1X5A Adverse effect of antineoplastic and immunosuppressive drugs, initial encounter; D63.0 Anemia in neoplastic disease; Z87.891 Personal history of nicotine dependence; F32.9 Major depressive disorder, single episode, unspecified; E11.9 Type 2 diabetes mellitus without complications; E78.5 Hyperlipidemia, unspecified; F43.20 Adjustment disorder, unspecified; E03.9 Hypothyroidism, unspecified; G40.909 Epilepsy, unspecified, not intractable, without status epilepticus; I07.1 Rheumatic tricuspid insufficiency; I48.91 Unspecified atrial fibrillation; T45.1X5S Adverse effect of antineoplastic and immunosuppressive drugs, sequela; N40.0 Benign prostatic hyperplasia without lower urinary tract symptoms; Z91.81 History of falling; Z79.01 Long term (current) use of anticoagulants; Z79.899 Other long term (current) drug therapy; Z79.890 Hormone replacement therapy; Z86.711 Personal history of pulmonary embolism; Z92.21 Personal history of antineoplastic chemotherapy; Z92.3 Personal history of irradiation; Z60.2 Problems related to living alone; D53.9 Nutritional anemia, unspecified
CPT/HCPCS: 36415; 36600; 70450; 71045; 80053; 80306; 81001; 82805; 83605; 84484; 85025; 85610; 85730; 87040; 87635; 93005; 94660; 96361; 96374; 99285